=== PATIENT | female | born 1935 | race Caucasian/White ===

== ENCOUNTER 2019-05-18 08:03 | Outpatient (RCR) | payer MEDICARE, BC, SELFPAY ==
[2019-02-21 13:04] LABS: INR 2.5; Prothrombin Time 26.1 Seconds (11.1-14.7)
[2019-03-21 10:41] LABS: INR 2.3
[2019-04-19 14:50] LABS: INR 2.6
[2019-05-18 08:28] LABS: INR 2.8; Prothrombin Time 28.7 Seconds (11.1-14.7)
== END 2019-05-22 23:59 | disposition home or self-care (01) ==
LOC: ANHLAB 08:03
PROVIDERS: PCP Internal Medicine; Visit Provider Specialist
DX: Z51.81 Encounter for therapeutic drug level monitoring (principal); I48.20 Chronic atrial fibrillation, unspecified; Z79.01 Long term (current) use of anticoagulants
CPT/HCPCS: 36415; 85610

== ENCOUNTER 2019-06-01 01:32 | Day surgery (SDC) | payer MEDICARE, BC, SELFPAY ==
[2019-05-29 12:25] VITALS: BMI 25.0
[2019-06-01 07:25] VITALS: BMI 24.0
[2019-06-01 07:27] VITALS: BP 183/93; PULSE 76; RESP 18; TEMP 36.1; O2SAT 100
[2019-06-01] MEDS: LACTATED RINGERS 1,000 ML 150 ML IV CONT (07:34)
--- NOTE | 2019-06-01 07:43 | WPDANESEPPF ---
Anes - Initial Pre Proc Eval Procedure: Operation Date: 06/01/19 08:00 Proposed Procedures p Esophagogastroduodenoscopy & Colonoscopy - Davis Lima MD Date/Time: 06/01/19 07:43 Surgeon: Davis Lima MD Pre Op Diagnosis: Blood In Stool Patient Data Age: 84 Gender: F Height: 5 ft 4 in Weight: 63.5 kg Last Vital Signs Temp 97.0 F L 06/01/19 07:27 Pulse 76 06/01/19 07:27 Resp 18 06/01/19 07:27 BP 183/93 H 06/01/19 07:27 Pulse Ox 100 06/01/19 07:27 Allergies Allergy/AdvReac Type Severity Reaction Status Date / Time Sulfa (Sulfonamide Allergy Mild Rash Verified 06/01/19 07:06 Antibiotics) Home Medications Medication Instructions Recorded Confirmed Type biotin 5 mg capsule 10 mg PO DAILY 03/21/19 06/01/19 History bumetanide 1 mg tablet 1 mg PO QAM 03/21/19 06/01/19 History fenofibrate nanocrystallized 48 mg 48 mg PO QAM 03/21/19 06/01/19 History tablet metoprolol tartrate 50 mg tablet 50 mg PO HS 03/21/19 06/01/19 History omeprazole 20 mg capsule,delayed 20 mg PO BID 03/21/19 06/01/19 History release pravastatin 10 mg tablet 10 mg PO HS 03/21/19 06/01/19 History warfarin 2.5 mg tablet 2.5 mg PO HS 03/21/19 06/01/19 History valsartan 80 mg PO HS 05/29/19 06/01/19 History Laboratory Tests 06/01/19 07:08 PT Pending INR Pending APTT Pending Patient hx anesthesia problems: none Family hx anesthesia problems: none PMFSH Past Medical History Medical History (Updated 06/01/19 @ 07:43 by Jose Galindo MD) Anticoagulated on Coumadin Atrial fibrillation Bloating Diarrhea Diverticulitis large intestine Hyperlipidemia Hypertension Melena RADHA (obstructive sleep apnea) Pacemaker Social History Social History Smoking status: Never smoker Second hand tobacco smoke exposure: No Smoking end date: 04/12/85 Alcohol intake: current Anes - Eval Final PreProcedure Day of Procedure 06/01/19 07:43 Patient weight: normal Heart: regular rate and rhythm Lungs: clear to auscultation Airway: Mallampati scale class II Neurological: alert and oriented Last oral intake: >/= 8 hours ASA classification: III Emergent: no Anesthetic plan: proceed Anesthesia type and monitoring: general GIVS and standard monitoring Informed Consent: The patient's anesthetic plan and its attendant risks and benefits were discussed with the patient/family/POA. Questions were solicited and answers provided to the satisfaction of the patient/family/POA.
[2019-06-01 08:05] LABS: INR 1.4
[2019-06-01 08:08] LABS: Partial Thromboplastin Time 33.2 SECONDS (22.3-36.8)
--- NOTE | 2019-06-01 08:30 | PM.HPGS ---
History of Present Illness History of Present Illness Consent: Risks, benefits, and alternatives have been discussed and questions answered. Patient agrees to proceed with procedure. Chief complaint: Blood In Stool Narrative: Liza Rasheed is a 84 year old female with dark stools and change in bowel caliber, she is on coumadin (on hold for 5 days), she had scopes about 10 years ago. Review of Systems Constitutional: Constitutional: Denies headache(s) and Denies weakness Eyes: Eyes: Denies blurry vision ENT: Reports Normal hearing present, Denies headache(s) and Denies neck pain Cardiovascular: Cardiovascular: Denies chest pain and Denies dyspnea Respiratory: Respiratory: Denies dyspnea Gastrointestinal: Gastrointestinal: Reports no additional gastrointestinal complaints Genitourinary: Genitourinary: Denies dysuria Musculoskeletal: Musculoskeletal: Denies neck pain Integumentary/Breasts: Skin/Breast: Denies dry skin Neurologic: Reports Normal hearing present, Denies headache(s) and Denies weakness Psychiatric: Psychiatric: Denies anxiety Endocrine: Endocrine: Denies change in body appearance Allergic/Immunologic: Allergic/Immunologic: Denies urticaria [facility] Past Medical History Medical History (Updated 06/01/19 @ 07:43 by Jose Galindo MD) Anticoagulated on Coumadin Atrial fibrillation Bloating Diarrhea Diverticulitis large intestine Hyperlipidemia Hypertension Melena RADHA (obstructive sleep apnea) Pacemaker Social History Social History Smoking status: Never smoker Second hand tobacco smoke exposure: No Smoking end date: 04/12/85 Alcohol intake: current Meds Home Medications and Allergies Home Medications Medication Instructions Recorded Confirmed Type biotin 5 mg capsule 10 mg PO DAILY 03/21/19 06/01/19 History bumetanide 1 mg tablet 1 mg PO QAM 03/21/19 06/01/19 History fenofibrate nanocrystallized 48 mg 48 mg PO QAM 03/21/19 06/01/19 History tablet metoprolol tartrate 50 mg tablet 50 mg PO HS 03/21/19 06/01/19 History omeprazole 20 mg capsule,delayed 20 mg PO BID 03/21/19 06/01/19 History release pravastatin 10 mg tablet 10 mg PO HS 03/21/19 06/01/19 History warfarin 2.5 mg tablet 2.5 mg PO HS 03/21/19 06/01/19 History valsartan 80 mg PO HS 05/29/19 06/01/19 History Allergies Allergy/AdvReac Type Severity Reaction Status Date / Time Sulfa (Sulfonamide Allergy Mild Rash Verified 06/01/19 07:06 Antibiotics) Vital Signs Vital Signs - 24 hr 06/01/19 07:27 Temperature 97.0 F L Pulse Rate 76 Respiratory Rate 18 Blood Pressure 183/93 H Pulse Oximetry 100 Exam Const: General: comfortable and no acute distress HENMT: General nose exam: Normal nares present Eyes: General: appearance normal, both eyes and all related structures Neck: Neck: no JVD Resp: Auscultation: clear to auscultation bilaterally Cardio: Rate: regular rate Rhythm: regular rhythm GI: Inspection: non-distended GI Palp: Yes Soft to palpation Skin: General skin exam: normal color Neuro: General: gait normal Speech: normal speech Extrem: General: normal to inspection Psych: Mental Status: mental status grossly normal Assessment and Plan Assessment and plan (1) Melena: Code(s): K92.1 - Melena Status: Acute Assessment and Plan: will proceed with egd (2) Bloating: Code(s): R14.0 - Abdominal distension (gaseous) Status: Acute (3) Diarrhea: Qualifiers: Diarrhea type: unspecified type Qualified Code(s): R19.7 - Diarrhea, unspecified Code(s): R19.7 - Diarrhea, unspecified Status: Acute Assessment and Plan: colonoscopy (4) Atrial fibrillation: Qualifiers: Atrial fibrillation type: unspecified Qualified Code(s): I48.91 - Unspecified atrial fibrillation Code(s): I48.91 - Unspecified atrial fibrillation Status:
[2019-06-01 09:05] VITALS: BP 109/61; PULSE 77; RESP 18; O2SAT 96
[2019-06-01 09:15] VITALS: BP 115/65; PULSE 70; RESP 16; O2SAT 98
[2019-06-01 09:25] VITALS: BP 137/78; PULSE 70; RESP 21; O2SAT 100
== END 2019-06-01 09:38 | disposition home or self-care (01) ==
PROVIDERS: PCP Internal Medicine; Visit Provider Internal Medicine Gastroenterology
PROC: 0DJ08ZZ Inspection of Upper Intestinal Tract, Via Natural or Artificial Opening Endoscopic (ICD-10-PCS; CPT 43235; principal; 2019-06-01 08:00)
DX: K92.1 Melena (principal); R19.4 Change in bowel habit; K63.5 Polyp of colon; K57.30 Diverticulosis of large intestine without perforation or abscess without bleeding; K64.8 Other hemorrhoids; K62.89 Other specified diseases of anus and rectum; K64.4 Residual hemorrhoidal skin tags; K29.50 Unspecified chronic gastritis without bleeding; I48.91 Unspecified atrial fibrillation; I10 Essential (primary) hypertension; E78.5 Hyperlipidemia, unspecified; G47.33 Obstructive sleep apnea (adult) (pediatric); Z95.0 Presence of cardiac pacemaker; Z79.01 Long term (current) use of anticoagulants
CPT/HCPCS: 45380; 43239; 36415; 85610; 85730; 88305; 88342; J2704; J7120

== ENCOUNTER 2019-08-14 07:25 | Outpatient (RCR) | payer MEDICARE, BC, SELFPAY ==
[2019-06-08 09:09] LABS: INR 1.3; Prothrombin Time 15.9 Seconds (11.1-14.7)
[2019-06-15 07:42] LABS: INR 1.7; Prothrombin Time 19.6 Seconds (11.1-14.7)
[2019-06-26 08:55] LABS: INR 2.3; Prothrombin Time 24.7 Seconds (11.1-14.7)
[2019-07-18 08:54] LABS: Prothrombin Time 21.8 Seconds (11.1-14.7)
[2019-08-14 08:10] LABS: Prothrombin Time 22.4 Seconds (11.1-14.7)
== END 2019-09-06 23:59 | disposition home or self-care (01) ==
LOC: ANHLAB 07:25
PROVIDERS: PCP Internal Medicine; Visit Provider Specialist
DX: Z51.81 Encounter for therapeutic drug level monitoring (principal); I48.20 Chronic atrial fibrillation, unspecified; Z79.01 Long term (current) use of anticoagulants
CPT/HCPCS: 36415; 85610

== ENCOUNTER 2019-11-14 15:00 | Outpatient (CLI) | payer MEDICARE, BC, SELFPAY ==
[2019-11-14 15:26] LABS: Hematocrit 40.2 % (37.0-47.0); Hemoglobin 13.2 g/dL (12.0-15.0); Mean Corpuscular HGB Conc 32.8 g/dl (32-36); Mean Corpuscular Volume 88.4 fl (80-100); Mean Platelet Volume 9.8 fl (7.4-10.4); Platelet Count Result 200 k/mm3 (150-375); Red Blood Count 4.55 M/mm3 (4.2-5.4)
[2019-11-14 15:38] LABS: Alanine Aminotransferase 14 U/L (4-35); Albumin Level 4.3 g/dL (3.5-5.1); Alkaline Phosphatase 39 U/L (38-126); Anion Gap 12.7 mmol/L (7-16); Aspartate Amino Transferase 27 U/L (14-36); Bilirubin,Total 1.2 mg/dL (0.2-1.3); Blood Urea Nitrogen 26 mg/dL (7-17); Calcium 10.2 mg/dL (8.4-10.2); Carbon Dioxide 29 mmol/L (22-30); Chloride 100 mmol/L (98-107); Cholesterol 171 mg/dL (0-200); Estimated Glomerular Filt Rate 36; Glucose 90 mg/dL (65-105); HDL Direct 55 mg/dL; Potassium 3.7 mmol/L (3.4-5.0); Sodium 138 mmol/L (137-145); Triglycerides 87 mg/dL (<150)
[2019-11-14 15:49] LABS: LDL Cholesterol Direct 93 mg/dL
[2019-11-14 16:09] LABS: Thyroid Stimulating Hormone 0.134 uIU/mL (0.465-4.680)
[2019-11-14 16:50] LABS: Folic Acid > 20.0 ng/mL (2.76->20)
== END 2019-11-14 15:01 | disposition home or self-care (01) ==
PROVIDERS: PCP Physician Assistant; Visit Provider Physician Assistant
DX: E78.5 Hyperlipidemia, unspecified (principal); R53.83 Other fatigue
CPT/HCPCS: 36415; 80053; 80061; 82607; 82746; 84443; 85027

== ENCOUNTER 2019-12-04 11:11 | Outpatient (RCR) | payer MEDICARE, BC, SELFPAY ==
[2019-09-12 07:57] LABS: INR 1.9; Prothrombin Time 21.6 Seconds (11.1-14.7)
[2019-10-10 08:08] LABS: Prothrombin Time 22.3 Seconds (11.1-14.7)
[2019-11-06 10:56] LABS: INR 2.2; Prothrombin Time 23.9 Seconds (11.1-14.7)
[2019-12-04 12:03] LABS: INR 2.1; Prothrombin Time 23.3 Seconds (11.1-14.7)
== END 2019-12-11 23:59 | disposition home or self-care (01) ==
LOC: ANHLAB 11:11
PROVIDERS: PCP Internal Medicine; Visit Provider Specialist
DX: Z51.81 Encounter for therapeutic drug level monitoring (principal); I48.20 Chronic atrial fibrillation, unspecified; Z79.01 Long term (current) use of anticoagulants
CPT/HCPCS: 36415; 85610

== ENCOUNTER 2020-01-10 14:50 | Outpatient (CLI) | payer MEDICARE, BC, SELFPAY ==
--- NOTE | ~2020-01-10 | DEXA_ITS ---
Bone Density Report Name: Liza Rasheed Age: 84 Sex: Female Ethnicity: White Date of : 1935 Indication: postmenopausal osteoporosis; monitoring treatment; height loss; prior fracture; Referring Provider: Kate Ortze Study: Bone densitometry was performed. Exam Date: January 10, 2020 Accession number: [id number] Bone Density: Region BMD T-score Z-score Classification AP Spine (L3, L4) 0.781 -2.9 0.1 Osteoporosis Femoral Neck (Left) 0.495 -3.2 -0.7 Osteoporosis Total Hip (Left) 0.653 -2.4 -0.1 Osteopenia Total Hip Bilateral Avg 0.641 -2.5 -0.2 Osteoporosis Femoral Neck (Right) 0.514 -3.0 -0.5 Osteoporosis Total Hip (Right) 0.628 -2.6 -0.3 Osteoporosis World Health Organization criteria for BMD impression classify patients as: Normal (T-score at or above -1.0), Osteopenia (T-score between -1.0 and -2.5), or Osteoporosis (T-score at or below -2.5). Previous Exams: Region Exam Age BMD T-score BMD Change BMD Change Date g/cm2 vs Baseline vs Previous AP Spine(L3, L4) 01/10/2020 84 0.781 -2.9 -0.043(-5.2%)* 0.033(4.4%)* 06/08/2017 82 0.748 -3.2 -0.076(-9.2%)* -0.076(-9.2%)* 05/20/2015 80 0.824 -2.5 Total Hip(Left) 01/10/2020 84 0.653 -2.4 -0.033(-4.8%)* 0.015(2.4%) 06/08/2017 82 0.638 -2.5 -0.048(-7.0%)* -0.048(-7.0%)* 05/20/2015 80 0.686 -2.1 Total Hip(Right) 01/10/2020 84 0.628 -2.6 -0.014(-2.2%) -0.006(-0.9%) 06/08/2017 82 0.634 -2.5 -0.009(-1.3%) -0.009(-1.3%) 05/20/2015 80 0.642 -2.5 *Denotes significance at 95% confidence level, LSC for AP Spine = 0.022 g/cm2, LSC for Total Hip = 0.027 g/cm2 Clinical Information Provided by Patient: Have had a previous hip or vertebral fracture Has had a low trauma fracture Is being treated for osteoporosis Has used the following medications: Fosamax (i.e. alendronate), Vitamin D Patient maximum height was 66 Menopause Age: 42 No regular weight bearing exercise Onset of menses at age 14 Number of children 6 Impression: The patient has established osteoporosis, based on the Left Femoral Neck T-score and the existence of a prior fracture. The patient has risk factors, including: previous fracture. No significant bone loss was observed. Discussion: PATIENT UNDER TREATMENT WITH NO SIGNIFICANT BMD LOSS SINCE LAST EXAM. In an untreated patient, BMD typically declines with age. A lack of decline or gain is usually a sign that treatment is efficacious and fracture risk is reduced. It is important to ask patients whether they are taking their medications and to encourage continued and appropriate compl
--- NOTE | ~2020-01-10 | US_ITS ---
EXAMINATION: US thyroid DATE: 01/10/2020 15:52 INDICATION: Nontoxic multinodular goiter. TECHNIQUE: Multiple ultrasound images of the thyroid were obtained. COMPARISON: Ultrasound 09/24/2017, 06/23/2013 FINDINGS: The right thyroid lobe measures 2.9 x 1.8 x 1.6 cm. The left thyroid lobe measures 4.0 x 1.8 x 1.5 c m. In the right thyroid isthmus, there is a 1.8 cm solid, hyperechoic, pefef-jpox-tdhm nodule with s mooth margin without echogenic foci (TI-RADS TR3) that measured 1.3 cm on 06/23/2013 and 1.7 cm on 09/10 08/27. In the right thyroid isthmus, there is a 3.3 cm solid, hypoechoic, atcng-ogbz-tjxo nodule with lobulated margin and microcalcifications (TR5). This nodule is stable from 10/29/2017 when biopsy was consistent with benign follicular nodule. In the left thyroid lobe, there is a 1.1 cm solid, hypoecho ic, thcrt-pdgf-skwh nodule with lobulated margin without echogenic foci (TR4). This nodule is stable from 08/22/2013 when biopsy was consistent with benign follicular nodule. IMPRESSION: 1. Multinodular goiter, likely benign. Reviewed, dictated and finalized at location A.
== END 2020-01-10 14:51 | disposition home or self-care (01) ==
PROVIDERS: PCP Physician Assistant; Visit Provider Internal Medicine Endocrinology, Diabetes & Metabolism
DX: M81.0 Age-related osteoporosis without current pathological fracture (principal); E04.2 Nontoxic multinodular goiter
CPT/HCPCS: 76536; 77080

== ENCOUNTER 2020-02-16 13:12 | Outpatient (CLI) | payer MEDICARE, BC, SELFPAY ==
[2020-02-16 14:20] LABS: Thyroid Stimulating Hormone 0.116 uIU/mL (0.465-4.680)
[2020-02-16 15:01] LABS: Free T4 Free Thyroxine 1.93 ng/mL (0.78-2.19)
== END 2020-02-16 13:13 | disposition home or self-care (01) ==
LOC: ANHLAB 13:16
PROVIDERS: PCP Physician Assistant; Visit Provider Internal Medicine Endocrinology, Diabetes & Metabolism
DX: E05.90 Thyrotoxicosis, unspecified without thyrotoxic crisis or storm (principal)
CPT/HCPCS: 36415; 84439; 84443

== ENCOUNTER 2020-03-11 15:18 | Outpatient (RCR) | payer MEDICARE, BC, SELFPAY ==
[2020-01-29 12:55] LABS: INR 2.9
[2020-02-28 16:15] LABS: INR 1.6; Prothrombin Time 19.6 Seconds (11.1-14.7)
[2020-03-11 16:59] LABS: INR 1.9; Prothrombin Time 22.5 Seconds (11.1-14.7)
== END 2020-04-01 23:59 | disposition home or self-care (01) ==
LOC: ANHLAB 15:18
PROVIDERS: PCP Physician Assistant; Visit Provider Specialist
DX: Z51.81 Encounter for therapeutic drug level monitoring (principal); I48.20 Chronic atrial fibrillation, unspecified; Z79.01 Long term (current) use of anticoagulants
CPT/HCPCS: 36415; 85610

== ENCOUNTER 2020-04-01 14:50 | Outpatient (CLI) | payer MEDICARE, BC, SELFPAY ==
[2020-04-01 16:17] LABS: Total Triiodothyronine (T3) 0.92 NG/ML (0.97-1.69)
[2020-04-01 18:48] LABS: Free T4 Free Thyroxine 1.15 ng/mL (0.78-2.19); Vitamin D 25 Hydroxy 68.7 ng/mL
== END 2020-04-01 14:51 | disposition home or self-care (01) ==
PROVIDERS: PCP Internal Medicine; Visit Provider Internal Medicine Endocrinology, Diabetes & Metabolism
DX: M81.0 Age-related osteoporosis without current pathological fracture (principal); E04.1 Nontoxic single thyroid nodule; E05.90 Thyrotoxicosis, unspecified without thyrotoxic crisis or storm
CPT/HCPCS: 36415; 82306; 84439; 84443; 84480

== ENCOUNTER 2020-04-24 11:45 | Outpatient (CLI) | payer MEDICARE, BC, SELFPAY ==
[2020-04-24 12:38] LABS: Hematocrit 37.7 % (37.0-47.0); Hemoglobin 12.5 g/dL (12.0-15.0); Mean Corpuscular HGB Conc 33.2 g/dl (32-36); Mean Corpuscular Hemoglobin 29.1 pg (26-34); Mean Corpuscular Volume 87.9 fl (80-100); Mean Platelet Volume 10.3 fl (7.4-10.4); Platelet Count Result 171 k/mm3 (150-375); Red Blood Count 4.29 M/mm3 (4.2-5.4); Red Cell Distribution Width 15.4 % (11.5-14.5)
[2020-04-24 12:51] LABS: Alanine Aminotransferase 15 U/L (4-35); Albumin Level 4.2 g/dL (3.5-5.1); Alkaline Phosphatase 88 U/L (38-126); Anion Gap 6 mmol/L (8-16); Aspartate Amino Transferase 31 U/L (14-36); Bilirubin,Total 1.2 mg/dL (0.2-1.3); Blood Urea Nitrogen 24 mg/dL (7-17); Carbon Dioxide 30 mmol/L (22-30); Chloride 102 mmol/L (98-107); Cholesterol 166 mg/dL (0-200); Estimated Glomerular Filt Rate 43; Glucose 98 mg/dL (65-105); HDL Direct 58 mg/dL; Potassium 3.6 mmol/L (3.4-5.0); Sodium 138 mmol/L (137-145); Triglycerides 99 mg/dL (<150)
[2020-04-24 13:02] LABS: LDL Cholesterol Direct 78 mg/dL
[2020-04-24 13:58] LABS: Folic Acid > 20.0 ng/mL (2.76->20)
== END 2020-04-24 11:46 | disposition home or self-care (01) ==
LOC: ANHLAB 11:47
PROVIDERS: PCP Physician Assistant; Visit Provider Physician Assistant
DX: R53.83 Other fatigue (principal); E78.5 Hyperlipidemia, unspecified
CPT/HCPCS: 36415; 80053; 80061; 82607; 82746; 85027

== ENCOUNTER 2020-07-02 14:37 | Outpatient (RCR) | payer MEDICARE, BC, SELFPAY ==
[2020-04-08 15:36] LABS: INR 2.2; Prothrombin Time 25.3 Seconds (11.1-14.7)
[2020-05-06 14:27] LABS: Prothrombin Time 23.1 Seconds (11.1-14.7)
[2020-06-04 13:31] LABS: INR 2.6; Prothrombin Time 28.6 Seconds (11.1-14.7)
[2020-07-02 15:33] LABS: INR 2.3; Prothrombin Time 25.6 Seconds (11.1-14.7)
== END 2020-07-07 23:59 | disposition home or self-care (01) ==
LOC: ANHLAB 14:37
PROVIDERS: PCP Internal Medicine; Visit Provider Specialist
DX: Z51.81 Encounter for therapeutic drug level monitoring (principal); I48.91 Unspecified atrial fibrillation; Z79.01 Long term (current) use of anticoagulants
CPT/HCPCS: 36415; 85610

== ENCOUNTER 2020-07-22 13:33 | Outpatient (CLI) | payer MEDICARE, BC, SELFPAY ==
[2020-07-22 16:48] LABS: Free T4 Free Thyroxine 0.32 ng/mL (0.78-2.19); Vitamin D 25 Hydroxy 69.5 ng/mL
[2020-07-22 16:52] LABS: Total Triiodothyronine (T3) 0.99 NG/ML (0.97-1.69)
[2020-07-22 17:08] LABS: Thyroid Stimulating Hormone > 100.000 uIU/mL (0.465-4.680)
== END 2020-07-22 13:34 | disposition home or self-care (01) ==
LOC: ANHWCLAB 13:38
PROVIDERS: PCP Physician Assistant; Visit Provider Internal Medicine Endocrinology, Diabetes & Metabolism
DX: E04.1 Nontoxic single thyroid nodule (principal); E05.90 Thyrotoxicosis, unspecified without thyrotoxic crisis or storm; M81.0 Age-related osteoporosis without current pathological fracture
CPT/HCPCS: 36415; 82306; 84439; 84443; 84480

== ENCOUNTER 2020-08-26 07:28 | Outpatient (CLI) | payer MEDICARE, BC, SELFPAY ==
[2020-08-26 09:13] LABS: Total Triiodothyronine (T3) 0.83 NG/ML (0.97-1.69)
[2020-08-26 11:59] LABS: Free T4 Free Thyroxine 2.63 ng/mL (0.78-2.19)
== END 2020-08-26 07:29 | disposition home or self-care (01) ==
PROVIDERS: PCP Physician Assistant; Visit Provider Internal Medicine Endocrinology, Diabetes & Metabolism
DX: E03.9 Hypothyroidism, unspecified (principal)
CPT/HCPCS: 36415; 84439; 84443; 84480

== ENCOUNTER 2020-09-23 15:27 | Outpatient (CLI) | payer MEDICARE, BC, SELFPAY ==
[2020-09-23 16:33] LABS: Total Triiodothyronine (T3) 0.83 NG/ML (0.97-1.69)
[2020-09-23 17:02] LABS: Free T4 Free Thyroxine 2.63 ng/mL (0.78-2.19)
== END 2020-09-23 15:28 | disposition home or self-care (01) ==
PROVIDERS: PCP Physician Assistant; Visit Provider Internal Medicine Endocrinology, Diabetes & Metabolism
DX: E03.9 Hypothyroidism, unspecified (principal)
CPT/HCPCS: 36415; 84439; 84443; 84480

== ENCOUNTER 2020-10-23 12:03 | Outpatient (RCR) | payer MEDICARE, BC, SELFPAY ==
[2020-07-29 15:04] LABS: INR 2.1; Prothrombin Time 24.4 Seconds (11.1-14.7)
[2020-08-26 08:29] LABS: INR 2.4; Prothrombin Time 26.6 Seconds (11.1-14.7)
[2020-09-23 16:07] LABS: INR 2.8; Prothrombin Time 29.8 Seconds (11.1-14.7)
[2020-10-23 12:42] LABS: Prothrombin Time 29.9 Seconds (11.1-14.7)
== END 2020-10-27 23:59 | disposition home or self-care (01) ==
LOC: ANHLAB 12:03
PROVIDERS: PCP Physician Assistant; Visit Provider Specialist
DX: Z51.81 Encounter for therapeutic drug level monitoring (principal); I48.91 Unspecified atrial fibrillation; Z79.01 Long term (current) use of anticoagulants
CPT/HCPCS: 36415; 84439; 84443; 84480; 85610

== ENCOUNTER 2020-12-25 07:55 | Outpatient (CLI) | payer MEDICARE, SELFPAY ==
--- NOTE | 2020-12-28 22:07 | WPDSLEEPSTUD ---
Sleep Study Date of Study: 12/25/20 Ordering Provider: Thien Wallace PA-C Interpreting Physician: Adriana Urban MD Sleep Study Type: Split Polysomnogram Height: 1.65 m Weight: 72.91 kg Body Mass Index: 26.7 Neck Circumference (inches): 14 Hoffman: 0 Reason for Sleep Study Not sleeping well at night, feeling tired in the day Sleep History Liza Rasheed is an 85 year old female who has complaints of sleeping poorly at night and feeling tired during the day. She previously wore CPAP. She occasionally awakens from sleep feeling short of breath. She does not awaken at night with heartburn, belching or coughing. She rarely snores but when she does it is very loud. Others complain about it. She rarely has trouble sleeping with a cold. She constantly gasps for breath during the night. She rarely has breathing problems at night observed by others. She constantly sweats excessively at night. She rarely notices her heart pounding or beating irregularly at night. She does not fall asleep during the day, does not fall asleep involuntarily and does not fall asleep while driving. She occasionally has loss of muscle tone with strong emotion. She does not have daytime difficulties due to excessive sleepiness. She constantly feels paralyzed on waking or falling asleep. She occasionally has vivid dreamlike scenes upon awakening or falling asleep. She does not feel afraid to go to sleep. She does not have nightmares. She occasionally remembers her dreams. She frequently has racing thoughts. She frequently feels sad or depressed. She constantly has anxiety. She does not have muscular tension, does not notice parts of her body jerking and she does not kick at night. She does not have crawling or aching feelings in her legs, does not have any kind of leg pain at night. She denies morning jaw pain and denies grinding her teeth during sleep. She constantly is bothered by pain during the day. She is not awakened by pain at night. She does not wake up feeling stiff in the morning. She does not wake up with sore achy muscles or pain in the neck and spine. She has fatigue, palpitations and insomnia. Normal bedtime is 8:30 p.m. taking 1/2 hour to fall asleep typically waking once at night. She wakes in the morning at 6:30 a.m.. On the weekends, she goes to bed at 9:00 p.m. also wakes at 6:30 a.m. in the morning. She estimates getting between 4 and 5 hours of sleep at night. She does not take naps in the afternoon or evening. A short nap is not refreshing. She is tired in the morning for 3 hours or longer. Habits: Former smoker. Caffeine 1 cup a day. Alcohol 1 beverage at 4:00 p.m.. [facility] Past Medical History Medical History Anticoagulated on Coumadin Atrial fibrillation Bloating Diarrhea Diverticulitis large intestine Hyperlipidemia Hypertension Melena RADHA (obstructive sleep apnea) Pacemaker SOB (shortness of breath) Thyroid disease Visual loss, both eyes Family History Family History Sibling Patient's brother is in good health Family history of arthritis Mother Patient's mother is Father Cerebrovascular accident Other Family history of heart disease in male family member before age 55 Hypertension Social History Social History Smoking packs per day: 0.5 Smoking cigarettes per day: 10.0 Years smoked: 1 Smoking pack-years: 0.50 Smoking status: Former smoker Tobacco type: cigarettes Second hand tobacco smoke exposure: No Smoking end date: 04/12/85 Alcohol intake: current Substance use: never Spiritual care concerns: No Medications Home Medications Medication Instructions Recorded Confirmed Type biotin 5 mg capsule 10 mg PO DAILY 03/21/19 12/19/20 History bumetanide 1 mg tablet 1 mg PO QA
[2021-01-03 13:57] VITALS: BMI 26.7
== END 2020-12-26 06:49 | disposition home or self-care (01) ==
LOC: ANHCSM 07:56
PROVIDERS: PCP Physician Assistant; Visit Provider Physician Assistant
DX: G47.30 Sleep apnea, unspecified (principal)
CPT/HCPCS: 95811

== ENCOUNTER 2021-02-17 09:51 | Outpatient (CLI) | payer MEDICARE, BC, SELFPAY ==
[2021-02-17 10:54] LABS: Anion Gap 7 mmol/L (8-16); Blood Urea Nitrogen 24 mg/dL (7-17); Calcium 10.5 mg/dL (8.4-10.2); Carbon Dioxide 32 mmol/L (22-30); Chloride 103 mmol/L (98-107); Estimated Glomerular Filt Rate 53; Glucose 93 mg/dL (65-110); Potassium 2.8 mmol/L (3.4-5.0); Sodium 142 mmol/L (137-145)
== END 2021-02-17 09:52 | disposition home or self-care (01) ==
LOC: ANHLAB 09:55
PROVIDERS: PCP Physician Assistant; Visit Provider Physician Assistant
DX: R53.83 Other fatigue (principal)
CPT/HCPCS: 36415; 80048

== ENCOUNTER 2021-02-17 09:58 | Outpatient (RCR) | payer MEDICARE, SELFPAY ==
[2020-11-19 14:22] LABS: Prothrombin Time 30.1 Seconds (11.1-14.7)
[2020-12-18 16:09] LABS: INR 2.5; Prothrombin Time 26.4 Seconds (11.1-14.7)
[2021-01-16 10:24] LABS: INR 3.5; Prothrombin Time 33.7 Seconds (11.1-14.7)
[2021-01-23 08:39] LABS: INR 2.1; Prothrombin Time 23.3 Seconds (11.1-14.7)
[2021-02-17 11:00] LABS: INR 1.8; Prothrombin Time 20.8 Seconds (11.1-14.7)
== END 2021-02-17 23:59 | disposition home or self-care (01) ==
LOC: ANHLAB 09:58
PROVIDERS: PCP Physician Assistant; Visit Provider Specialist
DX: Z51.81 Encounter for therapeutic drug level monitoring (principal); I48.91 Unspecified atrial fibrillation; Z79.01 Long term (current) use of anticoagulants
CPT/HCPCS: 36415; 80048; 85610

== ENCOUNTER 2021-03-04 08:40 | Outpatient (CLI) | payer MEDICARE, BC, SELFPAY ==
[2021-03-04 09:25] LABS: Anion Gap 9 mmol/L (8-16); Blood Urea Nitrogen 47 mg/dL (7-17); Calcium 10.9 mg/dL (8.4-10.2); Carbon Dioxide 29 mmol/L (22-30); Chloride 101 mmol/L (98-107); Estimated Glomerular Filt Rate 29; Glucose 105 mg/dL (65-110); Sodium 139 mmol/L (137-145)
== END 2021-03-04 08:41 | disposition home or self-care (01) ==
PROVIDERS: PCP Physician Assistant; Visit Provider Physician Assistant
DX: E87.6 Hypokalemia (principal)
CPT/HCPCS: 36415; 80048

== ENCOUNTER 2021-03-08 08:39 | Emergency (ER) | payer MEDICARE, BC, SELFPAY ==
--- NOTE | ~2021-03-08 | XR_ITS ---
EXAMINATION: XR ribs LT 2V w CXR 2V INDICATION: Left chest pain TECHNIQUE: PA and lateral views of the chest and 3 views of the left ribs were obtained. COMPARISON: 11/13/2014 FINDINGS: The lungs are free of acute opacities. There is no pleural effusion or pneumothorax. Cardio megaly is noted. A triple lead cardiac pacemaker of the left chest wall ends with leads in expected l ocations. There are acute nondisplaced fractures at the anterolateral aspect of the left seventh and eighth ribs. Chronic thoracic compression fractures are not significantly changed. IMPRESSION: 1. Acute, nondisplaced fractures of the left seventh and eighth ribs. 2. Cardiomegaly. Reviewed, dictated and finalized at location A. [employer] WORK[employer]
[2021-03-08 08:49] VITALS: BP 168/98; PULSE 75; RESP 18; O2SAT 99
[2021-03-08] MEDS: MORPHINE SULFATE (*CRX) 2 MG/ML INJ IV PUSH (09:37)
[2021-03-08 09:38] LABS: Basophils Percent Auto 0.3 % (0.2-1.2); Eosinophils Absolute Auto 0.2 K/mm3 (0-0.3); Eosinophils Percent Auto 2.1 % (0-4.4); Hematocrit 38.8 % (37.0-47.0); Hemoglobin 12.3 g/dL (12.0-15.0); Immature Granulocyte Absolute 0.04 K/mm3 (0.00-0.031); Immature Granulocyte Percent A 0.5 % (0-0.5); Lymphocytes Percent Auto 15.5 % (18.3-44.2); Mean Corpuscular HGB Conc 31.7 g/dl (32-36); Mean Corpuscular Hemoglobin 26.7 pg (26-34); Mean Corpuscular Volume 84.3 fl (80-100); Mean Platelet Volume 11.1 fl (7.4-10.4); Monocytes Absolute Auto 0.8 K/mm3 (0.1-0.6); Monocytes Percent Auto 10.9 % (2.6-8.5); Neutrophils Absolute Auto 5.5 K/mm3 (1.3-6.7); Neutrophils Percent Auto 70.7 % (45.5-73.1); Platelet Count Result 201 k/mm3 (150-375); Red Cell Distribution Width 16.9 % (11.5-14.5); White Blood Count 7.7 K/mm3 (4.5-10.0)
[2021-03-08 09:49] LABS: INR 3.6; Prothrombin Time 34.6 Seconds (11.1-14.7)
[2021-03-08 09:53] LABS: Alanine Aminotransferase 22 U/L (4-35); Albumin Level 4.4 g/dL (3.5-5.1); Alkaline Phosphatase 79 U/L (38-126); Anion Gap 9 mmol/L (8-16); Aspartate Amino Transferase 46 U/L (14-36); Bilirubin,Total 1.3 mg/dL (0.2-1.3); Blood Urea Nitrogen 49 mg/dL (7-17); Calcium 10.1 mg/dL (8.4-10.2); Carbon Dioxide 24 mmol/L (22-30); Chloride 102 mmol/L (98-107); Estimated CRCL calculation 23 ml/min; Estimated Glomerular Filt Rate 36; Glucose 117 mg/dL (65-110); Lipase 262 U/L (23-300); Potassium 4.7 mmol/L (3.4-5.0); Sodium 135 mmol/L (137-145)
[2021-03-08 10:37] LABS: Add Urine Microscopic? NO; Appearance Urine Clear (Clear); Bilirubin Urine Negative (Negative); Blood Urine Negative (Negative); Color Urine Yellow (Yellow); Glucose Urine UA Negative (Negative); Ketones Urine Negative (Negative); Leukocyte Esterase Ur Negative LEU/UL (Negative); Nitrate Urine Negative (Negative); Protein Urine Negative (Negative); Specific Grav Ur 1.009 (1.001-1.035); Urobilinogen Urine Negative mg/dL (<2.0)
--- NOTE | 2021-03-08 10:48 | ED.GENADULT ---
HPI - General Adult General Chief complaint: Abdominal Pain Stated complaint: left flank pain Time Seen by Provider: 03/08/21 08:51 History of Present Illness HPI narrative: Patient is an 85-year-old female who presents to the ER with left-sided flank pain. Ongoing for a week. Worse with physical movements and bending and twisting. No difficulty breathing. Initially denied any trauma but does think she hit her side on a table at some point in the last week or 2 but was not concerned about it. No bruising. She is on a blood thinner. She also takes a diuretic. No fevers or chills or sweats. No productive cough. Related Data Home Medications Medication Instructions Recorded Confirmed bumetanide 1 mg tablet 2 mg PO BID tablet 02/24/21 cholecalciferol (vitamin D3) 25 mcg PO DAILY 02/24/21 02/24/21 [Vitamin D3] fenofibrate nanocrystallized 48 mg PO DAILY 02/24/21 02/24/21 irbesartan 75 mg PO DAILY 02/24/21 02/24/21 levothyroxine 50 mcg PO DAILY 02/24/21 02/24/21 levothyroxine 75 mcg PO DAILY 02/24/21 02/24/21 methimazole 5 mg PO DAILY 02/24/21 02/24/21 metoprolol succinate 50 mg PO DAILY 02/24/21 02/24/21 multivitamin-calcium carb-iron 1 tablet PO DAILY 02/24/21 02/24/21 [Nature's Bounty 1] omeprazole 20 mg PO DAILY 02/24/21 02/24/21 pravastatin 10 mg PO DAILY 02/24/21 02/24/21 valsartan 80 mg PO DAILY 02/24/21 02/24/21 warfarin 7.5 mg PO DAILY 02/24/21 02/24/21 Allergies Allergy/AdvReac Type Severity Reaction Status Date / Time Sulfa (Sulfonamide Allergy Mild Rash Verified 02/24/21 11:40 Antibiotics) Review of Systems Review of Systems: All systems reviewed & are unremarkable except as noted in HPI and below Constitutional: Constitutional: Denies chills, Denies fever(s) and Denies weakness Cardiovascular: Cardiovascular: Denies chest pain, Denies rapid heart rate and Denies radiating jaw, neck or arm pain Respiratory: Respiratory: Denies cough, Denies dyspnea and Denies wheezing Gastrointestinal: Gastrointestinal: Denies abdominal pain, Denies nausea and Denies vomiting Genitourinary: Genitourinary: Denies hematuria, Denies nocturia, Denies dysuria and Reports flank pain Musculoskeletal: Musculoskeletal: Denies back pain, Denies arthralgias, Denies joint swelling and Denies muscle cramps PMF Past Medical History Medical History (Updated 03/08/21 @ 10:55 by Michael Salinas MD) Anticoagulated on Coumadin Atrial fibrillation Bloating Diarrhea Diverticulitis large intestine Hyperlipidemia Hypertension Melena RADHA (obstructive sleep apnea) SOB (shortness of breath) Thyroid disease Visual loss, both eyes Surgical History Surgical History (Updated 03/08/21 @ 10:52 by Michael Salinas MD) Pacemaker Family History Family History Sibling Patient's brother is in good health Family history of arthritis Mother Patient's mother is Father Cerebrovascular accident Other Family history of heart disease in male family member before age 55 Hypertension Social History Social History Smoking packs per day: 0.5 Smoking cigarettes per day: 10.0 Years smoked: 1 Smoking pack-years: 0.50 Smoking status: Former smoker Tobacco type: cigarettes Second hand tobacco smoke exposure: No Smoking end date: 04/12/85 Alcohol intake: current Substance use: never Spiritual care concerns: No Exam Narrative: GENERAL: Well-appearing, well-nourished, and in no acute distress. HEAD: Normocephalic, atraumatic. CHEST: Clear to auscultation. No respiratory distress. TTP left lower chest wall midaxillary line, no brusing/crepitus. HEART: Regular rate and rhythm. Normal peripheral pulses. ABDOMEN: Soft, nontender, nondistended. EXTREMITIES: Normal range of motion. No edema. SKIN: Warm, dry, no rash. NEURO: Alert and oriented x3. PSYCH:
[2021-03-08 11:19] VITALS: BP 159/76; PULSE 78; RESP 16; O2SAT 96
== END 2021-03-08 11:19 | disposition home or self-care (01) ==
PROVIDERS: Emergency Provider Emergency Medicine; PCP Physician Assistant
DX: S22.42XA Multiple fractures of ribs, left side, initial encounter for closed fracture (principal); Z79.01 Long term (current) use of anticoagulants; E78.5 Hyperlipidemia, unspecified; I10 Essential (primary) hypertension; G47.33 Obstructive sleep apnea (adult) (pediatric); E07.9 Disorder of thyroid, unspecified; Z95.0 Presence of cardiac pacemaker; I48.91 Unspecified atrial fibrillation; I51.7 Cardiomegaly; W22.03XA Walked into furniture, initial encounter
CPT/HCPCS: 36415; 71046; 71100; 80053; 81003; 83690; 85025; 85610; 96374; 99284; J2270

== ENCOUNTER 2021-03-12 14:28 | Outpatient (CLI) | payer MEDICARE, BC, SELFPAY ==
--- NOTE | ~2021-03-12 | XR_ITS ---
EXAMINATION: XR hip LT min 3V w AP pelvis EXAM DATE: 03/12/2021 15:23 INDICATION: M25.552 - Pain in left hip. TECHNIQUE: Left hip frontal, crosstable lateral and 'frog-leg' projections for interpretation. Fronta l projection pelvis. Comparison is made to prior examination from 08/15/2012. FINDINGS: Smooth left hip femoral head contour, no radiographic evidence of avascular necrosis. Ther e is mild to moderate symmetric bilateral hip primary osteoarthritis. There is rather coarse trabecu lar pattern to the left acetabulum, probable Paget's disease. There are no acute fractures identified . Calcifications in the pelvis are believed to be phleboliths. IMPRESSION: 1. 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 2. Mild to moderate bilateral hip osteoarthritis. Reviewed, dictated and finalized at location A. [employer] ME[employer]IC
== END 2021-03-12 14:29 | disposition home or self-care (01) ==
LOC: ANHIMG 14:31
PROVIDERS: PCP Physician Assistant; Visit Provider Physician Assistant
DX: M16.0 Bilateral primary osteoarthritis of hip (principal)
CPT/HCPCS: 73502

== ENCOUNTER 2021-05-06 07:26 | Outpatient (CLI) | payer MEDICARE, BC, SELFPAY ==
[2021-05-06 09:11] LABS: Free T4 Free Thyroxine 3.05 ng/mL (0.78-2.19)
[2021-05-06 09:15] LABS: Anion Gap 10 mmol/L (8-16); Blood Urea Nitrogen 25 mg/dL (7-17); Calcium 9.8 mg/dL (8.4-10.2); Carbon Dioxide 23 mmol/L (22-30); Chloride 106 mmol/L (98-107); Estimated Glomerular Filt Rate 43; Glucose 108 mg/dL (65-110); Potassium 3.7 mmol/L (3.4-5.0); Sodium 139 mmol/L (137-145)
[2021-05-06 09:40] LABS: Thyroid Stimulating Hormone < 0.015 uIU/mL (0.465-4.680); Total Triiodothyronine (T3) 0.79 NG/ML (0.97-1.69)
== END 2021-05-06 07:27 | disposition home or self-care (01) ==
PROVIDERS: PCP Physician Assistant; Visit Provider Physician Assistant
DX: E87.6 Hypokalemia (principal); E03.9 Hypothyroidism, unspecified
CPT/HCPCS: 36415; 80048; 84439; 84443; 84480

== ENCOUNTER 2021-05-29 13:55 | Outpatient (CLI) | payer MEDICARE, BC, SELFPAY ==
[2021-05-29 17:48] LABS: Toxigenic C. Diff NEGATIVE (NEGATIVE)
== END 2021-05-29 13:56 | disposition home or self-care (01) ==
PROVIDERS: PCP Physician Assistant; Visit Provider Physician Assistant
DX: R19.7 Diarrhea, unspecified (principal)
CPT/HCPCS: 87045; 87177; 87209; 87427; 87493

== ENCOUNTER 2021-06-12 14:40 | Outpatient (RCR) | payer MEDICARE, BC, SELFPAY ==
[2021-03-25 08:55] LABS: INR 3.8; Prothrombin Time 36.3 Seconds (11.1-14.7)
[2021-04-08 07:40] LABS: INR 2.2; Prothrombin Time 23.6 Seconds (11.1-14.7)
[2021-05-06 08:13] LABS: INR 3.1; Prothrombin Time 30.8 Seconds (11.1-14.7)
[2021-06-04 09:11] LABS: INR 3.8; Prothrombin Time 36.4 Seconds (11.1-14.7)
[2021-06-12 15:01] LABS: INR 2.4; Prothrombin Time 25.2 Seconds (11.1-14.7)
== END 2021-06-23 23:59 | disposition home or self-care (01) ==
LOC: ANHLAB 14:40
PROVIDERS: PCP Physician Assistant; Visit Provider Specialist
DX: Z51.81 Encounter for therapeutic drug level monitoring (principal); I48.91 Unspecified atrial fibrillation; Z79.01 Long term (current) use of anticoagulants
CPT/HCPCS: 36415; 80048; 84439; 84443; 84480; 85610

== ENCOUNTER 2021-07-11 08:04 | Outpatient (RCR) | payer MEDICARE, BC, SELFPAY ==
[2021-07-11 08:43] LABS: INR 2.6; Prothrombin Time 27.2 Seconds (11.1-14.7)
== END 2021-10-09 23:59 | disposition home or self-care (01) ==
LOC: ANHLAB 08:04
PROVIDERS: PCP Physician Assistant; Visit Provider Specialist
DX: Z51.81 Encounter for therapeutic drug level monitoring (principal); I48.91 Unspecified atrial fibrillation; Z79.01 Long term (current) use of anticoagulants
CPT/HCPCS: 36415; 85610

== ENCOUNTER 2021-09-17 00:59 | Day surgery (SDC) | payer MEDICARE, BC, SELFPAY ==
[2021-09-04 14:33] VITALS: BMI 26.0
[2021-09-17 06:22] VITALS: BP 148/82; PULSE 70; RESP 18; TEMP 36.4; O2SAT 100; BMI 26.6
[2021-09-17] MEDS: LACTATED RINGERS 1,000 ML 150 ML IV CONT (06:49)
--- NOTE | 2021-09-17 07:20 | WPDHPUPDATE1 ---
History and Physical Update Update Date/Time: 09/17/21 07:20 History and Physical has been reviewed, including an updated exam of the patient. There are NO changes in the patient's condition. Risks, benefits, and alternatives have been discussed and questions answered. Patient agrees to proceed with procedure.
--- NOTE | 2021-09-17 07:23 | WPDANESEPPF ---
Anes - Initial Pre Proc Eval Procedure: Operation Date: 09/17/21 07:30 Proposed Procedures p Colonoscopy - Davis Lima MD Date/Time: 09/17/21 07:23 Surgeon: Davis Lima MD Pre Op Diagnosis: diarrhea Patient Data Age: 86 Gender: F Height: 1.65 m Weight: 72.6 kg Last Vital Signs Temp 97.6 F 09/17/21 06:22 Pulse 70 09/17/21 06:22 Resp 18 09/17/21 06:22 BP 148/82 H 09/17/21 06:22 Pulse Ox 100 09/17/21 06:22 O2 Del Method Room Air 09/17/21 06:22 Allergies Allergy/AdvReac Type Severity Reaction Status Date / Time Sulfa (Sulfonamide Allergy Mild Rash Verified 09/17/21 06:31 Antibiotics) Home Medications Medication Instructions Recorded Confirmed Type cholecalciferol (vitamin D3) 25 25 mcg PO DAILY 02/24/21 09/17/21 History mcg (1,000 unit) capsule (Vitamin D3) fenofibrate nanocrystallized 48 mg 48 mg PO DAILY 02/24/21 09/17/21 History tablet metoprolol succinate 50 mg 50 mg PO DAILY 02/24/21 09/17/21 History tablet,extended release 24 hr pravastatin 10 mg tablet 10 mg PO DAILY 02/24/21 09/17/21 History denosumab 60 mg/mL subcutaneous 60 mg subcut [id number] #1 mL 03/14/21 09/17/21 Rx syringe (Prolia) warfarin 2.5 mg tablet 2.5 mg PO DAILY 08/26/21 09/17/21 History sodium sul 1.479 gram-potas ch See Rx Instructions PO PER PKG DIR 08/27/21 09/17/21 Rx 0.188 gram-magnes sul 0.225 gram #24 tabs tablet (Sutab) bumetanide 1 mg tablet 1 tablet PO DAILY 09/04/21 09/17/21 History potassium chloride 20 mEq 20 meq PO DAILY 09/04/21 09/17/21 History tablet,extended release psyllium husk 3.4 gram/5.4 gram 1 tbsp PO DAILY 09/04/21 09/17/21 History oral powder (Metamucil) Patient hx anesthesia problems: none Family hx anesthesia problems: none Results Review: All pre-operative results and documents have been reviewed as part of the pre-operative evaluation. [facility] Past Medical History Medical History (Updated 08/27/21 @ 16:58 by YAEL Spencer) Anticoagulated on Coumadin Atrial fibrillation Bloating Diarrhea Diverticulitis large intestine Hyperlipidemia Hypertension Melena RADHA (obstructive sleep apnea) SOB (shortness of breath) Thyroid disease Visual loss, both eyes Surgical History Surgical History Pacemaker Family History Family History Sibling Patient's brother is in good health Family history of arthritis Mother Patient's mother is Father Cerebrovascular accident Other Family history of heart disease in male family member before age 55 Hypertension Social History Social History Smoking packs per day: 0.5 Smoking cigarettes per day: 10.0 Years smoked: 1 Smoking pack-years: 0.50 Smoking status: Never smoker Tobacco type: cigarettes Second hand tobacco smoke exposure: No Smoking end date: 04/12/85 Alcohol intake: current Drinks per week: 1 Alcohol use details: [place] Substance use: never Substance use type: does not use Living arrangements: alone Spiritual care concerns: No Anes - Eval Final PreProcedure Day of Procedure 09/17/21 07:23 Patient weight: overweight Heart: irregular rhythm Lungs: clear to auscultation Airway: Mallampati scale class II Neurological: alert and oriented Last oral intake: >/= 8 hours ASA classification: III Emergent: no Anesthetic plan: proceed Anesthesia type and monitoring: general GIVS and standard monitoring Results Review: All pre-operative results and documents have been reviewed as part of the pre-operative evaluation. Informed Consent: The patient's anesthetic plan and its attendant risks and benefits were discussed with the patient/family/POA. Questions were solicited and answers provided to t
[2021-09-17 07:46] VITALS: BP 83/53; PULSE 70; RESP 14; O2SAT 94
[2021-09-17 07:56] VITALS: BP 80/50; PULSE 70; RESP 16; O2SAT 93
[2021-09-17 08:06] VITALS: BP 106/62; PULSE 70; RESP 19; O2SAT 94
== END 2021-09-17 08:19 | disposition home or self-care (01) ==
PROVIDERS: PCP Physician Assistant; Visit Provider Internal Medicine Gastroenterology
PROC: 0DJD8ZZ Inspection of Lower Intestinal Tract, Via Natural or Artificial Opening Endoscopic (ICD-10-PCS; CPT 45378; principal; 2021-09-17 07:30)
DX: K52.831 Collagenous colitis (principal); K52.832 Lymphocytic colitis; K57.30 Diverticulosis of large intestine without perforation or abscess without bleeding; D12.5 Benign neoplasm of sigmoid colon; I48.91 Unspecified atrial fibrillation; I10 Essential (primary) hypertension; E78.5 Hyperlipidemia, unspecified; G47.33 Obstructive sleep apnea (adult) (pediatric); E07.9 Disorder of thyroid, unspecified; Z79.01 Long term (current) use of anticoagulants; Z95.0 Presence of cardiac pacemaker; Z87.891 Personal history of nicotine dependence
CPT/HCPCS: 45380; 45385; 88305; J2704; J7120

== ENCOUNTER 2022-05-05 08:10 | Outpatient (RCR) | payer MEDICARE, SELFPAY ==
[2022-04-02 09:06] LABS: INR 2.6; Prothrombin Time 26.8 Seconds (11.1-14.7)
== END 2022-07-01 23:59 | disposition home or self-care (01) ==
LOC: ANHLAB 08:10
PROVIDERS: PCP Physician Assistant; Visit Provider Specialist
DX: Z51.81 Encounter for therapeutic drug level monitoring (principal); I48.91 Unspecified atrial fibrillation; Z79.01 Long term (current) use of anticoagulants
CPT/HCPCS: 36415; 85610

== ENCOUNTER 2022-05-05 08:12 | Outpatient (CLI) | payer MEDICARE, SELFPAY ==
[2022-05-05 09:54] LABS: Basophils Percent Auto 0.2 % (0.2-1.2); Eosinophils Absolute Auto 0.1 K/mm3 (0-0.3); Eosinophils Percent Auto 1.9 % (0-4.4); Hematocrit 38.8 % (37.0-47.0); Hemoglobin 12.3 g/dL (12.0-15.0); Immature Granulocyte Absolute 0.01 K/mm3 (0.00-0.031); Immature Granulocyte Percent A 0.2 % (0-0.5); Lymphocytes Absolute Auto 1.02 K/mm3 (0.9-3.2); Lymphocytes Percent Auto 23.8 % (18.3-44.2); Mean Corpuscular HGB Conc 31.7 g/dl (32-36); Mean Corpuscular Hemoglobin 28.7 pg (26-34); Mean Corpuscular Volume 90.7 fl (80-100); Mean Platelet Volume 10.8 fl (7.4-10.4); Monocytes Absolute Auto 0.4 K/mm3 (0.1-0.6); Monocytes Percent Auto 8.6 % (2.6-8.5); Neutrophils Absolute Auto 2.8 K/mm3 (1.3-6.7); Neutrophils Percent Auto 65.3 % (45.5-73.1); Platelet Count Result 161 k/mm3 (150-375); Red Blood Count 4.28 M/mm3 (4.2-5.4); Red Cell Distribution Width 15.9 % (11.5-14.5); White Blood Count 4.3 K/mm3 (4.5-10.0)
[2022-05-05 10:12] LABS: Alanine Aminotransferase 25 U/L (6-35); Albumin Level 3.9 g/dL (3.5-5.1); Alkaline Phosphatase 59 U/L (38-126); Anion Gap 10 mmol/L (8-16); Aspartate Amino Transferase 34 U/L (14-36); Bilirubin,Total 0.8 mg/dL (0.2-1.3); Blood Urea Nitrogen 57 mg/dL (7-17); Calcium 10.5 mg/dL (8.4-10.2); Carbon Dioxide 19 mmol/L (22-30); Chloride 113 mmol/L (98-107); Cholesterol 141 mg/dL (0-200); Estimated Glomerular Filt Rate 47; Glucose 88 mg/dL (65-110); HDL Direct 57 mg/dL; Potassium 3.7 mmol/L (3.4-5.0); Sodium 142 mmol/L (137-145); Triglycerides 75 mg/dL (<150)
[2022-05-05 10:17] LABS: LDL Cholesterol Direct 48 mg/dL
[2022-05-05 11:14] LABS: Folic Acid 14.2 ng/mL (2.76->20)
[2022-05-05 11:46] LABS: Free T4 Free Thyroxine 1.44 ng/mL (0.78-2.19); Vitamin D 25 Hydroxy 74.5 ng/mL
== END 2022-05-05 08:13 | disposition home or self-care (01) ==
LOC: ANHLAB 08:14
PROVIDERS: PCP Physician Assistant; Visit Provider Physician Assistant
DX: E03.9 Hypothyroidism, unspecified (principal); E78.5 Hyperlipidemia, unspecified; R53.83 Other fatigue; E55.9 Vitamin D deficiency, unspecified
CPT/HCPCS: 36415; 80053; 80061; 82306; 82607; 82746; 84439; 84443; 85025

== ENCOUNTER 2022-11-23 06:16 | Emergency (ER) | payer MEDICARE, BC, SELFPAY ==
--- NOTE | ~2022-11-23 | XR_ITS ---
EXAMINATION: XR chest 1V portable DATE: 11/23/2022 06:56 INDICATION: Fall. TECHNIQUE: A single frontal view of the chest was obtained. COMPARISON: Chest 2 views 03/08/2021 FINDINGS: There is mild atelectasis at left lung base. No pleural effusion or pneumothorax. Cardiomeg jens is noted. There is a left chest pacer with leads in right atrium, right ventricle, and coronary s inus. There are old healed left rib fractures. IMPRESSION: 1. Mild atelectasis at left lung base. 2. Cardiomegaly. Reviewed, dictated and finalized at location A.
--- NOTE | ~2022-11-23 | XR_ITS ---
EXAMINATION: XR lumbar spine 2-3V DATE: 11/23/2022 09:42 INDICATION: Low back pain after fall TECHNIQUE: Anteroposterior and lateral views of the lumbar spine, and cone-down lateral view of the l umbosacral junction were obtained. COMPARISON: 05/03/2015 FINDINGS: There is a chronic burst fracture of L1 without significant change. No acute fracture is id entified. Bone alignment is normal. There is moderate loss of intervertebral disc space height at L5- S1. Moderate to severe facet joint osteoarthritis is present in the lower lumbar spine. Calcified ath erosclerosis is noted. There is a calcified uterine fibroid. IMPRESSION: 1. Chronic burst fracture of L1 and moderate lumbar spondylosis without acute findings or significant interval change. Reviewed, dictated and finalized at location B. IMPRESSION: 1. Chronic burst fracture of L1 and moderate lumbar spondylosis without acute f indings or significant interval change.
--- NOTE | ~2022-11-23 | CT_ITS ---
EXAMINATION: CT brain wo con DATE: 11/23/2022 06:54 INDICATION: Head injury. Fall. TECHNIQUE: Computed tomography (CT) of the head was performed without intravenous contrast. The mA wa s adjusted according to patient size. Iterative reconstruction technique was employed. The dose-lengt h product was 681.00 mGy-cm. COMPARISON: None FINDINGS: There are scattered areas of low attenuation in the cerebral white matter, which is within normal limits for the patient's age. There is no intracranial hemorrhage, acute infarction, or abnorm al intracranial mass lesion. The ventricles are normal in size. There are likely changes of ocular le ns replacement surgeries. There is mild mucosal thickening in the paranasal sinuses. The mastoid air cells are normal. IMPRESSION: 1. Normal aging brain. Reviewed, dictated and finalized at location A. IMPRESSION: 1. Normal aging brain.
[2022-11-23 06:18] VITALS: BP 161/94; PULSE 73; RESP 14; TEMP 37; O2SAT 99
--- NOTE | 2022-11-23 06:33 | ECG_ITS ---
Measurements Intervals [place] Rate: 73 P: OR: 0 QRS: 211 QRSD: 161 T: 19 QT: 437 QTc: 484 Interpretive Statements ELECTRONIC VENTRICULAR PACEMAKER WITH APPROPRIATE SENSING AND CAPTURE BEING DEMONSTRATED ABNORMAL RHYTHM ECG COMPARED TO ECG 11/09/2018 14:56:17 NO SIGNIFICANT CHANGES Electronically Signed On 11-23-2022 16:51:22 CDT by Dandy Stallworth M.D.
--- NOTE | 2022-11-23 06:36 | ED.GENADULT ---
HPI - General Adult General Chief complaint: Fall <Zechariah Weldon MD - Last Filed: 11/23/22 06:50> Stated complaint: fall, on thinners <Zechariah Weldon MD - Last Filed: 11/23/22 06:50> Time Seen by Provider: 11/23/22 06:40 <Zechariah Weldon MD - Last Filed: 11/23/22 06:50> History of Present Illness HPI narrative: This is an 87-year-old female on warfarin presenting after a fall. Patient said that she got out of bed to go to the restroom while walking the bathroom she fell. She does not remember the events leading up to the fall. She is unsure if she hit her head. she is complaining of pain to her arms where she has several skin tears. Also complaining of lower back pain which is chronic. Patient denies fever chills dizziness chest pain difficulty breathing abdominal pain urinary symptoms. <Zechariah Weldon MD - Last Filed: 11/23/22 06:50> Related Data Home medications: Home Medications Medication Instructions Recorded Confirmed cholecalciferol (vitamin D3) 25 25 mcg PO DAILY 02/24/21 11/20/22 mcg (1,000 unit) capsule (Vitamin D3) fenofibrate nanocrystallized 48 mg 48 mg PO DAILY 02/24/21 11/20/22 tablet metoprolol succinate 50 mg 50 mg PO DAILY 02/24/21 11/20/22 tablet,extended release 24 hr pravastatin 10 mg tablet 10 mg PO DAILY 02/24/21 11/20/22 <Zechariah Weldon MD - Last Filed: 11/23/22 06:50> Allergies/adverse reactions: Allergies Allergy/AdvReac Type Severity Reaction Status Date / Time Sulfa (Sulfonamide Allergy Mild Rash Verified 11/20/22 08:18 Antibiotics) <Zechariah Weldon MD - Last Filed: 11/23/22 06:50> [facility] Past Medical History Medical History: Medical History Anticoagulated on Coumadin Atrial fibrillation Bloating Diarrhea Diverticulitis large intestine Hyperlipidemia Hypertension Irritable bowel syndrome with diarrhea Melena RADHA (obstructive sleep apnea) SOB (shortness of breath) Thyroid disease Visual loss, both eyes <Zechariah Weldon MD - Last Filed: 11/23/22 06:50> Surgical History Surgical History: Surgical History Pacemaker <Zechariah Weldon MD - Last Filed: 11/23/22 06:50> Family History Family History: Family History Sibling Patient's brother is in good health Family history of arthritis Mother Patient's mother is Father Cerebrovascular accident Other Family history of heart disease in male family member before age 55 Hypertension <Zechariah Weldon MD - Last Filed: 11/23/22 06:50> Social History Social History: Social History Smoking packs per day: 0.5 Smoking cigarettes per day: 10.0 Years smoked: 1 Smoking pack-years: 0.50 Smoking status: Former smoker Tobacco type: cigarettes Second hand tobacco smoke exposure: No Smoking end date: 04/12/85 Alcohol intake: current Drinks per week: 1 Alcohol use details: GLASS OF WINE Substance use: never Substance use type: does not use Lack of Transportation: No Lack of Food: Never True Current Housing: I Have Housing Concerned About Future Housing: No Difficulty Paying Gas/Electric Bills: No Difficulty Paying for Meds: No Currently Unemployed: No Education: Grade School Difficulty w/ Childcare or Family Care: No Living arrangements: alone Spiritual care concerns: No <Zechariah Weldon MD - Last Filed: 11/23/22 06:50> Exam Narrative: APPEARANCE: No apparent distress. A&O x4 Head: atraumatic. EYES: EOMI, referral NOSE: Atraumatic NECK: Trachea midline RESPIRATORY: No increased rate of breathing, clear to auscultation CARDIOVASCULAR: RRR, ABDOMINAL: Non-distended MUSCULOSKELETAl: head to toe trauma exam revealed no deformities, ten
--- NOTE | 2022-11-23 06:42 | PC.NURSE ---
pt. to XR
[2022-11-23 07:03] LABS: Glucose Point of Care 83 mg/dl (65-105)
[2022-11-23] MEDS: TETANUS,DIPHTHERIA,AC PERTUSSIS ADULT (0.5 ML) BOOSTRIX IM (07:05)
[2022-11-23 07:14] LABS: Basophils Percent Auto 0.3 % (0.2-1.2); Eosinophils Percent Auto 0.7 % (0-4.4); Hematocrit 38.3 % (37.0-47.0); Hemoglobin 12.2 g/dL (12.0-15.0); Immature Granulocyte Absolute 0.03 K/mm3 (0.00-0.031); Immature Granulocyte Percent A 0.5 % (0-0.5); Lymphocytes Absolute Auto 0.92 K/mm3 (0.9-3.2); Mean Corpuscular HGB Conc 31.9 g/dl (32-36); Mean Corpuscular Hemoglobin 30.2 pg (26-34); Mean Corpuscular Volume 94.8 fl (80-100); Mean Platelet Volume 10.3 fl (7.4-10.4); Monocytes Absolute Auto 0.6 K/mm3 (0.1-0.6); Monocytes Percent Auto 10.2 % (2.6-8.5); Neutrophils Absolute Auto 4.5 K/mm3 (1.3-6.7); Neutrophils Percent Auto 73.3 % (45.5-73.1); Platelet Count Result 151 k/mm3 (150-375); Red Blood Count 4.04 M/mm3 (4.2-5.4); Red Cell Distribution Width 14.1 % (11.5-14.5); White Blood Count 6.2 K/mm3 (4.5-10.0)
[2022-11-23 07:24] LABS: Alanine Aminotransferase 22 U/L (6-35); Albumin Level 3.7 g/dL (3.5-5.1); Alkaline Phosphatase 42 U/L (38-126); Anion Gap 5 mmol/L (8-16); Aspartate Amino Transferase 34 U/L (14-36); Bilirubin,Total 0.7 mg/dL (0.2-1.3); Blood Urea Nitrogen 30 mg/dL (7-17); Calcium 10.3 mg/dL (8.4-10.2); Carbon Dioxide 21 mmol/L (22-30); Chloride 111 mmol/L (98-107); Estimated CRCL calculation 26 ml/min; Estimated Glomerular Filt Rate 39; Glucose 100 mg/dL (65-110); Potassium 3.6 mmol/L (3.4-5.0); Sodium 137 mmol/L (137-145)
[2022-11-23 07:25] VITALS: BP 155/80; PULSE 71; RESP 16; O2SAT 96
[2022-11-23 07:25] LABS: INR 3.3; Partial Thromboplastin Time 40.8 SECONDS (22.3-36.8); Prothrombin Time 35.7 Seconds (11.1-14.7)
[2022-11-23 07:28] VITALS: BP 162/71; BP 163/88; BP 166/81; PULSE 70; PULSE 71
[2022-11-23 07:56] LABS: Appearance Urine Cloudy (Clear); Bacteria Urine 3+ /hpf; Bilirubin Urine Negative (Negative); Blood Urine Trace (Negative); Color Urine Yellow (Yellow); Glucose Urine UA Negative (Negative); Ketones Urine Negative (Negative); Leukocyte Esterase Ur 2+ LEU/UL (Negative); Nitrate Urine Negative (Negative); Non Pathogenic Casts 0-2; Protein Urine Negative (Negative); RBC Urine 0-2 /hpf (0-2); Specific Grav Ur 1.017 (1.001-1.035); Squamous Epithelial Cell Urine Few /hpf (Few); Urobilinogen Urine 0.2 mg/dL (<2.0); WBC Urine 21-50 /hpf; pH Urine 5.5 (5.0-9.0)
[2022-11-23 08:12] LABS: Add Urine Microscopic? YES
== END 2022-11-23 10:17 | disposition home or self-care (01) ==
PROVIDERS: Emergency Provider Emergency Medicine; PCP Physician Assistant
DX: S41.112A Laceration without foreign body of left upper arm, initial encounter (principal); S41.111A Laceration without foreign body of right upper arm, initial encounter; T14.8XXA Other injury of unspecified body region, initial encounter; N39.0 Urinary tract infection, site not specified; Z23 Encounter for immunization; I48.91 Unspecified atrial fibrillation; J45.909 Unspecified asthma, uncomplicated; I10 Essential (primary) hypertension; E03.9 Hypothyroidism, unspecified; E78.5 Hyperlipidemia, unspecified; K58.0 Irritable bowel syndrome with diarrhea; G47.33 Obstructive sleep apnea (adult) (pediatric); M54.50 Low back pain, unspecified; G89.29 Other chronic pain; Z95.0 Presence of cardiac pacemaker; Z87.891 Personal history of nicotine dependence; Z79.01 Long term (current) use of anticoagulants; I51.7 Cardiomegaly; M47.816 Spondylosis without myelopathy or radiculopathy, lumbar region; M84.48XA Pathological fracture, other site, initial encounter for fracture; W18.30XA Fall on same level, unspecified, initial encounter
CPT/HCPCS: 36415; 70450; 71045; 72100; 80053; 81001; 82948; 85025; 85610; 85730; 87086; 87088; 90471; 90715; 93005; 99284

== ENCOUNTER 2022-12-03 13:00 | Inpatient (IN) | payer MEDICARE, BC, SELFPAY ==
[2022-12-03] VITALS (20 sets, daily range): BP systolic 125–179; BP diastolic 69–83; PULSE 70–84; RESP 11–24; TEMP 36–36.2; O2SAT 97–100
--- NOTE | ~2022-12-03 | CT_ITS ---
EXAMINATION: CT abdomen pelvis w con DATE: 12/03/2022 17:54 INDICATION: Hematoma and swelling at the lower back post fall 2011 days prior. TECHNIQUE: Computed tomography (CT) of the abdomen and pelvis was performed with 100 mL Omnipaque-350 intravenous contrast. Automated exposure control and iterative reconstruction technique were employe d. The dose-length product was 743.05 mGy-cm. COMPARISON: 11/09/2018 FINDINGS: Atelectasis in the right middle and bilateral lower lobes. Cardiomegaly with prominent biatrial enlar gement. Atherosclerotic coronary artery calcifications. 3-lead cardiac pacemaker with lead tips at th e right atrial appendage, apex of the right ventricle and in a coronary vein overlying the lateral le ft ventricle having traversed the coronary sinus. No pericardial or pleural effusion. No significant change in a peripherally enhancing hemangioma in the posterior right hepatic lobe. Gallbladder, splee n, pancreas, bilateral adrenal glands are normal. Likely age-related mild bilateral renal cortical at rophy. The appendix is not visualized. No pericecal inflammatory change to suggest acute appendicitis . Bowels are otherwise unremarkable with no obstruction. Calcified uterine fibroids. Small amount of gas within the nondependent aspect of the otherwise normal bladder. No significant change in a 1.6 cm left adnexal cyst. Right adnexa are unremarkable. No free intraperitoneal gas or fluid. No pathologi conner enlarged abdominal or pelvic lymphadenopathy. Large subcutaneous hematoma extending from left t o right across the lower the lumbar region which measures 22.1 cm left to right, 10.2 cm craniocaudal ly and 4.8 cm in maximal AP thickness. No evident active contrast extravasation. Moderate thoracic an d lumbar spondylosis with stable appearance of chronic T9 and T10 compression fractures and L1 burst fracture. 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 IMPRESSION: 1. 22.1 x 10.2 x 4.8 cm subcutaneous hematoma extending across the lower lumbar region. 2. Cardiomegaly with prominent right atrial enlargement. 3. Fibroid uterus. 4. Small focus of gas in the bladder. Correlate for recent Morgan catheterization or instrumentation. Otherwise would recommend correlation with urinalysis. Reviewed, dictated and finalized at location A. IMPRESSION: 1. 22.1 x 10.2 x 4.8 cm subcutaneous hematoma extending across the lower lumbar region. 2. Cardiomegaly with prominent right atrial enlargement. 3. Fibroid uterus. 4. Small focus of gas in the bladder. Correlate for recent Morgan catheterizatio n or instrumentation. Otherwise would recommend correlation with urinalysis.
--- NOTE | 2022-12-03 15:44 | ED.GENADULT ---
HPI - General Adult General Chief complaint: Recheck/Abnormal Lab/Rx Stated complaint: back hematoma/back pain Time Seen by Provider: 12/03/22 15:43 History of Present Illness HPI narrative: Patient is an 87-year-old female with history of AFib, anticoagulated on Coumadin, hypertension, hyperlipidemia here with lower back pain. Patient had a fall in 11/23 and came into the emergency department after the fall. At that time she had started developing a hematoma in her lower back. It is increased in size and pain, she went to her primary care doctor 2 days ago. primary care doctor concern for overlying necrotic tissue and referred her to Wound Care. States she went to the wound care center and they sent her into the emergency department for further evaluation. Daughter states that she checks the wound every day and 2 days ago began noticing a dark spot in her wound concerning for necrotic tissue. This seems to have been increasing in size over the last 2 days. She denies any fever chills. Denies any additional injuries. Patient and daughter note that she has had increased fatigue since her fall. She does note that she is currently being treated for a UTI, is currently on a 2 week course of antibiotics. Related Data Home Medications Medication Instructions Recorded Confirmed cholecalciferol (vitamin D3) 25 25 mcg PO DAILY 02/24/21 12/03/22 mcg (1,000 unit) capsule (Vitamin D3) fenofibrate nanocrystallized 48 mg 48 mg PO DAILY 02/24/21 12/03/22 tablet metoprolol succinate 50 mg 50 mg PO DAILY 02/24/21 12/03/22 tablet,extended release 24 hr pravastatin 10 mg tablet 10 mg PO DAILY 02/24/21 12/03/22 Allergies Allergy/AdvReac Type Severity Reaction Status Date / Time Sulfa (Sulfonamide Allergy Mild Rash Verified 12/03/22 16:22 Antibiotics) Review of Systems Review of Systems: CONSTITUTIONAL: Denies fever, chills, or sweats. Fatigue. EYES: Denies visual changes, redness, or discharge. ENT: Denies rhinorrhea, congestion, sore throat, or otalgia. CARDIOVASCULAR: Denies chest pain, palpitations, or edema. RESPIRATORY: Denies cough or dyspnea. GASTROINTESTINAL: Denies abdominal pain, nausea, vomiting, or diarrhea. GENITOURINARY: Denies dysuria or hematuria. SKIN: Black wound present over lower back MUSCULOSKELETAL: Lower back pain present. No joint pain, or myalgia. NEUROLOGIC: Denies headache, numbness, or weakness. PSYCHIATRIC: Denies anxiety or depression. [facility] Past Medical History Medical History Anticoagulated on Coumadin Atrial fibrillation Bloating Diarrhea Diverticulitis large intestine Hyperlipidemia Hypertension Irritable bowel syndrome with diarrhea Melena RADHA (obstructive sleep apnea) SOB (shortness of breath) Thyroid disease Visual loss, both eyes Surgical History Surgical History Pacemaker Family History Family History Sibling Patient's brother is in good health Family history of arthritis Mother Patient's mother is Father Cerebrovascular accident Other Family history of heart disease in male family member before age 55 Hypertension Social History Social History Smoking packs per day: 0.5 Smoking cigarettes per day: 10.0 Years smoked: 1 Smoking pack-years: 0.50 Smoking status: Former smoker Tobacco type: cigarettes Second hand tobacco smoke exposure: No Smoking end date: 04/12/85 Alcohol intake: current Drinks per week: 1 Alcohol use details: GLASS OF WINE Substance use: never Substance use type: does not use Lack of Transportation: No Lack of Food: Never True Current Housing: I Have Housing Concerned About Future Housing: No Difficulty Paying Gas/Electric Bills: No Difficulty P
[2022-12-03] MEDS: ONDANSETRON INJ 4 MG/2 ML VIAL IV PUSH (16:20)
[2022-12-03] MEDS: MORPHINE SULFATE (*CRX) 2 MG/ML INJ IV PUSH ×2 (16:21→18:40)
[2022-12-03 16:27] LABS: Basophils Percent Auto 0.4 % (0.2-1.2); Eosinophils Absolute Auto 0.1 K/mm3 (0-0.3); Eosinophils Percent Auto 2.2 % (0-4.4); Hematocrit 26.7 % (37.0-47.0); Hemoglobin 8.1 g/dL (12.0-15.0); Immature Granulocyte Absolute 0.11 K/mm3 (0.00-0.031); Immature Granulocyte Percent A 2.2 % (0-0.5); Lymphocytes Absolute Auto 1.06 K/mm3 (0.9-3.2); Lymphocytes Percent Auto 20.8 % (18.3-44.2); Mean Corpuscular HGB Conc 30.3 g/dl (32-36); Mean Corpuscular Volume 102.3 fl (80-100); Monocytes Absolute Auto 0.5 K/mm3 (0.1-0.6); Monocytes Percent Auto 10.4 % (2.6-8.5); Neutrophils Absolute Auto 3.3 K/mm3 (1.3-6.7); Platelet Count Result 251 k/mm3 (150-375); Red Blood Count 2.61 M/mm3 (4.2-5.4); Red Cell Distribution Width 20.3 % (11.5-14.5); White Blood Count 5.1 K/mm3 (4.5-10.0)
[2022-12-03 16:37] LABS: INR 1.5; Prothrombin Time 19.5 Seconds (11.1-14.7)
[2022-12-03 16:38] LABS: Partial Thromboplastin Time 40.1 SECONDS (22.3-36.8)
[2022-12-03 16:50] LABS: Alanine Aminotransferase 20 U/L (6-35); Albumin Level 3.8 g/dL (3.5-5.1); Alkaline Phosphatase 58 U/L (38-126); Anion Gap 7 mmol/L (8-16); Aspartate Amino Transferase 32 U/L (14-36); Bilirubin,Total 3.1 mg/dL (0.2-1.3); Blood Urea Nitrogen 33 mg/dL (7-17); CRP 3.1 mg/dL (<1.0); Calcium 10.3 mg/dL (8.4-10.2); Carbon Dioxide 25 mmol/L (22-30); Chloride 106 mmol/L (98-107); Estimated CRCL calculation 22 ml/min; Estimated Glomerular Filt Rate 36; Glucose 100 mg/dL (65-110); Potassium 3.6 mmol/L (3.4-5.0); Sodium 138 mmol/L (137-145)
[2022-12-03 16:52] LABS: Erythrocyte Sedimentation Rate 132 mm/hr (0-20)
[2022-12-03] MEDS: ceFAZolin 1 GM/NS 50 ML 1 GM/50 ML BAG IVPB (18:40)
--- NOTE | 2022-12-03 19:17 | PC.NURSE ---
This RN assumed care of patient. This RN took patient report from VANCE Guillermo.
--- NOTE | 2022-12-03 20:43 | PM.IMHP ---
H&P: HPI History of Present Illness Date/Time: 12/03/22 20:43 Chief Complaint: BACK PAIN Narrative: THIS IS AN 87-YEAR-OLD FEMALE WITH PAST MEDICAL HISTORY SIGNIFICANT FOR CHRONIC KIDNEY DISEASE, DYSLIPIDEMIA, HYPOTHYROIDISM, ATRIAL FIBRILLATION, ON ANTICOAGULATION RATE CONTROL, STRUCTURE OF SLEEP APNEA. PATIENT PRESENTS TO THE EMERGENCY ROOM AFTER HAVING A FALL WITH BLUNT TRAUMA TO THE BACK AND HEMATOMA FORMATION NOW HEMATOMA SITE HAS DEVELOPED ULCER AND HAS BECOME TENDER , WARM. MOST OF THE HISTORY WAS OBTAINED FROM DAUGHTER WHO IS AT BEDSIDE PATIENT IS OBTUNDED. PRELIMINARY WORKUP WAS SIGNIFICANT FOR A BUN OF 30 CREATININE OF 1.4 BICARB OF 25 HEMOGLOBIN 8.1 MCV 102. PATIENT IS BEEN ADMITTED FOR FURTHER EVALUATION MANAGEMENT AND TREATMENT. EXAMINATION: CT abdomen pelvis w con DATE: 12/03/2022 17:54 INDICATION: Hematoma and swelling at the lower back post fall 2011 days prior. TECHNIQUE: Computed tomography (CT) of the abdomen and pelvis was performed with 100 mL Omnipaque-350 intravenous contrast. Automated exposure control and iterative reconstruction technique were employed. The dose-length product was 743.05 mGy-cm. COMPARISON: 11/09/2018 FINDINGS: Atelectasis in the right middle and bilateral lower lobes. Cardiomegaly with prominent biatrial enlargement. Atherosclerotic coronary artery calcifications. 3-lead cardiac pacemaker with lead tips at the right atrial appendage, apex of the right ventricle and in a coronary vein overlying the lateral left ventricle having traversed the coronary sinus. No pericardial or pleural effusion. No significant change in a peripherally enhancing hemangioma in the posterior right hepatic lobe. Gallbladder, spleen, pancreas, bilateral adrenal glands are normal. Likely age-related mild bilateral renal cortical atrophy. The appendix is not visualized. No pericecal inflammatory change to suggest acute appendicitis. Bowels are otherwise unremarkable with no obstruction. Calcified uterine fibroids. Small amount of gas within the nondependent aspect of the otherwise normal bladder. No significant change in a 1.6 cm left adnexal cyst. Right adnexa are unremarkable. No free intraperitoneal gas or fluid. No pathologically enlarged abdominal or pelvic lymphadenopathy. Large subcutaneous hematoma extending from left to right across the lower the lumbar region which measures 22.1 cm left to right, 10.2 cm craniocaudally and 4.8 cm in maximal AP thickness. No evident active contrast extravasation. Moderate thoracic and lumbar spondylosis with stable appearance of chronic T9 and T10 compression fractures and L1 burst fracture. 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 IMPRESSION: 1. 22.1 x 10.2 x 4.8 cm subcutaneous hematoma extending across the lower lumbar region. 2. Cardiomegaly with prominent right atrial enlargement. 3. Fibroid uterus. 4. Small focus of gas in the bladder. Correlate for recent Morgan catheterization or instrumentation. Otherwise would recommend correlation with urinalysis. Review of Systems Review of Systems: ROS unobtainable: Yes unobtainable due to mental status ( OBTUNDATION) [facility] Past Medical History Medical History Anticoagulated on Coumadin Atrial fibrillation Bloating Diarrhea Diverticulitis large intestine Hyperlipidemia Hypertension Irritable bowel syndrome with diarrhea Melena RADHA (obstructive sleep apnea) SOB (shortness of breath) Thyroid disease Visual loss, both eyes Surgical History Surgical History Pacemaker Family History Family History Sibling Patient's brother is in good health Family history of arthritis Mother Patient's mother is Father Cerebrovascular accident Other Family history of heart disease in male family member before age 55
--- NOTE | 2022-12-03 22:00 | ADMGEN ---
This patient, Liza Rasheed, was admitted to [facility] Surg Room 315-01 at 2200. Patient/family oriented to hospital policies and general routines including ID bracelet, bed and alarms, visiting hours, pain management, procedures, bathroom and other care routines, personal items, smoking policy, room service/diet, and visiting hours. Information on how to activate the Rapid Response Team has been discussed. Patient/Family are encouraged to report perceived risks to care and to ask questions if they do not understand what they are told or what they should do.
[2022-12-03] MEDS: ACETAMINOPHEN 500 MG TABLET 1000 MG PO (23:32)
[2022-12-03] MEDS: HYDROmorphone HCL INJ (*CRX) 1 MG/ML SYR 0.5 MG IV PUSH (23:32)
[2022-12-04] VITALS (17 sets, daily range): BP systolic 106–173; BP diastolic 52–89; PULSE 70–138; RESP 14–20; TEMP 36.1–36.8; O2SAT 95–100
[2022-12-04] MEDS: LEVOTHYROXINE SODIUM 25 MCG TABLET PO (05:58)
[2022-12-04] MEDS: HYDROmorphone HCL INJ (*CRX) 1 MG/ML SYR IV PUSH (06:42)
[2022-12-04 08:25] LABS: Basophils Percent Auto 0.5 % (0.2-1.2); Eosinophils Absolute Auto 0.1 K/mm3 (0-0.3); Hematocrit 25.5 % (37.0-47.0); Hemoglobin 7.3 g/dL (12.0-15.0); Immature Granulocyte Absolute 0.05 K/mm3 (0.00-0.031); Immature Granulocyte Percent A 1.1 % (0-0.5); Lymphocytes Absolute Auto 0.82 K/mm3 (0.9-3.2); Lymphocytes Percent Auto 18.7 % (18.3-44.2); Mean Corpuscular HGB Conc 28.6 g/dl (32-36); Mean Corpuscular Hemoglobin 30.7 pg (26-34); Mean Corpuscular Volume 107.1 fl (80-100); Mean Platelet Volume 9.1 fl (7.4-10.4); Monocytes Absolute Auto 0.4 K/mm3 (0.1-0.6); Neutrophils Absolute Auto 2.9 K/mm3 (1.3-6.7); Neutrophils Percent Auto 66.7 % (45.5-73.1); Platelet Count Result 235 k/mm3 (150-375); Red Blood Count 2.38 M/mm3 (4.2-5.4); Red Cell Distribution Width 20.8 % (11.5-14.5); White Blood Count 4.4 K/mm3 (4.5-10.0)
--- NOTE | 2022-12-04 08:32 | WPDCN ---
Assessment and Plan Assessment and plan (1) Hematoma: Code(s): T14.8XXA - Other injury of unspecified body region, initial encounter Status: Acute Assessment and Plan: Patient has very large lower back hematoma after fall trauma. She is on systemic anticoagulation with Coumadin which likely contributed to the bleeding and hematoma formation. Hemoglobin is around 8 today. I see no obvious reason for a blood transfusion at this time. Her INR was 1.5 the emergency room and is being rechecked this morning. If it is lower than there will be no need for an infusion of fresh frozen plasma prior to surgery. Her platelet count is adequate. Due to the a pressure necrosis of the skin from the tense hematoma I have recommended that she go to the operating room for decompression and drainage of the hematoma and debridement of the necrotic skin. Likely will have a large enough cavity to apply a wound VAC afterwards. This was discussed with the patient and her daughter at the bedside in the agreed to proceed with surgery later today. Coumadin is continuing to be held at this time. HPI Data of Consult Date/Time: 12/04/22 08:32 Requesting Physician: Imani Herman MD Primary Care Provider: Thien Wallace PA-C Consult Narrative Reason for consult: Large lower back hematoma secondary to fall and skin necrosis Narrative: Liza Rasheed is a 87 year old female who was admitted to the hospital yesterday after having suffered a fall almost 2 weeks ago with development of a large lower back hematoma. The patient's daughter noticed that there was some necrosis of the skin and so she brought to the emergency room. Patient does have some pain in the area. She has not had any fevers or chills at home. She is on Coumadin for atrial fibrillation and also has a pacemaker in place. On November 23, 2022 her INR was 3.3. Yesterday the emergency room her INR was 1.5 and she had not had Coumadin for about 36hours at that time. Her hemoglobin had dropped [id number] from 12.3 to 8.[address] scan abdomen pelvis was performed which showed a very large lower back hematoma subcutaneous tissues. It measured 22 x 10 x 4.8 cm. No gas was noted within the hematoma to suggest abscess. She was admitted to the hospital for further management of the lower back hematoma with pressure necrosis of the overlying skin. She currently lives at home with her son. The patient's daughter is at bedside this morning. Review of Systems Review of Systems: The remainder of the review of systems to include constitutional, HEENT, cardiovascular, respiratory, GI, , integumentary, musculoskeletal, endocrine, immunologic, hematologic, psychiatric, and neurologic are all negative except for which is mentioned above in the HPI. [facility] Past Medical History Medical History Anticoagulated on Coumadin Atrial fibrillation Bloating Diarrhea Diverticulitis large intestine Hyperlipidemia Hypertension Irritable bowel syndrome with diarrhea Melena RADHA (obstructive sleep apnea) SOB (shortness of breath) Thyroid disease Visual loss, both eyes Surgical History Surgical History Pacemaker Family History Family History Sibling Patient's brother is in good health Family history of arthritis Mother Patient's mother is Father Cerebrovascular accident Other Family history of heart disease in male family member before age 55 Hypertension Social History Social History Smoking packs per day: 0.5 Smoking cigarettes per day: 10.0 Years smoked: 1 Smoking pack-years: 0.50 Smoking status: Former smoker Tobacco type: cigarettes Second hand tobacco smoke exposure: No Smoking end date: 04/12/85 Amanda
[2022-12-04 08:35] LABS: INR 1.6; Prothrombin Time 19.6 Seconds (11.1-14.7)
[2022-12-04 08:36] LABS: Partial Thromboplastin Time 37.5 SECONDS (22.3-36.8)
[2022-12-04] MEDS: METOPROLOL SUCCINATE EXT REL 50 MG TABCR PO (08:36)
[2022-12-04] MEDS: LACTATED RINGERS 1,000 ML 100 ML IV CONT ×2 (08:36→22:58)
[2022-12-04] MEDS: SERTRALINE HCL 25 MG TABLET PO (08:36)
[2022-12-04 08:41] LABS: Anion Gap 7 mmol/L (8-16); Blood Urea Nitrogen 31 mg/dL (7-17); Calcium 9.5 mg/dL (8.4-10.2); Carbon Dioxide 26 mmol/L (22-30); Chloride 105 mmol/L (98-107); Estimated CRCL calculation 22 ml/min; Estimated Glomerular Filt Rate 36; Glucose 88 mg/dL (65-110); Potassium 3.6 mmol/L (3.4-5.0); Sodium 138 mmol/L (137-145)
--- NOTE | 2022-12-04 08:41 | WPDHPUPDATE1 ---
History and Physical Update Update Date/Time: 12/04/22 08:41 History and Physical has been reviewed, including an updated exam of the patient. There are NO changes in the patient's condition. Risks, benefits, and alternatives have been discussed and questions answered. Patient agrees to proceed with procedure.
[2022-12-04 08:45] LABS: Anisocytosis 2+ (NORMAL); Macrocytosis 2+ (NORMAL); Platelet Estimate Adequate (Adequate)
[2022-12-04 08:46] LABS: Hypochromasia 1+ (NORMAL); Schistocytes None Seen (NORMAL)
--- NOTE | 2022-12-04 13:03 | PM.IMPN ---
Progress Note: A&P Assessment and Plan (1) Fall: Code(s): W19.XXXA - Unspecified fall, initial encounter Status: Acute Assessment and Plan: (2) Hematoma: Code(s): T14.8XXA - Other injury of unspecified body region, initial encounter Status: Acute Assessment and Plan: (3) Blunt trauma: Code(s): T14.90XA - Injury, unspecified, initial encounter Status: Acute Assessment and Plan: (4) Atrial fibrillation: Qualifiers: Atrial fibrillation type: unspecified Qualified Code(s): I48.91 - Unspecified atrial fibrillation Code(s): I48.91 - Unspecified atrial fibrillation Status: Acute (5) Obstructive sleep apnea: Code(s): G47.33 - Obstructive sleep apnea (adult) (pediatric) Status: Acute (6) Chronic kidney disease: Code(s): N18.9 - Chronic kidney disease, unspecified Status: Acute Assessment and Plan: WILL HOLD BUMETANIDE CONTINUE TO MONITOR RESTART NEEDED Plan 87-year-old female with history of AFib anticoagulated on Coumadin hypertension hyperlipidemia presented back pain while 11/23 noted to have hematoma. Increase in size concern for overlying necrotic tissue. Referred to Wound Care who sent her to the ER for evaluation. Necrotic black spot in wound has been increasing size of the past 2 days. Increased fatigue. She has been treated with antibiotics for a UTI. INR was 2 days ago was 1.6. CT showed 22 x 10 x 4.8 cm hematoma in the lumbar region. Hemoglobin dropped from 12-8 over the laxed 10 days. INR 1.5. General surgery has been consulted and plan for incision and drainage. Hold anticoagulation. Transfuse as needed to keep hemoglobin more than 7. CKD stage 3. Trend H&H Subjective Date/time seen: 12/04/22 13:03 Interval history: 87-year-old female with history of AFib anticoagulated on Coumadin hypertension hyperlipidemia presented back pain while 11/23 noted to have hematoma. Increase in size concern for overlying necrotic tissue. Referred to Wound Care who sent her to the ER for evaluation. Necrotic black spot in wound has been increasing size of the past 2 days. Increased fatigue. She has been treated with antibiotics for a UTI. INR was 2 days ago was 1.6. CT showed 22 x 10 x 4.8 cm hematoma in the lumbar region. Hemoglobin dropped from 12-8 over the laxed 10 days. INR 1.5. General surgery has been consulted and plan for incision and drainage. Hold anticoagulation. Transfuse as needed to keep hemoglobin more than 7 Review of Systems Review of Systems: All systems reviewed & are unremarkable except as noted in HPI and below Objective Data Vital Signs Vital Signs: Vital Signs - 24 hr 12/03/22 13:05 12/03/22 15:51 12/03/22 16:02 Temperature 97.2 F L Pulse Rate 73 70 73 Respiratory Rate 16 24 H 14 Blood Pressure 149/70 H 179/83 H 174/78 H Pulse Oximetry 100 100 Oxygen Delivery Room Air 12/03/22 16:46 12/03/22 17:54 12/03/22 18:19 Temperature Pulse Rate 71 84 70 Respiratory Rate 13 21 H 17 Blood Pressure 148/75 H 146/74 H 154/73 H Pulse Oximetry 100 100 100 Oxygen Delivery 12/03/22 18:32 12/03/22 18:45 12/03/22 19:00 Temperature Pulse Rate 71 70 70 Respiratory Rate 19 15 16 Blood Pressure Pulse Oximetry 100 99 100 Oxygen Delivery 12/03/22 19:01 12/03/22 19:15 12/03/22 19:51 Temperature Pulse Rate 70 71 70 Respiratory Rate 20 17 15 Blood Pressure 146/69 H Pulse Oximetry 100 100 98 Oxygen Delivery 12/03/22 20:10 12/03/22 20:15 12/03/22 20:43 Temperature Pulse Rate 72 71 70 Respiratory Rate 18 17 11 L Blood Pressure Pulse Oximetry 98 97 100 Oxygen Delivery 12/03/22 21:01 12/03/22 21:06 12/03/22 21:15 Temperature Pulse Rate 70 71 72 Respiratory Rate 13 13 12 Blood Pressure 125/71 Pulse Oximetry 98 98 98 Oxygen Delivery 12/03/22 21:35 12/03/22 22:00 12/03/22 22:00 Temperature 96.8 F
[2022-12-04] MEDS: LACTATED RINGERS 1,000 ML 30 ML IV CONT (14:05)
--- NOTE | 2022-12-04 14:14 | SUR.PREOP ---
Placed on o2 2l nc because of elevated heart rate and anemia.
[2022-12-04] MEDS: ceFAZolin 500 MG in DEXTROSE 5% IN WATER 50 ML 100 MG IVPB ×2 (14:20→21:35)
--- NOTE | 2022-12-04 14:38 | WPDANESEPPF ---
Anes - Initial Pre Proc Eval Procedure: Operation Date: 12/04/22 15:00 Proposed Procedures p Incision and Debridement Back Hematoma, Possible Wound Vac Placement - Brennan Chapa MD Date/Time: 12/04/22 14:38 Surgeon: Imani Hermna MD Pre Op Diagnosis: hematoma/pressure necrosis Patient Data Age: 87 Gender: F Height: 1.63 m Weight: 65.9 kg Last Vital Signs Temp 36.8 C 12/04/22 14:11 Pulse 138 H 12/04/22 14:11 Resp 18 12/04/22 14:11 BP 142/65 H 12/04/22 14:11 Pulse Ox 99 12/04/22 14:11 O2 Del Method Room Air 12/04/22 14:11 Allergies Allergy/AdvReac Type Severity Reaction Status Date / Time Sulfa (Sulfonamide Allergy Mild Rash Verified 12/03/22 16:22 Antibiotics) Home Medications Medication Instructions Recorded Confirmed Type cholecalciferol (vitamin D3) 25 25 mcg PO DAILY 02/24/21 12/03/22 History mcg (1,000 unit) capsule (Vitamin D3) fenofibrate nanocrystallized 48 mg 48 mg PO DAILY 02/24/21 12/03/22 History tablet metoprolol succinate 50 mg 50 mg PO DAILY 02/24/21 12/03/22 History tablet,extended release 24 hr (Toprol XL) pravastatin 10 mg tablet 10 mg PO HS 02/24/21 12/03/22 History levothyroxine 25 mcg tablet 25 mcg PO DAILY #90 tabs 06/18/22 12/03/22 Rx sertraline 25 mg tablet 25 mg PO DAILY #90 tabs 08/04/22 12/03/22 Rx bumetanide 1 mg tablet 1 mg PO DAILY #90 tabs 10/04/22 12/03/22 Rx fluticasone propionate 50 See Rx Instructions .Route 12/01/22 12/03/22 Rx mcg/actuation nasal .COMPLEX #48 grams spray,suspension cephalexin 500 mg capsule 500 mg PO DAILY 12/03/22 12/03/22 History mupirocin 2 % topical ointment 1 applic topical TID PRN skin tears 12/03/22 12/03/22 History potassium chloride 20 mEq 20 meq PO BID 12/03/22 12/03/22 History tablet,extended release warfarin 2.5 mg tablet See Rx Instructions .Route .COMPLEX 12/03/22 12/03/22 History zolpidem 6.25 mg tablet,extended 6.25 mg PO HS 12/03/22 12/03/22 History release,multiphase (Ambien CR) Laboratory Tests 12/03/22 12/03/22 12/04/22 16:22 19:18 08:15 WBC 5.1 K/mm3 4.4 L K/mm3 (4.5-10.0) (4.5-10.0) RBC 2.61 L M/mm3 2.38 L M/mm3 (4.2-5.4) (4.2-5.4) Hgb 8.1 L D g/dL 7.3 L g/dL (12.0-15.0) (12.0-15.0) Hct 26.7 L % 25.5 L % (37.0-47.0) (37.0-47.0) MCV 102.3 H fl 107.1 H fl (80-100) (80-100) MCH 31.0 pg 30.7 pg (26-34) (26-34) MCHC 30.3 L g/dl 28.6 L g/dl (32-36) (32-36) RDW 20.3 H % 20.8 H % (11.5-14.5) (11.5-14.5) Plt Count 251 D k/mm3 235 k/mm3 (150-375) (150-375) MPV 9.0 fl 9.1 fl (7.4-10.4) (7.4-10.4) Immature Gran % (Auto) 2.2 H % 1.1 H % (0-0.5) (0-0.5) Neut % (Auto) 64.0 % 66.7 % (45.5-73.1) (45.5-73.1) Lymph % (Auto) 20.8 % 18.7 % (18.3-44.2) (18.3-44.2) Henderson % (Auto) 10.4 H % 10.0 H % (2.6-8.5) (2.6-8.5) Eos % (Auto) 2.2 % 3.0 % (0-4.4) (0-4.4) Baso % (Auto) 0.4 % 0.5 % (0.2-1.2) (0.2-1.2) Lymph # (Auto) 1.06 K/mm3 0.82 L K/mm3 (0.9-3.2) (0.9-3.2) Henderson # (Auto) 0.5 K/mm3 0.4 K/mm3 (0.1-0.6) (0.1-0.6) Eos # (Auto) 0.1 K/mm3 0.1 K/mm3 (0-0.3) (0-0.3) Baso # (Auto) 0.0 K/mm3 0.0 K/mm3 (0.0-0.1) (0.0-0.1) Abs Immat Gran (auto) 0.11 H K/mm3 0.05 H K/mm3 (0.00-0.031) (0.00-0.031) Absolute Neuts (auto) 3.3 K/mm3 2.9 K/mm3 (1.3-6.7) (1.3-6.7) Absolute Nucleated RBC 0.0 K/mm3 0.0 K/mm3 (0.0-0.012) (0.0-0.012) Nucleated RBC % 0.0 % 0.0 % (0.0-0.2) (0.0-0.2) Platelet Estimate Adequate (Adequate) Hypochromasia 1+ (NORMAL) Anisocytosis 2+ (NORMAL) Macrocytosis 2+ (NORMAL) Schistocytes None seen (NORMAL) ESR 132 H mm/hr (0-20) PT 19.5 H Seconds 19.6 H Seconds (11.1-14.7) (11.1-14.7) INR 1.5 1.6 APTT 40.
--- NOTE | 2022-12-04 16:51 | W.PM.PROC2 ---
Procedure Note - Detailed Date of Procedure 12/04/22 Pre-op Diagnosis Hematoma/pressure necrosis of skin lower back Post-op Diagnosis Same Procedure Performed Incision, drainage, and sharp debridement of necrotic skin from lower back traumatic hematoma. 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 She fell about 2 weeks ago striking her back involving very large lower back this hematoma. Her daughter noticed there was some development of skin necrosis in the midportion of the hematoma on the lower back and brought to the emergency room yesterday. On examination she had a 2 to 3 cm of skin necrosis overlying the hematoma and a CT scan showed a 22cm in diameter subcutaneous hematoma extending all the way down to the underlying fascia but not into the muscle. She presents now for incision and drainage of the hematoma and debridement of the of the necrotic skin placement of a wound VAC. Findings 2.5cm area of full-thickness skin necrosis over the hematoma cavity. Approximately 500 to 700 cc of mature blood clot without any purulence. Description of Procedure After informed consent was obtained patient brought to the operating room she was placed under general endotracheal anesthesia on the rney in turned into the prone position on operating table. The area the lower back region was then prepped and draped usual sterile fashion. A time-out was then performed correctly identifying the patient as well as procedure to be performed. She was already on scheduled IV antibiotics. I then proceeded to use scalpel to perform a sharp excisional debridement of the necrotic skin. This was a circular area skin about 2.5cm in diameter. This debridement included the skin and a small portion of the underlying subcutaneous tissue. This entered into a large hematoma cavity at which time which ear hematoma was found without any purulence. I then obtained a swab culture of the hematoma cavity a sent this to microbiology for Gram stain and culture. I then proceed to scoop out manually the firm hematoma and then when the majority the hematoma was removed I irrigated out the cavity with copious sterile saline solution. The the cavity extended across the midline of the back to the right side as well. I then enlarged the opening with a cruciate incision to allow easier access for a wound VAC placement. Down with the scalpel. I then I 4g of Hemabid topical hemostatic agent into the hematoma cavity. This is then followed by placement of black foam sponge into the cavity for wound VAC. the cavity measured 21cm in length transversely by 7cm vertically by 3cm in depth. The total area of the wound I placed was 147 sq cm. Once black foam sponge was in the cavity I then covered it with clear adhesive bandages. The suction pad was placed laterally on the right hip and I achieved a good seal on the wound VAC. The patient tolerated the procedure well no complications. All sponges, needles, and instrument counts were correct at the end procedure. EBL was _10__cc acute from the drainage. Old hematoma in the cavity was 500 to 700 cc. The patient was awakened and taken to recovery in stable and satisfactory condition. Implants None Estimated Blood Loss 10 Drains No Packing Yes (Wound VAC dressing placed) Pathology Other (Hematoma cavity swabbed sent to microbiology) Complications No immediate complications Condition Stable Disposition PACU [facility] Billing Surgery - Charge Forward: Surgery Billing
--- NOTE | 2022-12-04 17:52 | PC.NURSE ---
Pt back from PACU at 1745.
[2022-12-04] MEDS: HYDROcodone/acetaminophen (*CRX) 5-325 MG TABLET 1 TAB PO (21:34)
[2022-12-04] MEDS: HYDROmorphone HCL INJ (*CRX) 1 MG/ML SYR 0.5 MG IV PUSH (22:59)
[2022-12-05] MEDS: HALOPERIDOL LACTATE 5 MG/ML VIAL IM (01:33)
--- NOTE | 2022-12-05 03:14 | PC.NURSE ---
1944 on 12/04 Pt became increasingly confused. She was yelling at staff and trying to get out of bed. I tried to explain to Pt that she had just had surgery and had a wound vac on her back. She continued to attempt to get up unassisted frequently. Around 2229 I spoke to Claritza Streeter RN and Charge Nurse for the night about the Pt. Claritza spoke to the Pt. Pt continued with disruptive behavior. By 2329 Pt had pulled her IV out & would feel the dressing for the wound vac on her back. Room 307 was readied for her so she could be across from the nursing station & her current room mate could sleep. Pt refused to cooperate and wanted to talk to her daughter. Claritza assisted Pt in calling her daughter. At that point the Pt started yelling and cursing at family on the phone and staff. I spoke to Dr Herman on the phone and got an order for haldol which was administered. Jyoti. 0020 Daughter arrived and tried to calm the Pt. Pt would not calm down. We were able to move her to room 307. About 10-15 min later Pt started yelling and hitting at daughter. The warehouse checker called Dr Herman who came to the floor to observe the Pts behavior. Dr Herman gave an order for ativan & benadryl. The Pt did rest after this and the daughter stayed in the room with her.
[2022-12-05] MEDS: ceFAZolin 500 MG in DEXTROSE 5% IN WATER 50 ML 100 MG IVPB ×3 (07:08→21:17)
[2022-12-05] MEDS: LEVOTHYROXINE SODIUM 25 MCG TABLET PO (07:08)
[2022-12-05 07:29] LABS: Hematocrit 26.7 % (37.0-47.0); Hemoglobin 7.5 g/dL (12.0-15.0); Immature Granulocyte Absolute 0.06 K/mm3 (0.00-0.031); Immature Granulocyte Percent A 1.3 % (0-0.5); Lymphocytes Absolute Auto 0.65 K/mm3 (0.9-3.2); Lymphocytes Percent Auto 14.1 % (18.3-44.2); Mean Corpuscular HGB Conc 28.1 g/dl (32-36); Mean Corpuscular Hemoglobin 31.5 pg (26-34); Mean Corpuscular Volume 112.2 fl (80-100); Mean Platelet Volume 9.2 fl (7.4-10.4); Monocytes Absolute Auto 0.3 K/mm3 (0.1-0.6); Monocytes Percent Auto 7.4 % (2.6-8.5); Neutrophils Absolute Auto 3.6 K/mm3 (1.3-6.7); Neutrophils Percent Auto 77.2 % (45.5-73.1); Platelet Count Result 212 k/mm3 (150-375); Red Blood Count 2.38 M/mm3 (4.2-5.4); Red Cell Distribution Width 20.5 % (11.5-14.5); White Blood Count 4.6 K/mm3 (4.5-10.0)
[2022-12-05 07:46] LABS: Alanine Aminotransferase 16 U/L (6-35); Albumin Level 2.9 g/dL (3.5-5.1); Alkaline Phosphatase 44 U/L (38-126); Anion Gap 3 mmol/L (8-16); Aspartate Amino Transferase 38 U/L (14-36); Blood Urea Nitrogen 34 mg/dL (7-17); Calcium 9.9 mg/dL (8.4-10.2); Carbon Dioxide 20 mmol/L (22-30); Chloride 110 mmol/L (98-107); Estimated CRCL calculation 22 ml/min; Estimated Glomerular Filt Rate 36; Glucose 112 mg/dL (65-110); Magnesium 2.1 mg/dL (1.6-2.3); Potassium 4.6 mmol/L (3.4-5.0); Sodium 133 mmol/L (137-145)
[2022-12-05 08:36] VITALS: O2SAT 95
--- NOTE | 2022-12-05 08:52 | PC.NURSE ---
Pt's daughter, Katia, called for an update. I returned her call and answered her questions. I confirmed that pt is still being verbally abusive and vulgar as well as physically combative including but not limited to hitting, grabbing, kicking, and trying to tear things up. Pt has ripped out her IVs and is still attempting to do so. Pt currently has a sitter. Katia stated that he would attempt to get her brother to come help control pt.
--- NOTE | 2022-12-05 09:52 | PM.PNGS ---
Progress Note: A&P Assessment and Plan (1) Hematoma: Code(s): T14.8XXA - Other injury of unspecified body region, initial encounter Status: Acute Assessment and Plan: Postop day 1. After drainage, debridement, and placement of wound VAC on the lower back hematoma. She is confused this morning it may be just but she was anemic to start and a repeat hemoglobin is pending this morning. If her hemoglobin is much lower I would recommend giving her 2units of blood. Wound VAC will be changed on Wednesday. Subjective Subjective Date/Time Seen: 12/05/22 09:52 Post Op day: 1 (Status post incision, drainage, and debridement of large lower back hematoma.) Interval history: Patient is hemodynamically stable today. However she appears to be rather confused and likely owning. Her son is at the bedside with her. Labs are pending this morning. Exam Skin: Other: Lower back wound VAC is in place. Drainage seems to be small amount of old bloody fluid. Extensive ecchymosis around this area was present before surgery and is stable. Objective Data Vital Signs Vital Signs: Vital Signs - 24 hr 12/04/22 13:00 12/04/22 14:11 12/04/22 14:48 Temperature 36.2 C L 36.8 C Pulse Rate 71 138 H 70 Respiratory Rate 16 18 Blood Pressure 119/64 142/65 H Pulse Oximetry 99 99 100 Oxygen Delivery Room Air Nasal Cannula Oxygen Flow Rate 2 Fraction of Inspired Oxygen 12/04/22 16:36 12/04/22 16:50 12/04/22 16:45 Temperature 36.6 C Pulse Rate 70 75 74 Respiratory Rate 14 16 16 Blood Pressure 128/66 125/74 106/65 Pulse Oximetry 100 100 100 Oxygen Delivery Simple Face Mask Simple Face Mask Simple Face Mask Oxygen Flow Rate 8 8 8 Fraction of Inspired Oxygen 12/04/22 17:05 12/04/22 17:15 12/04/22 17:25 Temperature 36.6 C 36.7 C Pulse Rate 72 74 73 Respiratory Rate 15 20 16 Blood Pressure 114/52 L 129/65 108/73 Pulse Oximetry 100 100 100 Oxygen Delivery Nasal Cannula Nasal Cannula Nasal Cannula Oxygen Flow Rate 2 2 2 Fraction of Inspired Oxygen 12/04/22 17:50 12/04/22 18:05 12/04/22 18:31 Temperature 36.3 C L 36.2 C L Pulse Rate 71 70 Respiratory Rate 16 16 Blood Pressure 173/89 H 166/76 H Pulse Oximetry 100 98 100 Oxygen Delivery Room Air Oxygen Flow Rate Fraction of Inspired Oxygen 12/04/22 18:35 12/04/22 19:34 12/04/22 21:55 Temperature 36.4 C 36.1 C L 36.1 C L Pulse Rate 70 70 70 Respiratory Rate 16 16 16 Blood Pressure 158/74 H 125/60 125/60 Pulse Oximetry 100 95 95 Oxygen Delivery Oxygen Flow Rate Fraction of Inspired Oxygen 12/04/22 20:30 12/05/22 08:36 12/05/22 08:00 Temperature Pulse Rate 70 Respiratory Rate 16 Blood Pressure Pulse Oximetry 95 95 Oxygen Delivery Room Air Room Air Room Air Oxygen Flow Rate Fraction of Inspired Oxygen 21 Intake/Output Intake/Output: Intake & Output 12/02/22 12/03/22 12/04/22 12/05/22 23:59 23:59 23:59 23:59 Intake Total 50 1760 550 Output Total 100 400 Balance 50 1660 150 Meds/Results Medications: Active Medications Generic Name Dose Route Start Last Admin Trade Name Freq PRN Reason Stop Dose Admin Acetaminophen 1,000 mg 12/04/22 16:45 Acetaminophen 500 Mg Tablet PO Q6H PRN Mild Pain (1-3) or Fever Hydrocodone Bitart/Acetaminophen 1 tab 12/04/22 16:45 12/04/22 21:34 Hydrocodone/Acetaminophen (*Crx) 5-325 Mg Tablet PO 1 tab Q4H PRN Administration Pain Rated 4-6 Fluticasone Propionate 2 spray 12/04/22 09:00 12/05/22 08:48 Fluticasone Propionate 0.05% Na Spr 16 Gm Btl (*Bkc) NASAL Not Given DAILY YELENA Hydromorphone HCl 0.5 mg 12/04/22 16:45 12/04/22 22:59 Hydromorphone Hcl Inj (*Crx) 1 Mg/Ml Syr IV PUSH 0.5 mg Q4H PRN Administration Pain Rated 7-10 Lactated Ringer's 1,000 mls @ 100 mls/hr 12/04/22 08:20 12/05/22 08:49 Lr - Lactated Ringers Iv IV CONT 100 mls/hr .Q10H YELENA Infusion Cefazo
[2022-12-05 09:53] LABS: Phosphorus 5.6 mg/dL (2.5-4.5)
[2022-12-05 11:20] LABS: Anisocytosis 2+ (NORMAL); Macrocytosis 1+ (NORMAL); Platelet Estimate Adequate (Adequate); Poikilocytosis 1+ (NORMAL); Schistocytes None Seen (NORMAL)
[2022-12-05] MEDS: HYDROmorphone HCL INJ (*CRX) 1 MG/ML SYR 0.5 MG IV PUSH (11:23)
--- NOTE | 2022-12-05 13:18 | PC.NURSE ---
Pt keeps insisting she need to urinate. Pt refuses to use bedpan. Bedside commode placed next to bed. Pt was not able to stand on her own to pivot to commode literally touching the bed. Pt eventually placed on commode. After nearly 5 minutes, pt had zero output but claimed she was done going.
[2022-12-05 14:00] VITALS: BP 120/62; PULSE 70; RESP 16; TEMP 36.3; O2SAT 96
[2022-12-05] MEDS: LACTATED RINGERS 1,000 ML 100 ML IV CONT (14:43)
--- NOTE | 2022-12-05 15:15 | PC.NURSE ---
Pt's daughter, Katia, arrived and wanted another update on pt. I answered her questions bedside. I also encouraged her to attempt to do deep breathing exercises with pt to get the remnants of anesthesia out of the lungs.
--- NOTE | 2022-12-05 17:23 | PM.IMPN ---
Progress Note: A&P Assessment and Plan (1) Fall: Code(s): W19.XXXA - Unspecified fall, initial encounter Status: Acute Assessment and Plan: MECHANICAL FALL FALL PRECAUTIONS (2) Hematoma: Code(s): T14.8XXA - Other injury of unspecified body region, initial encounter Status: Acute Assessment and Plan: SECONDARY TO 1. HAS DEVELOPED ULCER SURGERY CONSULT PATIENT EVALUATED BY SURGERY AND UNDERWENT I&D 12/04/2022 WITH WOUND VAC PLACEMENT CONTINUE WITH IV ANTIBIOTICS (3) Blunt trauma: Code(s): T14.90XA - Injury, unspecified, initial encounter Status: Acute Assessment and Plan: TO BACK LUMBAR AREA WITH RESULTANT HEMATOMA FORMATION PLEASE SEE MANAGEMENT ABOVE (4) Atrial fibrillation: Qualifiers: Atrial fibrillation type: unspecified Qualified Code(s): I48.91 - Unspecified atrial fibrillation Code(s): I48.91 - Unspecified atrial fibrillation Status: Acute Assessment and Plan: CONTINUE HOME MEDS COUMADIN HELD FOR SURGERY, TO BE RESUMED ON GENERAL SURGERY RECOMMENDATIONS (5) Obstructive sleep apnea: Code(s): G47.33 - Obstructive sleep apnea (adult) (pediatric) Status: Acute Assessment and Plan: CONSIDER BIPAP ONCE PATIENT IS MORE AWAKE (6) Chronic kidney disease: Code(s): N18.9 - Chronic kidney disease, unspecified Status: Acute Assessment and Plan: WILL HOLD BUMETANIDE CONTINUE TO MONITOR RESTART NEEDED Plan ? PATIENT SEEN AND EXAMINED AT BEDSIDE DURING MY MORNING ROUNDS ? COLLABORATED WITH PATIENT'S NURSE AT THE BEDSIDE IN DETAIL AND ADDRESSED ALL CONCERNS ? LABS, ELECTROLYTES, RADIOLOGY, INVESTIGATIONS AND TEST RESULTS REVIEWED ? CONSULT NOTES ON THE CASE REVIEWED AND APPRECIATED ? SPOKE WITH PATIENT/FAMILY AT THE BEDSIDE AND ANSWERED ALL THE QUESTIONS THAT THEY HAD REPEAT LABS IN A.M. ELECTROLYTE REPLACEMENT PER PROTOCOL. PATIENT WILL BE MONITORED VERY CLOSELY ON THE FLOOR. FURTHER RECOMMENDATIONS PER THE HOSPITAL COURSE. Subjective Date/time seen: 12/05/22 17:23 Interval history: 12/04/2022: 87-year-old female with history of AFib anticoagulated on Coumadin hypertension hyperlipidemia presented back pain while 11/23 noted to have hematoma. Increase in size concern for overlying necrotic tissue. Referred to Wound Care who sent her to the ER for evaluation. Necrotic black spot in wound has been increasing size of the past 2 days. Increased fatigue. She has been treated with antibiotics for a UTI. INR was 2 days ago was 1.6. CT showed 22 x 10 x 4.8 cm hematoma in the lumbar region. Hemoglobin dropped from 12-8 over the laxed 10 days. INR 1.5. General surgery has been consulted and plan for incision and drainage. Hold anticoagulation. Transfuse as needed to keep hemoglobin more than 7 12/05/2022: Patient underwent I&D yesterday at the lower back traumatic hematoma site, and the wound VAC was placed. Follow up closely as per surgery. patient feels confused and lethargic. Spoke with patient's family at the bedside. We will monitor her closely. Hemoglobin today at 7.5. patient to undergo PT/OT evaluation and treatment when stable. currently receiving IV antibiotics and IV fluids. Review of Systems Review of Systems: ROS unobtainable: Yes unobtainable due to mental status ( OBTUNDATION) Exam Narrative: PHYSICAL EXAMINATION: Vital signs: Please see the chart. Head/eyes: Atraumatic, EOMI, PERRLA. ENT: Moist mucous membranes, nasal passages clear. Neck: Supple, full range of motion, trachea midline. CVS: S1 + S2 + 0, regular rate and rhythm, no murmurs Respiratory: Bilaterally fair air entry in both lung mo, mild B/L crackles, symmetric expansion of chest, no distress Abdomen: Soft, non-tender, bowel sounds +ve, no organomegaly. Extremities: No clubbing, no cyanosis, no edema, no calf tenderness Musculoskeletal: Moves all, full range of motio
[2022-12-05 22:00] VITALS: BP 150/88; PULSE 70; RESP 18; TEMP 36.6; O2SAT 98
[2022-12-06] VITALS (12 sets, daily range): BP systolic 103–152; BP diastolic 58–78; PULSE 68–72; RESP 14–18; TEMP 36.3–36.9; O2SAT 96–100
[2022-12-06] MEDS: ceFAZolin 500 MG in DEXTROSE 5% IN WATER 50 ML 100 MG IVPB ×3 (06:18→20:52)
[2022-12-06] MEDS: LEVOTHYROXINE SODIUM 25 MCG TABLET PO (06:18)
[2022-12-06 06:25] LABS: Basophils Percent Auto 0.4 % (0.2-1.2); Eosinophils Absolute Auto 0.1 K/mm3 (0-0.3); Eosinophils Percent Auto 1.8 % (0-4.4); Hematocrit 25.9 % (37.0-47.0); Hemoglobin 7.8 g/dL (12.0-15.0); Immature Granulocyte Absolute 0.04 K/mm3 (0.00-0.031); Immature Granulocyte Percent A 0.7 % (0-0.5); Lymphocytes Percent Auto 16.6 % (18.3-44.2); Mean Corpuscular HGB Conc 30.1 g/dl (32-36); Mean Corpuscular Hemoglobin 31.6 pg (26-34); Mean Corpuscular Volume 104.9 fl (80-100); Mean Platelet Volume 9.2 fl (7.4-10.4); Monocytes Absolute Auto 0.4 K/mm3 (0.1-0.6); Monocytes Percent Auto 7.9 % (2.6-8.5); Neutrophils Absolute Auto 3.9 K/mm3 (1.3-6.7); Neutrophils Percent Auto 72.6 % (45.5-73.1); Platelet Count Result 243 k/mm3 (150-375); Red Blood Count 2.47 M/mm3 (4.2-5.4); Red Cell Distribution Width 20.4 % (11.5-14.5); White Blood Count 5.4 K/mm3 (4.5-10.0)
[2022-12-06 06:33] LABS: Anion Gap 3 mmol/L (8-16); Blood Urea Nitrogen 38 mg/dL (7-17); Calcium 9.7 mg/dL (8.4-10.2); Carbon Dioxide 25 mmol/L (22-30); Chloride 106 mmol/L (98-107); Estimated CRCL calculation 19 ml/min; Estimated Glomerular Filt Rate 30; Glucose 100 mg/dL (65-110); Potassium 3.9 mmol/L (3.4-5.0); Sodium 134 mmol/L (137-145)
[2022-12-06] MEDS: METOPROLOL SUCCINATE EXT REL 50 MG TABCR PO (08:29)
[2022-12-06] MEDS: SERTRALINE HCL 25 MG TABLET PO (08:29)
[2022-12-06 09:42] LABS: Folic Acid > 20.0 ng/mL (2.76->20)
--- NOTE | 2022-12-06 13:24 | PM.PNGS ---
Progress Note: A&P Assessment and Plan (1) Hematoma: Code(s): T14.8XXA - Other injury of unspecified body region, initial encounter Status: Acute Assessment and Plan: Status post drainage of large back hematoma and debridement of necrotic skin over the hematoma. She seems to be doing well. . More sleep last night so she is a little less confused. Her hemoglobin is stable at 7.8 but she started out at 12 prior to her fall. I think she will benefit for having 2units of packed red blood cells transfused hopefully we get her strength a little closer to normal and her mental status a little better as well. We will plan on changing the wound VAC at the bedside tomorrow with the wound care nurses. Subjective Subjective Date/Time Seen: 12/06/22 13:24 Interval history: Patient is resting comfortably. Sleeping 1 year the room. VAC has been working well without any leaks in the suction. Output is old bloody serous appearing fluid. Patient seems to be less confused today. Hemoglobin today is 7.8. It is stable but still below 8. She started off at 12 on her hemoglobin prior to her fall and hematoma formation. Exam Skin: Other: Lower back wound VAC in place. No redness. Output from the wound VAC is old bloody serous. It seal to the wound VAC. Objective Data Vital Signs Vital Signs: Vital Signs - 24 hr 12/05/22 14:00 12/05/22 22:00 12/05/22 20:00 Temperature 36.3 C L 36.6 C Pulse Rate 70 70 Respiratory Rate 16 18 Blood Pressure 120/62 150/88 H Pulse Oximetry 96 98 Oxygen Delivery Room Air Fraction of Inspired Oxygen 21 12/06/22 06:00 12/06/22 08:00 Temperature 36.7 C Pulse Rate 70 Respiratory Rate 18 Blood Pressure 103/58 L Pulse Oximetry 100 Oxygen Delivery Room Air Fraction of Inspired Oxygen Intake/Output Intake/Output: Intake & Output 12/03/22 12/04/22 12/05/22 12/06/22 23:59 23:59 23:59 23:59 Intake Total 50 1760 1390 1290 Output Total 100 900 Balance 50 0299 447 0654 Meds/Results Medications: Active Medications Generic Name Dose Route Start Last Admin Trade Name Freq PRN Reason Stop Dose Admin Acetaminophen 1,000 mg 12/04/22 16:45 Acetaminophen 500 Mg Tablet PO Q6H PRN Mild Pain (1-3) or Fever Hydrocodone Bitart/Acetaminophen 1 tab 12/04/22 16:45 12/04/22 21:34 Hydrocodone/Acetaminophen (*Crx) 5-325 Mg Tablet PO 1 tab Q4H PRN Administration Pain Rated 4-6 Fluticasone Propionate 2 spray 12/04/22 09:00 12/06/22 08:29 Fluticasone Propionate 0.05% Na Spr 16 Gm Btl (*Bkc) NASAL Not Given DAILY YELENA Hydromorphone HCl 0.5 mg 12/04/22 16:45 12/05/22 11:23 Hydromorphone Hcl Inj (*Crx) 1 Mg/Ml Syr IV PUSH 0.5 mg Q4H PRN Administration Pain Rated 7-10 Lactated Ringer's 1,000 mls @ 100 mls/hr 12/04/22 08:20 12/05/22 14:43 Lr - Lactated Ringers Iv IV CONT 100 mls/hr .Q10H YELENA Administration Cefazolin Sodium 500 mg/ 50 mls @ 100 mls/hr 12/04/22 14:00 12/06/22 07:31 Dextrose IVPB Infused Q8HR YELENA Infusion Sodium Chloride 250 mls @ 30 mls/hr 12/06/22 13:22 Normal Saline Iv IV CONT 12/06/22 21:41 .Q8H20M STA Levothyroxine Sodium 25 mcg 12/04/22 06:30 12/06/22 06:18 Levothyroxine Sodium 25 Mcg Tablet PO 25 mcg DAILY@0630 YELENA Administration Metoprolol Succinate 50 mg 12/04/22 09:00 12/06/22 08:29 Metoprolol Succinate Ext Rel 50 Mg Tabcr PO 50 mg DAILY YELENA Administration Mupirocin 1 applic 12/04/22 03:04 Mupirocin 2% Oint 22 Gm Tube TOPICAL TID PRN skin tears Ondansetron HCl 4 mg 12/04/22 14:46 Ondansetron Inj 4 Mg/2 Ml Vial IV PUSH ONCE PRN Nausea Sertraline HCl 25 mg 12/04/22 09:00 12/06/22 08:29 Sertraline Hcl 25 Mg Tablet PO 25 mg DAILY YELENA Administration Radiology Results: ITS Impressions Abdomen/Pelvis CT 12/03/22 18:06 IMPRESSION: 1. 22.1 x 10.2 x 4.8 cm subcutaneous hematoma ex
--- NOTE | 2022-12-06 13:49 | PM.IMPN ---
Progress Note: A&P Assessment and Plan (1) Fall: Code(s): W19.XXXA - Unspecified fall, initial encounter Status: Acute Assessment and Plan: MECHANICAL FALL FALL PRECAUTIONS (2) Hematoma: Code(s): T14.8XXA - Other injury of unspecified body region, initial encounter Status: Acute Assessment and Plan: SECONDARY TO 1. HAS DEVELOPED ULCER SURGERY CONSULT PLACED ON ADMISSION PATIENT EVALUATED BY SURGERY AND UNDERWENT I&D 12/04/2022 WITH WOUND VAC PLACEMENT WOUND VAC DRAINING WELL WITH ADEQUATE OUTPUT, TO BE CHANGED BY GENERAL SURGERY PATIENT IS DOING WELL POSTOP CONTINUE WITH IV ANTIBIOTICS (3) Blunt trauma: Code(s): T14.90XA - Injury, unspecified, initial encounter Status: Acute Assessment and Plan: TO BACK LUMBAR AREA WITH RESULTANT HEMATOMA FORMATION PLEASE SEE MANAGEMENT ABOVE (4) Atrial fibrillation: Qualifiers: Atrial fibrillation type: unspecified Qualified Code(s): I48.91 - Unspecified atrial fibrillation Code(s): I48.91 - Unspecified atrial fibrillation Status: Acute Assessment and Plan: CONTINUE HOME MEDS COUMADIN HELD FOR SURGERY, TO BE RESUMED ON GENERAL SURGERY RECOMMENDATIONS (5) Obstructive sleep apnea: Code(s): G47.33 - Obstructive sleep apnea (adult) (pediatric) Status: Acute Assessment and Plan: CONSIDER BIPAP ONCE PATIENT IS MORE AWAKE (6) Chronic kidney disease: Code(s): N18.9 - Chronic kidney disease, unspecified Status: Acute Assessment and Plan: WILL HOLD BUMETANIDE CONTINUE TO MONITOR RESTART NEEDED Plan ? PATIENT SEEN AND EXAMINED AT BEDSIDE DURING MY MORNING ROUNDS ? COLLABORATED WITH PATIENT'S NURSE AT THE BEDSIDE IN DETAIL AND ADDRESSED ALL CONCERNS ? LABS, ELECTROLYTES, RADIOLOGY, INVESTIGATIONS AND TEST RESULTS REVIEWED ? CONSULT NOTES ON THE CASE REVIEWED AND APPRECIATED ? SPOKE WITH PATIENT/FAMILY AT THE BEDSIDE AND ANSWERED ALL THE QUESTIONS THAT THEY HAD REPEAT LABS IN A.M. ELECTROLYTE REPLACEMENT PER PROTOCOL. PATIENT WILL BE MONITORED VERY CLOSELY ON THE FLOOR. FURTHER RECOMMENDATIONS PER THE HOSPITAL COURSE. Subjective Date/time seen: 12/06/22 13:49 Interval history: 12/04/2022: 87-year-old female with history of AFib anticoagulated on Coumadin hypertension hyperlipidemia presented back pain while 11/23 noted to have hematoma. Increase in size concern for overlying necrotic tissue. Referred to Wound Care who sent her to the ER for evaluation. Necrotic black spot in wound has been increasing size of the past 2 days. Increased fatigue. She has been treated with antibiotics for a UTI. INR was 2 days ago was 1.6. CT showed 22 x 10 x 4.8 cm hematoma in the lumbar region. Hemoglobin dropped from 12-8 over the laxed 10 days. INR 1.5. General surgery has been consulted and plan for incision and drainage. Hold anticoagulation. Transfuse as needed to keep hemoglobin more than 7 12/05/2022: Patient underwent I&D yesterday at the lower back traumatic hematoma site, and the wound VAC was placed. Follow up closely as per surgery. patient feels confused and lethargic. Spoke with patient's family at the bedside. We will monitor her closely. Hemoglobin today at 7.5. patient to undergo PT/OT evaluation and treatment when stable. currently receiving IV antibiotics and IV fluids. 12/06/2022: Patient seen and evaluated at bedside. She is more alert today and able to carry intelligible conversation. Wound VAC is draining well, which will be changed by General surgery. Hemoglobin remained stable postop. IV fluids held as the patient is able to eat and drink. encourage ambulation. I am signing off. Patient's medical care will be taken over by my covering hospitalist attending, Dr. Arturo Brown, in am. Review of Systems Review of Systems: All systems reviewed & are unremarkable except as noted in HPI and below
[2022-12-06] MEDS: TUBING, BLOOD PLUM PUMP TUBING 2 EACH XX (16:03)
[2022-12-06] MEDS: HYDROcodone/acetaminophen (*CRX) 5-325 MG TABLET 1 TAB PO (20:50)
[2022-12-06 22:57] LABS: Hematocrit 33.7 % (37.0-47.0); Hemoglobin 10.5 g/dL (12.0-15.0)
[2022-12-07 05:22] VITALS: BP 140/71; PULSE 69; RESP 16; TEMP 36.6; O2SAT 99
[2022-12-07] MEDS: LEVOTHYROXINE SODIUM 25 MCG TABLET PO (06:10)
[2022-12-07] MEDS: ceFAZolin 500 MG in DEXTROSE 5% IN WATER 50 ML 100 MG IVPB ×2 (06:10→15:06)
[2022-12-07] MEDS: HYDROcodone/acetaminophen (*CRX) 5-325 MG TABLET 1 TAB PO ×2 (06:11→12:35)
[2022-12-07 06:34] LABS: Basophils Percent Auto 0.2 % (0.2-1.2); Eosinophils Absolute Auto 0.2 K/mm3 (0-0.3); Eosinophils Percent Auto 2.9 % (0-4.4); Hematocrit 33.1 % (37.0-47.0); Hemoglobin 10.3 g/dL (12.0-15.0); Immature Granulocyte Absolute 0.05 K/mm3 (0.00-0.031); Lymphocytes Absolute Auto 0.77 K/mm3 (0.9-3.2); Lymphocytes Percent Auto 14.9 % (18.3-44.2); Mean Corpuscular HGB Conc 31.1 g/dl (32-36); Mean Corpuscular Hemoglobin 31.1 pg (26-34); Mean Platelet Volume 9.3 fl (7.4-10.4); Monocytes Absolute Auto 0.5 K/mm3 (0.1-0.6); Monocytes Percent Auto 9.1 % (2.6-8.5); Neutrophils Absolute Auto 3.7 K/mm3 (1.3-6.7); Neutrophils Percent Auto 71.9 % (45.5-73.1); Platelet Count Result 209 k/mm3 (150-375); Red Blood Count 3.31 M/mm3 (4.2-5.4); Red Cell Distribution Width 20.8 % (11.5-14.5); White Blood Count 5.2 K/mm3 (4.5-10.0)
[2022-12-07 06:44] LABS: Anion Gap 2 mmol/L (8-16); Blood Urea Nitrogen 34 mg/dL (7-17); Calcium 9.9 mg/dL (8.4-10.2); Carbon Dioxide 26 mmol/L (22-30); Chloride 108 mmol/L (98-107); Estimated CRCL calculation 22 ml/min; Estimated Glomerular Filt Rate 36; Glucose 95 mg/dL (65-110); Sodium 136 mmol/L (137-145)
[2022-12-07 09:01] VITALS: PULSE 64
[2022-12-07] MEDS: METOPROLOL SUCCINATE EXT REL 50 MG TABCR PO (09:01)
[2022-12-07] MEDS: SERTRALINE HCL 25 MG TABLET PO (09:01)
[2022-12-07] MEDS: LIDOCAINE 5% PATCH 1 PATCH TRANSDERM (10:53)
[2022-12-07] MEDS: HYDROmorphone HCL INJ (*CRX) 1 MG/ML SYR 0.5 MG IV PUSH (12:34)
[2022-12-07 13:50] VITALS: BP 112/60; PULSE 72; RESP 16; TEMP 36.4; O2SAT 99
--- NOTE | 2022-12-07 16:13 | PM.PNGS ---
Progress Note: A&P Assessment and Plan (1) Hematoma: Code(s): T14.8XXA - Other injury of unspecified body region, initial encounter Status: Acute Assessment and Plan: Status post drainage of large back hematoma and debridement of necrotic skin over the hematoma. Overall improving and wound VAC functioning well. Wound vac was changed by wound care nurses today. She received 2 units of PRBCs yesterday and hemoglobin now up to 10.3 from 7.8. Will continue to monitor and plan to change the wound VAC dressing again on Wednesday. Plan I have discussed the patient's case and plan of care with Dr. Chapa. Subjective Subjective Date/Time Seen: 12/07/22 14:13 Post Op day: 3 (Incision, drainage, and sharp debridement of necrotic skin from lower back traumatic hematoma) Patient reports: afebrile Interval history: Patient is resting in bed comfortably. Wound care nurses have been by today and already changed her wound VAC prior to my arrival. She tolerated this well and pain is controlled with current analgesics. Still slightly confused but answering questions appropriately. No specific complaints at this time. Exam Narrative: Wound VAC in place on her back and functioning well with dark old bloody drainage and wound VAC canister. Objective Data Vital Signs Vital Signs: Vital Signs - 24 hr 12/06/22 16:15 12/06/22 17:15 12/06/22 18:15 Temperature 98.3 F 98.3 F 98.3 F Pulse Rate 70 70 70 Respiratory Rate 16 16 16 Blood Pressure 121/66 152/75 H 140/69 Pulse Oximetry 97 100 99 Oxygen Delivery Fraction of Inspired Oxygen 12/06/22 18:39 12/06/22 18:55 12/06/22 18:55 Temperature 98.3 F 98.4 F 98.3 F Pulse Rate 70 72 72 Respiratory Rate 16 18 18 Blood Pressure 140/69 127/63 127/63 Pulse Oximetry 99 100 100 Oxygen Delivery Fraction of Inspired Oxygen 12/06/22 19:55 12/06/22 20:00 12/06/22 20:55 Temperature 97.9 F 98.0 F Pulse Rate 71 71 68 Respiratory Rate 16 16 14 Blood Pressure 128/64 128/66 Pulse Oximetry 98 98 96 Oxygen Delivery Room Air Fraction of Inspired Oxygen 21 12/06/22 21:45 12/07/22 05:22 12/07/22 09:01 Temperature 97.7 F 97.8 F Pulse Rate 70 69 64 Respiratory Rate 16 16 Blood Pressure 130/78 140/71 Pulse Oximetry 99 99 Oxygen Delivery Fraction of Inspired Oxygen 12/07/22 09:00 12/07/22 13:50 Temperature 97.6 F Pulse Rate 72 Respiratory Rate 16 Blood Pressure 112/60 Pulse Oximetry 99 Oxygen Delivery Room Air Fraction of Inspired Oxygen Intake/Output Intake/Output: Intake & Output 12/04/22 12/05/22 12/06/22 12/07/22 23:59 23:59 23:59 23:59 Intake Total 1760 1390 3570 1340 Output Total 100 900 400 800 Balance 5604 264 2678 540 Meds/Results Medications: Active Medications Generic Name Dose Route Start Last Admin Trade Name Freq PRN Reason Stop Dose Admin Acetaminophen 1,000 mg 12/04/22 16:45 Acetaminophen 500 Mg Tablet PO Q6H PRN Mild Pain (1-3) or Fever Hydrocodone Bitart/Acetaminophen 1 tab 12/04/22 16:45 12/07/22 12:35 Hydrocodone/Acetaminophen (*Crx) 5-325 Mg Tablet PO 1 tab Q4H PRN Administration Pain Rated 4-6 Cephalexin HCl 500 mg 12/07/22 21:00 Cephalexin 500 Mg Capsule PO 12/10/22 23:59 Q12HR YELENA Fluticasone Propionate 2 spray 12/04/22 09:00 12/07/22 09:03 Fluticasone Propionate 0.05% Na Spr 16 Gm Btl (*Bkc) NASAL Not Given DAILY YELENA Hydromorphone HCl 0.5 mg 12/04/22 16:45 12/07/22 12:34 Hydromorphone Hcl Inj (*Crx) 1 Mg/Ml Syr IV PUSH 0.5 mg Q4H PRN Administration Pain Rated 7-10 Lactated Ringer's 1,000 mls @ 100 mls/hr 12/04/22 08:20 12/05/22 14:43 Lr - Lactated Ringers Iv IV CONT 100 mls/hr .Q10H YELENA Administration Levothyroxine Sodium 25 mcg 12/04/22 06:30 12/07/22 06:10 Levothyroxine Sodium 25 Mcg Tablet PO 25 mcg DAILY@0630 YELENA Administration Lidocaine 1 patch 12/07/22 09:00 12/07/22 10:53 Li
--- NOTE | 2022-12-07 17:45 | PM.IMPN ---
Progress Note: A&P Assessment and Plan (1) Fall: Code(s): W19.XXXA - Unspecified fall, initial encounter Status: Acute Assessment and Plan: MECHANICAL FALL FALL PRECAUTIONS (2) Hematoma: Code(s): T14.8XXA - Other injury of unspecified body region, initial encounter Status: Acute Assessment and Plan: SECONDARY TO 1. HAS DEVELOPED ULCER SURGERY CONSULT PLACED ON ADMISSION PATIENT EVALUATED BY SURGERY AND UNDERWENT I&D 12/04/2022 WITH WOUND VAC PLACEMENT WOUND VAC DRAINING WELL WITH ADEQUATE OUTPUT, TO BE CHANGED BY GENERAL SURGERY PATIENT IS DOING WELL POSTOP CONTINUE WITH IV ANTIBIOTICS as ordered (3) Blunt trauma: Code(s): T14.90XA - Injury, unspecified, initial encounter Status: Acute Assessment and Plan: TO BACK LUMBAR AREA WITH RESULTANT HEMATOMA FORMATION PLEASE SEE MANAGEMENT ABOVE (4) Atrial fibrillation: Qualifiers: Atrial fibrillation type: unspecified Qualified Code(s): I48.91 - Unspecified atrial fibrillation Code(s): I48.91 - Unspecified atrial fibrillation Status: Acute Assessment and Plan: CONTINUE HOME MEDS COUMADIN HELD FOR SURGERY, TO BE RESUMED ON GENERAL SURGERY RECOMMENDATIONS (5) Obstructive sleep apnea: Code(s): G47.33 - Obstructive sleep apnea (adult) (pediatric) Status: Acute Assessment and Plan: CONSIDER BIPAP ONCE PATIENT IS MORE AWAKE (6) Chronic kidney disease: Code(s): N18.9 - Chronic kidney disease, unspecified Status: Acute Assessment and Plan: WILL HOLD BUMETANIDE CONTINUE TO MONITOR RESTART NEEDED Plan Right chest wall pain reproducible musculoskeletal. Blood loss anemia received 2 unit of PRBC continue to monitor for any further drop in H&H Subjective Date/time seen: 12/07/22 17:45 Interval history: 12/04/2022: 87-year-old female with history of AFib anticoagulated on Coumadin hypertension hyperlipidemia presented back pain while 11/23 noted to have hematoma. Increase in size concern for overlying necrotic tissue. Referred to Wound Care who sent her to the ER for evaluation. Necrotic black spot in wound has been increasing size of the past 2 days. Increased fatigue. She has been treated with antibiotics for a UTI. INR was 2 days ago was 1.6. CT showed 22 x 10 x 4.8 cm hematoma in the lumbar region. Hemoglobin dropped from 12-8 over the laxed 10 days. INR 1.5. General surgery has been consulted and plan for incision and drainage. Hold anticoagulation. Transfuse as needed to keep hemoglobin more than 7 12/05/2022: Patient underwent I&D yesterday at the lower back traumatic hematoma site, and the wound VAC was placed. Follow up closely as per surgery. patient feels confused and lethargic. Spoke with patient's family at the bedside. We will monitor her closely. Hemoglobin today at 7.5. patient to undergo PT/OT evaluation and treatment when stable. currently receiving IV antibiotics and IV fluids. 12/06/2022: Patient seen and evaluated at bedside. She is more alert today and able to carry intelligible conversation. Wound VAC is draining well, which will be changed by General surgery. Hemoglobin remained stable postop. IV fluids held as the patient is able to eat and drink. encourage ambulation. 12/07: Complains of right chest wall pain daughter at bedside. Wound VAC in place in low back. Review of Systems Review of Systems: All systems reviewed & are unremarkable except as noted in HPI and below Exam Narrative: PHYSICAL EXAMINATION: Vital signs: Please see the chart. General physical exam: Well-developed, well-nourished, in no acute distress. Head/eyes: Atraumatic, EOMI, PERRLA. ENT: Moist mucous membranes, nasal passages clear. Neck: Supple, full range of motion, trachea midline. CVS: S1 + S2, regular rate and rhythm, + Grade 3/6 systolic ejection murmur Respiratory: Bilaterally fair air ent
[2022-12-07] MEDS: CEPHALEXIN 500 MG CAPSULE PO (21:05)
[2022-12-07 21:11] VITALS: BP 146/73; PULSE 69; RESP 15; TEMP 36.6; O2SAT 99
[2022-12-08] VITALS (7 sets, daily range): BP systolic 139–176; BP diastolic 70–97; PULSE 67–85; RESP 14–20; TEMP 36.6; O2SAT 97–100
[2022-12-08] MEDS: HYDROcodone/acetaminophen (*CRX) 5-325 MG TABLET 1 TAB PO ×3 (02:20→21:18)
[2022-12-08] MEDS: LEVOTHYROXINE SODIUM 25 MCG TABLET PO (05:35)
[2022-12-08 06:33] LABS: Basophils Percent Auto 0.4 % (0.2-1.2); Eosinophils Absolute Auto 0.2 K/mm3 (0-0.3); Eosinophils Percent Auto 4.2 % (0-4.4); Hematocrit 35.5 % (37.0-47.0); Hemoglobin 10.7 g/dL (12.0-15.0); Immature Granulocyte Absolute 0.05 K/mm3 (0.00-0.031); Immature Granulocyte Percent A 1.1 % (0-0.5); Lymphocytes Absolute Auto 0.65 K/mm3 (0.9-3.2); Lymphocytes Percent Auto 13.7 % (18.3-44.2); Mean Corpuscular HGB Conc 30.1 g/dl (32-36); Mean Corpuscular Hemoglobin 31.3 pg (26-34); Mean Corpuscular Volume 103.8 fl (80-100); Mean Platelet Volume 9.3 fl (7.4-10.4); Monocytes Absolute Auto 0.5 K/mm3 (0.1-0.6); Monocytes Percent Auto 9.5 % (2.6-8.5); Neutrophils Absolute Auto 3.4 K/mm3 (1.3-6.7); Neutrophils Percent Auto 71.1 % (45.5-73.1); Platelet Count Result 199 k/mm3 (150-375); Red Blood Count 3.42 M/mm3 (4.2-5.4); Red Cell Distribution Width 20.3 % (11.5-14.5); White Blood Count 4.8 K/mm3 (4.5-10.0)
[2022-12-08 06:45] LABS: Anion Gap 4 mmol/L (8-16); Blood Urea Nitrogen 31 mg/dL (7-17); Carbon Dioxide 24 mmol/L (22-30); Chloride 109 mmol/L (98-107); Estimated CRCL calculation 28 ml/min; Estimated Glomerular Filt Rate 47; Glucose 97 mg/dL (65-110); Magnesium 2.1 mg/dL (1.6-2.3); Potassium 3.9 mmol/L (3.4-5.0); Sodium 137 mmol/L (137-145)
[2022-12-08] MEDS: LIDOCAINE 5% PATCH 1 PATCH TRANSDERM (07:59)
[2022-12-08] MEDS: METOPROLOL SUCCINATE EXT REL 50 MG TABCR PO (08:02)
[2022-12-08] MEDS: CEPHALEXIN 500 MG CAPSULE PO ×2 (08:03→21:18)
[2022-12-08] MEDS: SERTRALINE HCL 25 MG TABLET PO (08:03)
[2022-12-08] MEDS: MUPIROCIN 2% OINT 22 GM TUBE 1 APPLIC TOPICAL (08:08)
--- NOTE | 2022-12-08 13:26 | PM.IMPN ---
Progress Note: A&P Assessment and Plan (1) Fall: Code(s): W19.XXXA - Unspecified fall, initial encounter Status: Acute Assessment and Plan: MECHANICAL FALL FALL PRECAUTIONS (2) Hematoma: Code(s): T14.8XXA - Other injury of unspecified body region, initial encounter Status: Acute Assessment and Plan: SECONDARY TO 1. HAS DEVELOPED ULCER SURGERY CONSULT PLACED ON ADMISSION PATIENT EVALUATED BY SURGERY AND UNDERWENT I&D 12/04/2022 WITH WOUND VAC PLACEMENT WOUND VAC DRAINING WELL WITH ADEQUATE OUTPUT, TO BE CHANGED BY GENERAL SURGERY PATIENT IS DOING WELL POSTOP CONTINUE WITH IV ANTIBIOTICS as ordered switched to oral cephalexin today WBC count normal cultures been negative (3) Blunt trauma: Code(s): T14.90XA - Injury, unspecified, initial encounter Status: Acute Assessment and Plan: TO BACK LUMBAR AREA WITH RESULTANT HEMATOMA FORMATION PLEASE SEE MANAGEMENT ABOVE (4) Atrial fibrillation: Qualifiers: Atrial fibrillation type: unspecified Qualified Code(s): I48.91 - Unspecified atrial fibrillation Code(s): I48.91 - Unspecified atrial fibrillation Status: Acute Assessment and Plan: CONTINUE HOME MEDS COUMADIN HELD FOR SURGERY, TO BE RESUMED ON GENERAL SURGERY RECOMMENDATIONS Okay per General surgery to resume Coumadin. Will resume Coumadin from today. (5) Obstructive sleep apnea: Code(s): G47.33 - Obstructive sleep apnea (adult) (pediatric) Status: Acute Assessment and Plan: CONSIDER BIPAP ONCE PATIENT IS MORE AWAKE (6) Chronic kidney disease: Code(s): N18.9 - Chronic kidney disease, unspecified Status: Acute Assessment and Plan: WILL HOLD BUMETANIDE CONTINUE TO MONITOR RESTART NEEDED Plan Right chest wall pain reproducible musculoskeletal. Lidocaine patch p.r.n. Blood loss anemia received 2 unit of PRBC continue to monitor for any further drop in H&H H&H remains stable since transfusion. Subjective Date/time seen: 12/08/22 13:26 Interval history: 12/04/2022: 87-year-old female with history of AFib anticoagulated on Coumadin hypertension hyperlipidemia presented back pain while 11/23 noted to have hematoma. Increase in size concern for overlying necrotic tissue. Referred to Wound Care who sent her to the ER for evaluation. Necrotic black spot in wound has been increasing size of the past 2 days. Increased fatigue. She has been treated with antibiotics for a UTI. INR was 2 days ago was 1.6. CT showed 22 x 10 x 4.8 cm hematoma in the lumbar region. Hemoglobin dropped from 12-8 over the laxed 10 days. INR 1.5. General surgery has been consulted and plan for incision and drainage. Hold anticoagulation. Transfuse as needed to keep hemoglobin more than 7 12/05/2022: Patient underwent I&D yesterday at the lower back traumatic hematoma site, and the wound VAC was placed. Follow up closely as per surgery. patient feels confused and lethargic. Spoke with patient's family at the bedside. We will monitor her closely. Hemoglobin today at 7.5. patient to undergo PT/OT evaluation and treatment when stable. currently receiving IV antibiotics and IV fluids. 12/06/2022: Patient seen and evaluated at bedside. She is more alert today and able to carry intelligible conversation. Wound VAC is draining well, which will be changed by General surgery. Hemoglobin remained stable postop. IV fluids held as the patient is able to eat and drink. encourage ambulation. 12/07: Complains of right chest wall pain daughter at bedside. Wound VAC in place in low back. 12/08: Patient has not ambulated since admission. PT OT to see today. Right chest wall feels a little better today. Hurts in the back where the wound VAC is in place. Plans for changing the wound VAC in a.m. Review of Systems Review of Systems: All systems reviewed & are unremarkable except as noted in HPI
--- NOTE | 2022-12-08 15:07 | PM.PNGS ---
Progress Note: A&P Assessment and Plan (1) Hematoma: Code(s): T14.8XXA - Other injury of unspecified body region, initial encounter Status: Acute Assessment and Plan: Status post drainage of large back hematoma and debridement of necrotic skin over the hematoma. Wound VAC functioning well. She has gotten insurance approval for wound VAC therapy at home. We will plan to change the wound VAC tomorrow and possibly discharge if she continues to do well. Warfarin has been restarted. She would like to go home with home health if physical therapy agrees. Plan I have discussed the patient's case and plan of care with Dr. Chapa. Subjective Subjective Date/Time Seen: 12/08/22 11:07 Patient reports: no new complaints, feels better and afebrile Interval history: Patient seen today and seems less confused. Her mentation is improving. She is sitting up in the chair and walked to the bathroom and back with therapy. She was able to use a walker and does report feeling weak, but was able to ambulate with minimal assistance. She does have pain at her back wound but this is being controlled with hydrocodone. Final cultures negative. Exam Narrative: Wound VAC in place on her lower back with dressing dry and intact. Functioning well with dark old bloody drainage in the wound VAC canister. Objective Data Vital Signs Vital Signs: Vital Signs - 24 hr 12/07/22 21:11 12/08/22 01:39 12/08/22 04:58 Temperature 97.9 F 97.9 F Pulse Rate 69 70 85 Respiratory Rate 15 20 18 Blood Pressure 146/73 H 151/77 H 176/80 H Pulse Oximetry 99 100 98 Oxygen Delivery 12/08/22 08:02 12/08/22 08:00 12/08/22 10:21 Temperature Pulse Rate 70 Respiratory Rate Blood Pressure Pulse Oximetry 98 Oxygen Delivery Room Air Room Air 12/08/22 10:50 12/08/22 14:00 Temperature 97.9 F Pulse Rate 69 Respiratory Rate 14 Blood Pressure 139/70 Pulse Oximetry 97 Oxygen Delivery Room Air Intake/Output Intake/Output: Intake & Output 12/05/22 12/06/22 12/07/22 12/08/22 23:59 23:59 23:59 23:59 Intake Total 1390 3570 2140 480 Output Total 601 973 6230 450 Balance 490 3170 640 30 Meds/Results Medications: Active Medications Generic Name Dose Route Start Last Admin Trade Name Freq PRN Reason Stop Dose Admin Acetaminophen 1,000 mg 12/04/22 16:45 Acetaminophen 500 Mg Tablet PO Q6H PRN Mild Pain (1-3) or Fever Hydrocodone Bitart/Acetaminophen 1 tab 12/04/22 16:45 12/08/22 10:28 Hydrocodone/Acetaminophen (*Crx) 5-325 Mg Tablet PO 1 tab Q4H PRN Administration Pain Rated 4-6 Cephalexin HCl 500 mg 12/07/22 21:00 12/08/22 08:03 Cephalexin 500 Mg Capsule PO 12/10/22 23:59 500 mg Q12HR YELENA Administration Fenofibrate 48 mg 12/09/22 09:00 Fenofibrate,Micronized 48 Mg Tablet PO DAILY [facility] Fluticasone Propionate 2 spray 12/04/22 09:00 12/08/22 08:03 Fluticasone Propionate 0.05% Na Spr 16 Gm Btl (*Bkc) NASAL Not Given DAILY [facility] Hydromorphone HCl 0.5 mg 12/04/22 16:45 12/07/22 12:34 Hydromorphone Hcl Inj (*Crx) 1 Mg/Ml Syr IV PUSH 0.5 mg Q4H PRN Administration Pain Rated 7-10 Levothyroxine Sodium 25 mcg 12/04/22 06:30 12/08/22 05:35 Levothyroxine Sodium 25 Mcg Tablet PO 25 mcg DAILY@0630 [facility] Administration Lidocaine 1 patch 12/07/22 09:00 12/08/22 07:59 Lidocaine 5% Patch TRANSDERM 1 patch DAILY YELENA Administration Metoprolol Succinate 50 mg 12/04/22 09:00 12/08/22 08:02 Metoprolol Succinate Ext Rel 50 Mg Tabcr PO 50 mg DAILY YELENA Administration Miscellaneous Information 0 each 12/08/22 00:01 Zolpidem [Ambien Cr] 6.25 Mg Tablet,Ext Release Is Non Formulary, Recommend Sub Zolpidem 5 XX 01/07/23 00:00 CLARIFY [facility] Mupirocin 1 applic 12/04/22 03:04 12/08/22 08:08 Mupirocin 2% Oint 22 Gm Tube TOPICAL 1 applic TID PRN Administration skin tears Non-Formulary Medication 6.25
--- NOTE | 2022-12-08 16:45 | PC.NURSE ---
Called Dr. Maravilla about pt losing iv access. told this nurse that with no iv fluids running, no iv antibiotics and pt getting up and moving pt does not need iv at this time.
[2022-12-08] MEDS: WARFARIN (*PBKC) 2.5 MG TABLET BY MOUTH (17:30)
[2022-12-08] MEDS: PRAVASTATIN SODIUM 10 MG TABLET PO (21:28)
[2022-12-09 06:00] VITALS: BP 156/76; PULSE 75; RESP 16; TEMP 36.6; O2SAT 99
[2022-12-09] MEDS: LEVOTHYROXINE SODIUM 25 MCG TABLET PO (06:09)
[2022-12-09] MEDS: HYDROcodone/acetaminophen (*CRX) 5-325 MG TABLET 1 TAB PO (06:10)
[2022-12-09 06:56] LABS: Basophils Percent Auto 0.4 % (0.2-1.2); Eosinophils Absolute Auto 0.2 K/mm3 (0-0.3); Eosinophils Percent Auto 3.3 % (0-4.4); Hemoglobin 11.1 g/dL (12.0-15.0); Immature Granulocyte Absolute 0.05 K/mm3 (0.00-0.031); Lymphocytes Absolute Auto 0.84 K/mm3 (0.9-3.2); Lymphocytes Percent Auto 16.5 % (18.3-44.2); Mean Corpuscular HGB Conc 30.8 g/dl (32-36); Mean Corpuscular Hemoglobin 31.3 pg (26-34); Mean Corpuscular Volume 101.4 fl (80-100); Mean Platelet Volume 9.5 fl (7.4-10.4); Monocytes Absolute Auto 0.5 K/mm3 (0.1-0.6); Monocytes Percent Auto 10.6 % (2.6-8.5); Neutrophils Absolute Auto 3.5 K/mm3 (1.3-6.7); Neutrophils Percent Auto 68.2 % (45.5-73.1); Platelet Count Result 208 k/mm3 (150-375); Red Blood Count 3.55 M/mm3 (4.2-5.4); Red Cell Distribution Width 19.8 % (11.5-14.5); White Blood Count 5.1 K/mm3 (4.5-10.0)
[2022-12-09 07:06] LABS: INR 1.2
[2022-12-09 07:12] LABS: Anion Gap 4 mmol/L (8-16); Blood Urea Nitrogen 28 mg/dL (7-17); Calcium 10.2 mg/dL (8.4-10.2); Carbon Dioxide 27 mmol/L (22-30); Chloride 108 mmol/L (98-107); Estimated CRCL calculation 28 ml/min; Estimated Glomerular Filt Rate 47; Glucose 91 mg/dL (65-110); Potassium 3.7 mmol/L (3.4-5.0); Sodium 139 mmol/L (137-145)
[2022-12-09 08:00] VITALS: O2SAT 97
[2022-12-09] MEDS: LIDOCAINE 5% PATCH 1 PATCH TRANSDERM (08:50)
[2022-12-09 08:51] VITALS: PULSE 71
[2022-12-09] MEDS: CEPHALEXIN 500 MG CAPSULE PO (08:51)
[2022-12-09] MEDS: METOPROLOL SUCCINATE EXT REL 50 MG TABCR PO (08:51)
[2022-12-09] MEDS: SERTRALINE HCL 25 MG TABLET PO (08:53)
[2022-12-09] MEDS: FENOFIBRATE,MICRONIZED 48 MG TABLET PO (08:53)
--- NOTE | 2022-12-09 10:48 | PM.PNGS ---
Progress Note: A&P Assessment and Plan (1) Hematoma: Code(s): T14.8XXA - Other injury of unspecified body region, initial encounter Status: Acute Assessment and Plan: The lower back hematoma wound is healing well with a wound VAC in place. She has been cleared to being home with her son and home therapy and home health for wound VAC changes. Have her come back to the [facility] in 1 to 2 weeks for re-evaluation. Subjective Subjective Date/Time Seen: 12/09/22 10:48 Interval history: Patient has been stable clinically. She is doing well otherwise. Wound VAC was changed at the bedside today. She has been restarted on her Coumadin. No bleeding issues. Exam Skin: Other: Mid lower back wound open with resolving extensive ecchymosis around the wound. No redness or purulent drainage. Area is mildly tender. Wound VAC was removed at the bedside and the measurements are as follows: Skin opening is 5.5 x 4 x 3 cm tunneling under the flaps at 3:00 is 5.3cm and tunneling under the flap at 9:00 is 9.5cm. Wound is clean without any necrotic tissue. Objective Data Vital Signs Vital Signs: Vital Signs - 24 hr 12/08/22 10:50 12/08/22 14:00 12/08/22 22:00 Temperature 36.6 C 36.6 C Pulse Rate 69 67 Respiratory Rate 14 18 Blood Pressure 139/70 147/97 H Pulse Oximetry 97 99 Oxygen Delivery Room Air 12/08/22 21:28 12/09/22 06:00 12/09/22 08:51 Temperature 36.6 C Pulse Rate 75 71 Respiratory Rate 16 Blood Pressure 156/76 H Pulse Oximetry 99 99 Oxygen Delivery Room Air 12/09/22 08:00 Temperature Pulse Rate Respiratory Rate Blood Pressure Pulse Oximetry 97 Oxygen Delivery Room Air Intake/Output Intake/Output: Intake & Output 12/06/22 12/07/22 12/08/22 12/09/22 23:59 23:59 23:59 23:59 Intake Total 3570 2140 720 386 Output Total 400 1500 485 Balance 3170 640 235 386 Meds/Results Medications: Active Medications Generic Name Dose Route Start Last Admin Trade Name Freq PRN Reason Stop Dose Admin Acetaminophen 1,000 mg 12/04/22 16:45 Acetaminophen 500 Mg Tablet PO Q6H PRN Mild Pain (1-3) or Fever Hydrocodone Bitart/Acetaminophen 1 tab 12/04/22 16:45 12/09/22 06:10 Hydrocodone/Acetaminophen (*Crx) 5-325 Mg Tablet PO 1 tab Q4H PRN Administration Pain Rated 4-6 Cephalexin HCl 500 mg 12/07/22 21:00 12/09/22 08:51 Cephalexin 500 Mg Capsule PO 12/10/22 23:59 500 mg Q12HR YELENA Administration Fenofibrate 48 mg 12/09/22 09:00 12/09/22 08:53 Fenofibrate,Micronized 48 Mg Tablet PO 48 mg DAILY YELENA Administration Fluticasone Propionate 2 spray 12/04/22 09:00 12/09/22 08:49 Fluticasone Propionate 0.05% Na Spr 16 Gm Btl (*Bkc) NASAL Not Given DAILY [facility] Hydromorphone HCl 0.5 mg 12/04/22 16:45 12/07/22 12:34 Hydromorphone Hcl Inj (*Crx) 1 Mg/Ml Syr IV PUSH 0.5 mg Q4H PRN Administration Pain Rated 7-10 Levothyroxine Sodium 25 mcg 12/04/22 06:30 12/09/22 06:09 Levothyroxine Sodium 25 Mcg Tablet PO 25 mcg DAILY@0630 YELENA Administration Lidocaine 1 patch 12/07/22 09:00 12/09/22 08:50 Lidocaine 5% Patch TRANSDERM 1 patch DAILY YELENA Administration Metoprolol Succinate 50 mg 12/04/22 09:00 12/09/22 08:51 Metoprolol Succinate Ext Rel 50 Mg Tabcr PO 50 mg DAILY YELENA Administration Miscellaneous Information 0 each 12/08/22 00:01 Zolpidem [Ambien Cr] 6.25 Mg Tablet,Ext Release Is Non Formulary, Recommend Sub Zolpidem 5 XX 01/07/23 00:00 CLARIFY [facility] Mupirocin 1 applic 12/04/22 03:04 12/08/22 08:08 Mupirocin 2% Oint 22 Gm Tube TOPICAL 1 applic TID PRN Administration skin tears Non-Formulary Medication 6.25 mg 12/08/22 21:00 Zolpidem [Ambien Cr] PO 01/07/23 20:59 HS [facility] Ondansetron HCl 4 mg 12/04/22 14:46 Ondansetron Inj 4 Mg/2 Ml Vial IV PUSH ONCE PRN Nausea Pravastatin Sodium 10 mg 12/08/22
--- NOTE | 2022-12-09 10:49 | PM.DS ---
DS: Admitting Diagnosis Discharge Date 12/09/2022 Admitting Diagnosis Hematoma and also lower back History of fall History of atrial fibrillation DS: Discharge Diagnosis Discharge Diagnosis Plan Hematoma and also lower back History of fall History of atrial fibrillation DS: Summary Hospital Course Reason for hospitalization: Patient is an 87-year-old female? with history of AFib, anticoagulated on Coumadin, hypertension, hyperlipidemia here with lower back pain.? Patient had a fall in 11/23 and came into the emergency department after the fall. ? At that time she had started developing a hematoma in her lower back. ? It is increased in size and pain, she went to her primary care doctor 2 days ago.? primary care doctor concern for overlying necrotic tissue and referred her to Wound Care.? States she went to the wound care center and they sent her into the emergency department for further evaluation. ? Daughter states that she checks the wound every day and 2 days ago began noticing a dark spot in her wound concerning for necrotic tissue.? This seems to have been increasing in size over the last 2 days.? She denies any fever chills.? Denies any additional injuries. Patient and daughter note that she has had increased fatigue since her fall. She does note that she is currently being treated for a UTI, is currently on a 2 week course of antibiotics. She was also found to have a hematoma and also in the low back area. Surgery was consulted. I and D was done. And wound VAC was placed. Patient continued to improve on p.o. cephalexin. Today she is feeling better and she was discharged home under home health care stable condition. Hospital Course: Patient was admitted in the hospital, I and D was done by surgery. Wound VAC was placed and p.o. antibiotics were given. Patient did have any complicating stay in the hospital. Today patient is feeling better was discharged home stable condition. Status at Discharge Cognitive/behavioral status at discharge: Stable Time Spent with Patient Time attestation: 30 min Total time spent providing and/or coordinating discharge services: Exam Narrative: General: comfortab le, no acute distr ess, well develope d, alert, awake an d average body hab itus? Nutritional Appearance: averag e body habitus? Or ientation/consciou sness: oriented to person and orient ed to place HENMT:?? Head: normal to in spection, normocep halic and atraumat ic? Ears: hearing grossly normal meche aterally? Face/Nos e/Sinus: normal fa cial exam? Face an d sinus: normal fa cial exam Eyes:?? General: appearanc e normal, both eye s and all related structures? Pupils : Equal, round and reactive pupils p resent? EOM: EOMs intact bilaterally Neck:?? Neck: full ROM, no lymphadenopathy a nd no JVD? Thyroid : thyroid normal? Lymphatic: no lymp hadenopathy noted Resp:?? Effort & Inspectio n: normal respirat ory effort and abl e to speak in comp lete sentences? Au scultation: clear to auscultation bi laterally Cardio:?? Jugular venous dis tension: no JVD? R ate: regular rate? Rhythm: regular r hythm? Heart sound s: S1 normal heart sound present and S2 normal heart s
== END 2022-12-09 14:00 | disposition home health service (06) | DRG 580 ==
LOC: ANHED 16:01 → ANH3MEDSUR 21:50
PROVIDERS: Family Medicine; Internal Medicine; Surgery; Admitting Provider Internal Medicine; Emergency Provider Student in an Organized Health Care Education/Training Program; PCP Physician Assistant; Visit Provider Internal Medicine
PROC: 0JC70ZZ Extirpation of Matter from Back Subcutaneous Tissue and Fascia, Open Approach (ICD-10-PCS; principal; 2022-12-04 15:00)
DX: S30.0XXA Contusion of lower back and pelvis, initial encounter (principal); D62 Acute posthemorrhagic anemia; N39.0 Urinary tract infection, site not specified; L89.149 Pressure ulcer of left lower back, unspecified stage; L89.139 Pressure ulcer of right lower back, unspecified stage; I48.91 Unspecified atrial fibrillation; I12.9 Hypertensive chronic kidney disease with stage 1 through stage 4 chronic kidney disease, or unspecified chronic kidney disease; N18.9 Chronic kidney disease, unspecified; E78.5 Hyperlipidemia, unspecified; W19.XXXA Unspecified fall, initial encounter; G47.33 Obstructive sleep apnea (adult) (pediatric); K58.0 Irritable bowel syndrome with diarrhea; Z79.01 Long term (current) use of anticoagulants; Z87.891 Personal history of nicotine dependence
CPT/HCPCS: 36415; 36430; 74177; 80048; 80053; 82607; 82746; 83735; 84100; 85014; 85018; 85025; 85610; 85652; 85730; 86140; 86850; 86900; 86901; 86923; 87070; 87205; 96365; 96375; 96376; 97161; 97165; 97530; 97535; 99213; 99285; A9270; G0463; J0690; J1100; J1170; J1630; J2270; J2405; J2704; J3010; J7030; J7120; P9016; Q9967

== ENCOUNTER 2022-12-23 07:08 | Outpatient (RCR) | payer MEDICARE, BC, SELFPAY ==
[2022-12-03 12:30] VITALS: BMI 24.9
--- NOTE | 2022-12-16 13:23 | PM.PNGS ---
Progress Note: A&P Assessment and Plan (1) Hematoma: Code(s): T14.8XXA - Other injury of unspecified body region, initial encounter Status: Acute Assessment and Plan: The wound on the lower back is clean with good granulation tissue at the base. She will need to have better packing of the foam sponge at the 9:00 and 3:00 positions laterally from the skin opening. There is no residual infection. Cultures from the hematoma cavity were negative for any growth. Wound VAC was reapplied today. Will continue on the Wednesday wound VAC changes by home health nurses. Follow-up in the wound care clinic in 1 week. Subjective Subjective Date/Time Seen: 12/16/22 13:23 Interval history: Patient was seen in the Wound Care Clinic today. She has been home with a home wound VAC in place for her mid lower back wound which is a large cavity secondary to evacuation of an infected hematoma. Home health nurses have been changing the wound VAC at home. Patient denies any issues with the wound VAC at home. Pain is improved. Otherwise no new complaints. Exam Skin: Other: The extensive lower back ecchymosis has improved and is almost gone. The wound cavity in the lower mid back region measures 4cm in length by 5.5cm in width by 2.7cm in depth. There is undermining around the entire circumference of the wound with it being at 8.8cm at the 9 o'clock position and 10.3 cm at the 3 o'clock position. Drainage from the wound is serous old blood. There was excellent granulation tissue at the base of the wound. There is no bleeding or erythema around the wound.
--- NOTE | 2022-12-24 13:57 | PM.PNGS ---
Progress Note: A&P Assessment and Plan (1) Hematoma: Code(s): T14.8XXA - Other injury of unspecified body region, initial encounter Status: Acute Assessment and Plan: The wound continues to heal well in the lower back after drainage of the infected hematoma. We will continue the wound VAC for at least 1 more week. Hopefully at that time we can then discontinue the wound VAC and go with just minimal packing of wound. See the patient back the office in 1 week. Subjective Subjective Date/Time Seen: 12/23/22 13:57 Interval history: Patient continues do very well. She has had a wound VAC on the lower back wound. No issues with the wound or the wound VAC. Exam Skin: Other: Wound of the mid lower back region now measures 3cm in length by 4.5cm in width by 2cm in depth. At the 9 o'clock position with the patient prone there is 2.6cm of tunneling and at the 9 o'clock position there is 9cm of tunneling. The wound is completely clean without any necrotic tissue. Drainage is only serous.
== END 2023-01-14 13:48 | disposition home or self-care (01) ==
LOC: ANHWOC 07:08
PROVIDERS: PCP Physician Assistant; Referring Provider Physician Assistant; Visit Provider Surgery
DX: T14.8XXA Other injury of unspecified body region, initial encounter (principal); S30.0XXA Contusion of lower back and pelvis, initial encounter
CPT/HCPCS: 97606; 99213; G0463; J7030

== ENCOUNTER 2022-12-27 08:50 | Inpatient (IN) | payer MEDICARE, BC, SELFPAY ==
--- NOTE | ~2022-12-27 | XR_ITS ---
XR chest 1V portable 01/02/2023 11:45 Indication: Increasing shortness of breath Procedure: AP portable chest Comparison: Comparison to multiple prior studies sequentially, with oldest reviewed study dated 07/2014. Findings: Moderate cardiomegaly. Pacemaker leads are in expected position. There is bibasilar atelect asis. Shallow inspiration. No focal pneumonia, edema, significant effusion or pneumothorax. Impression: 1: Moderate cardiomegaly. 2: Bibasilar atelectasis. Reviewed, dictated and finalized at location A. Impression: 1: Moderate cardiomegaly. 2: Bibasilar atelectasis.
--- NOTE | ~2022-12-27 | XR_ITS ---
EXAMINATION: XR chest 1V portable Exam Date/Time: 01/03/2023 17:55 CDT HISTORY: Short of breath Comparison: 01/02/2023. RESULT: Lines, tubes, and devices: Left chest pacer with intact leads. Lungs and pleura: Significant rightward rotation. Diffuse reticular opacities and senescent changes. Bilateral costophrenic angle blunting. Increasing subsegmental airspace disease in the right lung ba se. Cardiomediastinal silhouette: Stable. Other: No acute osseous or upper abdominal finding. IMPRESSION: Increasing right basilar atelectasis/consolidation. Possible small pleural effusions. Mild interstiti al edema. Reviewed, dictated and finalized at location K. IMPRESSION: Increasing right basilar atelectasis/consolidation. Possible small pleural effu sions. Mild interstitial edema.
--- NOTE | ~2022-12-27 | US_ITS ---
EXAMINATION: US renal BI DATE: 01/10/2023 09:08 INDICATION: Acute kidney injury TECHNIQUE: Multiple grayscale and Doppler ultrasound images of the kidneys were obtained. COMPARISON: None. FINDINGS: The right kidney measures 9.9 x 5.6 x 5.6 cm. The left kidney measures 9.6 x 4.7 x 5.7 cm. The kidneys demonstrate normal parenchymal echogenicity. There is no hydronephrosis. The bladder is d ecompressed by Morgan catheter. IMPRESSION: 1. Normal kidneys without hydronephrosis. Reviewed, dictated and finalized at location F.
--- NOTE | ~2022-12-27 | XR_ITS ---
XR hip LT 2V w AP pelvis DATE: 12/29/2022 18:59 INDICATION: Left hip pain following fall TECHNIQUE: AP pelvis. AP and lateral views of left hip COMPARISON: 03/12/2021 left hip FINDINGS: Moderately prominent left hip osteoarthritis. No fracture or dislocation, avascular necrosi s or bone destruction is detected. Osteopenia. Normal alignment at the pubic symphysis and sacroiliac joints. Degenerative disc disease and included L5-S1. Calcified uterine fibroids. IMPRESSION: Moderately prominent left hip arthritis; no fracture or dislocation, avascular necrosis o r bone destruction is detected Osteopenia Degenerative disc disease at L5-S1 Reviewed, dictated and finalized at location A. IMPRESSION: Moderately prominent left hip arthritis; no fracture or dislocation , avascular necrosis or bone destruction is detected Osteopenia Degenerative disc disease at L5-S1
--- NOTE | ~2022-12-27 | XR_ITS ---
XR chest 2V DATE: 12/27/2022 09:53 INDICATION: Fever TECHNIQUE: AP and lateral views COMPARISON: 11/24/2019 portable AP chest FINDINGS: There is cardiomegaly. Thoracic aortic calcification. Left triple lead pacemaker device. No pulmonary infiltrate or consolidation or any significant pleural effusion or any pneumothorax is n oted. There is diffuse osteopenia. Moderate loss of height and anterior wedging of T10 and more prominent b urst fracture of L1. IMPRESSION: Cardiomegaly, aortic atherosclerosis Reviewed, dictated and finalized at location A.
--- NOTE | ~2022-12-27 | CT_ITS ---
EXAMINATION: CTA chest PE protocol DATE: 01/03/2023 20:50 INDICATION: sob TECHNIQUE: Computed tomography angiography (CTA) of the chest was performed with 100 mL Omnipaque-350 intravenous contrast timed to evaluate the pulmonary arteries. Coronal maximum intensity projection 3D-reconstructions were created by the technologist. The dose-length product (DLP) was 406.07 mGy-cm. Automated exposure control and iterative reconstruction technique were employed. COMPARISON: X-ray chest, same date and 12/27/2022; CT abdomen pelvis 12/03/2022. FINDINGS: Lung parenchyma and airways: Bilateral dependent atelectasis. Pleura: Moderate right and small left pleural effusions. Thoracic inlet, axillae and chest wall: Multinodular goiter. Left chest pacer. Thoracic aorta: Mild arch calcification. Mediastinum: Dilated central pulmonary arteries as can be seen with pulmonary arterial hypertension. Distal pulmonary arterial pruning. Heart and pericardium: Massive cardiomegaly. Small pericardial effusion. Diffuse body wall edema. Coronary artery calcifications: Moderate. Upper abdomen: Hepatic vein reflux. Moderate ascites. Bones: No acute osseous finding. Multilevel old compression fractures. Pulmonary arteries: Study quality: Motion artifact is present but overall diagnostic. No pulmonary em boli detected. IMPRESSION: No CT evidence of acute pulmonary embolus. Mild interstitial edema. Moderate right and small left pleural effusion. Massive cardiomegaly. Small pericardial effusion. Moderate ascites and diffuse body wall edema. Reviewed, dictated and finalized at location K.
[2022-12-27 09:00] VITALS: BP 131/58; PULSE 70; RESP 22; TEMP 36.6; O2SAT 95
--- NOTE | 2022-12-27 09:03 | ED.GENADULT ---
HPI - General Adult General Chief complaint: Weakness Stated complaint: fever, wound vac problems Time Seen by Provider: 12/27/22 09:02 Source: patient and family Limitations: no limitations History of Present Illness HPI narrative: 87 years old white female brought to the emergency room by her daughter and son because of possible. The daughter is telling me that she went to wake this morning and found she is freezing, and unable to get out of bed with temperature 99.4. The daughter noticed that the wound VAC is leaking and was able to adjusted and stopped leaking at that time. Patient had wound VAC on the lower back on December 03, was seen by her surgeon 3 days ago and according to his note that everything was okay at that time. Patient did not eat her breakfast or take her medication prior to arrival to the ED. The daughter is telling me that she supposed to be on antibiotic for urinary tract infection and probably does not take it. Patient complaint is back pain for weeks. She denies any fever, chills, nausea, vomiting, chest pain, shortness of breath or abdominal pain. Related Data Home Medications Medication Instructions Recorded Confirmed cholecalciferol (vitamin D3) 25 25 mcg PO DAILY 02/24/21 12/03/22 mcg (1,000 unit) capsule (Vitamin D3) fenofibrate nanocrystallized 48 mg 48 mg PO DAILY 02/24/21 12/03/22 tablet metoprolol succinate 50 mg 50 mg PO DAILY 02/24/21 12/03/22 tablet,extended release 24 hr (Toprol XL) pravastatin 10 mg tablet 10 mg PO HS 02/24/21 12/03/22 mupirocin 2 % topical ointment 1 applic topical TID PRN skin tears 12/03/22 12/03/22 warfarin 2.5 mg tablet See Rx Instructions .Route .COMPLEX 12/03/22 12/03/22 zolpidem 6.25 mg tablet,extended 6.25 mg PO HS 12/03/22 12/03/22 release,multiphase (Ambien CR) Allergies Allergy/AdvReac Type Severity Reaction Status Date / Time Sulfa (Sulfonamide Allergy Mild Rash Verified 12/27/22 09:14 Antibiotics) Review of Systems Review of Systems: All systems reviewed & are unremarkable except as noted in HPI and below PMFSH Past Medical History Medical History Anticoagulated on Coumadin Atrial fibrillation Bloating Diarrhea Diverticulitis large intestine Hyperlipidemia Hypertension Irritable bowel syndrome with diarrhea Melena RADHA (obstructive sleep apnea) SOB (shortness of breath) Thyroid disease Visual loss, both eyes Surgical History Surgical History Pacemaker Family History Family History Sibling Patient's brother is in good health Family history of arthritis Mother Patient's mother is Father Cerebrovascular accident Other Family history of heart disease in male family member before age 55 Hypertension Social History Social History Smoking packs per day: 0.5 Smoking cigarettes per day: 10.0 Years smoked: 1 Smoking pack-years: 0.50 Smoking status: Former smoker Tobacco type: cigarettes Second hand tobacco smoke exposure: No Smoking end date: 04/12/85 Alcohol intake: current Drinks per week: 1 Alcohol use details: GLASS OF WINE Substance use: never Substance use type: does not use Lack of Transportation: No Lack of Food: Never True Current Housing: I Have Housing Concerned About Future Housing: No Difficulty Paying Gas/Electric Bills: No Difficulty Paying for Meds: No Currently Unemployed: No Education: Grade School Difficulty w/ Childcare or Family Care: No Living arrangements: alone Spiritual care concerns: No Exam Narrative: General appearance: Well-developed, well-nourished, lethargic and weak Skin: Back exam showed wound VAC in place, no leaking, slightly erythematous changes around wound VAC. Head: Normocephalic
--- NOTE | 2022-12-27 09:17 | ECG_ITS ---
Measurements Intervals [place] Rate: 70 P: MA: 0 QRS: 218 QRSD: 160 T: 51 QT: 426 QTc: 460 Interpretive Statements ELECTRONIC VENTRICULAR PACEMAKER NO FURTHER INTERPRETATION IS POSSIBLE ATYPICAL ECG COMPARED TO ECG 11/23/2022 07:13:06 NO SIGNIFICANT CHANGES Electronically Signed On 12-27-2022 15:58:24 CDT by Eyal Armijo D.O.
[2022-12-27 09:59] LABS: Hemoglobin 11.2 g/dL (12.0-15.0); Mean Corpuscular HGB Conc 31.1 g/dl (32-36); Mean Corpuscular Hemoglobin 30.9 pg (26-34); Mean Corpuscular Volume 99.2 fl (80-100); Mean Platelet Volume 9.8 fl (7.4-10.4); Platelet Count Result 215 k/mm3 (150-375); Red Blood Count 3.63 M/mm3 (4.2-5.4); Red Cell Distribution Width 15.9 % (11.5-14.5); White Blood Count 14.8 K/mm3 (4.5-10.0)
[2022-12-27 10:09] LABS: Lactic Acid Reflex 2.5 mmol/L (0.7-2.0)
[2022-12-27 10:10] LABS: Prothrombin Time 55.7 Seconds (11.1-14.7)
[2022-12-27 10:11] LABS: Partial Thromboplastin Time 72.2 SECONDS (22.3-36.8)
[2022-12-27] MEDS: LACTATED RINGERS 1,000 ML 150 ML IV CONT (10:12)
[2022-12-27 10:13] LABS: Alanine Aminotransferase 16 U/L (6-35); Albumin Level 3.2 g/dL (3.5-5.1); Alkaline Phosphatase 63 U/L (38-126); Anion Gap 5 mmol/L (8-16); Aspartate Amino Transferase 30 U/L (14-36); Bilirubin,Total 1.6 mg/dL (0.2-1.3); Blood Urea Nitrogen 22 mg/dL (7-17); CRP 7.2 mg/dL (<1.0); Calcium 9.9 mg/dL (8.4-10.2); Carbon Dioxide 30 mmol/L (22-30); Chloride 101 mmol/L (98-107); Estimated CRCL calculation 32 ml/min; Estimated Glomerular Filt Rate 47; Glucose 110 mg/dL (65-110); Sodium 136 mmol/L (137-145)
[2022-12-27 10:19] LABS: Band Neutrophils Percent 34 % (0-6); Lymphocytes Absolute Manual 0.59 K/mm3 (1.1-4.5); Monocytes Absolute Manual 0.44 K/mm3 (0.1-0.90); Monocytes Percent Manual 3 % (3-9); Neutrophils Absolute Manual 13.76 K/mm3 (1.7-7.2); Neutrophils Percent Manual 59 % (46-73); Platelet Estimate Adequate (Adequate); Schistocytes None Seen (NORMAL); Total Cells Counted 100
[2022-12-27 10:27] LABS: INR 5.6
[2022-12-27 10:47] LABS: Appearance Urine Clear (Clear); Bilirubin Urine Negative (Negative); Blood Urine Negative (Negative); Color Urine Dark Yellow (Yellow); Glucose Urine UA Negative (Negative); Ketones Urine Negative (Negative); Leukocyte Esterase Ur Negative LEU/UL (Negative); Nitrate Urine Negative (Negative); Protein Urine Negative (Negative); Specific Grav Ur 1.019 (1.001-1.035)
[2022-12-27 10:57] LABS: Add Urine Microscopic? NO
[2022-12-27] MEDS: PIPERACILLIN/TAZ 2.25G/NS 50ML 2.25 GM/50 ML BAG IVPB ×3 (12:14→23:21)
[2022-12-27 12:15] VITALS: BP 111/60; PULSE 70; RESP 29; O2SAT 98
[2022-12-27 12:42] VITALS: BP 133/63; PULSE 67; RESP 24; TEMP 36.8; O2SAT 97
[2022-12-27 12:56] LABS: Reflex Lactic Acid Yes or No Add Lactic
--- NOTE | 2022-12-27 12:59 | PC.NURSE ---
This patient, Liza Rasheed, was admitted to [facility] Surg Room [id number] . Patient/family oriented to hospital policies and general routines including ID bracelet, bed and alarms, visiting hours, pain management, procedures, bathroom and other care routines, personal items, smoking policy, room service/diet, and visiting hours. Information on how to activate the Rapid Response Team has been discussed. Patient/Family are encouraged to report perceived risks to care and to ask questions if they do not understand what they are told or what they should do.
--- NOTE | 2022-12-27 13:00 | PC.NURSE ---
This patient, Liza Rasheed, was admitted to [facility] Surg Room [id number] at 1230. Patient/family oriented to hospital policies and general routines including ID bracelet, bed and alarms, visiting hours, pain management, procedures, bathroom and other care routines, personal items, smoking policy, room service/diet, and visiting hours. Information on how to activate the Rapid Response Team has been discussed. Patient/Family are encouraged to report perceived risks to care and to ask questions if they do not understand what they are told or what they should do.
[2022-12-27 13:01] VITALS: BMI 27.6
--- NOTE | 2022-12-27 13:29 | PM.IMHP ---
H&P: HPI History of Present Illness Date/Time: 12/27/22 13:30 Chief Complaint: Weakness. Narrative: This is a very pleasant 87-year-old female with paroxysmal atrial fibrillation on chronic anticoagulation, pacemaker, hypertension, dyslipidemia, chronic kidney disease, sleep apnea, and hypothyroidism who presented to the emergency department via EMS from home for evaluation of weakness. The patient provides the following history. She was recently hospitalized with tissue necrosis about a tense hematoma on the right lower back which she sustained in a fall. On 12/04/2022 she was taken to the OR per Dr. Chapa for incision, drainage, and sharp debridement of the necrotic skin. She was discharged on the with a wound VAC in place. Three days ago she saw the surgeon in follow-up and reports that everything was fine at that time. This morning daughter went to wake her up and the patient reported that she was freezing and felt weak and in fact she was unable to get herself out of bed without help. After she was helped out of bed, daughter noticed that the wound VAC was leaking however it was adjusted and the waking stopped. The patient has not had a good appetite for couple of days and did not eat breakfast morning. In addition to chills she reportedly had a low-grade temperature which was 99.4? this morning. She was afebrile on arrival to the ED. Labs were significant for a WBC count of 14.8 (34% bands), hemoglobin 11.2, INR 5.6, BUN 22, creatinine 1.10, lactic acid 2.5, CRP 7.2. Urinalysis was really unremarkable. Chest x-ray was without acute findings. She received a gram of vancomycin in the ED for suspected infected hematoma and she is being admitted in this setting for further antibiotics and surgery consultation. At the time my evaluation she reports that overall she just does not feel well. She does not have any specific complaints however. She denies headache, sinus congestion, sore throat, cough, chest pain, shortness a breath, pleuritic pain, vomiting, diarrhea, and dysuria. No significant pain at this time. Review of Systems Review of Systems: Twelve systems were reviewed and are negative except for as per HPI. 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 Surgical History Surgical History (Updated 12/27/22 @ 13:37 by Ayesha Martinez PA-C) History of appendectomy History of hysterectomy History of permanent cardiac pacemaker placement History of tonsillectomy Family History Family History Sibling Family history of arthritis Patient's brother is in good health Hypertension Mother Patient's mother is Father Cerebrovascular accident Family history of heart disease in male family member before age 55 Hypertension Social History Social History (Updated 12/27/22 @ 13:39 by Ayesha Martinez PA-C) Social History: Surrogate medical decision maker: Katia Novoa, daughter. Code status: Full code. Smoking packs per day: 0.5 Smoking cigarettes per day: 10.0 Years smoked: 10 Smoking pack-years: 5.00 Smoking status: Light tobacco smoker Tobacco type: cigarettes Second hand tobacco smoke exposure: Yes Smoking end date: 04/12/69 Alcohol intake: current Drinks per week: 1 Alcohol use details: Occasional glass of wine. Substance use: never Substance use type: does not use Lack of Transportation: No Lack of Food: Never True Current Housing: I Have Housing Concerned About Future Housing: No Difficulty Paying Gas/Electric Bills: N
[2022-12-27 14:00] VITALS: BP 112/51; PULSE 67; RESP 24; TEMP 37.3; O2SAT 100
[2022-12-27 14:34] LABS: Lactic Acid 2.6 mmol/L (0.7-2.0)
[2022-12-27] MEDS: POTASSIUM CHLORIDE 20 MEQ ER TABLET PO (16:20)
[2022-12-27] MEDS: FLUTICASONE PROPIONATE 0.05% NA SPR 16 GM BTL (*BKC) 2 SPRAY NASAL (16:29)
[2022-12-27] MEDS: HYDROcodone/acetaminophen (*CRX) 5-325 MG TABLET 1 TAB PO (16:30)
[2022-12-27] MEDS: MENTHOL 10% / METHYL SALICYLATE 15% 57 GM TUBE 1 APPLIC TOPICAL (16:30)
[2022-12-27] MEDS: MELATONIN 5 MG TABLET PO (20:24)
[2022-12-27] MEDS: PRAVASTATIN SODIUM 10 MG TABLET PO (20:24)
--- NOTE | 2022-12-27 20:38 | PC.NURSE ---
On 12/27/22, the SMOCKING MACHINE OPERATOR, Florencia, provided care and completed [place] hospital documentation on this patient. I have reviewed the SMOCKING MACHINE OPERATOR's documentation and agree with the findings.
[2022-12-27 22:00] VITALS: BP 106/45; PULSE 67; RESP 18; TEMP 36.6; O2SAT 96
[2022-12-28] MEDS: PIPERACILLIN/TAZ 2.25G/NS 50ML 2.25 GM/50 ML BAG IVPB (05:12)
[2022-12-28] MEDS: LEVOTHYROXINE SODIUM 25 MCG TABLET PO (05:13)
[2022-12-28] MEDS: HYDROcodone/acetaminophen (*CRX) 5-325 MG TABLET 1 TAB PO (05:34)
[2022-12-28 06:00] VITALS: BP 111/59; PULSE 68; RESP 18; TEMP 36.2; O2SAT 98
[2022-12-28 06:48] LABS: Hematocrit 33.8 % (37.0-47.0); Hemoglobin 10.6 g/dL (12.0-15.0); Mean Corpuscular HGB Conc 31.4 g/dl (32-36); Mean Corpuscular Hemoglobin 30.7 pg (26-34); Mean Platelet Volume 9.9 fl (7.4-10.4); Platelet Count Result 190 k/mm3 (150-375); Red Blood Count 3.45 M/mm3 (4.2-5.4); Red Cell Distribution Width 15.8 % (11.5-14.5); White Blood Count 13.1 K/mm3 (4.5-10.0)
[2022-12-28 07:01] LABS: Anion Gap 6 mmol/L (8-16); Blood Urea Nitrogen 24 mg/dL (7-17); Calcium 9.4 mg/dL (8.4-10.2); Carbon Dioxide 30 mmol/L (22-30); Chloride 97 mmol/L (98-107); Estimated CRCL calculation 28 ml/min; Estimated Glomerular Filt Rate 39; Glucose 112 mg/dL (65-110); Magnesium 1.8 mg/dL (1.6-2.3); Potassium 3.1 mmol/L (3.4-5.0); Sodium 133 mmol/L (137-145)
[2022-12-28 07:11] LABS: Band Neutrophils Percent 16 % (0-6); Lymphocytes Absolute Manual 0.39 K/mm3 (1.1-4.5); Lymphocytes Percent Manual 3 % (18-44); Monocytes Absolute Manual 0.39 K/mm3 (0.1-0.90); Monocytes Percent Manual 3 % (3-9); Neutrophils Absolute Manual 12.31 K/mm3 (1.7-7.2); Neutrophils Percent Manual 78 % (46-73); Total Cells Counted 100
[2022-12-28 07:12] LABS: Anisocytosis 1+ (NORMAL); Platelet Estimate Adequate (Adequate); Schistocytes None Seen (NORMAL)
[2022-12-28 07:33] LABS: Thyroid Stimulating Hormone Reflex 0.938 uIU/mL (0.465-4.68)
[2022-12-28] MEDS: POTASSIUM CHLORIDE 20 MEQ ER TABLET PO ×2 (09:15→17:15)
[2022-12-28] MEDS: BUMETANIDE 1 MG TABLET 2 MG PO (09:15)
[2022-12-28] MEDS: SERTRALINE HCL 25 MG TABLET PO (09:16)
[2022-12-28] MEDS: FENOFIBRATE,MICRONIZED 48 MG TABLET PO (09:16)
[2022-12-28] MEDS: CHOLECALCIFEROL 1,000 UNITS TABLET 1000 UNITS PO (09:16)
[2022-12-28] MEDS: FLUTICASONE PROPIONATE 0.05% NA SPR 16 GM BTL (*BKC) 2 SPRAY NASAL (09:17)
--- NOTE | 2022-12-28 11:56 | PM.IMPN ---
Progress Note: A&P Assessment and Plan (1) Weakness: Code(s): R53.1 - Weakness Status: Acute (2) Warfarin-induced coagulopathy: Code(s): D68.32 - Hemorrhagic disorder due to extrinsic circulating anticoagulants; T45.515A - Adverse effect of anticoagulants, initial encounter Status: Acute (3) Hematoma: Code(s): T14.8XXA - Other injury of unspecified body region, initial encounter Status: Acute (4) Chronic kidney disease, stage 3: Code(s): N18.30 - Chronic kidney disease, stage 3 unspecified Status: Acute (5) Atrial fibrillation: Qualifiers: Atrial fibrillation type: unspecified Qualified Code(s): I48.91 - Unspecified atrial fibrillation Code(s): I48.91 - Unspecified atrial fibrillation Status: Acute (6) Anticoagulated on Coumadin: Code(s): 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 No definitive source for infection at this time however there is mild erythema around the wound VAC dressing and she has been empirically started on broad-spectrum antibiotics for possible infected hematoma. Dr. Chapa has been consulted for his opinion as well. Chest x-ray and urinalysis were both without acute findings. Blood cultures have been obtained and are pending. INR is supratherapeutic and warfarin is on hold. Hemoglobin is stable and there is no active evidence to suggest bleeding thus will allow INR to drift down. Renal function is stable. Continue levothyroxine and check TSH. The rest of her home medications will be reviewed and resumed as appropriate. Gram-positive cocci in chains in blood culture. Continue IV Rocephin. Discontinue vancomycin. Patient having diarrhea. Will check C diff colitis. Will start patient on oral vancomycin Subjective Date/time seen: 12/28/22 11:56 Interval history: Patient having loose stools Review of Systems Review of Systems: Twelve systems were reviewed and are negative except for as per HPI. Exam Narrative: General: Mildly ill-appearing elderly female HEENT: PERRL, EOMI. Sclera anicteric. Tacky mucous membranes. Neck: Supple. Respiratory: Lungs are clear to auscultation bilaterally. Cardiovascular: Regular rate and rhythm with S1-S2. Murmur at the left lower sternal border. Gastrointestinal: Abdomen is soft, nontender, and nondistended with positive bowel sounds. Skin: Warm and dry. Wound VAC in place on the lower back. There is mild erythema around the site Extremities: No cyanosis, clubbing, or edema. Radial and pedal pulses intact. Neurological: Alert. Cranial nerves 2-12 are grossly intact. No gross focal deficits to casual conversation. Psychiatric: Pleasant and cooperative with normal mood and affect. Seems slightly forgetful. Objective Data Vital Signs Vital Signs: Vital Signs - 24 hr 12/27/22 12:15 12/27/22 12:42 12/27/22 14:00 Temperature 98.3 F Pulse Rate 70 67 Respiratory Rate 29 H 24 H Blood Pressure 111/60 133/63 Pulse Oximetry 98 97 Oxygen Delivery Room Air 12/27/22 14:00 12/27/22 22:00 12/27/22 20:00 Temperature 99.1 F 97.8 F Pulse Rate 67 67 Respiratory Rate 24 H 18 Blood Pressure 112/51 L 106/45 L Pulse Oximetry 100 96 Oxygen Delivery Room Air 12/28/22 06:00 Temperature 97.2 F L Pulse Rate 68 Respiratory Rate 18 Blood Pressure 111/59 L Pulse Oximetry 98 Oxygen Delivery Intake/Ou
[2022-12-28] MEDS: LACTATED RINGERS 1,000 ML 75 ML IV CONT (12:43)
[2022-12-28] MEDS: VANCOMYCIN ORAL 125 MG/2.5 ML SYRUP PO (12:43)
[2022-12-28] MEDS: HYDROcodone/acetaminophen (*CRX) 10-325 MG TABLET 1 TAB PO ×2 (12:44→22:55)
[2022-12-28 12:50] LABS: Toxigenic C. Diff NEGATIVE (NEGATIVE)
[2022-12-28 14:00] VITALS: BP 102/57; PULSE 70; RESP 16; TEMP 36.3; O2SAT 100
--- NOTE | 2022-12-28 14:09 | PM.CNGS ---
Assessment and Plan Assessment and plan (1) Hematoma: Code(s): T14.8XXA - Other injury of unspecified body region, initial encounter Status: Acute Assessment and Plan: Traumatic lower back hematoma after a fall a few weeks ago that is s/p incision and drainage. Lower back wound is now healing well. She has another hematoma of the right hip after a fall at home yesterday. Her INR was 5.6 on admission. Continue to hold anticoagulation and treat her coagulopathy. The overlying skin of the right hip hematoma appears healthy for now. No indication for surgical intervention at this time, but will continue to monitor the hematoma. If she develops pressure necrosis or signs of infection in this area, then she could eventually require surgery again for the right hip hematoma. Will continue to follow. (2) Open wound of lower back: Code(s): S31.000A - Unspecified open wound of lower back and pelvis without penetration into retroperitoneum, initial encounter Status: Acute Assessment and Plan: S/p incision, drainage, and debridement of necrotic skin from lower back hematoma. Patient had wound VAC therapy and was healing well. Today, the wound looks completely clean with no signs of infection. Continues to heal well. Will switch to wet to dry dressing changes for now. Continue local wound care. This does not appear to be the source for her leukocytosis. (3) Warfarin-induced coagulopathy: Code(s): D68.32 - Hemorrhagic disorder due to extrinsic circulating anticoagulants; T45.515A - Adverse effect of anticoagulants, initial encounter Status: Acute Assessment and Plan: INR 5.6 on admission, hold warfarin, management per Hospitalist. Continue to monitor labs. (4) Leukocytosis: Code(s): D72.829 - Elevated white blood cell count, unspecified Status: Acute Assessment and Plan: WBC 14,800 on admission with bandemia. Her lower back wound is healing well with no signs of infection. This is not the cause for her leukocytosis. Would recommend evaluating for other potential sources of infection. Monitor labs. (5) Chronic kidney disease, stage 3: Code(s): N18.30 - Chronic kidney disease, stage 3 unspecified Status: Acute (6) Fall: Code(s): W19.XXXA - Unspecified fall, initial encounter Status: Acute (7) Chronic kidney disease: Code(s): N18.9 - Chronic kidney disease, unspecified Status: Acute (8) Obstructive sleep apnea: Code(s): G47.33 - Obstructive sleep apnea (adult) (pediatric) Status: Acute (9) Atrial fibrillation: Qualifiers: Atrial fibrillation type: unspecified Qualified Code(s): I48.91 - Unspecified atrial fibrillation Code(s): I48.91 - Unspecified atrial fibrillation Status: Acute Plan I have discussed the patient's case and plan of care with Dr. Chapa. Thank you for allowing us to see the patient in consultation and we will continue to follow along with you. History of Present Illness Consult details Consult date: 12/28/22 Reason for consult: other (Wound VAC evaluation) Requesting physician: Nic Joyner MD Narrative: This is an 87-year-old woman who is on chronic anticoagulation for paroxysmal atrial fibrillation, and who is known to our service from a recent hospitalization for a lower back hematoma with pressure necrosis after a fall a few weeks ago. She underwent incision, drainage, and sharp debridement of necrotic skin from lower back hematoma on 12/04/[address] Chapa. She was discharged home with home health and a wound VAC on 12/09/2022. She was seen in follow-up as an outpatient and healing well. She was brought back in the ER yesterday for evaluation of weakness and a fall at home. Yesterday, she had the chills and reports generalized weakness. It was difficult to get out of bed. She was trying go to the bathroom her ?legs gave out?. She fell and hit her right hip. She now reports right
[2022-12-28] MEDS: cefTRIAXone 2 GM/NS 100 ML 2 GM/100 ML BAG IVPB (17:15)
[2022-12-28 22:00] VITALS: BP 128/77; PULSE 69; RESP 20; TEMP 36.2; O2SAT 98
[2022-12-28] MEDS: MELATONIN 5 MG TABLET PO (22:55)
[2022-12-28] MEDS: PRAVASTATIN SODIUM 10 MG TABLET PO (22:56)
[2022-12-29] MEDS: LEVOTHYROXINE SODIUM 25 MCG TABLET PO (05:26)
[2022-12-29] MEDS: HYDROcodone/acetaminophen (*CRX) 10-325 MG TABLET 1 TAB PO ×2 (05:26→15:34)
[2022-12-29 06:00] VITALS: BP 113/72; PULSE 70; RESP 18; TEMP 36.6; O2SAT 100
[2022-12-29] MEDS: LOPERAMIDE HCL 2 MG CAPSULE PO (06:19)
[2022-12-29 06:30] LABS: Hematocrit 31.8 % (37.0-47.0); Mean Corpuscular HGB Conc 31.4 g/dl (32-36); Mean Corpuscular Hemoglobin 30.1 pg (26-34); Mean Corpuscular Volume 95.8 fl (80-100); Platelet Count Result 199 k/mm3 (150-375); Red Blood Count 3.32 M/mm3 (4.2-5.4); Red Cell Distribution Width 15.6 % (11.5-14.5); White Blood Count 13.9 K/mm3 (4.5-10.0)
[2022-12-29 06:41] LABS: Anion Gap 4 mmol/L (8-16); Blood Urea Nitrogen 32 mg/dL (7-17); Calcium 9.3 mg/dL (8.4-10.2); Carbon Dioxide 29 mmol/L (22-30); Chloride 96 mmol/L (98-107); Estimated CRCL calculation 26 ml/min; Estimated Glomerular Filt Rate 36; Glucose 110 mg/dL (65-110); Potassium 3.8 mmol/L (3.4-5.0); Sodium 129 mmol/L (137-145)
[2022-12-29 06:45] LABS: Prothrombin Time 61.1 Seconds (11.1-14.7)
[2022-12-29 07:47] LABS: INR 6.2
[2022-12-29] MEDS: POTASSIUM CHLORIDE 20 MEQ ER TABLET PO ×2 (10:10→16:55)
[2022-12-29] MEDS: FLUTICASONE PROPIONATE 0.05% NA SPR 16 GM BTL (*BKC) 2 SPRAY NASAL (10:10)
[2022-12-29] MEDS: CHOLECALCIFEROL 1,000 UNITS TABLET 1000 UNITS PO (10:11)
[2022-12-29] MEDS: SERTRALINE HCL 25 MG TABLET PO (10:11)
[2022-12-29 10:13] VITALS: PULSE 68
[2022-12-29] MEDS: METOPROLOL SUCCINATE EXT REL 50 MG TABCR PO (10:13)
[2022-12-29] MEDS: PHYTONADIONE 5 MG TABLET PO (10:13)
[2022-12-29] MEDS: SODIUM CHLORIDE 0.9% IV 1,000 ML 75 ML IV CONT (10:14)
--- NOTE | 2022-12-29 11:30 | PM.IMPN ---
Progress Note: A&P Assessment and Plan (1) Weakness: Code(s): R53.1 - Weakness Status: Acute (2) Warfarin-induced coagulopathy: Code(s): D68.32 - Hemorrhagic disorder due to extrinsic circulating anticoagulants; T45.515A - Adverse effect of anticoagulants, initial encounter Status: Acute (3) Hematoma: Code(s): T14.8XXA - Other injury of unspecified body region, initial encounter Status: Acute (4) Chronic kidney disease, stage 3: Code(s): N18.30 - Chronic kidney disease, stage 3 unspecified Status: Acute (5) Atrial fibrillation: Qualifiers: Atrial fibrillation type: unspecified Qualified Code(s): I48.91 - Unspecified atrial fibrillation Code(s): I48.91 - Unspecified atrial fibrillation Status: Acute (6) Anticoagulated on Coumadin: Code(s): Z79.01 - prison (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 Continue IV Rocephin. Dr. Chapa has been consulted for his opinion as well. Chest x-ray and urinalysis were both without acute findings. INR is supratherapeutic and warfarin is on hold. Hemoglobin is stable. Since she has a hematoma will give her a dose of vitamin K to bring the INR down. Will DC fenofibrate since it can cause INR to be elevated. Renal function is stable. Continue levothyroxine and check TSH. Patient having diarrhea. C diff negative. Discontinue oral vancomycin Mild hyponatremia. Discontinue LR. Start on NS. Discontinue Bumex Subjective Date/time seen: 12/29/22 11:30 Interval history: Patient reports pain in both the hip areas and left thigh Review of Systems Review of Systems: Twelve systems were reviewed and are negative except for as per HPI. Exam Narrative: General: Mildly ill-appearing elderly female HEENT: PERRL, EOMI. Sclera anicteric. Tacky mucous membranes. Neck: Supple. Respiratory: Lungs are clear to auscultation bilaterally. Cardiovascular: Regular rate and rhythm with S1-S2. Murmur at the left lower sternal border. Gastrointestinal: Abdomen is soft, nontender, and nondistended with positive bowel sounds. Skin: Warm and dry. Extremities: No cyanosis, clubbing, or edema. Radial and pedal pulses intact. Neurological: Alert. Cranial nerves 2-12 are grossly intact. No gross focal deficits to casual conversation. Psychiatric: Pleasant and cooperative with normal mood and affect. Seems slightly forgetful. Objective Data Vital Signs Vital Signs: Vital Signs - 24 hr 12/28/22 14:00 12/28/22 22:00 12/28/22 20:00 Temperature 97.4 F L 97.2 F L Pulse Rate 70 69 Respiratory Rate 16 20 Blood Pressure 102/57 L 128/77 Pulse Oximetry 100 98 Oxygen Delivery Room Air 12/29/22 06:00 12/29/22 10:13 12/29/22 10:13 Temperature 97.8 F Pulse Rate 70 68 68 Respiratory Rate 18 Blood Pressure 113/72 Pulse Oximetry 100 Oxygen Delivery Intake/Output Intake/Output: Intake & Output 12/26/22 12/27/22 12/28/22 12/29/22 23:59 23:59 23:59 23:59 Intake Total 1100 / 1100 700 / 700 240 / 240 Balance 1100 / 1100 700 / 700 240 / 240 Meds/Results Medications: Active Medications Generic Name Dose Route Start Last Admin Trade Name Freq PRN Reason Stop Dose Admin Acetaminophen 650 mg 12/27/22 11:01 Acetaminophen 325 Mg Tablet PO Q4H PRN Mild Pain (1-3) or Fever Hydrocodone Bitart/Acetaminophen 1 tab 12/27/22 15:10 12/28/22 05:34 Hydrocodone/Acetaminophen (*Crx) 5-
[2022-12-29 14:00] VITALS: BP 96/61; PULSE 72; RESP 14; TEMP 36.3; O2SAT 97
--- NOTE | 2022-12-29 15:30 | PM.PNGS ---
Progress Note: A&P Assessment and Plan (1) Hematoma: Code(s): T14.8XXA - Other injury of unspecified body region, initial encounter Status: Acute Assessment and Plan: Traumatic hematoma of the left hip after a fall at home yesterday. Continue to monitor H&H Hold warfarin and monitor INR. INR 6.2 this morning and received vitamin K. No indication for surgical intervention unless the hematoma becomes infected or develops pressure necrosis. (2) Open wound of lower back: Code(s): S31.000A - Unspecified open wound of lower back and pelvis without penetration into retroperitoneum, initial encounter Status: Acute Assessment and Plan: S/p incision, drainage, and debridement of necrotic skin from lower back hematoma. Lower back wound is healing well with no signs of infection. Continue wet to dry dressing changes. (3) Warfarin-induced coagulopathy: Code(s): D68.32 - Hemorrhagic disorder due to extrinsic circulating anticoagulants; T45.515A - Adverse effect of anticoagulants, initial encounter Status: Acute Assessment and Plan: INR 6.2 this morning, received a dose of vitamin K today. Continue to monitor labs. Warfarin on hold. (4) Bacteremia: Code(s): R78.81 - Bacteremia Status: Acute Assessment and Plan: Preliminary blood cultures positive for group A strep 2/2 bottles, continue IV antibiotics (5) Leukocytosis: Code(s): D72.829 - Elevated white blood cell count, unspecified Status: Acute (6) Atrial fibrillation: Qualifiers: Atrial fibrillation type: unspecified Qualified Code(s): I48.91 - Unspecified atrial fibrillation Code(s): I48.91 - Unspecified atrial fibrillation Status: Acute Plan I have discussed the patient's case and plan of care with Dr. Chapa. Subjective Subjective Date/Time Seen: 12/29/22 15:30 Patient reports: no new complaints, still having pain (Left hip) and afebrile Interval history: Patient seen today. Still complaining of left hip pain. No significant changes since yesterday. INR noted to be 6.2 today. She did receive a dose of vitamin K this morning. Exam Const: General: comfortable and no acute distress Orientation/consciousness: patient oriented x3 Back/Spine/Pelvis: Other: Lower back dressing dry and intact Skin: Other: Right hip hematoma with small areas of ecchymosis, overlying skin still appears healthy with no pressure necrosis or open wounds. Hematoma appears about the same size compared to yesterday. Objective Data Vital Signs Vital Signs: Vital Signs - 24 hr 12/28/22 22:00 12/28/22 20:00 12/29/22 06:00 Temperature 97.2 F L 97.8 F Pulse Rate 69 70 Respiratory Rate 20 18 Blood Pressure 128/77 113/72 Pulse Oximetry 98 100 Oxygen Delivery Room Air 12/29/22 10:13 12/29/22 10:13 12/29/22 14:00 Temperature 97.3 F L Pulse Rate 68 68 72 Respiratory Rate 14 Blood Pressure 96/61 L Pulse Oximetry 97 Oxygen Delivery Intake/Output Intake/Output: Intake & Output 12/26/22 12/27/22 12/28/22 12/29/22 23:59 23:59 23:59 23:59 Intake Total 1100 700 360 Balance 1100 700 360 Meds/Results Medications: Active Medications Generic Name Dose Route Start Last Admin Trade Name Freq PRN Reason Stop Dose Admin Acetaminophen 650 mg 12/27/22 11:01 Acetaminophen 325 Mg Tablet PO Q4H PRN Mild Pain (1-3) or Fever Hydrocodone Bitart/Acetaminophen 1 tab 12/27/22 15:10 12/28/22 05:34 Hydrocodone/Acetaminophen (*Crx) 5-325 Mg Tablet PO 1 tab Q8H PRN Administration pain 4-6 Hydrocodone Bitart/Acetaminophen 1 tab 12/28/22 11:09 12/29/22 05:26 Hydrocodone/Acetaminophen (*Crx) 10-325 Mg Tablet PO 1 tab Q8H PRN Administration Pain Rated 7-10 Fluticasone Propionate 2 spray 12/27/22 15:10 12/28/22 09:17 Fluticasone Propionate 0.05% Na Spr 16 Gm Btl (*Bkc) NASAL 2 spray QAM SC
[2022-12-29] MEDS: cefTRIAXone 2 GM/NS 100 ML 2 GM/100 ML BAG IVPB (15:34)
[2022-12-29 21:12] VITALS: BP 114/70; PULSE 70; RESP 20; TEMP 36.4; O2SAT 99
[2022-12-29] MEDS: PRAVASTATIN SODIUM 10 MG TABLET PO (21:33)
[2022-12-29] MEDS: ACETAMINOPHEN 325 MG TABLET 650 MG PO (21:33)
[2022-12-29] MEDS: MELATONIN 5 MG TABLET PO (21:33)
[2022-12-30] MEDS: SODIUM CHLORIDE 0.9% IV 1,000 ML 75 ML IV CONT (03:16)
[2022-12-30] MEDS: LEVOTHYROXINE SODIUM 25 MCG TABLET PO (05:36)
[2022-12-30 06:00] VITALS: BP 128/81; PULSE 69; RESP 20; TEMP 36; O2SAT 98
[2022-12-30 07:21] LABS: Anion Gap 5 mmol/L (8-16); Blood Urea Nitrogen 32 mg/dL (7-17); Calcium 9.2 mg/dL (8.4-10.2); Carbon Dioxide 23 mmol/L (22-30); Chloride 100 mmol/L (98-107); Estimated CRCL calculation 30 ml/min; Estimated Glomerular Filt Rate 42; Glucose 90 mg/dL (65-110); Potassium 4.5 mmol/L (3.4-5.0); Sodium 128 mmol/L (137-145)
[2022-12-30 07:43] LABS: INR 3.2; Prothrombin Time 35.2 Seconds (11.1-14.7)
[2022-12-30] MEDS: SERTRALINE HCL 25 MG TABLET PO (08:58)
[2022-12-30] MEDS: POTASSIUM CHLORIDE 20 MEQ ER TABLET PO ×2 (08:58→17:04)
[2022-12-30] MEDS: FLUTICASONE PROPIONATE 0.05% NA SPR 16 GM BTL (*BKC) 2 SPRAY NASAL (08:58)
[2022-12-30] MEDS: CHOLECALCIFEROL 1,000 UNITS TABLET 1000 UNITS PO (08:58)
[2022-12-30 09:04] VITALS: BP 111/61; PULSE 77; RESP 14; O2SAT 97
[2022-12-30] MEDS: METOPROLOL SUCCINATE EXT REL 50 MG TABCR PO (09:04)
--- NOTE | 2022-12-30 09:57 | PM.PNGS ---
Progress Note: A&P Assessment and Plan (1) Open wound of lower back: Code(s): S31.000A - Unspecified open wound of lower back and pelvis without penetration into retroperitoneum, initial encounter Status: Acute Assessment and Plan: The lower back wound is packed with normal saline moist to dry gauze for now. It is clean and healing appropriately. Will likely resume wound VAC dressing changes when she leaves the hospital and go home. This wound is not the source of her infection. (2) Leukocytosis: Code(s): D72.829 - Elevated white blood cell count, unspecified Status: Acute Assessment and Plan: Mild leukocytosis. This is not due to her back wound. It is clean without evidence of infection. The left hip hematoma is not infected either. (3) Warfarin-induced coagulopathy: Code(s): D68.32 - Hemorrhagic disorder due to extrinsic circulating anticoagulants; T45.515A - Adverse effect of anticoagulants, initial encounter Status: Acute Assessment and Plan: INR is now down to 3.2. Will need to adjust dose of Coumadin. (4) Hematoma: Code(s): T14.8XXA - Other injury of unspecified body region, initial encounter Status: Acute Assessment and Plan: The left hip hematoma is stable. No ongoing bleeding. Hemoglobin has been stable. She does not need blood transfusion. As long as there is no evidence of infection of the hematoma and no pressure necrosis of the overlying skin I would not drain the hematoma and allowed to resolve on its own over time. Subjective Subjective Date/Time Seen: 12/30/22 09:57 Interval history: Patient resting comfortably in bed. No complaints. INR is down to 3.2 now. Coumadin has been held. Hemoglobin stable around 10.5. Blood cell count is stable around 13,000. Exam Skin: Other: The mid lower back wound is open and packed. Good granulation tissue was noted. Wound VAC has been left off for now and do just normal saline moist dry dressings. The left hip hematoma is. The tissue was soft but mildly tender. No pressure necrosis or redness of the skin is noted. Objective Data Vital Signs Vital Signs: Vital Signs - 24 hr 12/29/22 10:13 12/29/22 10:13 12/29/22 14:00 Temperature 36.3 C L Pulse Rate 68 68 72 Respiratory Rate 14 Blood Pressure 96/61 L Pulse Oximetry 97 Oxygen Delivery 12/29/22 21:12 12/29/22 20:00 12/30/22 06:00 Temperature 36.4 C 36.0 C L Pulse Rate 70 69 Respiratory Rate 20 20 Blood Pressure 114/70 128/81 Pulse Oximetry 99 98 Oxygen Delivery Room Air 12/30/22 09:04 12/30/22 09:04 Temperature Pulse Rate 77 77 Respiratory Rate 14 Blood Pressure 111/61 Pulse Oximetry 97 Oxygen Delivery Intake/Output Intake/Output: Intake & Output 12/27/22 12/28/22 12/29/22 12/30/22 23:59 23:59 23:59 23:59 Intake Total 3885 526 1611 315 Balance 2953 576 6388 315 Meds/Results Medications: Active Medications Generic Name Dose Route Start Last Admin Trade Name Freq PRN Reason Stop Dose Admin Acetaminophen 650 mg 12/27/22 11:01 12/29/22 21:33 Acetaminophen 325 Mg Tablet PO 650 mg Q4H PRN Administration Mild Pain (1-3) or Fever Hydrocodone Bitart/Acetaminophen 1 tab 12/27/22 15:10 12/28/22 05:34 Hydrocodone/Acetaminophen (*Crx) 5-325 Mg Tablet PO 1 tab Q8H PRN Administration pain 4-6 Hydrocodone Bitart/Acetaminophen 1 tab 12/28/22 11:09 12/29/22 15:34 Hydrocodone/Acetaminophen (*Crx) 10-325 Mg Tablet PO 1 tab Q8H PRN Administration Pain Rated 7-10 Fluticasone Propionate 2 spray 12/27/22 15:10 12/30/22 08:58 Fluticasone Propionate 0.05% Na Spr 16 Gm Btl (*Bkc) NASAL 2 spray QAM YELENA Administration Ceftriaxone Sodium 2 gm in 100 mls @ 200 mls/hr 12/28/22 16:00 12/29/22 16:04 Rocephin 2 Gm/Ns 100 Ml IVPB Infused Q24H YELENA Infusion Sodium Chloride 1,000 mls @ 75 mls/hr 12/29/22 09:05 12/30/22 03:
--- NOTE | 2022-12-30 10:18 | PM.IMPN ---
Progress Note: A&P Assessment and Plan (1) Weakness: Code(s): R53.1 - Weakness Status: Acute (2) Warfarin-induced coagulopathy: Code(s): D68.32 - Hemorrhagic disorder due to extrinsic circulating anticoagulants; T45.515A - Adverse effect of anticoagulants, initial encounter Status: Acute (3) Hematoma: Code(s): T14.8XXA - Other injury of unspecified body region, initial encounter Status: Acute (4) Chronic kidney disease, stage 3: Code(s): N18.30 - Chronic kidney disease, stage 3 unspecified Status: Acute (5) Atrial fibrillation: Qualifiers: Atrial fibrillation type: unspecified Qualified Code(s): I48.91 - Unspecified atrial fibrillation Code(s): I48.91 - Unspecified atrial fibrillation Status: Acute (6) Anticoagulated on Coumadin: Code(s): Z79.01 - FPC (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 Continue IV Rocephin. Dr. Chapa has been consulted for his opinion as well. Chest x-ray and urinalysis were both without acute findings. INR is supratherapeutic but coming down. warfarin is on hold. Hemoglobin is stable. One dose of vitamin K given to bring the INR down. DC fenofibrate since it can cause INR to be elevated. Renal function is stable. Continue levothyroxine and check TSH. Patient having diarrhea. C diff negative. Discontinue oral vancomycin Mild hyponatremia. discontinue IV fluid. Discontinue Bumex. monitor BMP Subjective Date/time seen: 12/30/22 10:18 Interval history: still has pain in the left thigh Review of Systems Review of Systems: Twelve systems were reviewed and are negative except for as per HPI. Exam Narrative: General: Mildly ill-appearing elderly female HEENT: PERRL, EOMI. Sclera anicteric. Tacky mucous membranes. Neck: Supple. Respiratory: Lungs are clear to auscultation bilaterally. Cardiovascular: Regular rate and rhythm with S1-S2. Murmur at the left lower sternal border. Gastrointestinal: Abdomen is soft, nontender, and nondistended with positive bowel sounds. Skin: Warm and dry. Extremities: No cyanosis, clubbing, or edema. Radial and pedal pulses intact. tenderness left thigh Neurological: Alert. Cranial nerves 2-12 are grossly intact. No gross focal deficits to casual conversation. Psychiatric: Pleasant and cooperative with normal mood and affect. Seems slightly forgetful. Objective Data Vital Signs Vital Signs: Vital Signs - 24 hr 12/29/22 14:00 12/29/22 21:12 12/29/22 20:00 Temperature 97.3 F L 97.6 F Pulse Rate 72 70 Respiratory Rate 14 20 Blood Pressure 96/61 L 114/70 Pulse Oximetry 97 99 Oxygen Delivery Room Air 12/30/22 06:00 12/30/22 09:04 12/30/22 09:04 Temperature 96.8 F L Pulse Rate 69 77 77 Respiratory Rate 20 14 Blood Pressure 128/81 111/61 Pulse Oximetry 98 97 Oxygen Delivery 12/30/22 08:00 Temperature Pulse Rate Respiratory Rate Blood Pressure Pulse Oximetry Oxygen Delivery Room Air Intake/Output Intake/Output: Intake & Output 12/27/22 12/28/22 12/29/22 12/30/22 23:59 23:59 23:59 23:59 Intake Total 1100 / 1100 800 / 800 2620 / 2620 315 / 315 Balance 1100 / 1100 800 / 800 2620 / 2620 315 / 315 Meds/Results Medications: Active Medications Generic Name Dose Route Start Last Admin Trade Name Johnq PRN Reason Stop Dose Admin Acetaminophen 650 mg 12/27/22 11:01 12/29/22 21:33 Acetaminophen 325 Mg Tablet PO
[2022-12-30 14:00] VITALS: BP 121/62; PULSE 73; RESP 13; TEMP 36.7; O2SAT 100
[2022-12-30] MEDS: cefTRIAXone 2 GM/NS 100 ML 2 GM/100 ML BAG IVPB (17:04)
[2022-12-30] MEDS: HYDROcodone/acetaminophen (*CRX) 5-325 MG TABLET 1 TAB PO (17:04)
[2022-12-30] MEDS: MENTHOL 10% / METHYL SALICYLATE 15% 57 GM TUBE 1 APPLIC TOPICAL (19:14)
[2022-12-30 20:00] VITALS: O2SAT 98
[2022-12-30] MEDS: PRAVASTATIN SODIUM 10 MG TABLET PO (20:41)
[2022-12-30] MEDS: MELATONIN 5 MG TABLET PO (20:41)
[2022-12-30 21:33] VITALS: BP 125/62; PULSE 70; RESP 22; TEMP 36.7; O2SAT 98
--- NOTE | 2022-12-31 00:31 | PC.NURSE ---
Patient crying out in pain. PRN norco not yet available per orders. Spoke with Dr. Cross at this time and he says to order a 1x dose of morphine 3mg IVP. Patient also having frequent loose BMs. new order received for imodium 4mg once.
[2022-12-31] MEDS: LOPERAMIDE HCL 2 MG CAPSULE 4 MG PO (00:41)
[2022-12-31] MEDS: MORPHINE SULFATE (*CRX) 2 MG/ML INJ 3 MG IV PUSH (00:41)
[2022-12-31] MEDS: HYDROcodone/acetaminophen (*CRX) 10-325 MG TABLET 1 TAB PO ×2 (05:02→22:12)
[2022-12-31] MEDS: LEVOTHYROXINE SODIUM 25 MCG TABLET PO (05:02)
[2022-12-31 06:00] VITALS: BP 133/71; PULSE 72; RESP 24; TEMP 36.5; O2SAT 99
[2022-12-31 06:21] LABS: Hematocrit 32.7 % (37.0-47.0); Hemoglobin 10.1 g/dL (12.0-15.0); Mean Corpuscular HGB Conc 30.9 g/dl (32-36); Mean Corpuscular Hemoglobin 29.8 pg (26-34); Mean Corpuscular Volume 96.5 fl (80-100); Mean Platelet Volume 9.7 fl (7.4-10.4); Platelet Count Result 232 k/mm3 (150-375); Red Blood Count 3.39 M/mm3 (4.2-5.4); Red Cell Distribution Width 15.8 % (11.5-14.5); White Blood Count 13.1 K/mm3 (4.5-10.0)
[2022-12-31 06:35] LABS: Anion Gap 2 mmol/L (8-16); Blood Urea Nitrogen 28 mg/dL (7-17); Calcium 9.6 mg/dL (8.4-10.2); Carbon Dioxide 28 mmol/L (22-30); Chloride 99 mmol/L (98-107); Estimated CRCL calculation 28 ml/min; Estimated Glomerular Filt Rate 39; Glucose 115 mg/dL (65-110); Potassium 4.4 mmol/L (3.4-5.0); Sodium 129 mmol/L (137-145)
[2022-12-31 09:38] VITALS: PULSE 60
[2022-12-31] MEDS: METOPROLOL SUCCINATE EXT REL 50 MG TABCR PO (09:38)
[2022-12-31] MEDS: CHOLECALCIFEROL 1,000 UNITS TABLET 1000 UNITS PO (09:39)
[2022-12-31] MEDS: SERTRALINE HCL 25 MG TABLET PO (09:40)
[2022-12-31] MEDS: POTASSIUM CHLORIDE 20 MEQ ER TABLET PO ×2 (09:40→17:15)
[2022-12-31] MEDS: FLUTICASONE PROPIONATE 0.05% NA SPR 16 GM BTL (*BKC) 2 SPRAY NASAL (09:44)
--- NOTE | 2022-12-31 11:26 | PM.PNGS ---
Progress Note: A&P Assessment and Plan (1) Open wound of lower back: Code(s): S31.000A - Unspecified open wound of lower back and pelvis without penetration into retroperitoneum, initial encounter Status: Acute Assessment and Plan: Continue wet to dry dressing changes for now. Wound is clean and healing appropriately. Plan to likely switch back to wound VAC dressing on discharge. PT/OT evaluating patient to help plan placement for discharge. (2) Leukocytosis: Code(s): D72.829 - Elevated white blood cell count, unspecified Status: Acute Assessment and Plan: Mild leukocytosis not related to the back wound or left hip hematoma. The left hip hematoma and back wound are not infected. (3) Warfarin-induced coagulopathy: Code(s): D68.32 - Hemorrhagic disorder due to extrinsic circulating anticoagulants; T45.515A - Adverse effect of anticoagulants, initial encounter Status: Acute Assessment and Plan: INR down to 3.2 yesterday. Management of Coumadin per Hospitalist. (4) Hematoma: Code(s): T14.8XXA - Other injury of unspecified body region, initial encounter Status: Acute Assessment and Plan: Left hip hematoma stable with no evidence of ongoing bleeding. No evidence of infection or pressure necrosis at this time, therefore no indication for surgical intervention. Continue to monitor. Plan I have discussed the patient's case and plan of care with Dr. Chapa. Subjective Subjective Date/Time Seen: 12/31/22 11:26 Patient reports: no new complaints and afebrile Interval history: Patient seen this morning. She reports feeling the same as yesterday. No new complaints or acute events overnight. Per nursing, patient is planning to get up with physical therapy today to help guide placement. Exam Const: General: no acute distress Orientation/consciousness: patient oriented x3 Back/Spine/Pelvis: Other: Lower back dressing dry and intact Skin: Other: Left hip hematoma appears stable, not enlarging. Minimal ecchymosis, skin appears otherwise healthy Psych: Mental Status: mental status grossly normal Insight: Good insight present (Psych) Objective Data Vital Signs Vital Signs: Vital Signs - 24 hr 12/30/22 14:00 12/30/22 21:33 12/30/22 20:00 Temperature 98.1 F 98.1 F Pulse Rate 73 70 Respiratory Rate 13 22 H Blood Pressure 121/62 125/62 Pulse Oximetry 100 98 98 Oxygen Delivery Room Air 12/31/22 06:00 12/31/22 09:38 Temperature 97.7 F Pulse Rate 72 60 Respiratory Rate 24 H Blood Pressure 133/71 Pulse Oximetry 99 Oxygen Delivery Intake/Output Intake/Output: Intake & Output 12/28/22 12/29/22 12/30/22 12/31/22 23:59 23:59 23:59 23:59 Intake Total 800 2620 715 420 Balance 800 2620 715 420 Meds/Results Medications: Active Medications Generic Name Dose Route Start Last Admin Trade Name Freq PRN Reason Stop Dose Admin Acetaminophen 650 mg 12/27/22 11:01 12/29/22 21:33 Acetaminophen 325 Mg Tablet PO 650 mg Q4H PRN Administration Mild Pain (1-3) or Fever Hydrocodone Bitart/Acetaminophen 1 tab 12/27/22 15:10 12/30/22 17:04 Hydrocodone/Acetaminophen (*Crx) 5-325 Mg Tablet PO 1 tab Q8H PRN Administration pain 4-6 Hydrocodone Bitart/Acetaminophen 1 tab 12/28/22 11:09 12/31/22 05:02 Hydrocodone/Acetaminophen (*Crx) 10-325 Mg Tablet PO 1 tab Q8H PRN Administration Pain Rated 7-10 Fluticasone Propionate 2 spray 12/27/22 15:10 12/31/22 09:44 Fluticasone Propionate 0.05% Na Spr 16 Gm Btl (*Bkc) NASAL 2 spray QAM YELENA Administration Ceftriaxone Sodium 2 gm in 100 mls @ 200 mls/hr 12/28/22 16:00 12/30/22 17:34 Rocephin 2 Gm/Ns 100 Ml IVPB Infused Q24H YELENA Infusion Levothyroxine Sodium 25 mcg 12/28/22 06:30 12/31/22 05:02 Levothyroxine Sodium 25 Mcg Tablet PO 25 mcg DAILY@0630 YELENA Administration Loperamide HCl 2 mg 12/28/22 13:30 09
[2022-12-31 14:00] VITALS: BP 105/67; PULSE 73; RESP 13; TEMP 36.6; O2SAT 100
[2022-12-31] MEDS: cefTRIAXone 2 GM/NS 100 ML 2 GM/100 ML BAG IVPB (16:12)
--- NOTE | 2022-12-31 17:14 | PM.IMPN ---
Progress Note: A&P Assessment and Plan (1) Weakness: Code(s): R53.1 - Weakness Status: Acute (2) Warfarin-induced coagulopathy: Code(s): D68.32 - Hemorrhagic disorder due to extrinsic circulating anticoagulants; T45.515A - Adverse effect of anticoagulants, initial encounter Status: Acute (3) Hematoma: Code(s): T14.8XXA - Other injury of unspecified body region, initial encounter Status: Acute (4) Chronic kidney disease, stage 3: Code(s): N18.30 - Chronic kidney disease, stage 3 unspecified Status: Acute (5) Atrial fibrillation: Qualifiers: Atrial fibrillation type: unspecified Qualified Code(s): I48.91 - Unspecified atrial fibrillation Code(s): I48.91 - Unspecified atrial fibrillation Status: Acute (6) Anticoagulated on Coumadin: Code(s): 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 Daughter noted that wound VAC is leaking. Patient complaint of back pain. Some erythema noted around the wound VAC on arrival to the ED. workup evaluation showed elevated white cell count of 14 K with bandemia, INR elevated at 5.6 elevated lactic acid 2.5 and was started on IV vancomycin and Zosyn for suspected infected hematoma. Supratherapeutic INR. Chest x-ray with cardiomegaly and aortic atherosclerosis. Subsequent workup revealed group a streptococcal bacteremia on ceftriaxone which will be continued Recent admission for back hematoma needing incision and drainage due to overlying necrotic skin. Wound VAC in place since then AFib on chronic anticoagulation with supratherapeutic INR on admission. One dose of vitamin K she received to bring INR down fenofibrate discontinued Pacemaker placement Hypertension Hyperlipidemia Chronic kidney disease Sleep apnea Hypothyroidism Hyponatremia mild Lower extremity edema bilateral will give IV Lasix start albumin. Bumex on hold monitor DVT prophylaxis has supratherapeutic INR Code status full code Subjective Date/time seen: 12/31/22 17:14 Interval history: She feels a bit better. Remains afebrile. Has diffuse swelling in both the legs. Left hip still hurts. Review of Systems Review of Systems: All systems reviewed & are unremarkable except as noted in HPI and below Exam Narrative: General: Mildly ill-appearing elderly female not in acute distress HEENT: PERRL, EOMI. Sclera anicteric. Tacky mucous membranes. Neck: Supple. Respiratory: Lungs are clear to auscultation bilaterally. Cardiovascular: Regular rate and rhythm with S1-S2. Murmur at the left lower sternal border. Gastrointestinal: Abdomen is soft, nontender, and nondistended with positive bowel sounds. Skin: Warm and dry. Extremities: No cyanosis, clubbing, bilateral lower extremity edema present. Radial and pedal pulses intact. tenderness left thigh with ecchymosis noted Neurological: Alert. Cranial nerves 2-12 are grossly intact. No gross focal deficits to casual conversation. Psychiatric: Pleasant and cooperative with normal mood and affect. Seems slightly forgetful. Back with dressing Objective Data Vital Signs Vital Signs: Vital Signs - 24 hr 12/30/22 21:33 12/30/22 20:00 12/31/22 06:00 Temperature 98.1 F 97.7 F Pulse Rate 70 72 Respiratory Rate 22 H 24 H Blood Pressure 125/62 133/71 Pulse Oximetry 98 98 99 Oxygen Delivery Room Air 12/31/22 09:38 12/31/22 13:26 12/31/22 13:41 Temperature Pulse Rat
[2022-12-31] MEDS: FUROSEMIDE INJ 40 MG/4 ML VIAL IV PUSH (18:21)
[2022-12-31 20:00] VITALS: O2SAT 100
[2022-12-31 20:58] VITALS: BP 139/91; PULSE 71; RESP 18; TEMP 36.1; O2SAT 100
[2022-12-31] MEDS: MELATONIN 5 MG TABLET PO (22:12)
[2022-12-31] MEDS: PRAVASTATIN SODIUM 10 MG TABLET PO (22:12)
[2022-12-31] MEDS: ALBUMIN HUMAN 25% 25 GM/100 ML 200 ML IVPB (22:13)
--- NOTE | 2022-12-31 22:30 | PC.NURSE ---
Patient c/o significant abdominal pain. Bladder noted to be distended. Bladder scan done and shows 600 ml in bladder. Notified Dr. Cross of findings and explained that patient also just started on lasix IVP and albumin today. New orders received to insert klein catheter.
[2023-01-01] VITALS (8 sets, daily range): BP systolic 111–141; BP diastolic 56–65; PULSE 68–70; RESP 16–18; TEMP 36.1–36.5; O2SAT 90–100
[2023-01-01] MEDS: ALBUMIN HUMAN 25% 25 GM/100 ML 200 ML IVPB ×3 (05:16→20:38)
[2023-01-01] MEDS: LEVOTHYROXINE SODIUM 25 MCG TABLET PO (05:17)
[2023-01-01] MEDS: MENTHOL 10% / METHYL SALICYLATE 15% 57 GM TUBE 1 APPLIC TOPICAL (05:20)
[2023-01-01 07:34] LABS: Basophils Absolute Auto 0.1 K/mm3 (0.0-0.1); Basophils Percent Auto 0.8 % (0.2-1.2); Eosinophils Absolute Auto 0.1 K/mm3 (0-0.3); Eosinophils Percent Auto 1.3 % (0-4.4); Hematocrit 27.2 % (37.0-47.0); Hemoglobin 8.4 g/dL (12.0-15.0); Immature Granulocyte Absolute 0.33 K/mm3 (0.00-0.031); Immature Granulocyte Percent A 5.5 % (0-0.5); Lymphocytes Absolute Auto 0.65 K/mm3 (0.9-3.2); Lymphocytes Percent Auto 10.8 % (18.3-44.2); Mean Corpuscular HGB Conc 30.9 g/dl (32-36); Mean Corpuscular Hemoglobin 29.9 pg (26-34); Mean Corpuscular Volume 96.8 fl (80-100); Mean Platelet Volume 9.9 fl (7.4-10.4); Monocytes Absolute Auto 0.5 K/mm3 (0.1-0.6); Monocytes Percent Auto 8.7 % (2.6-8.5); Neutrophils Absolute Auto 4.4 K/mm3 (1.3-6.7); Neutrophils Percent Auto 72.9 % (45.5-73.1); Platelet Count Result 169 k/mm3 (150-375); Red Blood Count 2.81 M/mm3 (4.2-5.4); Red Cell Distribution Width 15.7 % (11.5-14.5)
[2023-01-01 07:57] LABS: Alanine Aminotransferase 15 U/L (6-35); Albumin Level 3.5 g/dL (3.5-5.1); Alkaline Phosphatase 72 U/L (38-126); Anion Gap 6 mmol/L (8-16); Aspartate Amino Transferase 28 U/L (14-36); Bilirubin,Total 0.6 mg/dL (0.2-1.3); Blood Urea Nitrogen 29 mg/dL (7-17); Calcium 10.1 mg/dL (8.4-10.2); Carbon Dioxide 29 mmol/L (22-30); Chloride 98 mmol/L (98-107); Estimated CRCL calculation 36 ml/min; Estimated Glomerular Filt Rate 52; Glucose 109 mg/dL (65-110); Magnesium 1.9 mg/dL (1.6-2.3); Sodium 133 mmol/L (137-145)
[2023-01-01 08:25] LABS: INR 2.6; Prothrombin Time 30.3 Seconds (11.1-14.7)
[2023-01-01] MEDS: CHOLECALCIFEROL 1,000 UNITS TABLET 1000 UNITS PO (09:32)
[2023-01-01] MEDS: SERTRALINE HCL 25 MG TABLET PO (09:32)
[2023-01-01] MEDS: POTASSIUM CHLORIDE 20 MEQ ER TABLET PO ×2 (09:32→18:34)
[2023-01-01] MEDS: FUROSEMIDE INJ 40 MG/4 ML VIAL IV PUSH ×2 (09:32→18:34)
[2023-01-01] MEDS: METOPROLOL SUCCINATE EXT REL 50 MG TABCR PO (09:32)
[2023-01-01] MEDS: FLUTICASONE PROPIONATE 0.05% NA SPR 16 GM BTL (*BKC) 2 SPRAY NASAL (09:33)
[2023-01-01] MEDS: HYDROcodone/acetaminophen (*CRX) 10-325 MG TABLET 1 TAB PO (09:40)
--- NOTE | 2023-01-01 14:36 | PM.IMPN ---
Progress Note: A&P Assessment and Plan (1) Weakness: Code(s): R53.1 - Weakness Status: Acute (2) Warfarin-induced coagulopathy: Code(s): D68.32 - Hemorrhagic disorder due to extrinsic circulating anticoagulants; T45.515A - Adverse effect of anticoagulants, initial encounter Status: Acute (3) Hematoma: Code(s): T14.8XXA - Other injury of unspecified body region, initial encounter Status: Acute (4) Chronic kidney disease, stage 3: Code(s): N18.30 - Chronic kidney disease, stage 3 unspecified Status: Acute (5) Atrial fibrillation: Qualifiers: Atrial fibrillation type: unspecified Qualified Code(s): I48.91 - Unspecified atrial fibrillation Code(s): I48.91 - Unspecified atrial fibrillation Status: Acute (6) Anticoagulated on Coumadin: Code(s): 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 Daughter noted that wound VAC is leaking. Patient complaint of back pain. Some erythema noted around the wound VAC on arrival to the ED. workup evaluation showed elevated white cell count of 14 K with bandemia, INR elevated at 5.6 elevated lactic acid 2.5 and was started on IV vancomycin and Zosyn for suspected infected hematoma. Supratherapeutic INR. Chest x-ray with cardiomegaly and aortic atherosclerosis. Subsequent workup revealed group a streptococcal bacteremia on ceftriaxone. Ampicillin sensitive. Will switch to amoxicillin as discussed with ID pharmacist. 1 g q.8 hour for total 10 days course. Negative blood culture on 12/31/2022 to date Recent admission for back hematoma needing incision and drainage due to overlying necrotic skin. Wound VAC in place since then AFib on chronic anticoagulation with supratherapeutic INR on admission. One dose of vitamin K she received to bring INR down fenofibrate discontinued. INR still therapeutic. H&H down today. Will continue to hold Coumadin Pacemaker placement Hypertension Hyperlipidemia Chronic kidney disease Sleep apnea Hypothyroidism Hyponatremia mild Lower extremity edema bilateral will give IV Lasix start albumin. Bumex on hold monitor DVT prophylaxis has supratherapeutic INR Code status full code Subjective Date/time seen: 01/01/23 14:36 Interval history: No new complaint. Still has swelling in her legs. Review of Systems Review of Systems: All systems reviewed & are unremarkable except as noted in HPI and below Exam Narrative: General: Mildly ill-appearing elderly female not in acute distress HEENT: PERRL, EOMI. Sclera anicteric. Tacky mucous membranes. Neck: Supple. Respiratory: Lungs are clear to auscultation bilaterally. Cardiovascular: Regular rate and rhythm with S1-S2. Murmur at the left lower sternal border. Gastrointestinal: Abdomen is soft, nontender, and nondistended with positive bowel sounds. Skin: Warm and dry. Extremities: No cyanosis, clubbing, bilateral lower extremity edema present. Radial and pedal pulses intact. tenderness left thigh with ecchymosis noted Neurological: Alert. Cranial nerves 2-12 are grossly intact. No gross focal deficits to casual conversation. Psychiatric: Pleasant and cooperative with normal mood and affect. Seems slightly forgetful. Back with dressing Objective Data Vital Signs Vital Signs: Vital Signs - 24 hr 12/31/22 20:58 12/31/22 20:00 01/01/23 04:35 Temperature 97 F L 97.7 F Pulse Rate 71 70 Respiratory Rate 18 16
[2023-01-01] MEDS: AMOXICILLIN 500 MG CAPSULE 1000 MG PO ×2 (14:45→20:37)
--- NOTE | 2023-01-01 15:24 | PCOTNOTE ---
Attempted to see pt for Occupational Therapy treatment. Pt was sleeping when therapist entered room and declined to perform any therapeutic activities and/or Strengthening due to wanting to continue napping. Will continue per POC duration/frequency tomorrow.
[2023-01-01] MEDS: HYDROcodone/acetaminophen (*CRX) 5-325 MG TABLET 1 TAB PO (20:37)
[2023-01-01] MEDS: PRAVASTATIN SODIUM 10 MG TABLET PO (20:38)
[2023-01-01] MEDS: MELATONIN 5 MG TABLET PO (20:38)
[2023-01-02 04:33] VITALS: BP 138/67; PULSE 70; RESP 16; TEMP 36.6; O2SAT 100
[2023-01-02] MEDS: AMOXICILLIN 500 MG CAPSULE 1000 MG PO ×3 (05:13→21:20)
[2023-01-02] MEDS: HYDROcodone/acetaminophen (*CRX) 5-325 MG TABLET 1 TAB PO ×3 (05:14→18:08)
[2023-01-02] MEDS: ALBUMIN HUMAN 25% 25 GM/100 ML 200 ML IVPB ×3 (05:15→21:21)
[2023-01-02] MEDS: LEVOTHYROXINE SODIUM 25 MCG TABLET PO (05:15)
[2023-01-02 06:32] LABS: INR 2.1; Prothrombin Time 25.4 Seconds (11.1-14.7)
[2023-01-02 06:42] LABS: Basophils Absolute Auto 0.1 K/mm3 (0.0-0.1); Basophils Percent Auto 0.8 % (0.2-1.2); Eosinophils Absolute Auto 0.1 K/mm3 (0-0.3); Eosinophils Percent Auto 1.7 % (0-4.4); Hematocrit 27.2 % (37.0-47.0); Hemoglobin 8.4 g/dL (12.0-15.0); Immature Granulocyte Absolute 0.53 K/mm3 (0.00-0.031); Immature Granulocyte Percent A 8.1 % (0-0.5); Lymphocytes Absolute Auto 0.58 K/mm3 (0.9-3.2); Lymphocytes Percent Auto 8.8 % (18.3-44.2); Mean Corpuscular HGB Conc 30.9 g/dl (32-36); Mean Corpuscular Hemoglobin 30.1 pg (26-34); Mean Corpuscular Volume 97.5 fl (80-100); Mean Platelet Volume 9.8 fl (7.4-10.4); Monocytes Absolute Auto 0.5 K/mm3 (0.1-0.6); Neutrophils Absolute Auto 4.9 K/mm3 (1.3-6.7); Neutrophils Percent Auto 73.6 % (45.5-73.1); Platelet Count Result 165 k/mm3 (150-375); Red Blood Count 2.79 M/mm3 (4.2-5.4); Red Cell Distribution Width 15.4 % (11.5-14.5); White Blood Count 6.6 K/mm3 (4.5-10.0)
[2023-01-02 06:55] LABS: Alanine Aminotransferase 16 U/L (6-35); Albumin Level 3.9 g/dL (3.5-5.1); Alkaline Phosphatase 62 U/L (38-126); Anion Gap 12 mmol/L (8-16); Aspartate Amino Transferase 36 U/L (14-36); Bilirubin,Total 1.1 mg/dL (0.2-1.3); Blood Urea Nitrogen 30 mg/dL (7-17); Calcium 10.7 mg/dL (8.4-10.2); Carbon Dioxide 20 mmol/L (22-30); Chloride 101 mmol/L (98-107); Estimated CRCL calculation 36 ml/min; Estimated Glomerular Filt Rate 52; Glucose 95 mg/dL (65-110); Magnesium 1.6 mg/dL (1.6-2.3); Potassium 4.9 mmol/L (3.4-5.0); Sodium 133 mmol/L (137-145)
[2023-01-02 08:00] VITALS: PULSE 69; RESP 18; O2SAT 98
[2023-01-02] MEDS: FLUTICASONE PROPIONATE 0.05% NA SPR 16 GM BTL (*BKC) 2 SPRAY NASAL (08:08)
[2023-01-02] MEDS: METOPROLOL SUCCINATE EXT REL 50 MG TABCR PO (08:08)
[2023-01-02] MEDS: POTASSIUM CHLORIDE 20 MEQ ER TABLET PO ×2 (08:08→16:02)
[2023-01-02] MEDS: CHOLECALCIFEROL 1,000 UNITS TABLET 1000 UNITS PO (08:08)
[2023-01-02] MEDS: SERTRALINE HCL 25 MG TABLET PO (08:08)
[2023-01-02] MEDS: FUROSEMIDE INJ 40 MG/4 ML VIAL IV PUSH (08:08)
--- NOTE | 2023-01-02 11:28 | PCPTNOTE ---
Treatment not completed at this time due to the patient feeling short of breath. Her SPO2 on room air was reading 93% - 100%. The patient appeared to be breathing harder at times. Will continue per PT plan of care.
--- NOTE | 2023-01-02 13:27 | PM.IMPN ---
Progress Note: A&P Assessment and Plan (1) Weakness: Code(s): R53.1 - Weakness Status: Acute (2) Warfarin-induced coagulopathy: Code(s): D68.32 - Hemorrhagic disorder due to extrinsic circulating anticoagulants; T45.515A - Adverse effect of anticoagulants, initial encounter Status: Acute (3) Hematoma: Code(s): T14.8XXA - Other injury of unspecified body region, initial encounter Status: Acute (4) Chronic kidney disease, stage 3: Code(s): N18.30 - Chronic kidney disease, stage 3 unspecified Status: Acute (5) Atrial fibrillation: Qualifiers: Atrial fibrillation type: unspecified Qualified Code(s): I48.91 - Unspecified atrial fibrillation Code(s): I48.91 - Unspecified atrial fibrillation Status: Acute (6) Anticoagulated on Coumadin: Code(s): 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 Daughter noted that wound VAC is leaking. Patient complaint of back pain. Some erythema noted around the wound VAC on arrival to the ED. workup evaluation showed elevated white cell count of 14 K with bandemia, INR elevated at 5.6 elevated lactic acid 2.5 and was started on IV vancomycin and Zosyn for suspected infected hematoma. Supratherapeutic INR. Chest x-ray with cardiomegaly and aortic atherosclerosis. Subsequent workup revealed group a streptococcal bacteremia on ceftriaxone. Ampicillin sensitive. Will switch to amoxicillin as discussed with ID pharmacist. 1 g q.8 hour for total 10 days course. Negative blood culture on 12/31/2022 to date Recent admission for back hematoma needing incision and drainage due to overlying necrotic skin. Wound VAC in place since then AFib on chronic anticoagulation with supratherapeutic INR on admission. One dose of vitamin K she received to bring INR down fenofibrate discontinued. INR still therapeutic. H&H stable. Will continue to hold Coumadin any to restart small does. Pacemaker placement Hypertension Hyperlipidemia Chronic kidney disease Sleep apnea Hypothyroidism Hyponatremia mild Lower extremity edema bilateral will give IV Lasix start albumin. Bumex on hold monitor will switch to Bumex IV. She takes Bumex 2 mg daily DVT prophylaxis has supratherapeutic INR Code status full code Subjective Date/time seen: 01/02/23 13:27 Interval history: Patient and work with therapy and was short of breath. Chest x-ray with cardiomegaly and bibasilar atelectasis. Leg swelling still persists. States sore in her hip Review of Systems Review of Systems: All systems reviewed & are unremarkable except as noted in HPI and below Exam Narrative: General: Mildly ill-appearing elderly female not in acute distress HEENT: PERRL, EOMI. Sclera anicteric. Tacky mucous membranes. Neck: Supple. Respiratory: Diminished breath sounds bilaterally Cardiovascular: Regular rate and rhythm with S1-S2. Murmur at the left lower sternal border. Gastrointestinal: Abdomen is soft, nontender, and nondistended with positive bowel sounds. Skin: Warm and dry. Extremities: No cyanosis, clubbing, bilateral lower extremity edema present. Radial and pedal pulses intact. tenderness left thigh with ecchymosis noted Neurological: Alert. Cranial nerves 2-12 are grossly intact. No gross focal deficits to casual conversation. Psychiatric: Pleasant and cooperative with normal mood and affect. Seems slightly forgetful. Back with dressing Obj
[2023-01-02 13:37] VITALS: BP 124/78; PULSE 69; RESP 18; TEMP 36.3; O2SAT 98
--- NOTE | 2023-01-02 15:42 | PCPTNOTE ---
Attempted treatment this afternoon. The patient states that she still feels exhausted and would just like to rest. Will continue per PT plan of care.
[2023-01-02] MEDS: BUMETANIDE INJ 1 MG/4 ML VIAL IV PUSH (16:19)
[2023-01-02 19:42] VITALS: O2SAT 98
[2023-01-02] MEDS: ACETAMINOPHEN 325 MG TABLET 650 MG PO (20:13)
[2023-01-02] MEDS: MELATONIN 5 MG TABLET PO (20:13)
[2023-01-02] MEDS: PRAVASTATIN SODIUM 10 MG TABLET PO (20:13)
[2023-01-02 21:13] VITALS: BP 144/65; PULSE 70; RESP 16; TEMP 36.1; O2SAT 97
[2023-01-03] VITALS (11 sets, daily range): BP systolic 132–165; BP diastolic 72–80; PULSE 50–69; RESP 16–24; TEMP 35.7–36.7; O2SAT 92–99
[2023-01-03] MEDS: ALBUMIN HUMAN 25% 25 GM/100 ML 200 ML IVPB ×3 (05:11→21:48)
[2023-01-03] MEDS: AMOXICILLIN 500 MG CAPSULE 1000 MG PO ×3 (05:11→21:48)
[2023-01-03] MEDS: HYDROcodone/acetaminophen (*CRX) 5-325 MG TABLET 1 TAB PO ×3 (05:11→22:39)
[2023-01-03] MEDS: LEVOTHYROXINE SODIUM 25 MCG TABLET PO (05:26)
[2023-01-03 06:52] LABS: Hemoglobin 8.9 g/dL (12.0-15.0); Mean Corpuscular HGB Conc 31.8 g/dl (32-36); Mean Corpuscular Hemoglobin 30.1 pg (26-34); Mean Corpuscular Volume 94.6 fl (80-100); Mean Platelet Volume 9.1 fl (7.4-10.4); Platelet Count Result 175 k/mm3 (150-375); Red Blood Count 2.96 M/mm3 (4.2-5.4); Red Cell Distribution Width 15.4 % (11.5-14.5); White Blood Count 8.3 K/mm3 (4.5-10.0)
[2023-01-03 07:01] LABS: INR 1.7; Prothrombin Time 21.5 Seconds (11.1-14.7)
[2023-01-03 07:03] LABS: Alanine Aminotransferase 17 U/L (6-35); Albumin Level 4.7 g/dL (3.5-5.1); Alkaline Phosphatase 68 U/L (38-126); Anion Gap 14 mmol/L (8-16); Aspartate Amino Transferase 31 U/L (14-36); Bilirubin,Total 1.4 mg/dL (0.2-1.3); Blood Urea Nitrogen 30 mg/dL (7-17); Carbon Dioxide 25 mmol/L (22-30); Chloride 96 mmol/L (98-107); Estimated CRCL calculation 32 ml/min; Estimated Glomerular Filt Rate 47; Glucose 105 mg/dL (65-110); Magnesium 1.8 mg/dL (1.6-2.3); Potassium 3.8 mmol/L (3.4-5.0); Sodium 135 mmol/L (137-145)
[2023-01-03 08:00] LABS: Band Neutrophils Percent 4 % (0-6); Eosinophils Absolute Manual 0.08 K/mm3 (0.02-0.5); Eosinophils Percent Manual 1 % (0-4); Metamyelocytes Percent 2 %; Monocytes Absolute Manual 0.24 K/mm3 (0.1-0.90); Monocytes Percent Manual 3 % (3-9); Total Cells Counted 100
[2023-01-03 08:01] LABS: Lymphocytes Absolute Manual 0.41 K/mm3 (1.1-4.5); Neutrophils Absolute Manual 7.38 K/mm3 (1.7-7.2); Neutrophils Percent Manual 85 % (46-73); Platelet Estimate Adequate (Adequate); Schistocytes None Seen (NORMAL)
[2023-01-03] MEDS: BUMETANIDE INJ 1 MG/4 ML VIAL IV PUSH ×3 (08:08→19:01)
[2023-01-03] MEDS: CHOLECALCIFEROL 1,000 UNITS TABLET 1000 UNITS PO (08:08)
[2023-01-03] MEDS: METOPROLOL SUCCINATE EXT REL 50 MG TABCR PO (08:08)
[2023-01-03] MEDS: SERTRALINE HCL 25 MG TABLET PO (08:09)
[2023-01-03] MEDS: POTASSIUM CHLORIDE 20 MEQ ER TABLET PO ×2 (08:09→16:42)
[2023-01-03] MEDS: FLUTICASONE PROPIONATE 0.05% NA SPR 16 GM BTL (*BKC) 2 SPRAY NASAL (08:10)
--- NOTE | 2023-01-03 11:20 | PM.IMPN ---
Progress Note: A&P Assessment and Plan (1) Weakness: Code(s): R53.1 - Weakness Status: Acute (2) Warfarin-induced coagulopathy: Code(s): D68.32 - Hemorrhagic disorder due to extrinsic circulating anticoagulants; T45.515A - Adverse effect of anticoagulants, initial encounter Status: Acute (3) Hematoma: Code(s): T14.8XXA - Other injury of unspecified body region, initial encounter Status: Acute (4) Chronic kidney disease, stage 3: Code(s): N18.30 - Chronic kidney disease, stage 3 unspecified Status: Acute (5) Atrial fibrillation: Qualifiers: Atrial fibrillation type: unspecified Qualified Code(s): I48.91 - Unspecified atrial fibrillation Code(s): I48.91 - Unspecified atrial fibrillation Status: Acute (6) Anticoagulated on Coumadin: Code(s): 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 Daughter noted that wound VAC is leaking. Patient complaint of back pain. Some erythema noted around the wound VAC on arrival to the ED. workup evaluation showed elevated white cell count of 14 K with bandemia, INR elevated at 5.6 elevated lactic acid 2.5 and was started on IV vancomycin and Zosyn for suspected infected hematoma. Supratherapeutic INR. Chest x-ray with cardiomegaly and aortic atherosclerosis. Subsequent workup revealed group a streptococcal bacteremia on ceftriaxone. Ampicillin sensitive. Will switch to amoxicillin as discussed with ID pharmacist. 1 g q.8 hour for total 10 days course. Negative blood culture on 12/31/2022 to date Recent admission for back hematoma needing incision and drainage due to overlying necrotic skin. Wound VAC in place since then AFib on chronic anticoagulation with supratherapeutic INR on admission. One dose of vitamin K she received to bring INR down fenofibrate discontinued. INR still therapeutic. H&H stable. INR subtherapeutic now. Will resume Coumadin. At 2.5 mg daily Pacemaker placement Hypertension Hyperlipidemia Chronic kidney disease Sleep apnea Hypothyroidism Hyponatremia mild Lower extremity edema bilateral will give IV Lasix start albumin. Bumex on hold monitor will switch to Bumex IV. She takes Bumex 2 mg daily. Continue Bumex and albumin as ordered DVT prophylaxis has supratherapeutic INR Code status full code Subjective Date/time seen: 01/03/23 11:20 Interval history: No overnight events. Feels short of breath leg swelling reported to be worse. Hurts in her left hip. More awake and alert today. Has some sleep problem at night used to take Ambien discussed with daughter at bedside. Review of Systems Review of Systems: All systems reviewed & are unremarkable except as noted in HPI and below Exam Narrative: General: Mildly ill-appearing elderly female not in acute distress HEENT: PERRL, EOMI. Sclera anicteric. Tacky mucous membranes. Neck: Supple. Respiratory: Diminished breath sounds bilaterally Cardiovascular: Regular rate and rhythm with S1-S2. Murmur at the left lower sternal border. Gastrointestinal: Abdomen is soft, nontender, and nondistended with positive bowel sounds. Skin: Warm and dry. Extremities: No cyanosis, clubbing, bilateral lower extremity edema present. Slight improved radial and pedal pulses intact. tenderness left thigh with ecchymosis noted Neurological: Alert. Cranial nerves 2-12 are grossly intact. No gross focal deficits to casual conversation. Psych
[2023-01-03] MEDS: ALBUTEROL SULFATE NEB 2.5 MG/3 ML INH INHALATION ×2 (12:54→18:10)
--- NOTE | 2023-01-03 13:18 | PCOTNOTE ---
Attempted to see pt for Occupational Therapy treatment. Pt declined to participate in therapy session with both pt/family stating SOB. Pt's SPO2 is >90% on room air. Pt declined to completed any grooming/Strengthening supine with HOB elevated. Pt declined to also eat any of her lunch. Will continue per poc duration/frequency when appropriate.
--- NOTE | 2023-01-03 16:01 | PCPTNOTE ---
Patient refused treatment this date. The patient reports that she still feels short of breath and she is now having pain in her neck. Will continue per PT plan of care.
[2023-01-03] MEDS: WARFARIN (*PBKC) 2.5 MG TABLET BY MOUTH (16:42)
[2023-01-03] MEDS: IPRATROPIUM BR 0.02% INH SOLN 0.5 MG/2.5 ML VIAL INHALATION ×2 (18:10→20:22)
[2023-01-03 18:42] LABS: Alveolar/Arterial O2 Gradient 48.8 mmHg; Base Excess ABG 1.4 mEq/l (+/-2.0); Fractional Inspired Oxygen 21 %; HCO3 ABG 25.8 mEq/l (22.0-26.0); Oxygen Content ABG 13.8 %vol (16.0-22.0); Oxygen Saturation ABG 88.7 % (95.0-100.0); PCO2 ABG 39.6 mmHg (35.0-45.0); PO2 ABG 53.5 mmHg (80.0-100.0); PO2 FiO2 Ratio Arterial Blood 2.55 %; Total Hemoglobin 11.3 g/dL (12.0-18.0); pH ABG 7.431 (7.350-7.450)
[2023-01-03 18:44] LABS: Modified Allen's Test Pass; Site Drawn RIGHT RADIAL
--- NOTE | 2023-01-03 19:35 | PC.NURSE ---
informed respiratory therapist of prn bipap order
[2023-01-03] MEDS: MELATONIN 5 MG TABLET PO (21:47)
[2023-01-03] MEDS: PRAVASTATIN SODIUM 10 MG TABLET PO (21:48)
[2023-01-03] MEDS: ZOLPIDEM TARTRATE (*CRX) 5 MG TABLET PO (22:52)
[2023-01-04] VITALS (16 sets, daily range): BP systolic 142–169; BP diastolic 73–90; PULSE 66–74; RESP 16–20; TEMP 36.4–36.6; O2SAT 93–100
[2023-01-04] MEDS: IPRATROPIUM BR 0.02% INH SOLN 0.5 MG/2.5 ML VIAL INHALATION ×4 (03:51→19:43)
[2023-01-04] MEDS: AMOXICILLIN 500 MG CAPSULE 1000 MG PO ×3 (05:04→21:23)
[2023-01-04] MEDS: HYDROcodone/acetaminophen (*CRX) 5-325 MG TABLET 1 TAB PO ×4 (05:05→20:56)
[2023-01-04] MEDS: ALBUMIN HUMAN 25% 25 GM/100 ML 200 ML IVPB ×3 (05:05→21:23)
[2023-01-04] MEDS: LEVOTHYROXINE SODIUM 25 MCG TABLET PO (05:41)
[2023-01-04 06:47] LABS: Hematocrit 26.2 % (37.0-47.0); Hemoglobin 8.1 g/dL (12.0-15.0); Mean Corpuscular HGB Conc 30.9 g/dl (32-36); Mean Corpuscular Hemoglobin 29.9 pg (26-34); Mean Corpuscular Volume 96.7 fl (80-100); Mean Platelet Volume 9.3 fl (7.4-10.4); Platelet Count Result 162 k/mm3 (150-375); Red Blood Count 2.71 M/mm3 (4.2-5.4); Red Cell Distribution Width 15.7 % (11.5-14.5); White Blood Count 5.1 K/mm3 (4.5-10.0)
[2023-01-04 06:57] LABS: Anion Gap 10 mmol/L (8-16); Blood Urea Nitrogen 29 mg/dL (7-17); Calcium 10.7 mg/dL (8.4-10.2); Carbon Dioxide 32 mmol/L (22-30); Chloride 95 mmol/L (98-107); Estimated CRCL calculation 32 ml/min; Estimated Glomerular Filt Rate 47; Glucose 107 mg/dL (65-110); Magnesium 1.8 mg/dL (1.6-2.3); Potassium 3.8 mmol/L (3.4-5.0); Sodium 137 mmol/L (137-145)
[2023-01-04 07:14] LABS: INR 1.8; Prothrombin Time 21.6 Seconds (11.1-14.7)
[2023-01-04 07:33] LABS: Band Neutrophils Percent 4 % (0-6); Basophils Absolute Manual 0.05 K/mm3 (0.0-0.1); Basophils Percent Manual 1 % (0-1); Eosinophils Absolute Manual 0.15 K/mm3 (0.02-0.5); Eosinophils Percent Manual 3 % (0-4); Hypochromasia 1+ (NORMAL); Lymphocytes Absolute Manual 0.35 K/mm3 (1.1-4.5); Metamyelocytes Percent 2 %; Monocytes Absolute Manual 0.15 K/mm3 (0.1-0.90); Monocytes Percent Manual 3 % (3-9); Myelocytes Percent 1 %; Neutrophils Absolute Manual 4.23 K/mm3 (1.7-7.2); Neutrophils Percent Manual 79 % (46-73); Platelet Estimate Adequate (Adequate); Schistocytes None Seen (NORMAL); Total Cells Counted 100
[2023-01-04] MEDS: SERTRALINE HCL 25 MG TABLET PO (08:22)
[2023-01-04] MEDS: METOPROLOL SUCCINATE EXT REL 50 MG TABCR PO (08:22)
[2023-01-04] MEDS: CHOLECALCIFEROL 1,000 UNITS TABLET 1000 UNITS PO (08:22)
[2023-01-04] MEDS: BUMETANIDE INJ 1 MG/4 ML VIAL 2 MG IV PUSH ×2 (08:23→17:03)
[2023-01-04] MEDS: FLUTICASONE PROPIONATE 0.05% NA SPR 16 GM BTL (*BKC) 2 SPRAY NASAL (08:23)
[2023-01-04] MEDS: POTASSIUM CHLORIDE 20 MEQ ER TABLET PO ×2 (08:23→16:55)
--- NOTE | 2023-01-04 13:13 | PCNWS ---
Weekly nutritional screen. Patient is tolerating current heart healthy diet with adequate intake at 75-100% most meals. No weight loss reported. Pt requesting ensure drinks, will order. No other nutritional needs at this time.
--- NOTE | 2023-01-04 16:02 | PM.IMPN ---
Progress Note: A&P Assessment and Plan (1) Weakness: Code(s): R53.1 - Weakness Status: Acute (2) Warfarin-induced coagulopathy: Code(s): D68.32 - Hemorrhagic disorder due to extrinsic circulating anticoagulants; T45.515A - Adverse effect of anticoagulants, initial encounter Status: Acute (3) Hematoma: Code(s): T14.8XXA - Other injury of unspecified body region, initial encounter Status: Acute (4) Chronic kidney disease, stage 3: Code(s): N18.30 - Chronic kidney disease, stage 3 unspecified Status: Acute (5) Atrial fibrillation: Qualifiers: Atrial fibrillation type: unspecified Qualified Code(s): I48.91 - Unspecified atrial fibrillation Code(s): I48.91 - Unspecified atrial fibrillation Status: Acute (6) Anticoagulated on Coumadin: Code(s): Z79.01 - computer terminal 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 Daughter noted that wound VAC is leaking. Patient complaint of back pain. Some erythema noted around the wound VAC on arrival to the ED. workup evaluation showed elevated white cell count of 14 K with bandemia, INR elevated at 5.6 elevated lactic acid 2.5 and was started on IV vancomycin and Zosyn for suspected infected hematoma. Supratherapeutic INR. Chest x-ray with cardiomegaly and aortic atherosclerosis. Subsequent workup revealed group a streptococcal bacteremia on ceftriaxone. Ampicillin sensitive. Will switch to amoxicillin as discussed with ID pharmacist. 1 g q.8 hour for total 10 days course. Negative blood culture on 12/31/2022 to date Recent admission for back hematoma needing incision and drainage due to overlying necrotic skin. Wound VAC in place since then AFib on chronic anticoagulation with supratherapeutic INR on admission. One dose of vitamin K she received to bring INR down fenofibrate discontinued. INR still therapeutic. H&H stable. INR subtherapeutic now. Will resume Coumadin. At 2.5 mg daily Pacemaker placement Hypertension Hyperlipidemia Chronic kidney disease Sleep apnea Hypothyroidism Hyponatremia mild Lower extremity edema bilateral will give IV Lasix start albumin. Bumex on hold monitor will switch to Bumex IV. She takes Bumex 2 mg daily. Continue Bumex and albumin as ordered. Will increase Bumex to 2 mg b.i.d.. CTA with interstitial edema right pleural effusion more than left pleural effusion. Negative for PE had weight daily DVT prophylaxis has supratherapeutic INR restarted on warfarin Code status full code Subjective Date/time seen: 01/04/23 16:02 Interval history: No new complaints. Placed on BiPAP for short period time. Did not tolerate remains on 1-2 L oxygen via nasal cannula feels tired leg swelling is improved still has quite a bit of swelling in her buttock and her arms. CT chest read discussed with daughter over the phone Review of Systems Review of Systems: All systems reviewed & are unremarkable except as noted in HPI and below Exam Narrative: General: Mildly ill-appearing elderly female not in acute distress HEENT: PERRL, EOMI. Sclera anicteric. Tacky mucous membranes. Neck: Supple. Respiratory: Diminished breath sounds bilaterally Cardiovascular: Regular rate and rhythm with S1-S2. Murmur at the left lower sternal border. Gastrointestinal: Abdomen is soft, nontender, and nondistended with positive bowel sounds. Skin: Warm and dry. Extremities: No cyanosis, clubbing, bilateral lower ext
[2023-01-04] MEDS: WARFARIN (*PBKC) 5 MG TABLET BY MOUTH (17:03)
[2023-01-04] MEDS: MELATONIN 5 MG TABLET PO (20:56)
[2023-01-04] MEDS: ZOLPIDEM TARTRATE (*CRX) 5 MG TABLET PO (20:56)
[2023-01-04] MEDS: PRAVASTATIN SODIUM 10 MG TABLET PO (20:56)
[2023-01-05] VITALS (15 sets, daily range): BP systolic 133–150; BP diastolic 68–83; PULSE 69–91; RESP 16–24; TEMP 36.5–36.9; O2SAT 93–100
[2023-01-05] MEDS: IPRATROPIUM BR 0.02% INH SOLN 0.5 MG/2.5 ML VIAL INHALATION ×4 (01:25→21:13)
[2023-01-05] MEDS: ALBUMIN HUMAN 25% 25 GM/100 ML 200 ML IVPB ×3 (05:05→22:26)
[2023-01-05] MEDS: AMOXICILLIN 500 MG CAPSULE 1000 MG PO ×3 (05:11→22:27)
[2023-01-05] MEDS: HYDROcodone/acetaminophen (*CRX) 5-325 MG TABLET 1 TAB PO ×2 (05:15→12:39)
[2023-01-05 06:36] LABS: Hematocrit 28.6 % (37.0-47.0); Hemoglobin 8.8 g/dL (12.0-15.0); Mean Corpuscular HGB Conc 30.8 g/dl (32-36); Mean Corpuscular Hemoglobin 29.9 pg (26-34); Mean Corpuscular Volume 97.3 fl (80-100); Mean Platelet Volume 9.5 fl (7.4-10.4); Platelet Count Result 208 k/mm3 (150-375); Red Blood Count 2.94 M/mm3 (4.2-5.4); Red Cell Distribution Width 15.8 % (11.5-14.5); White Blood Count 8.9 K/mm3 (4.5-10.0)
[2023-01-05 06:45] LABS: INR 1.7; Prothrombin Time 20.8 Seconds (11.1-14.7)
[2023-01-05 06:51] LABS: Anion Gap 14 mmol/L (8-16); Blood Urea Nitrogen 40 mg/dL (7-17); Calcium 11.7 mg/dL (8.4-10.2); Carbon Dioxide 31 mmol/L (22-30); Chloride 96 mmol/L (98-107); Estimated CRCL calculation 25 ml/min; Estimated Glomerular Filt Rate 39; Glucose 114 mg/dL (65-110); Potassium 4.2 mmol/L (3.4-5.0); Sodium 141 mmol/L (137-145)
[2023-01-05 07:18] LABS: Total Cells Counted 100
[2023-01-05 07:19] LABS: Anisocytosis 1+ (NORMAL); Eosinophils Absolute Manual 0.08 K/mm3 (0.02-0.5); Eosinophils Percent Manual 1 % (0-4); Lymphocytes Absolute Manual 0.26 K/mm3 (1.1-4.5); Lymphocytes Percent Manual 3 % (18-44); Metamyelocytes Percent 1 %; Monocytes Absolute Manual 0.44 K/mm3 (0.1-0.90); Monocytes Percent Manual 5 % (3-9); Neutrophils Percent Manual 90 % (46-73); Platelet Estimate Adequate (Adequate); Schistocytes None Seen (NORMAL)
[2023-01-05] MEDS: METOPROLOL SUCCINATE EXT REL 50 MG TABCR PO (08:37)
[2023-01-05] MEDS: POTASSIUM CHLORIDE 20 MEQ ER TABLET PO ×2 (08:37→17:54)
[2023-01-05] MEDS: SERTRALINE HCL 25 MG TABLET PO (08:37)
[2023-01-05] MEDS: BUMETANIDE INJ 1 MG/4 ML VIAL 2 MG IV PUSH (08:37)
[2023-01-05] MEDS: CHOLECALCIFEROL 1,000 UNITS TABLET 1000 UNITS PO (08:37)
[2023-01-05] MEDS: LEVOTHYROXINE SODIUM 25 MCG TABLET PO (08:37)
[2023-01-05 12:52] LABS: Alveolar/Arterial O2 Gradient 7.5 mmHg; Base Excess ABG 1.8 mEq/l (+/-2.0); Fractional Inspired Oxygen 21 %; HCO3 ABG 26.1 mEq/l (22.0-26.0); Oxygen Content ABG 13.2 %vol (16.0-22.0); Oxygen Saturation ABG 97.4 % (95.0-100.0); Oxyhemoglobin 95.7 % THb (90.0-100.0); PCO2 ABG 40.1 mmHg (35.0-45.0); PO2 ABG 94.2 mmHg (80.0-100.0); PO2 FiO2 Ratio Arterial Blood 4.49 %; Total Hemoglobin 9.7 g/dL (12.0-18.0); pH ABG 7.432 (7.350-7.450)
[2023-01-05 12:53] LABS: Modified Allen's Test Pass; Site Drawn RIGHT RADIAL
--- NOTE | 2023-01-05 14:12 | PC.NURSE ---
Pt has been resting most of day. Pt did get up in chair with therapy. Pt tolerating albumin well. Pt reports pain during positioning. Pt has been compliant with care. Pt is unable to participate or contribute in plan of care due to excessive sleepiness. Will continue to monitor pt.
--- NOTE | 2023-01-05 17:14 | PM.IMPN ---
Progress Note: A&P Assessment and Plan (1) Weakness: Code(s): R53.1 - Weakness Status: Acute (2) Warfarin-induced coagulopathy: Code(s): D68.32 - Hemorrhagic disorder due to extrinsic circulating anticoagulants; T45.515A - Adverse effect of anticoagulants, initial encounter Status: Acute (3) Hematoma: Code(s): T14.8XXA - Other injury of unspecified body region, initial encounter Status: Acute (4) Chronic kidney disease, stage 3: Code(s): N18.30 - Chronic kidney disease, stage 3 unspecified Status: Acute (5) Atrial fibrillation: Qualifiers: Atrial fibrillation type: unspecified Qualified Code(s): I48.91 - Unspecified atrial fibrillation Code(s): I48.91 - Unspecified atrial fibrillation Status: Acute (6) Anticoagulated on Coumadin: Code(s): Z79.01 - 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 Daughter noted that wound VAC is leaking. Patient complaint of back pain. Some erythema noted around the wound VAC on arrival to the ED. workup evaluation showed elevated white cell count of 14 K with bandemia, INR elevated at 5.6 elevated lactic acid 2.5 and was started on IV vancomycin and Zosyn for suspected infected hematoma. Supratherapeutic INR. Chest x-ray with cardiomegaly and aortic atherosclerosis. Subsequent workup revealed group a streptococcal bacteremia on ceftriaxone. Ampicillin sensitive. Will switch to amoxicillin as discussed with ID pharmacist. 1 g q.8 hour for total 10 days course. Negative blood culture on 12/31/2022 to date Recent admission for back hematoma needing incision and drainage due to overlying necrotic skin. Wound VAC in place since then AFib on chronic anticoagulation with supratherapeutic INR on admission. One dose of vitamin K she received to bring INR down fenofibrate discontinued. INR still therapeutic. H&H stable. INR subtherapeutic now. Will resume Coumadin. At 2.5 mg daily Pacemaker placement Hypertension Hyperlipidemia Chronic kidney disease Sleep apnea Hypothyroidism Hyponatremia mild Lower extremity edema bilateral will give IV Lasix start albumin. Bumex on hold monitor will switch to Bumex IV. She takes Bumex 2 mg daily. Continue Bumex and albumin as ordered. Increased bumex to 2 mg b.i.d.. CTA with interstitial edema right pleural effusion more than left pleural effusion. Negative for PE had weight daily. Creatinine slightly up trending today will back down Bumex to 1 mg b.i.d. recheck. Cardiology consultation DVT prophylaxis has supratherapeutic INR restarted on warfarin Code status full code Subjective Date/time seen: 01/05/23 17:14 Interval history: Patient reports she does not feel well. No specific complaint. Still short of breath. Lower extremity swelling is improved. Oxygen requirement stable Review of Systems Review of Systems: All systems reviewed & are unremarkable except as noted in HPI and below Exam Narrative: General: Mildly ill-appearing elderly female not in acute distress HEENT: PERRL, EOMI. Sclera anicteric. Tacky mucous membranes. Neck: Supple. Respiratory: Diminished breath sounds bilaterally Cardiovascular: Regular rate and rhythm with S1-S2. Murmur at the left lower sternal border. Gastrointestinal: Abdomen is soft, nontender, and nondistended with positive bowel sounds. Skin: Warm and dry. Extremities: No cyanosis, clubbing, bilateral lower extremity edema pr
[2023-01-05] MEDS: WARFARIN (*PBKC) 2.5 MG TABLET BY MOUTH (17:53)
[2023-01-05] MEDS: BUMETANIDE INJ 1 MG/4 ML VIAL IV PUSH (17:54)
[2023-01-05] MEDS: ZOLPIDEM TARTRATE (*CRX) 5 MG TABLET PO (19:39)
[2023-01-05] MEDS: PRAVASTATIN SODIUM 10 MG TABLET PO (20:33)
[2023-01-06] VITALS (18 sets, daily range): BP systolic 145–183; BP diastolic 73–85; PULSE 68–75; RESP 16–27; TEMP 36.8–37.2; O2SAT 92–100
[2023-01-06] MEDS: IPRATROPIUM BR 0.02% INH SOLN 0.5 MG/2.5 ML VIAL INHALATION ×4 (02:48→18:44)
[2023-01-06] MEDS: ALBUTEROL SULFATE NEB 2.5 MG/3 ML INH INHALATION ×2 (02:48→10:33)
[2023-01-06] MEDS: ALBUMIN HUMAN 25% 25 GM/100 ML 200 ML IVPB (06:17)
[2023-01-06] MEDS: LEVOTHYROXINE SODIUM 25 MCG TABLET PO (06:18)
[2023-01-06] MEDS: AMOXICILLIN 500 MG CAPSULE 1000 MG PO ×3 (06:18→21:18)
[2023-01-06] MEDS: CHOLECALCIFEROL 1,000 UNITS TABLET 1000 UNITS PO (09:01)
[2023-01-06] MEDS: POTASSIUM CHLORIDE 20 MEQ ER TABLET PO ×2 (09:01→16:47)
[2023-01-06] MEDS: SERTRALINE HCL 25 MG TABLET PO (09:01)
[2023-01-06] MEDS: METOPROLOL SUCCINATE EXT REL 50 MG TABCR PO (09:01)
[2023-01-06] MEDS: BUMETANIDE INJ 1 MG/4 ML VIAL IV PUSH ×2 (09:02→16:45)
--- NOTE | 2023-01-06 09:02 | PM.IMPN ---
Progress Note: A&P Assessment and Plan (1) Weakness: Code(s): R53.1 - Weakness Status: Acute (2) Warfarin-induced coagulopathy: Code(s): D68.32 - Hemorrhagic disorder due to extrinsic circulating anticoagulants; T45.515A - Adverse effect of anticoagulants, initial encounter Status: Acute (3) Hematoma: Code(s): T14.8XXA - Other injury of unspecified body region, initial encounter Status: Acute (4) Chronic kidney disease, stage 3: Code(s): N18.30 - Chronic kidney disease, stage 3 unspecified Status: Acute (5) Atrial fibrillation: Qualifiers: Atrial fibrillation type: unspecified Qualified Code(s): I48.91 - Unspecified atrial fibrillation Code(s): I48.91 - Unspecified atrial fibrillation Status: Acute (6) Anticoagulated on Coumadin: Code(s): 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 Daughter noted that wound VAC is leaking. Patient complaint of back pain. Some erythema noted around the wound VAC on arrival to the ED. workup evaluation showed elevated white cell count of 14 K with bandemia, INR elevated at 5.6 elevated lactic acid 2.5 and was started on IV vancomycin and Zosyn for suspected infected hematoma. . consult GS. Subsequent workup revealed group a streptococcal bacteremia on ceftriaxone. Ampicillin sensitive. switch to amoxicillin as discussed with ID pharmacist. 1 g q.8 hour for total 10 days course. Negative blood culture on 12/31/2022 to date AFib on chronic anticoagulation with supratherapeutic INR on admission. One dose of vitamin K she received to bring INR down fenofibrate discontinued. INR subtherapeutic now. Will resume Coumadin. At 2.5 mg daily Pacemaker placement Hypertension Hyperlipidemia Chronic kidney disease Sleep apnea Hypothyroidism Hyponatremia mild Lower extremity edema bilateral will give IV Lasix start albumin. Bumex on hold monitor will switch to Bumex IV. She takes Bumex 2 mg daily. Continue Bumex and albumin as ordered. Increased bumex to 2 mg b.i.d.. CTA with interstitial edema right pleural effusion more than left pleural effusion. Negative for PE had weight daily. Creatinine slightly up trending today will back down Bumex to 1 mg b.i.d. recheck. Cardiology consultation DVT prophylaxis has supratherapeutic INR restarted on warfarin Code status full code Subjective Date/time seen: 01/06/23 09:02 Interval history: I saw and examined patient. Patient still has short of breath, patient is on BiPAP. Lower extremity swelling is improved. Exam Narrative: General: Mildly ill-appearing elderly female not in acute distress HEENT: PERRL, EOMI. Sclera anicteric. Tacky mucous membranes. Neck: Supple. Respiratory: Diminished breath sounds bilaterally Cardiovascular: Regular rate and rhythm with S1-S2. Murmur at the left lower sternal border. Gastrointestinal: Abdomen is soft, nontender, and nondistended with positive bowel sounds. Skin: Warm and dry. Extremities: No cyanosis, clubbing, bilateral lower extremity edema present which is improved. Slight improved radial and pedal pulses intact. tenderness left thigh with ecchymosis noted Neurological: Alert. Cranial nerves 2-12 are grossly intact. No gross focal deficits to casual conversation. Psychiatric: Pleasant and cooperative with
--- NOTE | 2023-01-06 09:05 | ECHO_ITS ---
Patient Info Name: Liza Rasheed Age: 87 years : 1935 Gender: Female Ht: 65 in Wt: 163 lbs BSA: 1.86 m2 HR: 69 bpm BP: 148 / 73 mmHg Heart Rhythm: Sinus Rhythm Technical Quality: Good Exam Date: 01/06/2023 2:12 PM Exam Location: [facility] Patient Status: Inpatient Admit Date: 12/27/2022 Staff Ordering Physician: Westley De Jesus MD [employer] Lead: Nir Groves RDCS Attending Provider: Mayo Hernandez MD Referring Physician: Liza STRICKLAND; Exam Type: CA echo doppler color flow Study Info Indications - chf, ppm, Afib Complete two-dimensional, color flow and Doppler transthoracic echocardiogram is performed. Summary 1. Complete two-dimensional, color flow and Doppler transthoracic echocardiogram is performed. 2. Technically difficult study. 3. Left ventricular chamber dimension is normal. 4. Left ventricular systolic function is normal, estimated at 60-65%. 5. There is mildly increased left ventricular wall thickness. 6. Left ventricular septal wall motion is abnormal with septal motion related to pacing. 7. The left ventricular diastolic function is grade III diastolic dysfunction. 8. Right ventricular chamber dimension is moderate to severely enlarged. 9. Right ventricular systolic function is mildly reduced. 10. Right atrial chamber dimension is massivelyenlarged. 11. Left atrial chamber dimension is severely enlarged. 12. There is mild aortic valve stenosis with a peak velocity of 183 cm/s, mean gradient of 6 mmHg, and aortic valve area of 1.8 cm2. 13. There is mild aortic valve regurgitation. 14. There is mild aortic valve calcification. 15. There is mild mitral valve regurgitation. 16. There is severe tricuspid valve regurgitation. 17. Moderate pulmonary hypertension, estimated pulmonary arterial systolic pressure is 48 mmHg. Recommendations * Consider CT chest if clinically indicated. Left Ventricle Left ventricular chamber dimension is normal. Left ventricular systolic function is normal, estimated at 60-65%. There is mildly increased left ventricular wall thickness. Left ventricular septal wall motion is abnormal with septal motion related to pacing. The left ventricular diastolic function is grade III diastolic dysfunction. Technically difficult study. Right Ventricle Right ventricular chamber dimension is moderate to severely enlarged. Right ventricular systolic function is mildly reduced. Linear artifact in right ventricle suggestive of catheter(s), pacemaker lead(s), or ICD lead(s). Left Atria Left atrial chamber dimension is severely enlarged. Right Atria Right atrial chamber dimension is massivelyenlarged. Linear artifact in the right atrium suggestive of catheter(s), pacemaker lead(s), or ICD lead(s). Aortic Valve The aortic valve is trileaflet. There is mild aortic valve stenosis with a peak velocity of 183 cm/s, mean gradient of 6 mmHg, and aortic valve area of 1.8 cm2. There is mild aortic valve regurgitation. There is mild aortic valve calcification. Pulmonic Valve The pulmonic valve is not well visualized. There is trace pulmonic regurgitation. Mitral Valve The mitral valve has thickened leaflets. There is mild mitral valve regurgitation. The mitral valve annulus is severely calcified. Tricuspid Valve The tricuspid valve leaflets are not well visualized. There is severe tricuspid valve regurgitation. Moderate pulmonary hypertension, estimated pulmonary arterial systolic pressure is 48 mmHg. Pericardium/Pleural The pericardium appears normal. There is small pericardial effusion. In
[2023-01-06 09:22] LABS: INR 1.6; Prothrombin Time 19.8 Seconds (11.1-14.7)
[2023-01-06 09:32] LABS: Basophils Absolute Auto 0.1 K/mm3 (0.0-0.1); Basophils Percent Auto 0.7 % (0.2-1.2); Eosinophils Absolute Auto 0.2 K/mm3 (0-0.3); Eosinophils Percent Auto 1.7 % (0-4.4); Hematocrit 27.8 % (37.0-47.0); Hemoglobin 8.3 g/dL (12.0-15.0); Immature Granulocyte Absolute 0.21 K/mm3 (0.00-0.031); Immature Granulocyte Percent A 2.3 % (0-0.5); Lymphocytes Absolute Auto 0.65 K/mm3 (0.9-3.2); Lymphocytes Percent Auto 7.2 % (18.3-44.2); Mean Corpuscular HGB Conc 29.9 g/dl (32-36); Mean Corpuscular Hemoglobin 29.4 pg (26-34); Mean Corpuscular Volume 98.6 fl (80-100); Mean Platelet Volume 9.7 fl (7.4-10.4); Monocytes Absolute Auto 0.7 K/mm3 (0.1-0.6); Monocytes Percent Auto 7.5 % (2.6-8.5); Neutrophils Absolute Auto 7.3 K/mm3 (1.3-6.7); Neutrophils Percent Auto 80.6 % (45.5-73.1); Platelet Count Result 195 k/mm3 (150-375); Red Blood Count 2.82 M/mm3 (4.2-5.4)
[2023-01-06 09:38] LABS: Anion Gap 14 mmol/L (8-16); Blood Urea Nitrogen 50 mg/dL (7-17); Calcium 12.2 mg/dL (8.4-10.2); Carbon Dioxide 29 mmol/L (22-30); Chloride 95 mmol/L (98-107); Estimated CRCL calculation 23 ml/min; Estimated Glomerular Filt Rate 36; Glucose 108 mg/dL (65-110); Potassium 4.7 mmol/L (3.4-5.0); Sodium 138 mmol/L (137-145)
--- NOTE | 2023-01-06 09:44 | PM.CNCAR ---
Assessment and Plan Assessment and plan (1) CHF (congestive heart failure): Qualifiers: Heart failure type: diastolic Heart failure chronicity: acute on chronic Qualified Code(s): I50.33 - Acute on chronic diastolic (congestive) heart failure Code(s): I50.9 - Heart failure, unspecified Status: Acute Assessment and Plan: Clinically, she appears to be somewhat volume overloaded acute on chronic heart failure with preserved ejection fraction with component right-sided failure. Precise volume status difficult to assess however with jugular venous distension and abdominal distension her exam is suggestive of volume overload. I also suspect she has a degree of 3rd spacing. IV albumin in addition to Bumex. Her exam is suggestive of fairly significant mitral regurgitation and degree of aortic stenosis. Repeat 2D echocardiogram to assess LV function, valve pathology pulmonary pressures in chamber size. She has a history of severe pulmonary hypertension with severe tricuspid regurgitation but preserved LV function by echo 2020 at that time with mild aortic stenosis with mild aortic regurgitation and mild mitral regurgitation. Must continue to document accurate input and output, daily weight given difficulty assessing volume status. Per documentation she appears to be greater than 5 L positive fluid balance. Continue IV Bumex 1 mg twice daily for now. Patient is a very complicated management with multiple comorbidities. Will also check echo cardiac to exclude progression of valvular heart disease and or endocarditis. However, patient has been afebrile no leukocytosis and last set of blood cultures has been negative although she had bacteremia with group a strep earlier this hospitalization and implanted cardiac device which places her at high risk for endocarditis. I would reduce or discontinue q.8 IV albumin focus on improving oral intake and nutrition. Very lengthy discussion had with the patient's daughter at bedside. All questions answered to her satisfaction. Further recommendation to follow after review of echocardiogram and patient's clinical response to therapy. I spent 81 minutes in the care of this patient including bedside discussions with the patient, daughter, nurse, physical examination, chart review as well as outside records and office notes from Dr Stallworth, medical decision making, and documentation. (2) [id number] kidney injury: Qualifiers: Acute renal failure type: unspecified Chronic kidney disease stage: stage 3 (moderate) Chronic kidney disease stage 3 subtype: unspecified whether 3a or 3b Qualified Code(s): N17.9 - Acute kidney failure, unspecified; N18.30 - Chronic kidney disease, stage 3 unspecified Code(s): N17.9 - Acute kidney failure, unspecified; N18.9 - Chronic kidney disease, unspecified Status: Acute Assessment and Plan: BUN and creatinine increased on labs today. Cautious diuresis as she is preload dependent given severe pulmonary hypertension, RV dysfunction. Continue to monitor daily for now. Monitor electrolytes closely and replete as appropriate. Nutrition status ruvalcaba. Avoid nephrotoxic agents. (3) Altered mental status: Qualifiers: Altered mental status type: unspecified Qualified Code(s): R41.82 - Altered mental status, unspecified Code(s): R41.82 - Altered mental status, unspecified Status: Acute Assessment and Plan: Management complicated by altered mental status likely function of narcotic pain medication, Ambien, melatonin, underlying infection and prolonged hospitalization. Minimize narcotic pain medication, discontinue Ambien. Defer management to primary service. Ensure adequate nutritional intake. (4) Bacteremia: Code(s): R78.81 - Bacteremia Status: Acute Assessment and Plan: Group a strep bacteremia 10449 x 2 repeat cultures 45898- x2. She has been afebrile without leukocytosis.
[2023-01-06 09:53] LABS: Anisocytosis 1+ (NORMAL); Hypochromasia 1+ (NORMAL); Platelet Estimate Adequate (Adequate); Schistocytes None Seen (NORMAL)
[2023-01-06 10:51] LABS: NT Pro B Type Natriuretic Pept 17700 pg/mL (19.9-100)
[2023-01-06] MEDS: WARFARIN (*PBKC) 5 MG TABLET BY MOUTH (16:45)
[2023-01-06] MEDS: HYDROcodone/acetaminophen (*CRX) 5-325 MG TABLET 1 TAB PO ×2 (17:29→23:15)
[2023-01-06] MEDS: PRAVASTATIN SODIUM 10 MG TABLET PO (21:19)
--- NOTE | 2023-01-06 23:49 | PC.NURSE ---
This pt has been using call light very frequently tonight, c/o not being able to sleep. Pt's family had requested pt's sleeping medication not be given and they were placed on hold on the previous shift. Pt has called staff in her room stating she is having difficulty breathing, Oxygen saturation is 100% on 1L and all her vital signs have been stable (pt does not want NC removed) Pt has removed her CPAP mask multiple times this shift and is currently back on the NC. Pt wanted humidity on her 1L of oxygen, which this nurse did. Pt reports breathing improves when staff is in her room. Pt has been c/o generalized pain and weakness, pain medication given. Pt continues to call staff into room, with multiple anxious complaints. Pt would benefit from something to assist her in sleeping. Pt is currently moaning and calling out, for staff to come into room, to tell them she can not sleep and doesnt feel well. Numerous interventions have been offered.
[2023-01-07] VITALS (19 sets, daily range): BP systolic 132–142; BP diastolic 67–79; PULSE 64–82; RESP 18–27; TEMP 36.1–36.8; O2SAT 88–98
[2023-01-07] MEDS: ACETAMINOPHEN 325 MG TABLET 650 MG PO ×2 (00:25→13:20)
[2023-01-07] MEDS: LEVOTHYROXINE SODIUM 25 MCG TABLET PO (06:02)
[2023-01-07] MEDS: AMOXICILLIN 500 MG CAPSULE 1000 MG PO ×3 (06:02→21:20)
[2023-01-07 06:28] LABS: Basophils Percent Auto 0.4 % (0.2-1.2); Eosinophils Absolute Auto 0.1 K/mm3 (0-0.3); Eosinophils Percent Auto 1.4 % (0-4.4); Hematocrit 28.5 % (37.0-47.0); Hemoglobin 8.7 g/dL (12.0-15.0); Immature Granulocyte Percent A 2.2 % (0-0.5); Lymphocytes Absolute Auto 0.78 K/mm3 (0.9-3.2); Lymphocytes Percent Auto 8.4 % (18.3-44.2); Mean Corpuscular HGB Conc 30.5 g/dl (32-36); Mean Corpuscular Hemoglobin 29.8 pg (26-34); Mean Corpuscular Volume 97.6 fl (80-100); Monocytes Absolute Auto 0.7 K/mm3 (0.1-0.6); Neutrophils Absolute Auto 7.4 K/mm3 (1.3-6.7); Neutrophils Percent Auto 79.6 % (45.5-73.1); Platelet Count Result 185 k/mm3 (150-375); Red Blood Count 2.92 M/mm3 (4.2-5.4); Red Cell Distribution Width 16.1 % (11.5-14.5); White Blood Count 9.3 K/mm3 (4.5-10.0)
[2023-01-07 06:39] LABS: Anion Gap 12 mmol/L (8-16); Blood Urea Nitrogen 57 mg/dL (7-17); Calcium 12.5 mg/dL (8.4-10.2); Carbon Dioxide 30 mmol/L (22-30); Chloride 96 mmol/L (98-107); Estimated CRCL calculation 20 ml/min; Estimated Glomerular Filt Rate 30; Glucose 117 mg/dL (65-110); INR 1.5; Prothrombin Time 19.4 Seconds (11.1-14.7); Sodium 138 mmol/L (137-145)
[2023-01-07] MEDS: IPRATROPIUM BR 0.02% INH SOLN 0.5 MG/2.5 ML VIAL INHALATION ×4 (07:47→23:58)
[2023-01-07] MEDS: POTASSIUM CHLORIDE 20 MEQ ER TABLET PO ×2 (08:13→17:12)
[2023-01-07] MEDS: CHOLECALCIFEROL 1,000 UNITS TABLET 1000 UNITS PO (08:13)
[2023-01-07] MEDS: SERTRALINE HCL 25 MG TABLET PO (08:13)
[2023-01-07] MEDS: METOPROLOL SUCCINATE EXT REL 50 MG TABCR PO (08:13)
[2023-01-07] MEDS: BUMETANIDE INJ 1 MG/4 ML VIAL IV PUSH ×2 (08:13→17:11)
--- NOTE | 2023-01-07 09:04 | PM.IMPN ---
Progress Note: A&P Assessment and Plan (1) Weakness: Code(s): R53.1 - Weakness Status: Acute (2) Warfarin-induced coagulopathy: Code(s): D68.32 - Hemorrhagic disorder due to extrinsic circulating anticoagulants; T45.515A - Adverse effect of anticoagulants, initial encounter Status: Acute (3) Hematoma: Code(s): T14.8XXA - Other injury of unspecified body region, initial encounter Status: Acute (4) Chronic kidney disease, stage 3: Code(s): N18.30 - Chronic kidney disease, stage 3 unspecified Status: Acute (5) Atrial fibrillation: Qualifiers: Atrial fibrillation type: unspecified Qualified Code(s): I48.91 - Unspecified atrial fibrillation Code(s): I48.91 - Unspecified atrial fibrillation Status: Acute (6) Anticoagulated on Coumadin: Code(s): Z79.01 - 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 Daughter noted that wound VAC is leaking. Patient complaint of back pain. Some erythema noted around the wound VAC on arrival to the ED. workup evaluation showed elevated white cell count of 14 K with bandemia, INR elevated at 5.6 elevated lactic acid 2.5 and was started on IV vancomycin and Zosyn for suspected infected hematoma. . consult GS. Subsequent workup revealed group a streptococcal bacteremia on ceftriaxone. Ampicillin sensitive. switch to amoxicillin as discussed with ID pharmacist. 1 g q.8 hour for total 10 days course. Negative blood culture on 12/31/2022 to date AFib on chronic anticoagulation with supratherapeutic INR on admission. One dose of vitamin K she received to bring INR down fenofibrate discontinued. INR subtherapeutic now. Will resume Coumadin. At 2.5 mg daily Pacemaker placement Hypertension Hyperlipidemia Chronic kidney disease Sleep apnea Hypothyroidism Hyponatremia mild Acute on chronic diastolic dysfunction, hx of significant mitral regurgitation and degree of aortic stenosis. Consult funeral home location manager Lower extremity edema Continue IV Bumex 1 mg twice daily for now and discontinue albumin per funeral home location manager CTA with interstitial edema right pleural effusion more than left pleural effusion. Negative for PE had weight daily. Creatinine slightly up trending today will back down Bumex to 1 mg b.i.d. recheck. Cardiology consultation is appreciated DVT prophylaxis has supratherapeutic INR restarted on warfarin Code status full code Subjective Date/time seen: 01/07/23 09:04 Interval history: I saw and examined patient. Patient still has short of breath, patient is on nasal cannula today. Patient still has some cough Exam Narrative: General: Mildly ill-appearing elderly female not in acute distress HEENT: PERRL, EOMI. Sclera anicteric. Tacky mucous membranes. Neck: Supple. Respiratory: Diminished breath sounds bilaterally Cardiovascular: Regular rate and rhythm with S1-S2. Murmur at the left lower sternal border. Gastrointestinal: Abdomen is soft, nontender, and nondistended with positive bowel sounds. Skin: Open wound of low back, no active drainage Extremities: No cyanosis, clubbing, bilateral lower extremity edema present which is improved. Slight improved radial and pedal pulses intact. tenderness left thigh with ecchymosis noted Neurological: Alert. Cranial nerves 2-12 are grossly intact. No gross focal
[2023-01-07] MEDS: ALBUTEROL SULFATE NEB 2.5 MG/3 ML INH INHALATION ×4 (09:19→23:57)
--- NOTE | 2023-01-07 10:29 | PM.PNCARD ---
Progress Note: A&P Assessment and Plan (1) CHF (congestive heart failure): Qualifiers: Heart failure type: diastolic Heart failure chronicity: acute on chronic Qualified Code(s): I50.33 - Acute on chronic diastolic (congestive) heart failure Code(s): I50.9 - Heart failure, unspecified Status: Acute Assessment and Plan: Clinically, she appears to be somewhat volume overloaded acute on chronic heart failure with preserved ejection fraction with component right-sided failure. Continue IV Bumex 1 mg twice daily for now. We need to continue with accurate input and output and daily weight. Patient as recorded has a positive fluid balance, however, recorded weight is down 3kg question accuracy in this regard. She still remains volume overloaded but slightly improved. Patient remains very complicated management with multiple comorbidities. 2D echo personally reviewed. Preserved LV systolic function EF 65-70%, at least moderate RV enlargement preserved hypokinesis. Severe tricuspid regurgitation massive right atrial enlargement. (2) Scuwf-ao-wvcbiey kidney injury: Qualifiers: Acute renal failure type: unspecified Chronic kidney disease stage: stage 3 (moderate) Chronic kidney disease stage 3 subtype: unspecified whether 3a or 3b Qualified Code(s): N17.9 - Acute kidney failure, unspecified; N18.30 - Chronic kidney disease, stage 3 unspecified Code(s): N17.9 - Acute kidney failure, unspecified; N18.9 - Chronic kidney disease, unspecified Status: Acute Assessment and Plan: BUN and creatinine further increased on labs today. We will continue diuresis for now tih IV Bumex 1mg BID, however, if renal function declines significantly any to reduced avoid worsening failure may be related to her pre load dependence given severe pulmonary hypertension, RV dysfunction and severe TR. Continue to monitor daily for now. Monitor electrolytes closely and replete as appropriate. Nutrition status ruvalcaba. Avoid nephrotoxic agents. (3) Altered mental status: Qualifiers: Altered mental status type: unspecified Qualified Code(s): R41.82 - Altered mental status, unspecified Code(s): R41.82 - Altered mental status, unspecified Status: Acute Assessment and Plan: Improving today. Defer to primary service. Likely complicated by narcotic pain medication, Ambien, melatonin, underlying infection and prolonged hospitalization. Minimize narcotic pain medication, discontinue Ambien. Defer management to primary service. Ensure adequate nutritional intake. (4) Bacteremia: Code(s): R78.81 - Bacteremia Status: Acute Assessment and Plan: Group a strep bacteremia 12/27/22 x 2 repeat cultures 12/31/22- x2. She has been afebrile without leukocytosis. (5) Pulmonary hypertension: Code(s): I27.20 - Pulmonary hypertension, unspecified Status: Acute Assessment and Plan: History of severe pulmonary hypertension with severe tricuspid regurgitation from 2020. Repeat 2D echocardiogram to reassess. There is also previous notation of right ventricular enlargement and dysfunction which would contribute to degree of right-sided heart failure as well. (6) Obstructive sleep apnea: Code(s): G47.33 - Obstructive sleep apnea (adult) (pediatric) Status: Acute Assessment and Plan: She must remain compliant with sleep apnea as tolerated. Previously thought pulmonary hypertension mechanism was secondary to longstanding untreated sleep apnea likely in addition to atrial fibrillation and severe tricuspid regurgitation. (7) Atrial fibrillation: Qualifiers: Atrial fibrillation type: unspecified Qualified Code(s): I48.91 - Unspecified atrial fibrillation Code(s): I48.91 - Unspecified atrial fibrillation Status: Acute Assessment and Plan: Persistent atrial fibrillation warfarin. Patient was supratherapeutic at presentation
[2023-01-07] MEDS: WARFARIN (*PBKC) 3 MG TABLET BY MOUTH (17:11)
[2023-01-07] MEDS: WARFARIN (*PBKC) 2 MG TABLET PO (17:11)
[2023-01-07] MEDS: HYDROcodone/acetaminophen (*CRX) 5-325 MG TABLET 1 TAB PO ×2 (17:13→21:19)
[2023-01-07] MEDS: PRAVASTATIN SODIUM 10 MG TABLET PO (21:19)
[2023-01-08] VITALS (20 sets, daily range): BP systolic 125–139; BP diastolic 63–71; PULSE 64–79; RESP 16–23; TEMP 35.9–36.7; O2SAT 93–99
[2023-01-08] MEDS: ALBUTEROL SULFATE NEB 2.5 MG/3 ML INH INHALATION ×6 (04:53→23:13)
[2023-01-08] MEDS: IPRATROPIUM BR 0.02% INH SOLN 0.5 MG/2.5 ML VIAL INHALATION ×6 (04:53→23:13)
[2023-01-08] MEDS: ACETAMINOPHEN 325 MG TABLET 650 MG PO (05:14)
[2023-01-08] MEDS: AMOXICILLIN 500 MG CAPSULE 1000 MG PO ×3 (05:14→22:46)
[2023-01-08] MEDS: LEVOTHYROXINE SODIUM 25 MCG TABLET PO (05:14)
[2023-01-08 07:21] LABS: Anion Gap 11 mmol/L (8-16); Blood Urea Nitrogen 67 mg/dL (7-17); Calcium 12.8 mg/dL (8.4-10.2); Carbon Dioxide 30 mmol/L (22-30); Chloride 96 mmol/L (98-107); Estimated CRCL calculation 19 ml/min; Estimated Glomerular Filt Rate 28; Glucose 114 mg/dL (65-110); Potassium 4.8 mmol/L (3.4-5.0); Sodium 137 mmol/L (137-145)
[2023-01-08 07:30] LABS: Basophils Percent Auto 0.4 % (0.2-1.2); Eosinophils Absolute Auto 0.2 K/mm3 (0-0.3); Eosinophils Percent Auto 1.8 % (0-4.4); Hematocrit 27.2 % (37.0-47.0); Hemoglobin 8.3 g/dL (12.0-15.0); Immature Granulocyte Absolute 0.14 K/mm3 (0.00-0.031); Immature Granulocyte Percent A 1.7 % (0-0.5); Lymphocytes Absolute Auto 0.72 K/mm3 (0.9-3.2); Lymphocytes Percent Auto 8.6 % (18.3-44.2); Mean Corpuscular HGB Conc 30.5 g/dl (32-36); Mean Corpuscular Hemoglobin 29.9 pg (26-34); Mean Corpuscular Volume 97.8 fl (80-100); Mean Platelet Volume 9.8 fl (7.4-10.4); Monocytes Absolute Auto 0.6 K/mm3 (0.1-0.6); Monocytes Percent Auto 7.4 % (2.6-8.5); Neutrophils Absolute Auto 6.8 K/mm3 (1.3-6.7); Neutrophils Percent Auto 80.1 % (45.5-73.1); Platelet Count Result 186 k/mm3 (150-375); Red Blood Count 2.78 M/mm3 (4.2-5.4); White Blood Count 8.4 K/mm3 (4.5-10.0)
[2023-01-08 07:49] LABS: INR 1.6; Prothrombin Time 20.1 Seconds (11.1-14.7)
--- NOTE | 2023-01-08 08:54 | PM.IMPN ---
Progress Note: A&P Assessment and Plan (1) Weakness: Code(s): R53.1 - Weakness Status: Acute (2) Warfarin-induced coagulopathy: Code(s): D68.32 - Hemorrhagic disorder due to extrinsic circulating anticoagulants; T45.515A - Adverse effect of anticoagulants, initial encounter Status: Acute (3) Hematoma: Code(s): T14.8XXA - Other injury of unspecified body region, initial encounter Status: Acute (4) Chronic kidney disease, stage 3: Code(s): N18.30 - Chronic kidney disease, stage 3 unspecified Status: Acute (5) Atrial fibrillation: Qualifiers: Atrial fibrillation type: unspecified Qualified Code(s): I48.91 - Unspecified atrial fibrillation Code(s): I48.91 - Unspecified atrial fibrillation Status: Acute (6) Anticoagulated on Coumadin: Code(s): 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 Daughter noted that wound VAC is leaking. Patient complaint of back pain. Some erythema noted around the wound VAC on arrival to the ED. workup evaluation showed elevated white cell count of 14 K with bandemia, INR elevated at 5.6 elevated lactic acid 2.5 and was started on IV vancomycin and Zosyn for suspected infected hematoma. . consult GS. Subsequent workup revealed group a streptococcal bacteremia on ceftriaxone. Ampicillin sensitive. switch to amoxicillin as discussed with ID pharmacist. 1 g q.8 hour for total 10 days course. Negative blood culture on 12/31/2022 to date AFib on chronic anticoagulation with supratherapeutic INR on admission. One dose of vitamin K she received to bring INR down fenofibrate discontinued. INR subtherapeutic now. Will resume Coumadin. At 2.5 mg daily Pacemaker placement Hypertension Hyperlipidemia Chronic kidney disease Sleep apnea Hypothyroidism Hyponatremia mild Acute on chronic diastolic dysfunction, right heart failure, moderate to severe tricuspid regurgitation repeated echo reveals : ?Left ventricle grade 3 diastolic dysfunction, there is severe tricuspid valve regurgitation. Moderate pulmonary hypertension, estimated pulmonary arterial systolic pressure is 48 mmHg. Moderate to severe enlarged right heart Consult port purser Lower extremity edema Continue IV Bumex 1 mg twice daily for now and discontinue albumin per port purser CTA with interstitial edema right pleural effusion more than left pleural effusion. Negative for PE had weight daily. Creatinine slightly up trending today will back down Bumex to 1 mg b.i.d. recheck. 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 Patient was sitting in a chair, patient is on nasal cannular. Patient states she has no appetite, still has shortness breath with exertion Exam Narrative: General: Mildly ill-appearing elderly female not in acute distress HEENT: PERRL, EOMI. Sclera anicteric. Tacky mucous membranes. Neck: Supple. Respiratory: Diminished breath sounds bilaterally, scattered crackles bilateral base Cardiovascular: R
[2023-01-08] MEDS: POTASSIUM CHLORIDE 20 MEQ ER TABLET PO ×2 (09:44→16:00)
[2023-01-08] MEDS: METOPROLOL SUCCINATE EXT REL 50 MG TABCR PO (09:44)
[2023-01-08] MEDS: CHOLECALCIFEROL 1,000 UNITS TABLET 1000 UNITS PO (09:44)
[2023-01-08] MEDS: BUMETANIDE INJ 1 MG/4 ML VIAL IV PUSH ×2 (09:45→15:59)
[2023-01-08] MEDS: SERTRALINE HCL 25 MG TABLET PO (09:45)
--- NOTE | 2023-01-08 11:20 | PM.CNNEP ---
Assessment and Plan Assessment and plan (1) SEB (acute kidney injury): Code(s): N17.9 - Acute kidney failure, unspecified Status: Acute Assessment and Plan: presumably due to need for diuretic therapy for her volume overload and right sided CHF maybe a component of intravascular volume depletion despite outward appearance of volume overload elevated CO2, elevated albumin, and hypercalcemia would support this element of pre-renal azotemia playing a role as well? check renal ultrasound and urine studies follow trend of repeat labs and UOP (2) Chronic kidney disease, stage 3: Code(s): N18.30 - Chronic kidney disease, stage 3 unspecified Status: Chronic Assessment and Plan: baseline creatinine seems to run around 1.0 - 1.4mg/dl this causes her to fluctuate between stage 3A and 3B presumably due to hypertension, RADHA with pulmonary HTN, and age-related change recent findings of right sided heart failure and necessity of diuretic therapy likely playing a role as well (see #1) (3) CHF (congestive heart failure): Qualifiers: Heart failure type: diastolic Heart failure chronicity: acute on chronic Qualified Code(s): I50.33 - Acute on chronic diastolic (congestive) heart failure Code(s): I50.9 - Heart failure, unspecified Status: Acute Assessment and Plan: Cardiology following ongoing IV diuretics follow I/Os, daily weights, and respiratory status (4) Atrial fibrillation: Qualifiers: Atrial fibrillation type: unspecified Qualified Code(s): I48.91 - Unspecified atrial fibrillation Code(s): I48.91 - Unspecified atrial fibrillation Status: Chronic Assessment and Plan: rate control strategy on anticoagulation (5) Obstructive sleep apnea: Code(s): G47.33 - Obstructive sleep apnea (adult) (pediatric) Status: Chronic Assessment and Plan: CPAP use while hospitalized I will continue to follow the patient with you while she remains hospitalized to make further recommendations as deemed necessary Thank you for allowing me to participate in the care of this patient. History of Present Illness Reason for Consult Consult date: 01/08/23 Reason for consult: acute renal failure (on chronic kidney disease) Chief Complaint Chief complaint: Skin Infection/Sepsis/Coumadin Coagulopathy History of Present Illness Narrative: The patient is an 87-year-old female with a past medical history as outlined below who presented to [facility] Emergency room due to complaints of generalized weakness and fatigue. The patient was recently hospitalized here [facility] for complications related to a lower back wound on the right side. During that hospital stay, she underwent incision, drainage and debridement of the necrotic skin and tissue from this wound and had a wound VAC placed. She was continued on antibiotic therapy and eventually discharged with wound care follow-up. She had been doing reasonably well from this perspective until this morning when the patient's daughter saw the patient and she was apparently freezing and quite weak and unable to ambulate without any assistance. Furthermore, the patient's appetite has decreased in the last few days. She also apparently had a low-grade temperature and given these constellation of symptoms, she presented to the emergency room for further assessment. Workup and evaluation in the emergency room demonstrated the patient to be hemodynamically stable but in no acute distress. Routine blood tests were done which demonstrated elevated white blood cell count with left shift, mild anemia, elevated CRP and a urinalysis that was unremarkable. Her chest x-ray was negative as. It was suspected that the previous infected right back wound/hematoma was infected again and after appropriate cultures were obtained, she was started on broad-spectrum IV antibiotic thera
[2023-01-08] MEDS: HYDROcodone/acetaminophen (*CRX) 5-325 MG TABLET 1 TAB PO ×2 (13:12→20:28)
--- NOTE | 2023-01-08 14:15 | P.PNIM_ITS ---
Subjective Date/time seen: 01/08/23 14:15 Interval history: Patient seen and examined. She is doing well. We are continue to diurese with IV bumex to change to PO soon. 812/1050 -238 net in last 24 hrs. Wound care is following the wound vac for her lumbar wound. She will likely need placement to rehab for deconditioning. She denies fever, chills, nausea vomiting diarrhea. Review of Systems Review of Systems: 10 point ROS complete, negative other th an what is specified in HPI. Exam Narrative: - GENERAL: Chronic ill-appearing will i n no acute distress. Well-nourished. - EYES: EOMI. Anicteric. - HENT: Moist mucous membranes. - LUNGS: Clear to auscultation bilateral ly, no wheezing, rhonchi, or rales. - CARDIOVASCULAR: Regular rate and rhyth m. No murmur. No JVD. - ABDOMEN: Soft, non-tender and non-dist ended. No palpable masses. - EXTREMITIES: 2+ edema. Peripheral puls es 2+. Non-tender. - NEUROLOGIC: No focal neurological defi cits. CN II-XII grossly intact. - PSYCHIATRIC: Awake, Alert and oriented x 3. Appropriate mood and affect. - SKIN: No rashes or lesions. Warm. - LYMPH: No cervical lymphadenopathy. Objective Data Vital Signs Vital Signs: Vital Signs - 24 hr 01/07/23 20:49 01/07/23 20:50 01/07/23 21:02 Temperature Pulse Rate 78 80 Respiratory Rate 22 H 24 H Blood Pressure Pulse Oximetry 98 Oxygen Delivery Nasal Cannula Oxygen Flow Rate 2 Fraction of Inspired Oxygen 01/07/23 21:03 01/07/23 22:00 01/07/23 20:00 Temperature 36.1 C L Pulse Rate 70 Respiratory Rate 27 H 20 Blood Pressure 132/67 Pulse Oximetry 96 93 93 Oxygen Delivery Nasal Cannula Oxygen Flow Rate 1 Fraction of Inspired Oxygen 01/07/23 23:58 01/08/23 00:06 01/08/23 04:53 Temperature Pulse Rate 75 78 79 Respiratory Rate 20 20 20 Blood Pressure Pulse Oximetry Oxygen Delivery Oxygen Flow Rate Fraction of Inspired Oxygen 01/08/23 05:05 01/08/23 06:00 01/08/23 07:25 Temperature 35.9 C L Pulse Rate 78 65 Respiratory Rate 20 18 Blood Pressure 139/71 Pulse Oximetry 97 93 Oxygen Delivery Nasal Cannula Oxygen Flow Rate 1 Fraction of Inspired Oxygen 24 01/08/23 07:25 01/08/23 07:46 01/08/23 09:44 Temperature Pulse Rate 70 71 66 Respiratory Rate 20 20 Blood Pressure Pulse Oximetry Oxygen Delivery Oxygen Flow Rate Fraction of Inspired Oxygen 01/08/23 09:45 01/08/23 11:39 01/08/23 11:50 Temperature Pulse Rate 69 70 Respiratory Rate 20 20 Blood Pressure
--- NOTE | 2023-01-08 14:15 | PM.IMPN ---
Subjective Date/time seen: 01/08/23 14:15 Interval history: Patient seen and examined. She is doing well. We are continue to diurese with IV bumex to change to PO soon. 812/1050 -238 net in last 24 hrs. Wound care is following the wound vac for her lumbar wound. She will likely need placement to rehab for deconditioning. She denies fever, chills, nausea vomiting diarrhea. Review of Systems Review of Systems: 10 point ROS complete, negative other than what is specified in HPI. Exam Narrative: - GENERAL: Chronic ill-appearing will in no acute distress. Well-nourished. - EYES: EOMI. Anicteric. - HENT: Moist mucous membranes. - LUNGS: Clear to auscultation bilaterally, no wheezing, rhonchi, or rales. - CARDIOVASCULAR: Regular rate and rhythm. No murmur. No JVD. - ABDOMEN: Soft, non-tender and non-distended. No palpable masses. - EXTREMITIES: 2+ edema. Peripheral pulses 2+. Non-tender. - NEUROLOGIC: No focal neurological deficits. CN II-XII grossly intact. - PSYCHIATRIC: Awake, Alert and oriented x 3. Appropriate mood and affect. - SKIN: No rashes or lesions. Warm. - LYMPH: No cervical lymphadenopathy. Objective Data Vital Signs Vital Signs: Vital Signs - 24 hr 01/07/23 20:49 01/07/23 20:50 01/07/23 21:02 Temperature Pulse Rate 78 80 Respiratory Rate 22 H 24 H Blood Pressure Pulse Oximetry 98 Oxygen Delivery Nasal Cannula Oxygen Flow Rate 2 Fraction of Inspired Oxygen 01/07/23 21:03 01/07/23 22:00 01/07/23 20:00 Temperature 36.1 C L Pulse Rate 70 Respiratory Rate 27 H 20 Blood Pressure 132/67 Pulse Oximetry 96 93 93 Oxygen Delivery Nasal Cannula Oxygen Flow Rate 1 Fraction of Inspired Oxygen 01/07/23 23:58 01/08/23 00:06 01/08/23 04:53 Temperature Pulse Rate 75 78 79 Respiratory Rate 20 20 20 Blood Pressure Pulse Oximetry Oxygen Delivery Oxygen Flow Rate Fraction of Inspired Oxygen 01/08/23 05:05 01/08/23 06:00 01/08/23 07:25 Temperature 35.9 C L Pulse Rate 78 65 Respiratory Rate 20 18 Blood Pressure 139/71 Pulse Oximetry 97 93 Oxygen Delivery Nasal Cannula Oxygen Flow Rate 1 Fraction of Inspired Oxygen 01/08/23 07:25 01/08/23 07:46 01/08/23 09:44 Temperature Pulse Rate 70 71 66 Respiratory Rate 20 20 Blood Pressure Pulse Oximetry Oxygen Delivery Oxygen Flow Rate Fraction of Inspired Oxygen 01/08/23 09:45 01/08/23 11:39 01/08/23 11:50 Temperature Pulse Rate 69 70 Respiratory Rate 20 20 Blood Pressure Pulse Oximetry 93 Oxygen Delivery Nasal Cannula Oxygen Flow Rate 1 Fraction of Inspired Oxygen Intake/Output Intake/Output: Intake & Output 01/05/23 01/06/23 01/07/23 01/08/23 23:59 23:59 23:59 23:59 Intake Total 1968 360 744 454 Output Total 810 773 7041 750 Balance 1693 -590 -256 -296 Meds/Results Medications: Active Medications Generic Name Dose Route Start Last Admin Trade Name Freq PRN Reason Stop Dose Admin Acetaminophen 650 mg 12/27/22 11:01 01/08/23 05:14 Acetaminophen 325 Mg Tablet PO 650 mg Q4H PRN Administration Mild Pain (1-3) or Fever Hydrocodone Bitart/Acetaminophen 1 tab 01/01/23 10:28 01/08/23 13:12 Hydrocodone/Acetaminophen (*Crx) 5-325 Mg Tablet PO 1 tab Q4H PRN Administration Pain Rated 4-6 Albuterol 2.5 mg 01/03/23 12:28 01/07/23 13:12 Albuterol Sulfate Neb 2.5 Mg/3 Ml Inh INHALATION 2.5 mg Q4HRT PRN Administration Shortness Of Breath Albuterol 2.5 mg 01/07/23 16:00 01/08/23 11:39 Albuterol Sulfate Neb 2.5 Mg/3 Ml Inh INHALATION 2.5 mg Q4HRT YELENA Administration Amoxicillin 1,000 mg 01/01/23 14:00 01/08/23 13:12 Amoxicillin 500 Mg Capsule PO 01/11/23 23:59 1,000 mg Q8HR YELENA Administration Bumetanide 1 mg 01/05/23 17:00 01/08/23 09:45 Bumetanide Inj 1 Mg/4 Ml Vial IV PUSH 1 mg BID YELENA Administration Fluticasone Propionate 2 spray 01/07/23 18:
--- NOTE | 2023-01-08 14:22 | PM.PNCARD ---
Progress Note: A&P Assessment and Plan (1) CHF (congestive heart failure): Qualifiers: Heart failure type: diastolic Heart failure chronicity: acute on chronic Qualified Code(s): I50.33 - Acute on chronic diastolic (congestive) heart failure Code(s): I50.9 - Heart failure, unspecified Status: Acute Assessment and Plan: Preserved LV systolic function EF 65-70%, at least moderate RV enlargement preserved hypokinesis. Severe tricuspid regurgitation massive right atrial enlargement. Clinically, she appears to be somewhat volume overloaded acute on chronic heart failure with preserved ejection fraction with component right-sided failure. Continue IV Bumex 1 mg twice daily for now. Intake and output and daily weight. Daily BMP while diuresing (2) Gsuyj-us-ojemnes kidney injury: Qualifiers: Acute renal failure type: unspecified Chronic kidney disease stage: stage 3 (moderate) Chronic kidney disease stage 3 subtype: unspecified whether 3a or 3b Qualified Code(s): N17.9 - Acute kidney failure, unspecified; N18.30 - Chronic kidney disease, stage 3 unspecified Code(s): N17.9 - Acute kidney failure, unspecified; N18.9 - Chronic kidney disease, unspecified Status: Acute Assessment and Plan: BUN/SCr continue to decline though not significantly. We will continue diuresis for now tih IV Bumex 1mg BID, however, if renal function declines significantly, will need to be reduced to avoid worsening failure. Continue to monitor daily for now. Monitor electrolytes closely and replete as appropriate. Nutrition status ruvalcaba. Avoid nephrotoxic agents. (3) Altered mental status: Qualifiers: Altered mental status type: unspecified Qualified Code(s): R41.82 - Altered mental status, unspecified Code(s): R41.82 - Altered mental status, unspecified Status: Acute Assessment and Plan: Improving today. Defer to primary service. (4) Bacteremia: Code(s): R78.81 - Bacteremia Status: Acute Assessment and Plan: Group a strep bacteremia 12/27/22 x 2 repeat cultures 12/31/22- x2. She has been afebrile without leukocytosis. (5) Pulmonary hypertension: Code(s): I27.20 - Pulmonary hypertension, unspecified Status: Acute Assessment and Plan: History of severe pulmonary hypertension with severe tricuspid regurgitation from 2020. (6) Obstructive sleep apnea: Code(s): G47.33 - Obstructive sleep apnea (adult) (pediatric) Status: Acute Assessment and Plan: Compliance with CPAP (7) Atrial fibrillation: Qualifiers: Atrial fibrillation type: unspecified Qualified Code(s): I48.91 - Unspecified atrial fibrillation Code(s): I48.91 - Unspecified atrial fibrillation Status: Acute Assessment and Plan: Persistent atrial fibrillation warfarin. Patient was supratherapeutic at presentation and given vitamin K. She is now subtherapeutic with INR 1.6. Daily INR. (8) Biventricular cardiac pacemaker in situ: Code(s): Z95.0 - Presence of cardiac pacemaker Status: Acute Assessment and Plan: Will review device checks in the office. She has been ventricularly paced as expected by ECG. (9) Warfarin-induced coagulopathy: Code(s): D68.32 - Hemorrhagic disorder due to extrinsic circulating anticoagulants; T45.515A - Adverse effect of anticoagulants, initial encounter Status: Acute Assessment and Plan: Target INR 2.5 for history of atrial fibrillation. (10) Open wound of lower back: Code(s): S31.000A - Unspecified open wound of lower back and pelvis without penetration into retroperitoneum, initial encounter Status: Acute Assessment and Plan: Per primary service and surgery. Continue wound management, antibiotics with amoxicillin 1000 mg p.o. q.8 hours Subjective Date/time seen: 01/08/23 14:22 Interval history: Cardiology follow up
[2023-01-08 14:49] LABS: Alveolar/Arterial O2 Gradient 56.2 mmHg; Base Excess ABG 3.1 mEq/l (+/-2.0); Carboxyhemoglobin 0.3 % THb (0-2.0); Device NASAL CANNULA; Fractional Inspired Oxygen 24 %; HCO3 ABG 26.4 mEq/l (22.0-26.0); Methemoglobin ABG 0.4 %THb (0-1.5); Modified Allen's Test Pass; Oxygen Content ABG 12.6 %vol (16.0-22.0); Oxygen Saturation ABG 95.8 % (95.0-100.0); Oxyhemoglobin 93.6 % THb (90.0-100.0); PCO2 ABG 35.5 mmHg (35.0-45.0); PO2 ABG 72.7 mmHg (80.0-100.0); PO2 FiO2 Ratio Arterial Blood 3.03 %; Reduced Hemoglobin 5.7 %THb (0-5.0); Site Drawn LEFT RADIAL; Total Hemoglobin 9.5 g/dL (12.0-18.0)
[2023-01-08] MEDS: WARFARIN (*PBKC) 5 MG TABLET BY MOUTH (15:59)
--- NOTE | 2023-01-08 17:03 | PC.NURSE ---
Pt resting in bed. Pt is A&O2. Pt does not want to eat much due to feeling full. Pt reports difficulty breathing. Pt sats 98-100%. Provider notified, ABG's ordered. Pt requesting new face mask for CPAP. Will speak with daughter when she arrives. Will continue to monitor pt.
[2023-01-08] MEDS: PRAVASTATIN SODIUM 10 MG TABLET PO (20:29)
[2023-01-09] VITALS (15 sets, daily range): BP systolic 100–122; BP diastolic 50–68; PULSE 68–81; RESP 14–27; TEMP 36.1–36.4; O2SAT 94–100
[2023-01-09] MEDS: HYDROcodone/acetaminophen (*CRX) 5-325 MG TABLET 1 TAB PO ×2 (03:56→18:04)
[2023-01-09] MEDS: IPRATROPIUM BR 0.02% INH SOLN 0.5 MG/2.5 ML VIAL INHALATION ×4 (04:42→19:36)
[2023-01-09] MEDS: ALBUTEROL SULFATE NEB 2.5 MG/3 ML INH INHALATION ×4 (04:42→19:36)
[2023-01-09] MEDS: AMOXICILLIN 500 MG CAPSULE 1000 MG PO ×3 (06:05→21:13)
[2023-01-09] MEDS: LEVOTHYROXINE SODIUM 25 MCG TABLET PO (06:06)
[2023-01-09] MEDS: METOPROLOL SUCCINATE EXT REL 50 MG TABCR PO (08:50)
[2023-01-09] MEDS: CHOLECALCIFEROL 1,000 UNITS TABLET 1000 UNITS PO (08:50)
[2023-01-09] MEDS: BUMETANIDE INJ 1 MG/4 ML VIAL IV PUSH (08:50)
[2023-01-09] MEDS: POTASSIUM CHLORIDE 20 MEQ ER TABLET PO ×2 (08:51→17:17)
[2023-01-09] MEDS: SERTRALINE HCL 25 MG TABLET PO (08:51)
[2023-01-09] MEDS: MENTHOL 10% / METHYL SALICYLATE 15% 57 GM TUBE 1 APPLIC TOPICAL ×2 (09:10→17:18)
--- NOTE | 2023-01-09 09:32 | PM.PNCARD ---
Progress Note: A&P Assessment and Plan (1) Pulmonary hypertension: Code(s): I27.20 - Pulmonary hypertension, unspecified Status: Acute (2) CHF (congestive heart failure): Qualifiers: Heart failure type: diastolic Heart failure chronicity: acute on chronic Qualified Code(s): I50.33 - Acute on chronic diastolic (congestive) heart failure Code(s): I50.9 - Heart failure, unspecified Status: Acute (3) Atrial fibrillation: Qualifiers: Atrial fibrillation type: unspecified Qualified Code(s): I48.91 - Unspecified atrial fibrillation Code(s): I48.91 - Unspecified atrial fibrillation Status: Acute Plan 87-year-old lady with chronic atrial fibrillation being managed with rate control and anticoagulation. She has good left ventricular systolic function and evidence of significant volume overload. She clearly has evidence of pulmonary hypertension on current and previous echocardiograms. Specific etiology of this is not entirely clear however I did not intend to launch a extensive pulmonary hypertension workup in this 87-year-old lady. Her lab data today demonstrates gradual and worsening pre renal state in response to intravenous Bumex. We are going to have to stop that today to avoid excessive azotemia. I will try oral chlorthalidone for a while. Lower extremity elevation is important as well as sodium and fluid restriction. Dandy Stallworth MD [facility] Subjective Date/time seen: Date of service: 01/09/23 09:32 Interval history: Cardiology follow up for CHF Patient is very weak supine in bed daughter is visiting her. She denies any specific complaints. Appears to still have some conversational shortness of breath. No other complaints at this time. Daughter is asking if the patient had able to get out of bed or ambulated all. Exam Narrative: General: Elderly female sitting upright in bed, more awake, alert, appearing slightly drowsy but answering questions appropriately appearing fatigued but no obvious distress, alert and oriented x2-3, cooperative. Head: atraumatic, normocephalic Eyes: EOM intact, sclerae anicteric, conjunctivae unremarkable Ears/Nose: external inspection of ears and nose were grossly normal, O2 via nasal cannula Mouth/Throat: Dry oral mucosa pink and moist Neck: supple, normal range of motion, +12cm jugular venous distention sitting upright in bed, no obvious carotid bruits, thyroid nonpalpable, trachea midline. Cardiac: Regular rate and rhythm, soft S1 and S2, 3/6 holosystolic murmur LSB and apex, 3/6 RUSB crescendo-decrescendo systolic mid peaking and 2-3/6 systolic murmur LLSB Lungs: Diminished breath sounds diffusely, dullness at the bases faint crackles lower 1/3, no wheezes or obvious rhonchi. Abdomen: Softer, nontender, slightly distended, positive bowel sounds throughout with subcutaneous edema. Extremities: 1+ bilateral equal pitting lower extremity edema, no clubbing, or cyanosis. Extremities warm and well perfused. Skin: Warm and dry with scattered bruising upper extremities, bandaged wound right pretibial lower extremity Musculoskeletal: Muscle strength and tone intact with generalized weakness. Palpable subcutaneous device left anterior chest well-healed incision no tenderness, warmth erythema. Vascular: Carotid upstrokes 2+ bilaterally, radial pulses 2+ bilaterally, dorsalis pedis pulses 1+ bilaterally Neurologic: Cranial nerves 2-12 grossly intact, examination grossly nonfocal Psychiatric: Mood calm and appropriate. Const: General: comfortable, no acute distress, alert and awake Orientation/consciousness: patient oriented x3 HENMT: Head: normal to inspection Eyes: General: appearance normal, both eyes and all related structures Pupils: Equal, round and reactive pupils present Neck: Neck: normal visual inspection, supple and no JVD Carotids: normal carotid upstroke
[2023-01-09 09:54] LABS: Anion Gap 10 mmol/L (8-16); Blood Urea Nitrogen 75 mg/dL (7-17); Calcium 12.6 mg/dL (8.4-10.2); Carbon Dioxide 32 mmol/L (22-30); Chloride 95 mmol/L (98-107); Estimated CRCL calculation 19 ml/min; Estimated Glomerular Filt Rate 28; Glucose 145 mg/dL (65-110); Phosphorus 4.7 mg/dL (2.5-4.5); Potassium 4.9 mmol/L (3.4-5.0); Sodium 137 mmol/L (137-145)
--- NOTE | 2023-01-09 11:00 | PM.IMPN ---
Progress Note: A&P Assessment and Plan (1) Weakness: Code(s): R53.1 - Weakness Status: Acute (2) Warfarin-induced coagulopathy: Code(s): D68.32 - Hemorrhagic disorder due to extrinsic circulating anticoagulants; T45.515A - Adverse effect of anticoagulants, initial encounter Status: Acute (3) Hematoma: Code(s): T14.8XXA - Other injury of unspecified body region, initial encounter Status: Acute (4) Chronic kidney disease, stage 3: Code(s): N18.30 - Chronic kidney disease, stage 3 unspecified Status: Chronic (5) Atrial fibrillation: Qualifiers: Atrial fibrillation type: unspecified Qualified Code(s): I48.91 - Unspecified atrial fibrillation Code(s): I48.91 - Unspecified atrial fibrillation Status: Acute (6) Anticoagulated on Coumadin: Code(s): Z79.01 - [facility] (current) use of anticoagulants Status: Acute (7) Hypertension: Qualifiers: Hypertension type: essential hypertension Qualified Code(s): I10 - Essential (primary) hypertension Code(s): I10 - Essential (primary) hypertension Status: Acute (8) Hypothyroidism: Qualifiers: Hypothyroidism type: unspecified Qualified Code(s): E03.9 - Hypothyroidism, unspecified Code(s): E03.9 - Hypothyroidism, unspecified Status: Acute Plan Unspecified open wound of lower back and pelvis without penetration into retroperitoneum 87-year-old female presented with fever and chills. Daughter noted that wound VAC is leaking. Patient complaint of back pain. Some erythema noted around the wound VAC on arrival to the ED. workup evaluation showed elevated white cell count of 14 K with bandemia, INR elevated at 5.6 elevated lactic acid 2.5 and was started on IV vancomycin and Zosyn for suspected infected hematoma. . change to Augmentin 1 g q.8 hour on 01/01 consult GS. Subsequent workup revealed group a streptococcal bacteremia on ceftriaxone. Ampicillin sensitive. switch to amoxicillin as discussed with ID pharmacist. 1 g q.8 hour for total 10 days course. Negative blood culture on 12/31/2022 to date AFib on chronic anticoagulation with supratherapeutic INR on admission. One dose of vitamin K she received to bring INR down fenofibrate discontinued. INR subtherapeutic now. Will resume Coumadin. At 2.5 mg daily Pacemaker placement Hypertension Hyperlipidemia Chronic kidney disease Sleep apnea Hypothyroidism Hyponatremia mild Acute on chronic diastolic dysfunction, right heart failure, moderate to severe tricuspid regurgitation repeated echo reveals : ?Left ventricle grade 3 diastolic dysfunction, there is severe tricuspid valve regurgitation. Moderate pulmonary hypertension, estimated pulmonary arterial systolic pressure is 48 mmHg. Moderate to severe enlarged right heart Consult reference investigator Lower extremity edema on IV Bumex 1 mg twice daily CTA with interstitial edema right pleural effusion more than left pleural effusion. Negative for PE had weight daily. Creatinine slightly up trending today change from Bumex to 1 mg b.i.d.to oral chlorthalidone per cardiologsit 01/09 Weatherization Operations Manager consultation is appreciated SEB on CKD Worsening kidney function, likely secondary to diuretic medication and cardiorenal syndrome Consult full stack java developer for evaluation and management DVT prophylaxis has supratherapeutic INR restarted on warfarin Code status full code Subjective Date/time seen: 01/09/23 11:00 Interval history: I saw exam patient. Patient is sitting in a chair, still has short of breath significantly at rest. Patient denies chest pain, abdomen pain, nausea vomiting diarrhea.l. Exam Narrative: General: Mildly ill-appearing elderly female not in acute distress HEENT: PERRL, EOMI. Sclera anicteric. Tacky mucous membranes. Neck:? Supple. Respiratory:? Diminished breath sounds bilaterally, scattered crackles bilateral base
--- NOTE | 2023-01-09 11:05 | P.PNNP_ITS ---
Progress Note: A&P Assessment and Plan (1) SEB (acute kidney injury): Code(s): N17.9 - Acute kidney failure, unspecified Status: Acute Assessment and Plan: * presumably due to need for diuretic therapy for her volume overload and right sided CHF * maybe a component of intravascular volume depletion despite outward appearance of volume overload * elevated CO2, elevated albumin, and hypercalcemia would support this * element of pre-renal azotemia playing a role as well? * evalutaion to date: * urine electrolytes pre-renal * urine eosinophils negative * CPK low * renal ultrasound pending * follow trend of repeat labs and UOP (2) Chronic kidney disease, stage 3: Code(s): N18.30 - Chronic kidney disease, stage 3 unspecified Status: Chronic Assessment and Plan: * baseline creatinine seems to run around 1.0 - 1.4mg/dl * this causes her to fluctuate between stage 3A and 3B * presumably due to hypertension, RADHA with pulmonary HTN, and age-related change * recent findings of right sided heart failure and necessity of diuretic therapy likely playing a role as well (see #1) (3) CHF (congestive heart failure): Qualifiers: Heart failure type: diastolic Heart failure chronicity: acute on chronic Qualified Code(s): I50.33 - Acute on chronic diastolic (congestive) heart failure Code(s): I50.9 - Heart failure, unspecified Status: Acute Assessment and Plan: * Cardiology following * transitioning to chlorthalidone today * follow I/Os, daily weights, and respiratory status (4) Atrial fibrillation: Qualifiers: Atrial fibrillation type: unspecified Qualified Code(s): I48.91 - Unspecified atrial fibrillation Code(s): I48.91 - Unspecified atrial fibrillation Status: Chronic Assessment and Plan: * rate control strategy * on anticoagulation (5) Obstructive sleep apnea: Code(s): G47.33 - Obstructive sleep apnea (adult) (pediatric) Status: Chronic Assessment and Plan: * CPAP use while hospitalized Will continue to follow. Subjective Date/time seen: 01/09/23 11:05 Interval history: Follow-up for acute kidney injury/acute renal failure on chronic kidney disease. Creatinine/renal function still fluctuating by recent testing; Cardiology has transitioned bumex to chlorthalidone today in the hopes of proving ongoing diuresis but to maintain stability in renal function. Exam Narrative: General: elderly and somewhat fraileCaucasian female in NAD Heart: normal S1 and S2; no rub Lungs: diminished at bases with some bibasilar crackles Abdomen: soft, nontender, nondistended, positive bowel sounds Extremities: no cyanosis or clubbing; 1+ edema Skin: warm and dry Objective Data Vital Signs Vital Signs: Vital Signs Temp Pulse Resp BP Pulse Ox O2 Del Method O2 Flow Rate 01/09/23 08:50 68 01/09/23 07:57 70 20 01/09/23 07:37 70 20 01/09/23 07:37 94 Nasal Cannula 1 01/09/23 05:56 97.0 F L 70 14 122/67 99 01/09/23 04:56 81 22 H 01/09/23 04:44 80 22 H 01/08/23 23:25 73 18 01/08/23 20:13 65 16 01/08/23 23:17 70 18 98 Nasal Cannula 1 01/08/23 23:15 70 18 01/08/23 21:41 23 H 97 CPAP
--- NOTE | 2023-01-09 11:05 | PM.PNNEP ---
Progress Note: A&P Assessment and Plan (1) SEB (acute kidney injury): Code(s): N17.9 - Acute kidney failure, unspecified Status: Acute Assessment and Plan: presumably due to need for diuretic therapy for her volume overload and right sided CHF maybe a component of intravascular volume depletion despite outward appearance of volume overload elevated CO2, elevated albumin, and hypercalcemia would support this element of pre-renal azotemia playing a role as well? evalutaion to date: urine electrolytes pre-renal urine eosinophils negative CPK low renal ultrasound pending follow trend of repeat labs and UOP (2) Chronic kidney disease, stage 3: Code(s): N18.30 - Chronic kidney disease, stage 3 unspecified Status: Chronic Assessment and Plan: baseline creatinine seems to run around 1.0 - 1.4mg/dl this causes her to fluctuate between stage 3A and 3B presumably due to hypertension, RADHA with pulmonary HTN, and age-related change recent findings of right sided heart failure and necessity of diuretic therapy likely playing a role as well (see #1) (3) CHF (congestive heart failure): Qualifiers: Heart failure type: diastolic Heart failure chronicity: acute on chronic Qualified Code(s): I50.33 - Acute on chronic diastolic (congestive) heart failure Code(s): I50.9 - Heart failure, unspecified Status: Acute Assessment and Plan: Cardiology following transitioning to chlorthalidone today follow I/Os, daily weights, and respiratory status (4) Atrial fibrillation: Qualifiers: Atrial fibrillation type: unspecified Qualified Code(s): I48.91 - Unspecified atrial fibrillation Code(s): I48.91 - Unspecified atrial fibrillation Status: Chronic Assessment and Plan: rate control strategy on anticoagulation (5) Obstructive sleep apnea: Code(s): G47.33 - Obstructive sleep apnea (adult) (pediatric) Status: Chronic Assessment and Plan: CPAP use while hospitalized Will continue to follow. Subjective Date/time seen: 01/09/23 11:05 Interval history: Follow-up for acute kidney injury/acute renal failure on chronic kidney disease. Creatinine/renal function still fluctuating by recent testing; Cardiology has transitioned bumex to chlorthalidone today in the hopes of proving ongoing diuresis but to maintain stability in renal function. Exam Narrative: General: elderly and somewhat fraileCaucasian female in NAD Heart: normal S1 and S2; no rub Lungs: diminished at bases with some bibasilar crackles Abdomen: soft, nontender, nondistended, positive bowel sounds Extremities: no cyanosis or clubbing; 1+ edema Skin: warm and dry Objective Data Vital Signs Vital Signs: Vital Signs Temp Pulse Resp BP Pulse Ox O2 Del Method O2 Flow Rate 01/09/23 08:50 68 01/09/23 07:57 70 20 01/09/23 07:37 70 20 01/09/23 07:37 94 Nasal Cannula 1 01/09/23 05:56 97.0 F L 70 14 122/67 99 01/09/23 04:56 81 22 H 01/09/23 04:44 80 22 H 01/08/23 23:25 73 18 01/08/23 20:13 65 16 01/08/23 23:17 70 18 98 Nasal Cannula 1 01/08/23 23:15 70 18 01/08/23 21:41 23 H 97 CPAP 01/08/23 21:38 97.8 F 70 18 125/63 98 01/08/23 20:03 64 16 01/08/23 20:03 64 16 96 Nasal Cannula 1 01/08/23 16:21 72 20 01/08/23 16:10 72 20 Intake/Output Intake/Output: Intake & Output 01/06/23 01/07/23 01/08/23 01/09/23 23:59 23:59 23:59 23:59 Intake Total 360 744 690 150 Output Total 950 1000 1450 600 Balance -590 -256 -760 -450 Meds/Results Medications: Active Medications Generic Name Dose Route Start Last Admin Trade Name Stephon PRN Reason Stop Dose Admin Acetaminophen 650 mg 12/27/22 11:01 01/09/23 12:17 Acetaminophen 325 Mg Tablet PO 650 mg Q4H PRN Administration Mild
[2023-01-09 12:04] LABS: Hematocrit 27.4 % (37.0-47.0); Hemoglobin 8.3 g/dL (12.0-15.0); Mean Corpuscular HGB Conc 30.3 g/dl (32-36); Mean Corpuscular Volume 98.9 fl (80-100); Platelet Count Result 173 k/mm3 (150-375); Red Blood Count 2.77 M/mm3 (4.2-5.4); Red Cell Distribution Width 16.5 % (11.5-14.5)
[2023-01-09] MEDS: ACETAMINOPHEN 325 MG TABLET 650 MG PO (12:17)
[2023-01-09] MEDS: WARFARIN (*PBKC) 3 MG TABLET BY MOUTH (17:17)
[2023-01-09 17:47] LABS: Creatinine Urine 39.7 mg/dL; Total Protein Urine Random 38 mg/dL; Ur Ttl Prot Creatinine Ratio 0.96 mg/mg (0-0.20); Urea Random Urine 370 MG/DL
[2023-01-09 17:54] LABS: Sodium Urine Random 20 meq/L
[2023-01-09 18:49] LABS: Eosinophil Urine None Seen % (None Seen); Urine Eos QC 2nd Tech Confirmed
[2023-01-09] MEDS: PRAVASTATIN SODIUM 10 MG TABLET PO (21:13)
[2023-01-10] VITALS (17 sets, daily range): BP systolic 113–146; BP diastolic 52–70; PULSE 68–76; RESP 18–22; TEMP 36.2–36.6; O2SAT 94–100
[2023-01-10] MEDS: IPRATROPIUM BR 0.02% INH SOLN 0.5 MG/2.5 ML VIAL INHALATION ×5 (01:20→23:23)
[2023-01-10] MEDS: ALBUTEROL SULFATE NEB 2.5 MG/3 ML INH INHALATION ×5 (01:20→23:24)
--- NOTE | 2023-01-10 01:25 | PCRCNOTE ---
Pt wore BIPAP for 4 hours overnight then wanted to come off
[2023-01-10] MEDS: HYDROcodone/acetaminophen (*CRX) 5-325 MG TABLET 1 TAB PO ×2 (03:13→19:58)
[2023-01-10] MEDS: AMOXICILLIN 500 MG CAPSULE 1000 MG PO ×3 (05:36→19:58)
[2023-01-10] MEDS: LEVOTHYROXINE SODIUM 25 MCG TABLET PO (05:36)
[2023-01-10 06:27] LABS: Basophils Percent Auto 0.5 % (0.2-1.2); Eosinophils Absolute Auto 0.2 K/mm3 (0-0.3); Eosinophils Percent Auto 2.2 % (0-4.4); Hematocrit 26.2 % (37.0-47.0); Hemoglobin 8.2 g/dL (12.0-15.0); Immature Granulocyte Absolute 0.07 K/mm3 (0.00-0.031); Lymphocytes Absolute Auto 0.82 K/mm3 (0.9-3.2); Lymphocytes Percent Auto 11.2 % (18.3-44.2); Mean Corpuscular HGB Conc 31.3 g/dl (32-36); Mean Corpuscular Hemoglobin 30.3 pg (26-34); Mean Corpuscular Volume 96.7 fl (80-100); Mean Platelet Volume 9.5 fl (7.4-10.4); Monocytes Absolute Auto 0.6 K/mm3 (0.1-0.6); Monocytes Percent Auto 8.8 % (2.6-8.5); Neutrophils Absolute Auto 5.6 K/mm3 (1.3-6.7); Neutrophils Percent Auto 76.3 % (45.5-73.1); Platelet Count Result 166 k/mm3 (150-375); Red Blood Count 2.71 M/mm3 (4.2-5.4); Red Cell Distribution Width 16.6 % (11.5-14.5); White Blood Count 7.3 K/mm3 (4.5-10.0)
[2023-01-10 06:51] LABS: Albumin Level 4.6 g/dL (3.5-5.1); Anion Gap 10 mmol/L (8-16); Blood Urea Nitrogen 80 mg/dL (7-17); Calcium 12.6 mg/dL (8.4-10.2); Carbon Dioxide 32 mmol/L (22-30); Chloride 95 mmol/L (98-107); Estimated CRCL calculation 17 ml/min; Estimated Glomerular Filt Rate 25; Glucose 102 mg/dL (65-110); Phosphorus 4.7 mg/dL (2.5-4.5); Potassium 5.2 mmol/L (3.4-5.0); Sodium 137 mmol/L (137-145)
[2023-01-10 07:23] LABS: Creatine Kinase < 20 U/L (30-135)
--- NOTE | 2023-01-10 09:39 | PM.IMPN ---
Progress Note: A&P Assessment and Plan (1) Weakness: Code(s): R53.1 - Weakness Status: Acute (2) Warfarin-induced coagulopathy: Code(s): D68.32 - Hemorrhagic disorder due to extrinsic circulating anticoagulants; T45.515A - Adverse effect of anticoagulants, initial encounter Status: Acute (3) Hematoma: Code(s): T14.8XXA - Other injury of unspecified body region, initial encounter Status: Acute (4) Chronic kidney disease, stage 3: Code(s): N18.30 - Chronic kidney disease, stage 3 unspecified Status: Chronic (5) Atrial fibrillation: Qualifiers: Atrial fibrillation type: unspecified Qualified Code(s): I48.91 - Unspecified atrial fibrillation Code(s): I48.91 - Unspecified atrial fibrillation Status: Acute (6) Anticoagulated on Coumadin: Code(s): Z79.01 - [facility] use of anticoagulants Status: Acute (7) Hypertension: Qualifiers: Hypertension type: essential hypertension Qualified Code(s): I10 - Essential (primary) hypertension Code(s): I10 - Essential (primary) hypertension Status: Acute (8) Hypothyroidism: Qualifiers: Hypothyroidism type: unspecified Qualified Code(s): E03.9 - Hypothyroidism, unspecified Code(s): E03.9 - Hypothyroidism, unspecified Status: Acute Plan Unspecified open wound of lower back and pelvis without penetration into retroperitoneum 87-year-old female presented with fever and chills. Daughter noted that wound VAC is leaking. Patient complaint of back pain. Some erythema noted around the wound VAC on arrival to the ED. workup evaluation showed elevated white cell count of 14 K with bandemia, INR elevated at 5.6 elevated lactic acid 2.5 and was started on IV vancomycin and Zosyn for suspected infected hematoma. . change to Augmentin 1 g q.8 hour on 01/01 consult GS. Subsequent workup revealed group a streptococcal bacteremia on ceftriaxone. Ampicillin sensitive. switch to amoxicillin as discussed with ID pharmacist. 1 g q.8 hour for total 10 days course. Negative blood culture on 12/31/2022 to date AFib on chronic anticoagulation with supratherapeutic INR on admission. One dose of vitamin K she received to bring INR down fenofibrate discontinued. INR subtherapeutic now. Will resume Coumadin. At 2.5 mg daily Pacemaker placement Hypertension Hyperlipidemia Chronic kidney disease Sleep apnea Hypothyroidism Hyponatremia mild Acute on chronic diastolic dysfunction, right heart failure, moderate to severe tricuspid regurgitation repeated echo reveals : ?Left ventricle grade 3 diastolic dysfunction, there is severe tricuspid valve regurgitation. Moderate pulmonary hypertension, estimated pulmonary arterial systolic pressure is 48 mmHg. Moderate to severe enlarged right heart Consult leather shaver Lower extremity edema on IV Bumex 1 mg twice daily CTA with interstitial edema right pleural effusion more than left pleural effusion. Negative for PE had weight daily. Creatinine slightly up trending today change from Bumex to 1 mg b.i.d.to oral chlorthalidone per cardiologsit 01/09 Kit Assembler consultation is appreciated SEB on CKD Worsening kidney function, likely secondary to diuretic medication and cardiorenal syndrome Consult director of physical education for evaluation and management Kidney condition continue to deteriorate DVT prophylaxis has supratherapeutic INR restarted on warfarin Code status full code Subjective Date/time seen: 01/10/23 09:39 Interval history: I saw exam patient today. Patient still has shortness of breath, but no obvious distress at rest. Patient afebrile blood pressure stable, kidneys condition continue to deteriorate Exam Narrative: General: Mildly ill-appearing elderly female not in acute distress HEENT: PERRL, EOMI. Sclera anicteric. Tacky mucous membranes. Neck:? Supple. Respiratory:? Diminished breath so
[2023-01-10] MEDS: METOPROLOL SUCCINATE EXT REL 50 MG TABCR PO (09:45)
[2023-01-10] MEDS: CHLORTHALIDONE 25 MG TABLET PO (09:46)
[2023-01-10] MEDS: SERTRALINE HCL 25 MG TABLET PO (09:46)
[2023-01-10] MEDS: CHOLECALCIFEROL 1,000 UNITS TABLET 1000 UNITS PO (09:46)
--- NOTE | 2023-01-10 09:59 | PCRCNOTE ---
Window of time for administration has passed. See next scheduled administration.
--- NOTE | 2023-01-10 10:04 | PM.PNCARD ---
Progress Note: A&P Assessment and Plan (1) Pulmonary hypertension: Code(s): I27.20 - Pulmonary hypertension, unspecified Status: Acute (2) Biventricular cardiac pacemaker in situ: Code(s): Z95.0 - Presence of cardiac pacemaker Status: Acute Plan 87-year-old lady with difficult combination of some pulmonary hypertension resulting in volume overload which the principal reason for her hospitalization. Aggressive diuretics have but utilized to improve this however she is becoming unacceptably azotemic with BUN of 80 and creatinine of 1.9. I was hoping that holding her loop diuretic and switching to chlorthalidone would help. I believe this needs to be held for the time being while we watch her renal function. We are clearly not going to be able to diurese away more of this lady's edema as her renal function is becoming significant concern. Dandy Stallworth MD [facility] Subjective Date/time seen: Date of service: 01/10/23 10:04 Interval history: Cardiology follow up for CHF 01/10/2023: Patient feels very weak and sense of generalized fatigue and malaise. No specific complaints. Exam Narrative: General: Elderly female sitting upright in bed, more awake, alert, appearing slightly drowsy but answering questions appropriately appearing fatigued but no obvious distress, alert and oriented x2-3, cooperative. Head: atraumatic, normocephalic Eyes: EOM intact, sclerae anicteric, conjunctivae unremarkable Ears/Nose: external inspection of ears and nose were grossly normal, O2 via nasal cannula Mouth/Throat: Dry oral mucosa pink and moist Neck: supple, normal range of motion, +12cm jugular venous distention sitting upright in bed, no obvious carotid bruits, thyroid nonpalpable, trachea midline. Cardiac: Regular rate and rhythm, soft S1 and S2, 3/6 holosystolic murmur LSB and apex, 3/6 RUSB crescendo-decrescendo systolic mid peaking and 2-3/6 systolic murmur LLSB Lungs: Diminished breath sounds diffusely, dullness at the bases faint crackles lower 1/3, no wheezes or obvious rhonchi. Abdomen: Softer, nontender, slightly distended, positive bowel sounds throughout with subcutaneous edema. Extremities: 1+ bilateral equal pitting lower extremity edema, no clubbing, or cyanosis. Extremities warm and well perfused. Skin: Warm and dry with scattered bruising upper extremities, bandaged wound right pretibial lower extremity Musculoskeletal: Muscle strength and tone intact with generalized weakness. Palpable subcutaneous device left anterior chest well-healed incision no tenderness, warmth erythema. Vascular: Carotid upstrokes 2+ bilaterally, radial pulses 2+ bilaterally, dorsalis pedis pulses 1+ bilaterally Neurologic: Cranial nerves 2-12 grossly intact, examination grossly nonfocal Psychiatric: Mood calm and appropriate. Const: General: comfortable, no acute distress, alert and awake Orientation/consciousness: patient oriented x3 HENMT: Head: normal to inspection Eyes: General: appearance normal, both eyes and all related structures Pupils: Equal, round and reactive pupils present Neck: Neck: normal visual inspection, supple and no JVD Carotids: normal carotid upstroke Resp: Effort & Inspection: normal respiratory effort Auscultation: clear to auscultation bilaterally and crackles Cardio: Rate: regular rate Rhythm: regular rhythm Heart sounds: S1 normal heart sound present, S2 normal heart sound present and Murmur heart sound present systolic GI: Auscultation: normal bowel sounds Skin: General skin exam: normal color Neuro: General: patient oriented x3 Cranial nerves: Yes Equal, round and reactive pupils present Extrem: General: abnormal to inspection Other: 1-2+ bilateral LE edema Psych: Appearance: grossly normal Mental Status: mental status grossly normal Objective Data Vital Signs Vital Signs: Vital Signs - 24 hr 01/09
--- NOTE | 2023-01-10 12:01 | PM.PNNEP ---
Progress Note: A&P Assessment and Plan (1) SEB (acute kidney injury): Code(s): N17.9 - Acute kidney failure, unspecified Status: Acute Assessment and Plan: continue to fluctuate presumably due to need for diuretic therapy for her volume overload and right sided CHF maybe a component of intravascular volume depletion despite outward appearance of volume overload elevated CO2, elevated albumin, and hypercalcemia would support this element of pre-renal azotemia playing a role as well? evalutaion to date: urine electrolytes pre-renal urine eosinophils negative CPK low renal ultrasound w/o obstruction follow trend of repeat labs and UOP (2) Chronic kidney disease, stage 3: Code(s): N18.30 - Chronic kidney disease, stage 3 unspecified Status: Chronic Assessment and Plan: baseline creatinine seems to run around 1.0 - 1.4mg/dl this causes her to fluctuate between stage 3A and 3B presumably due to hypertension, RADHA with pulmonary HTN, and age-related change recent findings of right sided heart failure and necessity of diuretic therapy likely playing a role as well (see #1) (3) CHF (congestive heart failure): Qualifiers: Heart failure type: diastolic Heart failure chronicity: acute on chronic Qualified Code(s): I50.33 - Acute on chronic diastolic (congestive) heart failure Code(s): I50.9 - Heart failure, unspecified Status: Acute Assessment and Plan: Cardiology following holding diuretics due to #1 follow I/Os, daily weights, and respiratory status (4) Atrial fibrillation: Qualifiers: Atrial fibrillation type: unspecified Qualified Code(s): I48.91 - Unspecified atrial fibrillation Code(s): I48.91 - Unspecified atrial fibrillation Status: Chronic Assessment and Plan: rate control strategy on anticoagulation (5) Obstructive sleep apnea: Code(s): G47.33 - Obstructive sleep apnea (adult) (pediatric) Status: Chronic Assessment and Plan: CPAP use while hospitalized Will continue to follow. Subjective Date/time seen: 01/10/23 12:01 Interval history: Follow-up for acute kidney injury/acute renal failure on chronic kidney disease. Renal function/creatinine a bit worse despite use of chlorthalidone instead of loop diuretics; diuretics placed on hold by Cardiology at this time; patient reports no significant change at this time. Exam Narrative: General: elderly and somewhat fraileCaucasian female in NAD Heart: normal S1 and S2; no rub Lungs: diminished at bases with some bibasilar crackles Abdomen: soft, nontender, nondistended, positive bowel sounds Extremities: no cyanosis or clubbing; 1+ edema Skin: warm and intact Objective Data Vital Signs Vital Signs: Vital Signs Temp Pulse Resp BP Pulse Ox O2 Del Method O2 Flow Rate 01/10/23 11:30 68 20 01/10/23 11:08 70 20 01/10/23 11:08 94 Nasal Cannula 2 01/10/23 07:50 70 18 100 Nasal Cannula 2 01/10/23 04:57 97.1 F L 70 18 146/70 H 100 01/10/23 01:24 Nasal Cannula 01/09/23 19:45 72 20 01/10/23 01:23 74 20 01/09/23 20:00 96 Nasal Cannula 1 01/09/23 21:51 27 H 96 CPAP 01/09/23 20:45 97.5 F L 70 24 H 100/50 L 95 01/09/23 19:39 70 22 H 01/09/23 15:43 72 20 01/09/23 15:34 94 Nasal Cannula 1 01/09/23 15:32 70 20 Intake/Output Intake/Output: Intake & Output 01/07/23 01/08/23 01/09/23 01/10/23 23:59 23:59 23:59 23:59 Intake Total 744 690 624 100 Output Total 1000 1450 1250 551 Gdmbmbg -256 -760 -626 -451 Meds/Results Medications: Active Medications Generic Name Dose Route Start Last Admin Trade Name Stephon PRN Reason Stop Dose Admin Acetaminophen 650 mg 12/27/22 11:01 01/09/23 12:17 Acetaminophen 325 Mg Tablet PO 650 mg Q4H PRN Administration Mild Pain (1-3) or
--- NOTE | 2023-01-10 12:01 | P.PNNP_ITS ---
Progress Note: A&P Assessment and Plan (1) SEB (acute kidney injury): Code(s): N17.9 - Acute kidney failure, unspecified Status: Acute Assessment and Plan: * continue to fluctuate * presumably due to need for diuretic therapy for her volume overload and right sided CHF * maybe a component of intravascular volume depletion despite outward appearance of volume overload * elevated CO2, elevated albumin, and hypercalcemia would support this * element of pre-renal azotemia playing a role as well? * evalutaion to date: * urine electrolytes pre-renal * urine eosinophils negative * CPK low * renal ultrasound w/o obstruction * follow trend of repeat labs and UOP (2) Chronic kidney disease, stage 3: Code(s): N18.30 - Chronic kidney disease, stage 3 unspecified Status: Chronic Assessment and Plan: * baseline creatinine seems to run around 1.0 - 1.4mg/dl * this causes her to fluctuate between stage 3A and 3B * presumably due to hypertension, RADHA with pulmonary HTN, and age-related change * recent findings of right sided heart failure and necessity of diuretic therapy likely playing a role as well (see #1) (3) CHF (congestive heart failure): Qualifiers: Heart failure type: diastolic Heart failure chronicity: acute on chronic Qualified Code(s): I50.33 - Acute on chronic diastolic (congestive) heart failure Code(s): I50.9 - Heart failure, unspecified Status: Acute Assessment and Plan: * Cardiology following * holding diuretics due to #1 * follow I/Os, daily weights, and respiratory status (4) Atrial fibrillation: Qualifiers: Atrial fibrillation type: unspecified Qualified Code(s): I48.91 - Unspecified atrial fibrillation Code(s): I48.91 - Unspecified atrial fibrillation Status: Chronic Assessment and Plan: * rate control strategy * on anticoagulation (5) Obstructive sleep apnea: Code(s): G47.33 - Obstructive sleep apnea (adult) (pediatric) Status: Chronic Assessment and Plan: * CPAP use while hospitalized Will continue to follow. Subjective Date/time seen: 01/10/23 12:01 Interval history: Follow-up for acute kidney injury/acute renal failure on chronic kidney disease. Renal function/creatinine a bit worse despite use of chlorthalidone instead of loop diuretics; diuretics placed on hold by Cardiology at this time; patient reports no significant change at this time. Exam Narrative: General: elderly and somewhat fraileCaucasian female in NAD Heart: normal S1 and S2; no rub Lungs: diminished at bases with some bibasilar crackles Abdomen: soft, nontender, nondistended, positive bowel sounds Extremities: no cyanosis or clubbing; 1+ edema Skin: warm and intact Objective Data Vital Signs Vital Signs: Vital Signs Temp Pulse Resp BP Pulse Ox O2 Del Method O2 Flow Rate 01/10/23 11:30 68 20 01/10/23 11:08 70 20 01/10/23 11:08 94 Nasal Cannula 2 01/10/23 07:50 70 18 100 Nasal Cannula 2 01/10/23 04:57 97.1 F L 70 18 146/70 H 100 01/10/23 01:24 Nasal Cannula 01/09/23 19:45 72 20 01/10/23 01:23 74 20 01/09/23 20:00 96 Nasal Cannula 1 01/09/23 21:51 27 H 96 CPAP 01/09/23 20:45 97.5 F L 70 24 H 10
[2023-01-10] MEDS: WARFARIN (*PBKC) 3 MG TABLET BY MOUTH (18:53)
[2023-01-10] MEDS: PRAVASTATIN SODIUM 10 MG TABLET PO (19:58)
[2023-01-10] MEDS: ALPRAZolam (*CRX) 0.125 MG TABLET PO (23:08)
[2023-01-11] VITALS (17 sets, daily range): BP systolic 104–125; BP diastolic 55–62; PULSE 69–72; RESP 16–22; TEMP 36.1–37; O2SAT 94–100
[2023-01-11] MEDS: ALBUTEROL SULFATE NEB 2.5 MG/3 ML INH INHALATION ×5 (03:06→19:55)
[2023-01-11] MEDS: IPRATROPIUM BR 0.02% INH SOLN 0.5 MG/2.5 ML VIAL INHALATION ×5 (03:06→19:55)
[2023-01-11] MEDS: LEVOTHYROXINE SODIUM 25 MCG TABLET PO (06:25)
[2023-01-11] MEDS: AMOXICILLIN 500 MG CAPSULE 1000 MG PO (06:26)
[2023-01-11] MEDS: HYDROcodone/acetaminophen (*CRX) 5-325 MG TABLET 1 TAB PO ×2 (07:49→20:25)
[2023-01-11] MEDS: CHOLECALCIFEROL 1,000 UNITS TABLET 1000 UNITS PO (07:49)
[2023-01-11] MEDS: SERTRALINE HCL 25 MG TABLET PO (07:50)
[2023-01-11] MEDS: METOPROLOL SUCCINATE EXT REL 50 MG TABCR PO (07:50)
[2023-01-11 08:11] LABS: Albumin Level 4.5 g/dL (3.5-5.1); Anion Gap 11 mmol/L (8-16); Blood Urea Nitrogen 87 mg/dL (7-17); Calcium 12.3 mg/dL (8.4-10.2); Carbon Dioxide 31 mmol/L (22-30); Chloride 95 mmol/L (98-107); Estimated CRCL calculation 19 ml/min; Estimated Glomerular Filt Rate 28; Glucose 94 mg/dL (65-110); Phosphorus 4.8 mg/dL (2.5-4.5); Potassium 4.4 mmol/L (3.4-5.0); Sodium 137 mmol/L (137-145)
[2023-01-11 08:13] LABS: Basophils Percent Auto 0.6 % (0.2-1.2); Eosinophils Absolute Auto 0.1 K/mm3 (0-0.3); Eosinophils Percent Auto 1.8 % (0-4.4); Hematocrit 25.7 % (37.0-47.0); Immature Granulocyte Absolute 0.04 K/mm3 (0.00-0.031); Immature Granulocyte Percent A 0.8 % (0-0.5); Lymphocytes Absolute Auto 0.57 K/mm3 (0.9-3.2); Lymphocytes Percent Auto 11.2 % (18.3-44.2); Mean Corpuscular HGB Conc 31.1 g/dl (32-36); Mean Corpuscular Volume 96.3 fl (80-100); Mean Platelet Volume 9.7 fl (7.4-10.4); Monocytes Absolute Auto 0.5 K/mm3 (0.1-0.6); Neutrophils Absolute Auto 3.9 K/mm3 (1.3-6.7); Neutrophils Percent Auto 76.6 % (45.5-73.1); Platelet Count Result 156 k/mm3 (150-375); Red Blood Count 2.67 M/mm3 (4.2-5.4); Red Cell Distribution Width 16.5 % (11.5-14.5); White Blood Count 5.1 K/mm3 (4.5-10.0)
--- NOTE | 2023-01-11 08:57 | PM.IMPN ---
Progress Note: A&P Assessment and Plan (1) Weakness: Code(s): R53.1 - Weakness Status: Acute (2) Warfarin-induced coagulopathy: Code(s): D68.32 - Hemorrhagic disorder due to extrinsic circulating anticoagulants; T45.515A - Adverse effect of anticoagulants, initial encounter Status: Acute (3) Hematoma: Code(s): T14.8XXA - Other injury of unspecified body region, initial encounter Status: Acute (4) Chronic kidney disease, stage 3: Code(s): N18.30 - Chronic kidney disease, stage 3 unspecified Status: Chronic (5) Atrial fibrillation: Qualifiers: Atrial fibrillation type: unspecified Qualified Code(s): I48.91 - Unspecified atrial fibrillation Code(s): I48.91 - Unspecified atrial fibrillation Status: Acute (6) Anticoagulated on Coumadin: Code(s): Z79.01 - care home (current) use of anticoagulants Status: Acute (7) Hypertension: Qualifiers: Hypertension type: essential hypertension Qualified Code(s): I10 - Essential (primary) hypertension Code(s): I10 - Essential (primary) hypertension Status: Acute (8) Hypothyroidism: Qualifiers: Hypothyroidism type: unspecified Qualified Code(s): E03.9 - Hypothyroidism, unspecified Code(s): E03.9 - Hypothyroidism, unspecified Status: Acute Plan Unspecified open wound of lower back and pelvis without penetration into retroperitoneum 87-year-old female presented with fever and chills. Daughter noted that wound VAC is leaking. Patient complaint of back pain. Some erythema noted around the wound VAC on arrival to the ED. workup evaluation showed elevated white cell count of 14 K with bandemia, INR elevated at 5.6 elevated lactic acid 2.5 and was started on IV vancomycin and Zosyn for suspected infected hematoma. . change to Augmentin 1 g q.8 hour on 01/01 consult GS. Subsequent workup revealed group a streptococcal bacteremia on ceftriaxone. Ampicillin sensitive. switch to amoxicillin as discussed with ID pharmacist. 1 g q.8 hour for total 10 days course. started on 01/01 Negative blood culture on 12/31/2022 to date AFib on chronic anticoagulation with supratherapeutic INR on admission. One dose of vitamin K she received to bring INR down fenofibrate discontinued. INR subtherapeutic now. Will resume Coumadin. At 2.5 mg daily Pacemaker placement Hypertension Hyperlipidemia Chronic kidney disease Sleep apnea Hypothyroidism Hyponatremia mild Acute on chronic diastolic dysfunction, right heart failure, moderate to severe tricuspid regurgitation repeated echo reveals : ?Left ventricle grade 3 diastolic dysfunction, there is severe tricuspid valve regurgitation. Moderate pulmonary hypertension, estimated pulmonary arterial systolic pressure is 48 mmHg. 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 Negative for PE had weight daily. Creatinine slightly up trending today change from Bumex to 1 mg b.i.d.to oral chlorthalidone per cardiologsit 01/09 [employer] Repairer consultation is appreciated SEB on CKD Worsening kidney function, likely secondary to diuretic medication and cardiorenal syndrome Consult senior it engineer for evaluation and management monitor kidney condition closesly DVT prophylaxis has supratherapeutic INR restarted on warfarin Code status full code Patient condition is guarded, prognosis is poor.. I have discussed the patient's condition with patient in presence of patient's son with permission of the patient. Subjective Date/time seen: 01/11/23 08:57 Interval history: I saw exam patient today. Patient still has shortness of breath, but no obvious distress at rest. Patient afebrile blood pressure stable, kidneys condition improves today Exam Narrative: [facility]
--- NOTE | 2023-01-11 09:00 | PM.PNCARD ---
Progress Note: A&P Assessment and Plan (1) CHF (congestive heart failure): Qualifiers: Heart failure chronicity: acute on chronic Heart failure type: diastolic Qualified Code(s): I50.33 - Acute on chronic diastolic (congestive) heart failure Code(s): I50.9 - Heart failure, unspecified Status: Acute Assessment and Plan: Preserved LV systolic function EF 65-70%, at least moderate RV enlargement preserved hypokinesis. Severe tricuspid regurgitation massive right atrial enlargement. Diuretics on hold now because of worsening renal function over the weekend. Continue to hold today. (2) Rnjao-ol-hphzrlv kidney injury: Qualifiers: Acute renal failure type: unspecified Chronic kidney disease stage: stage 3 (moderate) Chronic kidney disease stage 3 subtype: unspecified whether 3a or 3b Qualified Code(s): N17.9 - Acute kidney failure, unspecified; N18.30 - Chronic kidney disease, stage 3 unspecified Code(s): N17.9 - Acute kidney failure, unspecified; N18.9 - Chronic kidney disease, unspecified Status: Acute Assessment and Plan: As above, diuretics on hold. Monitor BMP daily. Nephrology following, appreciate recs. (3) Pulmonary hypertension: Code(s): I27.20 - Pulmonary hypertension, unspecified Status: Acute Assessment and Plan: History of severe pulmonary hypertension with severe tricuspid regurgitation from 2020. (4) Obstructive sleep apnea: Code(s): G47.33 - Obstructive sleep apnea (adult) (pediatric) Status: Acute Assessment and Plan: Compliance with CPAP (5) Atrial fibrillation: Qualifiers: Atrial fibrillation type: unspecified Qualified Code(s): I48.91 - Unspecified atrial fibrillation Code(s): I48.91 - Unspecified atrial fibrillation Status: Chronic Assessment and Plan: Persistent atrial fibrillation warfarin. Patient was supratherapeutic at presentation and given vitamin K. She is now subtherapeutic. Daily INR. (6) Biventricular cardiac pacemaker in situ: Code(s): Z95.0 - Presence of cardiac pacemaker Status: Acute Assessment and Plan: She has been ventricularly paced as expected by ECG. (7) Warfarin-induced coagulopathy: Code(s): D68.32 - Hemorrhagic disorder due to extrinsic circulating anticoagulants; T45.515A - Adverse effect of anticoagulants, initial encounter Status: Acute Assessment and Plan: Target INR 2.5 for history of atrial fibrillation. Subjective Date/time seen: 01/11/23 09:00 Interval history: Cardiology follow up for CHF 01/10/2023: Patient feels very weak and sense of generalized fatigue and malaise. No specific complaints. 01/11/2023: Continues to feel weak and fatigued. Denies chest pain, shortness of breath. Review of Systems Review of Systems: Remainder of the review of systems is otherwise negative aside from that noted in the HPI. All systems reviewed & are unremarkable except as noted in HPI and below Constitutional: Constitutional: Reports as per HPI and Reports no additional constitutional complaints Eyes: Eyes: Reports as per HPI and Reports no additional eye complaints ENT: Reports system reviewed and no additional complaints, except as documented and Reports as per HPI Cardiovascular: Cardiovascular: Reports as per HPI and Reports no additional cardiovascular complaints Respiratory: Respiratory: Reports as per HPI and Reports no additional respiratory complaints Gastrointestinal: Gastrointestinal: Reports as per HPI and Reports no additional gastrointestinal complaints Genitourinary: Genitourinary: Reports as per HPI Musculoskeletal: Musculoskeletal: Reports no additional musculoskeletal complaints and Reports as per HPI Integumentary/Breasts: Skin/Breast: Reports system reviewed and no additional complaints, except as docu and Reports as per HPI Neurologic: Reports system reviewed and no
--- NOTE | 2023-01-11 11:11 | PCNWS ---
Weekly nutritional screen. Patient is tolerating current heart healthy diet with intake varied from 25-100%, noted Ensure compact BID in place. Noted weight change of 7# following Bumex for swelling of lower extremities. No additional nutrition recommendations at this time.
--- NOTE | 2023-01-11 11:49 | PM.PNNEP ---
Progress Note: A&P Assessment and Plan (1) SEB (acute kidney injury): Code(s): N17.9 - Acute kidney failure, unspecified Status: Acute Assessment and Plan: continue to fluctuate presumably due to need for diuretic therapy for her volume overload and right sided CHF maybe a component of intravascular volume depletion despite outward appearance of volume overload elevated CO2, elevated albumin, and hypercalcemia would support this element of pre-renal azotemia playing a role as well? evalutaion to date: urine electrolytes pre-renal urine eosinophils negative CPK low renal ultrasound w/o obstruction follow trend of repeat labs and UOP (2) Chronic kidney disease, stage 3: Code(s): N18.30 - Chronic kidney disease, stage 3 unspecified Status: Chronic Assessment and Plan: baseline creatinine seems to run around 1.0 - 1.4mg/dl this causes her to fluctuate between stage 3A and 3B presumably due to hypertension, RADHA with pulmonary HTN, and age-related change recent findings of right sided heart failure and necessity of diuretic therapy likely playing a role as well (see #1) (3) CHF (congestive heart failure): Qualifiers: Heart failure type: diastolic Heart failure chronicity: acute on chronic Qualified Code(s): I50.33 - Acute on chronic diastolic (congestive) heart failure Code(s): I50.9 - Heart failure, unspecified Status: Acute Assessment and Plan: Cardiology following holding diuretics due to #1 follow I/Os, daily weights, and respiratory status (4) Atrial fibrillation: Qualifiers: Atrial fibrillation type: unspecified Qualified Code(s): I48.91 - Unspecified atrial fibrillation Code(s): I48.91 - Unspecified atrial fibrillation Status: Chronic Assessment and Plan: rate control strategy on anticoagulation (5) Obstructive sleep apnea: Code(s): G47.33 - Obstructive sleep apnea (adult) (pediatric) Status: Chronic Assessment and Plan: CPAP use while hospitalized May need to discuss with family skilled nursing goals of care as we are not making much progress with conservative care. Will continue to follow. Subjective Date/time seen: 01/11/23 11:49 Interval history: Follow-up for acute kidney injury/acute renal failure on chronic kidney disease. No real change in status or symptoms; no apparent distress but still does not feel very good. No other issues/events overnight or earlier this AM; diuretics remain on hold due to SEB/ARF. Exam Narrative: General: elderly and somewhat frail female in NAD Heart: normal S1 and S2; no rub Lungs: diminished at bases with some bibasilar crackles Abdomen: soft, nontender, nondistended, positive bowel sounds Extremities: no cyanosis or clubbing; 1+ edema Skin: no rash Objective Data Vital Signs Vital Signs: Vital Signs Temp Pulse Resp BP Pulse Ox O2 Del Method O2 Flow Rate 01/11/23 11:07 71 16 01/11/23 11:00 70 18 01/11/23 08:00 95 Nasal Cannula 2 01/11/23 07:10 72 16 01/11/23 07:00 71 16 01/11/23 07:00 71 16 94 Nasal Cannula 2 01/11/23 06:00 97.8 F 70 20 124/62 95 01/11/23 03:21 72 18 01/11/23 03:07 20 97 CPAP 01/11/23 03:07 71 18 01/10/23 22:25 CPAP 01/10/23 23:32 75 18 01/10/23 23:24 74 18 01/10/23 23:02 22 H 96 CPAP 01/10/23 20:00 100 Nasal Cannula 2 01/10/23 21:46 97.9 F 70 20 117/52 L 100 01/10/23 20:06 97.5 F L 70 20 113/54 L 100 01/10/23 19:31 72 18 01/10/23 19:22 95 Nasal Cannula 2 01/10/23 19:21 70 18 Intake/Output Intake/Output: Intake & Output 01/08/23 01/09/23 01/10/23 01/11/23 23:59 23:59 23:59 23:59 Intake Total 690 624 220 480 Output Total 1450 1250 1201 600 Balance -760 -626 -981 -120 Meds/Results Medications:
--- NOTE | 2023-01-11 11:49 | P.PNNP_ITS ---
Progress Note: A&P Assessment and Plan (1) SEB (acute kidney injury): Code(s): N17.9 - Acute kidney failure, unspecified Status: Acute Assessment and Plan: * continue to fluctuate * presumably due to need for diuretic therapy for her volume overload and right sided CHF * maybe a component of intravascular volume depletion despite outward appearance of volume overload * elevated CO2, elevated albumin, and hypercalcemia would support this * element of pre-renal azotemia playing a role as well? * evalutaion to date: * urine electrolytes pre-renal * urine eosinophils negative * CPK low * renal ultrasound w/o obstruction * follow trend of repeat labs and UOP (2) Chronic kidney disease, stage 3: Code(s): N18.30 - Chronic kidney disease, stage 3 unspecified Status: Chronic Assessment and Plan: * baseline creatinine seems to run around 1.0 - 1.4mg/dl * this causes her to fluctuate between stage 3A and 3B * presumably due to hypertension, RADHA with pulmonary HTN, and age-related change * recent findings of right sided heart failure and necessity of diuretic therapy likely playing a role as well (see #1) (3) CHF (congestive heart failure): Qualifiers: Heart failure type: diastolic Heart failure chronicity: acute on chronic Qualified Code(s): I50.33 - Acute on chronic diastolic (congestive) heart failure Code(s): I50.9 - Heart failure, unspecified Status: Acute Assessment and Plan: * Cardiology following * holding diuretics due to #1 * follow I/Os, daily weights, and respiratory status (4) Atrial fibrillation: Qualifiers: Atrial fibrillation type: unspecified Qualified Code(s): I48.91 - Unspecified atrial fibrillation Code(s): I48.91 - Unspecified atrial fibrillation Status: Chronic Assessment and Plan: * rate control strategy * on anticoagulation (5) Obstructive sleep apnea: Code(s): G47.33 - Obstructive sleep apnea (adult) (pediatric) Status: Chronic Assessment and Plan: * CPAP use while hospitalized May need to discuss with family cleaning porter goals of care as we are not making much progress with conservative care. Will continue to follow. Subjective Date/time seen: 01/11/23 11:49 Interval history: Follow-up for acute kidney injury/acute renal failure on chronic kidney disease. No real change in status or symptoms; no apparent distress but still does not feel very good. No other issues/events overnight or earlier this AM; diuretics remain on hold due to SEB/ARF. Exam Narrative: General: elderly and somewhat frail female in NAD Heart: normal S1 and S2; no rub Lungs: diminished at bases with some bibasilar crackles Abdomen: soft, nontender, nondistended, positive bowel sounds Extremities: no cyanosis or clubbing; 1+ edema Skin: no rash Objective Data Vital Signs Vital Signs: Vital Signs Temp Pulse Resp BP Pulse Ox O2 Del Method O2 Flow Rate 01/11/23 11:07 71 16 01/11/23 11:00 70 18 01/11/23 08:00 95 Nasal Cannula 2 01/11/23 07:10 72 16 01/11/23 07:00 71 16 01/11/23 07:00 71 16 94 Nasal Cannula 2 01/11/23 06:00 97.8 F 70 20 124/62 95 01/11/23 03:21 72 18 01/11/23 03:07 20 97 CPAP
[2023-01-11 14:23] LABS: INR 1.7; Prothrombin Time 21.2 Seconds (11.1-14.7)
[2023-01-11] MEDS: WARFARIN (*PBKC) 2 MG TABLET PO (17:10)
[2023-01-11] MEDS: WARFARIN (*PBKC) 5 MG TABLET BY MOUTH (17:10)
[2023-01-11] MEDS: SILVERGEL (ELTA) 45 ML 1 APPLIC TOPICAL (17:10)
[2023-01-11] MEDS: PRAVASTATIN SODIUM 10 MG TABLET PO (20:25)
[2023-01-12] VITALS (16 sets, daily range): BP systolic 116–140; BP diastolic 59–72; PULSE 65–75; RESP 14–20; TEMP 36.2–36.6; O2SAT 94–100
--- NOTE | 2023-01-12 01:30 | PC.NURSE ---
CPAP removed due to her request, she reports I can not breath , sats are 97% on room air, O2 2LNC placed for comfort.
[2023-01-12] MEDS: IPRATROPIUM BR 0.02% INH SOLN 0.5 MG/2.5 ML VIAL INHALATION ×5 (04:36→19:53)
[2023-01-12] MEDS: ALBUTEROL SULFATE NEB 2.5 MG/3 ML INH INHALATION ×5 (04:37→19:53)
[2023-01-12] MEDS: HYDROcodone/acetaminophen (*CRX) 5-325 MG TABLET 1 TAB PO ×2 (05:18→19:41)
[2023-01-12] MEDS: LEVOTHYROXINE SODIUM 25 MCG TABLET PO (05:42)
[2023-01-12 07:04] LABS: Albumin Level 4.2 g/dL (3.5-5.1); Anion Gap 9 mmol/L (8-16); Blood Urea Nitrogen 90 mg/dL (7-17); Calcium 11.9 mg/dL (8.4-10.2); Carbon Dioxide 32 mmol/L (22-30); Chloride 97 mmol/L (98-107); Estimated CRCL calculation 19 ml/min; Estimated Glomerular Filt Rate 28; Glucose 104 mg/dL (65-110); Potassium 4.5 mmol/L (3.4-5.0); Sodium 138 mmol/L (137-145)
[2023-01-12 07:15] LABS: Basophils Percent Auto 0.3 % (0.2-1.2); Eosinophils Absolute Auto 0.1 K/mm3 (0-0.3); Eosinophils Percent Auto 1.6 % (0-4.4); Hematocrit 24.5 % (37.0-47.0); Hemoglobin 7.6 g/dL (12.0-15.0); Immature Granulocyte Absolute 0.04 K/mm3 (0.00-0.031); Immature Granulocyte Percent A 0.6 % (0-0.5); Lymphocytes Absolute Auto 0.69 K/mm3 (0.9-3.2); Mean Corpuscular Hemoglobin 29.8 pg (26-34); Mean Corpuscular Volume 96.1 fl (80-100); Mean Platelet Volume 9.6 fl (7.4-10.4); Monocytes Absolute Auto 0.6 K/mm3 (0.1-0.6); Monocytes Percent Auto 9.9 % (2.6-8.5); Neutrophils Absolute Auto 4.8 K/mm3 (1.3-6.7); Neutrophils Percent Auto 76.6 % (45.5-73.1); Platelet Count Result 148 k/mm3 (150-375); Red Blood Count 2.55 M/mm3 (4.2-5.4); Red Cell Distribution Width 16.6 % (11.5-14.5); White Blood Count 6.3 K/mm3 (4.5-10.0)
--- NOTE | 2023-01-12 08:39 | PM.PNCARD ---
Progress Note: A&P Assessment and Plan (1) CHF (congestive heart failure): Qualifiers: Heart failure chronicity: acute on chronic Heart failure type: diastolic Qualified Code(s): I50.33 - Acute on chronic diastolic (congestive) heart failure Code(s): I50.9 - Heart failure, unspecified Status: Acute Assessment and Plan: Preserved LV systolic function EF 65-70%, at least moderate RV enlargement preserved hypokinesis. Severe tricuspid regurgitation massive right atrial enlargement. Diuretics on hold now because of worsening renal function over the weekend. Continue to hold today. (2) [id number] kidney injury: Qualifiers: Acute renal failure type: unspecified Chronic kidney disease stage: stage 3 (moderate) Chronic kidney disease stage 3 subtype: unspecified whether 3a or 3b Qualified Code(s): N17.9 - Acute kidney failure, unspecified; N18.30 - Chronic kidney disease, stage 3 unspecified Code(s): N17.9 - Acute kidney failure, unspecified; N18.9 - Chronic kidney disease, unspecified Status: Acute Assessment and Plan: As above, diuretics on hold. Monitor BMP daily. Nephrology following, appreciate recs. (3) Pulmonary hypertension: Code(s): I27.20 - Pulmonary hypertension, unspecified Status: Acute Assessment and Plan: History of severe pulmonary hypertension with severe tricuspid regurgitation from 2020. (4) Obstructive sleep apnea: Code(s): G47.33 - Obstructive sleep apnea (adult) (pediatric) Status: Acute Assessment and Plan: Compliance with CPAP (5) Atrial fibrillation: Qualifiers: Atrial fibrillation type: unspecified Qualified Code(s): I48.91 - Unspecified atrial fibrillation Code(s): I48.91 - Unspecified atrial fibrillation Status: Acute Assessment and Plan: Persistent atrial fibrillation warfarin. Patient was supratherapeutic at presentation and given vitamin K. She is now subtherapeutic with INR 1.8. Daily INR. (6) Biventricular cardiac pacemaker in situ: Code(s): Z95.0 - Presence of cardiac pacemaker Status: Acute Assessment and Plan: Will review device checks in the office. She has been ventricularly paced as expected by ECG. (7) Warfarin-induced coagulopathy: Code(s): D68.32 - Hemorrhagic disorder due to extrinsic circulating anticoagulants; T45.515A - Adverse effect of anticoagulants, initial encounter Status: Acute Assessment and Plan: Target INR 2.5 for history of atrial fibrillation. Subjective Date/time seen: 01/12/23 08:39 Interval history: Cardiology follow up for CHF 01/10/2023: Patient feels very weak and sense of generalized fatigue and malaise. No specific complaints. 01/11/2023: Continues to feel weak and fatigued. Denies chest pain, shortness of breath. 01/12/2023: Clinically she is largely unchanged from yesterday. Family considering hospice. She continues to feel very fatigued. Review of Systems Review of Systems: Remainder of the review of systems is otherwise negative aside from that noted in the HPI. All systems reviewed & are unremarkable except as noted in HPI and below Constitutional: Constitutional: Reports as per HPI and Reports no additional constitutional complaints Eyes: Eyes: Reports as per HPI and Reports no additional eye complaints ENT: Reports system reviewed and no additional complaints, except as documented and Reports as per HPI Cardiovascular: Cardiovascular: Reports as per HPI and Reports no additional cardiovascular complaints Respiratory: Respiratory: Reports as per HPI and Reports no additional respiratory complaints Gastrointestinal: Gastrointestinal: Reports as per HPI and Reports no additional gastrointestinal complaints Genitourinary: Genitourinary: Reports as per HPI Musculoskeletal: Musculoskeletal: Reports no additional musculoskeletal complaints and Reports
[2023-01-12] MEDS: METOPROLOL SUCCINATE EXT REL 50 MG TABCR PO (08:42)
[2023-01-12] MEDS: SERTRALINE HCL 25 MG TABLET PO (08:44)
[2023-01-12] MEDS: CHOLECALCIFEROL 1,000 UNITS TABLET 1000 UNITS PO (08:44)
--- NOTE | 2023-01-12 10:56 | PM.PNNEP ---
Progress Note: A&P Assessment and Plan (1) SEB (acute kidney injury): Code(s): N17.9 - Acute kidney failure, unspecified Status: Acute Assessment and Plan: continue to fluctuate presumably due to need for diuretic therapy for her volume overload and right sided CHF maybe a component of intravascular volume depletion despite outward appearance of volume overload elevated CO2, elevated albumin, and hypercalcemia would support this element of pre-renal azotemia playing a role as well? evalutaion to date: urine electrolytes pre-renal urine eosinophils negative CPK low renal ultrasound w/o obstruction follow trend of repeat labs and UOP (2) Chronic kidney disease, stage 3: Code(s): N18.30 - Chronic kidney disease, stage 3 unspecified Status: Chronic Assessment and Plan: baseline creatinine seems to run around 1.0 - 1.4mg/dl this causes her to fluctuate between stage 3A and 3B presumably due to hypertension, RADHA with pulmonary HTN, and age-related change recent findings of right sided heart failure and necessity of diuretic therapy likely playing a role as well (see #1) (3) CHF (congestive heart failure): Qualifiers: Heart failure type: diastolic Heart failure chronicity: acute on chronic Qualified Code(s): I50.33 - Acute on chronic diastolic (congestive) heart failure Code(s): I50.9 - Heart failure, unspecified Status: Acute Assessment and Plan: Cardiology following holding diuretics due to #1 follow I/Os, daily weights, and respiratory status (4) Atrial fibrillation: Qualifiers: Atrial fibrillation type: unspecified Qualified Code(s): I48.91 - Unspecified atrial fibrillation Code(s): I48.91 - Unspecified atrial fibrillation Status: Chronic Assessment and Plan: rate control strategy on anticoagulation (5) Obstructive sleep apnea: Code(s): G47.33 - Obstructive sleep apnea (adult) (pediatric) Status: Chronic Assessment and Plan: CPAP use while hospitalized Long and extensive discussion with the patient's daughter by phone regarding the problematic situation the patient is in -- we could continue diuretic therapy but this will likely continue to worsen kidneys and I suspect will probably progress/push her kidney function to the point of renal replacement therapy/dialysis. Her daughter voiced that the patient would not want to do dialysis. I told her that even if the patient wanted to do dialysis, I do know how well she would tolerated this intervention in general. I did discuss with her continued conservative therapy but reiterated that has not really made much improvement either. I also brought up palliative care and possible hospice given the limited treatment options available as well as she reports the rest of the family is talking about this option as well. Will continue to follow. Subjective Date/time seen: 01/12/23 10:56 Interval history: Follow-up for acute kidney injury/acute renal failure on chronic kidney disease. The patient is about the same -- not really any better and maybe a little worse with regard to her breathing along with swelling/edema; creatinine about the same but BUN rising; no other acute issues/evetns overnight or earlier this AM. Exam Narrative: General: elderly and somewhat frail female in NAD Heart: normal S1 and S2; no rub Lungs: diminished at bases with some bibasilar crackles Abdomen: soft, nontender, nondistended, positive bowel sounds Extremities: no cyanosis or clubbing; 1 - 2+ edema Skin: no nodules Objective Data Vital Signs Vital Signs: Vital Signs Temp Pulse Resp BP Pulse Ox O2 Del Method O2 Flow Rate 01/12/23 10:47 71 20 01/12/23 09:02 73 20 01/12/23 08:52 70 20 01/12/23 08:52 70 20 96 Nasal Cannula 2 01/12/23 08:42 72 01/12/23 05:26 97.3 F L 71 20 116/
[2023-01-12] MEDS: SILVERGEL (ELTA) 45 ML 1 APPLIC TOPICAL (13:00)
[2023-01-12 13:44] LABS: INR 1.8; Prothrombin Time 21.6 Seconds (11.1-14.7)
--- NOTE | 2023-01-12 14:00 | PCOTNOTE ---
Per RN, Patient's family having discussions about what options are available and possible hospice. Patient not seen for therapy this date.
--- NOTE | 2023-01-12 15:56 | PM.IMPN ---
Progress Note: A&P Assessment and Plan (1) Weakness: Code(s): R53.1 - Weakness Status: Acute (2) Warfarin-induced coagulopathy: Code(s): D68.32 - Hemorrhagic disorder due to extrinsic circulating anticoagulants; T45.515A - Adverse effect of anticoagulants, initial encounter Status: Acute (3) Hematoma: Code(s): T14.8XXA - Other injury of unspecified body region, initial encounter Status: Acute (4) Chronic kidney disease, stage 3: Code(s): N18.30 - Chronic kidney disease, stage 3 unspecified Status: Chronic (5) Atrial fibrillation: Qualifiers: Atrial fibrillation type: unspecified Qualified Code(s): I48.91 - Unspecified atrial fibrillation Code(s): I48.91 - Unspecified atrial fibrillation Status: Acute (6) Anticoagulated on Coumadin: Code(s): Z79.01 - half-way (current) use of anticoagulants Status: Acute (7) Hypertension: Qualifiers: Hypertension type: essential hypertension Qualified Code(s): I10 - Essential (primary) hypertension Code(s): I10 - Essential (primary) hypertension Status: Acute (8) Hypothyroidism: Qualifiers: Hypothyroidism type: unspecified Qualified Code(s): E03.9 - Hypothyroidism, unspecified Code(s): E03.9 - Hypothyroidism, unspecified Status: Acute Plan Unspecified open wound of lower back and pelvis without penetration into retroperitoneum 87-year-old female presented with fever and chills. Daughter noted that wound VAC is leaking. Patient complaint of back pain. Some erythema noted around the wound VAC on arrival to the ED. workup evaluation showed elevated white cell count of 14 K with bandemia, INR elevated at 5.6 elevated lactic acid 2.5 and was started on IV vancomycin and Zosyn for suspected infected hematoma. . change to Augmentin 1 g q.8 hour on 01/01 consult GS. PT / OT when pt feels better Subsequent workup revealed group a streptococcal bacteremia on ceftriaxone. Ampicillin sensitive. switch to amoxicillin as discussed with ID pharmacist. 1 g q.8 hour for total 10 days course. started on 01/01 Negative blood culture on 12/31/2022 to date AFib on chronic anticoagulation with supratherapeutic INR on admission. One dose of vitamin K she received to bring INR down fenofibrate discontinued. INR subtherapeutic now. Will resume Coumadin. At 2.5 mg daily Pacemaker placement Hypertension Hyperlipidemia Chronic kidney disease Sleep apnea Hypothyroidism Hyponatremia mild Acute on chronic diastolic dysfunction, right heart failure, moderate to severe tricuspid regurgitation repeated echo reveals : ?Left ventricle grade 3 diastolic dysfunction, there is severe tricuspid valve regurgitation. Moderate pulmonary hypertension, estimated pulmonary arterial systolic pressure is 48 mmHg. Moderate to severe enlarged right heart Lower extremity edema on chlorthalidone CTA with interstitial edema right pleural effusion more than left pleural effusion. Negative for PE had weight daily. 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 for evaluation and management monitor kidney condition closely nephrology rounding DVT prophylaxis has supratherapeutic INR restarted on warfarin Code status full code dc home with hospice v snf Subjective Date/time seen: 01/12/23 15:56 Interval history: PT looks chronically ill pt has history of diastolic chf, paroxysmal atrial fibrillation on chronic anticoagulation, pacemaker, hypertension, dyslipidemia, chronic kidney disease, sleep apnea, and hypothyroidism CHF excerbation v SEB Cardiology and nephrology rounding on pt Long discussion with sons and by the bedside plan to try medical management start back diuretics in the hospital and DC with SNF v hospice at home Review of Systems Review o
[2023-01-12] MEDS: WARFARIN (*PBKC) 3 MG TABLET BY MOUTH (16:55)
[2023-01-12 17:29] LABS: INR 1.9; Prothrombin Time 22.8 Seconds (11.1-14.7)
[2023-01-12] MEDS: PRAVASTATIN SODIUM 10 MG TABLET PO (21:29)
[2023-01-13] VITALS (11 sets, daily range): BP systolic 107–123; BP diastolic 59–63; PULSE 68–85; RESP 18; TEMP 36.2–36.3; O2SAT 99–100
[2023-01-13] MEDS: ALBUTEROL SULFATE NEB 2.5 MG/3 ML INH INHALATION ×4 (00:12→11:41)
[2023-01-13] MEDS: IPRATROPIUM BR 0.02% INH SOLN 0.5 MG/2.5 ML VIAL INHALATION ×4 (00:12→11:42)
[2023-01-13] MEDS: LEVOTHYROXINE SODIUM 25 MCG TABLET PO (05:33)
[2023-01-13 06:07] LABS: Basophils Percent Auto 0.7 % (0.2-1.2); Eosinophils Absolute Auto 0.1 K/mm3 (0-0.3); Eosinophils Percent Auto 2.3 % (0-4.4); Hematocrit 25.9 % (37.0-47.0); Hemoglobin 7.7 g/dL (12.0-15.0); Immature Granulocyte Absolute 0.05 K/mm3 (0.00-0.031); Immature Granulocyte Percent A 1.2 % (0-0.5); Lymphocytes Absolute Auto 0.61 K/mm3 (0.9-3.2); Lymphocytes Percent Auto 14.1 % (18.3-44.2); Mean Corpuscular HGB Conc 29.7 g/dl (32-36); Mean Corpuscular Hemoglobin 29.2 pg (26-34); Mean Corpuscular Volume 98.1 fl (80-100); Mean Platelet Volume 9.4 fl (7.4-10.4); Monocytes Absolute Auto 0.5 K/mm3 (0.1-0.6); Monocytes Percent Auto 11.5 % (2.6-8.5); Neutrophils Absolute Auto 3.1 K/mm3 (1.3-6.7); Neutrophils Percent Auto 70.2 % (45.5-73.1); Platelet Count Result 134 k/mm3 (150-375); Red Blood Count 2.64 M/mm3 (4.2-5.4); Red Cell Distribution Width 16.3 % (11.5-14.5); White Blood Count 4.3 K/mm3 (4.5-10.0)
[2023-01-13 06:20] LABS: Albumin Level 4.3 g/dL (3.5-5.1); Anion Gap 9 mmol/L (8-16); Blood Urea Nitrogen 91 mg/dL (7-17); Calcium 11.7 mg/dL (8.4-10.2); Carbon Dioxide 33 mmol/L (22-30); Chloride 96 mmol/L (98-107); Estimated CRCL calculation 21 ml/min; Estimated Glomerular Filt Rate 28; Glucose 97 mg/dL (65-110); Potassium 4.2 mmol/L (3.4-5.0); Sodium 138 mmol/L (137-145)
[2023-01-13 06:33] LABS: Anisocytosis 1+ (NORMAL); Hypochromasia 1+ (NORMAL); Poikilocytosis 1+ (NORMAL); Schistocytes None Seen (NORMAL)
[2023-01-13] MEDS: METOPROLOL SUCCINATE EXT REL 50 MG TABCR PO (08:26)
[2023-01-13] MEDS: SERTRALINE HCL 25 MG TABLET PO (08:26)
[2023-01-13] MEDS: CHOLECALCIFEROL 1,000 UNITS TABLET 1000 UNITS PO (08:36)
--- NOTE | 2023-01-13 10:14 | PCOTNOTE ---
Patient refused treatment this session due to pain and fatigue.
[2023-01-13] MEDS: HYDROmorphone HCL INJ (*CRX) 1 MG/ML SYR (10:34)
[2023-01-13 12:36] LABS: Kappa\\Lambda Light Chains 2.79 (0.26-1.65); Lambda Light Chain 34.9 mg/L (5.7-26.3)
--- NOTE | 2023-01-13 12:36 | PM.IMPN ---
Progress Note: A&P Assessment and Plan (1) Weakness: Code(s): R53.1 - Weakness Status: Acute (2) Warfarin-induced coagulopathy: Code(s): D68.32 - Hemorrhagic disorder due to extrinsic circulating anticoagulants; T45.515A - Adverse effect of anticoagulants, initial encounter Status: Acute (3) Hematoma: Code(s): T14.8XXA - Other injury of unspecified body region, initial encounter Status: Acute (4) Chronic kidney disease, stage 3: Code(s): N18.30 - Chronic kidney disease, stage 3 unspecified Status: Chronic (5) Atrial fibrillation: Qualifiers: Atrial fibrillation type: unspecified Qualified Code(s): I48.91 - Unspecified atrial fibrillation Code(s): I48.91 - Unspecified atrial fibrillation Status: Acute (6) Anticoagulated on Coumadin: Code(s): Z79.01 - residential (current) use of anticoagulants Status: Acute (7) Hypertension: Qualifiers: Hypertension type: essential hypertension Qualified Code(s): I10 - Essential (primary) hypertension Code(s): I10 - Essential (primary) hypertension Status: Acute (8) Hypothyroidism: Qualifiers: Hypothyroidism type: unspecified Qualified Code(s): E03.9 - Hypothyroidism, unspecified Code(s): E03.9 - Hypothyroidism, unspecified Status: Acute Plan Unspecified open wound of lower back and pelvis without penetration into retroperitoneum 87-year-old female presented with fever and chills. Daughter noted that wound VAC is leaking. Patient complaint of back pain. Some erythema noted around the wound VAC on arrival to the ED. workup evaluation showed elevated white cell count of 14 K with bandemia, INR elevated at 5.6 elevated lactic acid 2.5 and was started on IV vancomycin and Zosyn for suspected infected hematoma. . change to Augmentin 1 g q.8 hour on 01/01 Subsequent workup revealed group a streptococcal bacteremia on ceftriaxone. Ampicillin sensitive. switch to amoxicillin as discussed with ID pharmacist. 1 g q.8 hour for total 10 days course. started on 01/01 Negative blood culture on 12/31/2022 to date AFib on chronic anticoagulation with supratherapeutic INR on admission. One dose of vitamin K she received to bring INR down fenofibrate discontinued. INR subtherapeutic now. Will resume Coumadin. At 2.5 mg daily Pacemaker placement Hypertension Hyperlipidemia Chronic kidney disease Sleep apnea Hypothyroidism Hyponatremia mild Acute on chronic diastolic dysfunction, right heart failure, moderate to severe tricuspid regurgitation repeated echo reveals : ?Left ventricle grade 3 diastolic dysfunction, there is severe tricuspid valve regurgitation. Moderate pulmonary hypertension, estimated pulmonary arterial systolic pressure is 48 mmHg. Moderate to severe enlarged right heart Lower extremity edema on chlorthalidone CTA with interstitial edema right pleural effusion more than left pleural effusion. Negative for PE had weight daily. cardiology rounding CHF exacerbation v SEB Cardiology and nephrology rounding on pt Long discussion with sons by the bedside plan to try medical management start back diuretics in the hospital and DC with SNF v hospice at home SEB on CKD Worsening kidney function, likely secondary to diuretic medication and cardiorenal syndrome Consult change management lead for evaluation and management monitor kidney condition closely nephrology rounding CHF exacerbation v SEB Cardiology and nephrology rounding on pt Long discussion with sons by the bedside plan to try medical management start back diuretics in the hospital and DC with SNF v hospice at home DVT prophylaxis has supratherapeutic INR restarted on warfarin Code status full code pt not able to do any theraphy dc home with hospice v snf family considering hospice in [facility] Subjective Date/time seen: 01/13/23 12:36 Interval history: PT looks
[2023-01-13 13:23] LABS: INR 1.9; Prothrombin Time 22.7 Seconds (11.1-14.7)
--- NOTE | 2023-01-13 14:35 | PM.DS ---
DS: Admitting Diagnosis Discharge Date 01/13/2023 Admitting Diagnosis Weakness DS: Discharge Diagnosis Discharge Diagnosis (1) Weakness: Code(s): R53.1 - Weakness Status: Acute (2) Warfarin-induced coagulopathy: Code(s): D68.32 - Hemorrhagic disorder due to extrinsic circulating anticoagulants; T45.515A - Adverse effect of anticoagulants, initial encounter Status: Acute Assessment and Plan: see below (3) Hematoma: Code(s): T14.8XXA - Other injury of unspecified body region, initial encounter Status: Acute (4) Chronic kidney disease, stage 3: Code(s): N18.30 - Chronic kidney disease, stage 3 unspecified Status: Chronic (5) Atrial fibrillation: Qualifiers: Atrial fibrillation type: unspecified Qualified Code(s): I48.91 - Unspecified atrial fibrillation Code(s): I48.91 - Unspecified atrial fibrillation Status: Acute (6) Anticoagulated on Coumadin: Code(s): Z79.01 - [facility]DC (current) use of anticoagulants Status: Acute (7) Hypertension: Qualifiers: Hypertension type: essential hypertension Qualified Code(s): I10 - Essential (primary) hypertension Code(s): I10 - Essential (primary) hypertension Status: Acute (8) Hypothyroidism: Qualifiers: Hypothyroidism type: unspecified Qualified Code(s): E03.9 - Hypothyroidism, unspecified Code(s): E03.9 - Hypothyroidism, unspecified Status: Acute Plan Unspecified open wound of lower back and pelvis without penetration into retroperitoneum 87-year-old female presented with fever and chills. Daughter noted that wound VAC is leaking. Patient complaint of back pain. Some erythema noted around the wound VAC on arrival to the ED. workup evaluation showed elevated white cell count of 14 K with bandemia, INR elevated at 5.6 elevated lactic acid 2.5 and was started on IV vancomycin and Zosyn for suspected infected hematoma. . change to Augmentin 1 g q.8 hour on 01/01 Subsequent workup revealed group a streptococcal bacteremia on ceftriaxone. Ampicillin sensitive. switch to amoxicillin as discussed with ID pharmacist. 1 g q.8 hour for total 10 days course. started on 01/01 Negative blood culture on 12/31/2022 to date AFib on chronic anticoagulation with supratherapeutic INR on admission. One dose of vitamin K she received to bring INR down fenofibrate discontinued. INR subtherapeutic now. Will resume Coumadin. At 2.5 mg daily Pacemaker placement Hypertension Hyperlipidemia Chronic kidney disease Sleep apnea Hypothyroidism Hyponatremia mild Acute on chronic diastolic dysfunction, right heart failure, moderate to severe tricuspid regurgitation repeated echo reveals : ?Left ventricle grade 3 diastolic dysfunction, there is severe tricuspid valve regurgitation. Moderate pulmonary hypertension, estimated pulmonary arterial systolic pressure is 48 mmHg. Moderate to severe enlarged right heart Lower extremity edema on chlorthalidone CTA with interstitial edema right pleural effusion more than left pleural effusion. Negative for PE had weight daily. cardiology rounding CHF exacerbation v SEB Cardiology and nephrology rounding on pt Long discussion with sons by the bedside plan to try medical management start back diuretics in the hospital I recommend hospice overall condition is poor Family have decided on hospice with [facility] SEB on CKD Worsening kidney function, likely secondary to diuretic medication and cardiorenal syndrome Consult shook machine operator for evaluation and management monitor kidney condition closely nephrology rounding CHF exacerbation v SEB Cardiology and nephrology rounding on pt Long discussion with sons by the bedside plan to try medical management nephrology states prognosis is poor recommends hospice DVT prophylaxis has supratherapeutic INR restarted on warfarin Code status full code pt not able to do
[2023-01-13 15:38] LABS: Albumin 4.7 g/dL (3.8-4.8); Alpha 1 Globulin 0.4 g/dL (0.2-0.3); Alpha 2 Globulin 0.5 g/dL (0.5-0.9); Beta 1 Globulin 0.3 g/dL (0.4-0.6); Gamma Globulin 0.6 g/dL (0.8-1.7); Protein, Total 6.6 g/dL (6.1-8.1)
[2023-01-17 23:43] LABS: Creatinine, Random Urine 42 mg/dL (20-275); Total Protein/Creatinine Ratio 786 mg/g creat (24-184)
== END 2023-01-13 14:58 | disposition hospice, inpatient (51) | DRG 604 ==
LOC: ANHED 10:55 → ANH3MEDSUR 12:03
PROVIDERS: Hospitalist; Internal Medicine; Internal Medicine Cardiovascular Disease; Internal Medicine Nephrology; Nurse Practitioner; Nurse Practitioner Family; Physician Assistant; Admitting Provider Family Medicine; Emergency Provider Emergency Medicine; PCP Physician Assistant; Visit Provider Hospitalist
DX: S31.000A Unspecified open wound of lower back and pelvis without penetration into retroperitoneum, initial encounter (principal); I50.33 Acute on chronic diastolic (congestive) heart failure; D68.32 Hemorrhagic disorder due to extrinsic circulating anticoagulants; E87.1 Hypo-osmolality and hyponatremia; I48.19 Other persistent atrial fibrillation; I13.0 Hypertensive heart and chronic kidney disease with heart failure and stage 1 through stage 4 chronic kidney disease, or unspecified chronic kidney disease; N17.8 Other acute kidney failure; R78.81 Bacteremia; L08.89 Other specified local infections of the skin and subcutaneous tissue; T50.2X5A Adverse effect of carbonic-anhydrase inhibitors, benzothiadiazides and other diuretics, initial encounter; T45.515A Adverse effect of anticoagulants, initial encounter; B95.0 Streptococcus, group A, as the cause of diseases classified elsewhere; N18.30 Chronic kidney disease, stage 3 unspecified; W19.XXXA Unspecified fall, initial encounter; E03.9 Hypothyroidism, unspecified; E78.5 Hyperlipidemia, unspecified; R41.82 Altered mental status, unspecified; T40.605A Adverse effect of unspecified narcotics, initial encounter; T42.6X5A Adverse effect of other antiepileptic and sedative-hypnotic drugs, initial encounter; K58.0 Irritable bowel syndrome with diarrhea; I70.0 Atherosclerosis of aorta; G47.33 Obstructive sleep apnea (adult) (pediatric); M81.0 Age-related osteoporosis without current pathological fracture; H40.9 Unspecified glaucoma; D72.829 Elevated white blood cell count, unspecified; H35.30 Unspecified macular degeneration; I27.20 Pulmonary hypertension, unspecified; Z79.01 Long term (current) use of anticoagulants; Z95.0 Presence of cardiac pacemaker; Z87.891 Personal history of nicotine dependence; Z90.49 Acquired absence of other specified parts of digestive tract; Z90.710 Acquired absence of both cervix and uterus
CPT/HCPCS: 36415; 36600; 71045; 71046; 71275; 73502; 76775; 80048; 80053; 80069; 81003; 81050; 82375; 82550; 82570; 82805; 83050; 83605; 83735; 83880; 83883; 84155; 84156; 84165; 84166; 84300; 84443; 84540; 85025; 85027; 85610; 85730; 85999; 86140; 87040; 87147; 87186; 87493; 93005; 93306; 94640; 97110; 97162; 97166; 97530; 97535; 99285; A9270; J0696; J1170; J1940; J2270; J2543; J3370; J7030; J7120; P9047; Q9967

== ENCOUNTER 2023-01-13 15:36 | HOS | payer OTHER, MEDICARE, BC, SELFPAY ==
[2023-01-13 16:00] VITALS: BP 128/68; PULSE 70; RESP 18; TEMP 36.9; O2SAT 100
[2023-01-13] MEDS: HYDROmorphone HCL INJ (*CRX) 1 MG/ML SYR 0.5 MG IV PUSH (16:22)
[2023-01-13 16:23] VITALS: PULSE 68; RESP 18
[2023-01-13] MEDS: HYDROmorphone HCL/PF (*CRX) 50 MG in SODIUM CHLORIDE 0.9% IV 95 ML IV CONT (16:23)
--- NOTE | 2023-01-13 17:10 | PM.IMHP ---
H&P: HPI History of Present Illness Date/Time: 01/13/23 17:10 Chief Complaint: uncontrolled pain Narrative: 87-year-old female with paroxysmal atrial fibrillation on chronic anticoagulation, pacemaker, hypertension, dyslipidemia, chronic kidney disease, sleep apnea, and hypothyroidism who presented to the emergency department 12/27/22 via EMS from home for evaluation of weakness. She was found to have a wound on her back with strep bacteremia sensitive to penicillin. She had acute kidney injury. She had acute on chronic diastolic heart failure. Her INR was elevated and was corrected with Vitamin K. In spite of diuresis and treatment of her wound with I/D, vancomycin and Zosyn initially and then p.o. amoxicillin 01/01 she continued to decline with decreasing functional status and decreased appetite. Because of her uncontrolled pain restlessness and dyspnea and failure to improve overall her family opted for inpatient hospice service for symptom management. Review of Systems Review of Systems: ROS unobtainable: Yes unobtainable due to medical condition [facility] Past Medical History Medical History (Updated 01/13/23 @ 17:16 by Leandro Hernandez MD) Anticoagulated on Coumadin Arthritis Atrial fibrillation Chronic kidney disease, stage 3 Diverticulitis large intestine (12/2018) Hyperlipidemia Hypertension Hypothyroidism Irritable bowel syndrome with diarrhea Obstructive sleep apnea Osteoporosis Pulmonary hypertension Visual loss, both eyes Due to glaucoma and macular degeneration. Surgical History Surgical History History of appendectomy History of hysterectomy History of permanent cardiac pacemaker placement History of tonsillectomy Family History Family History Sibling Family history of arthritis Patient's brother is in good health Hypertension Mother Patient's mother is Father Cerebrovascular accident Family history of heart disease in male family member before age 55 Hypertension Social History Social History Social History: Surrogate medical decision maker: Katia Novoa, daughter. Code status: Full code. Smoking packs per day: 0.5 Smoking cigarettes per day: 10.0 Years smoked: 10 Smoking pack-years: 5.00 Smoking status: Light tobacco smoker Tobacco type: cigarettes Second hand tobacco smoke exposure: Yes Smoking end date: 04/12/69 Alcohol intake: current Drinks per week: 1 Alcohol use details: Occasional glass of wine. Substance use: never Substance use type: does not use Lack of Transportation: No Lack of Food: Never True Current Housing: I Have Housing Concerned About Future Housing: No Difficulty Paying Gas/Electric Bills: No Difficulty Paying for Meds: No Currently Unemployed: No Education: Grade School Difficulty w/ Childcare or Family Care: No Spiritual care concerns: No Meds Home Medications and Allergies Home Medications Medication Instructions Recorded Confirmed Type cholecalciferol (vitamin D3) 25 25 mcg PO DAILY 02/24/21 12/27/22 History mcg (1,000 unit) capsule (Vitamin D3) fenofibrate nanocrystallized 48 mg 48 mg PO DAILY 02/24/21 12/27/22 History tablet metoprolol succinate 50 mg 50 mg PO DAILY 02/24/21 12/27/22 History tablet,extended release 24 hr (Toprol XL) pravastatin 10 mg tablet 10 mg PO HS 02/24/21 12/27/22 History sertraline 25 mg tablet 25 mg PO DAILY #90 tabs 08/04/22 12/27/22 Rx warfarin 2.5 mg tablet See Rx Instructions .Route .COMPLEX 12/03/22 12/27/22 History cephalexin 500 mg capsule 500 mg PO Q12HR #14 caps 12/09/22 12/27/22 Rx levothyroxine 25 mcg tablet 25 mcg PO DAILY #90 tabs 12/22/22 12/27/22 Rx hydrocodone 5 mg-acetaminophen 325 1 tablet PO Q8H PRN pain #15 tabs 12/25/22 12/27/22 Rx mg tabl
[2023-01-13 17:43] VITALS: O2SAT 100
[2023-01-13 18:44] VITALS: BMI 27.6
[2023-01-13 20:00] VITALS: BP 127/66; PULSE 70; RESP 16; TEMP 36.4; O2SAT 98
--- NOTE | 2023-01-14 09:30 | PM.IMPN ---
Progress Note: A&P Assessment and Plan (1) Palliative care encounter: Code(s): Z51.5 - Encounter for palliative care Status: Acute Assessment and Plan: Meet inpatient hospice criteria due to recurrent continuous IV hydromorphone for control of pain, dyspnea, and restlessness. Remainder of palliative regimen as ordered. Discussed care prognosis with multiple family members at bedside, including discussion of sedating affects of medication versus pain shortness of breath and restlessness that she was experiencing prior to use of medication. Discussed medication may need to be titrated higher as her illness progresses. (2) Sepsis: Qualifiers: Sepsis acute organ dysfunction status: unspecified Sepsis type: sepsis due to unspecified organism Qualified Code(s): A41.9 - Sepsis, unspecified organism Code(s): A41.9 - Sepsis, unspecified organism Status: Acute (3) Altered mental status: Qualifiers: Altered mental status type: unspecified Qualified Code(s): R41.82 - Altered mental status, unspecified Code(s): R41.82 - Altered mental status, unspecified Status: Acute (4) Yrvuh-xo-[id number] kidney injury: Qualifiers: Acute renal failure type: unspecified Chronic kidney disease stage: stage 3 (moderate) Chronic kidney disease stage 3 subtype: unspecified whether 3a or 3b Qualified Code(s): N17.9 - Acute kidney failure, unspecified; N18.30 - Chronic kidney disease, stage 3 unspecified Code(s): N17.9 - Acute kidney failure, unspecified; N18.9 - Chronic kidney disease, unspecified Status: Acute (5) CHF (congestive heart failure): Qualifiers: Heart failure type: diastolic Heart failure chronicity: acute on chronic Qualified Code(s): I50.33 - Acute on chronic diastolic (congestive) heart failure Code(s): I50.9 - Heart failure, unspecified Status: Acute (6) Bacteremia: Code(s): R78.81 - Bacteremia Status: Acute (7) Open wound of lower back: Code(s): S31.000A - Unspecified open wound of lower back and pelvis without penetration into retroperitoneum, initial encounter Status: Acute (8) Hypothyroidism: Code(s): E03.9 - Hypothyroidism, unspecified Status: Acute (9) Hypertension: Qualifiers: Hypertension type: essential hypertension Qualified Code(s): I10 - Essential (primary) hypertension Code(s): I10 - Essential (primary) hypertension Status: Acute Subjective Date/time seen: 01/14/23 09:30 Interval history: Whenever weak she complains of pain all over. Currently on hydromorphone 0.25 milligrams/hour. Only intake has been the water on an oral swab. Currently she is awake and interacting with family looking at photos and videos on her phone. She is surrounded by family. Review of Systems Review of Systems: ROS unobtainable: Yes unobtainable due to medical condition Exam Narrative: Drowsy but arouses easily. Oriented to person. Sclerae nonicteric. Speech slightly slurred. Respirations mildly tachypneic. Generalized weakness. Objective Data Vital Signs Vital Signs: Vital Signs - 24 hr 01/13/23 16:23 01/13/23 16:00 01/13/23 17:43 Temperature 98.5 F Pulse Rate 68 70 Respiratory Rate 18 18 Blood Pressure 128/68 Pulse Oximetry 100 100 Oxygen Delivery Nasal Cannula Oxygen Flow Rate 2 01/13/23 20:00 01/13/23 20:00 Temperature 97.5 F L Pulse Rate 70 70 Respiratory Rate 16 16 Blood Pressure 127/66 Pulse Oximetry 98 98 Oxygen Delivery Nasal Cannula Oxygen Flow Rate 2 Intake/Output Intake/Output: Intake & Output 01/11/23 01/12/23 01/13/23 01/14/23 23:59 23:59 23:59 23:59 Intake Total 240 Output Total 150 Balance 240 -150 Meds/Results Medications: Active Medications Generic Name Dose Route Start Last Admin Trade Name Freq PRN Reason Stop Dose Admin Artificial Tears 0
[2023-01-14] MEDS: HYDROmorphone HCL INJ (*CRX) 1 MG/ML SYR 0.5 MG IV PUSH ×2 (11:01→22:11)
[2023-01-14] MEDS: diazePAM INJ (*CRX) 10 MG/2 ML SYRINGE 5 MG IV PUSH ×2 (12:30→20:41)
[2023-01-14 14:13] VITALS: BP 78/49; PULSE 60; RESP 22; TEMP 36.5; O2SAT 94
[2023-01-14] MEDS: HYDROmorphone HCL/PF (*CRX) 50 MG in SODIUM CHLORIDE 0.9% IV 95 ML IV CONT (17:13)
[2023-01-14 20:00] VITALS: BP 95/52; PULSE 70; RESP 20; TEMP 36.3; O2SAT 94; O2SAT 96
--- NOTE | 2023-01-14 23:35 | PC.NURSE ---
Tech called nurse to room. This nurse and charge nurse Philippe verified time of at 2330. Daughter at bedside.
--- NOTE | 2023-01-20 10:17 | P.DN_ITS ---
Discharge Summary Date and Time Date of : 01/14/23 Time of : 23:30 Provider Pronounced By: Philippe Wagner Probable Cause of Probable Cause of : Sepsis with bacteremia due to wound infection Summary Hospital Course: Admitted to inpatient hospice service for symptoms management. Medications titrated to comfort. Mrs. Rasheed peacefully. Additional Data Confirmation of as documented by pronouncing clinician: Pupillary Reflex, Palpable Pulses, Response to Stimuli, Heart Tones and Breath Sounds Name of Provider Notified: David Time Provider Notified: 23:46 Provider Requests Autopsy: No Actionscript Developer Notified: Yes Date [facility] Notified of : 01/14/23 Time [facility] Notified of : 23:38
== END 2023-01-14 23:30 | disposition expired | DRG 951 ==
PROVIDERS: Admitting Provider Internal Medicine; PCP Physician Assistant; Visit Provider Internal Medicine
DX: Z51.5 Encounter for palliative care (principal); A41.9 Sepsis, unspecified organism; I50.33 Acute on chronic diastolic (congestive) heart failure; I13.0 Hypertensive heart and chronic kidney disease with heart failure and stage 1 through stage 4 chronic kidney disease, or unspecified chronic kidney disease; N17.9 Acute kidney failure, unspecified; N18.30 Chronic kidney disease, stage 3 unspecified; E03.9 Hypothyroidism, unspecified; S31.000A Unspecified open wound of lower back and pelvis without penetration into retroperitoneum, initial encounter; I48.91 Unspecified atrial fibrillation; M19.90 Unspecified osteoarthritis, unspecified site; G47.33 Obstructive sleep apnea (adult) (pediatric); M81.0 Age-related osteoporosis without current pathological fracture; E78.5 Hyperlipidemia, unspecified; Z79.01 Long term (current) use of anticoagulants; Z95.0 Presence of cardiac pacemaker; Z90.710 Acquired absence of both cervix and uterus; Z90.49 Acquired absence of other specified parts of digestive tract
CPT/HCPCS: A9270; J1170; J3360